=== PATIENT | female | born 1970 | race Asian ===

== ENCOUNTER → 2021-12-22 09:31 | Outpatient (BNVA) | payer OTHER, SELFPAY | PROVIDERS: Visit Provider Psychiatry & Neurology Neurology ==

== ENCOUNTER → 2023-04-06 07:55 | Outpatient (BNVA) | payer OTHER, MEDICARE, SELFPAY | PROVIDERS: PCP Physician Assistant Medical; Visit Provider Psychiatry & Neurology Neurology ==

== ENCOUNTER 2023-08-09 09:13 | Outpatient (AMB) | payer OTHER, MEDICARE, SELFPAY ==
--- NOTE | 2023-08-09 09:16 | MHC.OFFVIS ---
Intake Vital Signs 08/09/23 09:17 Height 5 ft 5 in Weight 114 lb BMI 19.0 BP 100/70 Blood Pressure Location Rt brachial Position Sitting Pulse 88 Pulse Source Pulse Oximeter Pulse Oximetry (%) 98 Oxygen Delivery Method Room Air Intake Visit Reasons: 4m follow up Parkinson's-lvm Intake Note: Patient presents for 4 month follow up parkinson's. Patient states she had abdominal surgery in may that kind of set up her parkinsons making her weak Allergies No Known Allergies Allergy (Verified 08/09/23 09:19) Medication List - Last Reconciled 08/09/23 by Karolina Jones MD carbidopa-levodopa 25-100 mg (Sinemet) 1.5 tabs PO .5 times a day entacapone 200 mg PO TID famotidine 20 mg PO DAILY gabapentin 600 mg (2 x 300 mg) PO TID PRN ketorolac 0.5% drps ophthalmic (eye) magnesium 200 mg PO DAILY omeprazole 40 mg PO DAILY omeprazole 40 mg PO DAILY polyethylene glycol 3350 (Miralax) 17 grams PO DAILY tenofovir disoproxil fumarate 300 mg PO BEDTIME trazodone 50 mg PO BEDTIME PRN trihexyphenidyl 1 mg (1/2 x 2 mg) PO Q6H HPI HPI Comments History of Present Illness Details 53-year-old female comes for follow-up of her Parkinson's disease complicated by severe dyskinesia and on-off fluctuations.she had a bowel surgery - resection and wa sin bed for 2 weeks . she is feeling better but weaker. she has home PT. She has epsiodes of sudden neck spasm - massage helps. she is stable with amantadine 100mg bid , sinemet 25/100 1.5 tabs 5 times and trihexyphenidyl 1mg qid comtan 200mg tid she had 2 falls . she reports muscle cramps - painful dystonia lasting 5min after taking sinemet dose- she has 2-3 times a day, muscle cramp cream helps. She is accompanied by her daughter who helps with the history. Patient also has history of spinal stenosis and lumbar spondylosis which affects her walking. Her back pain is better and she takes gabapentin on a as needed basis. she is under the care of pain management. She denies any numbness or tingling. She uses a cane to walk and occasionally loses balance. She denies any hallucinations dysphagia memory issues etc.. she sleeps better with trazodone. [facility] Medical History (Updated 08/09/23 @ 09:33 by Karolina Jones MD) Parkinson's disease with dyskinesia and fluctuating manifestations Cataract Parkinsons disease Insomnia Congenital nystagmus Albinism Lumbar spondylosis Surgical History H/O abdominal surgery Hx laparoscopic cholecystectomy H/O Spinal surgery Social History Unable to assess alcohol history related to: Unable to respond Alcohol intake: never Patient Tobacco Use Status: Never used Tobacco Physical Exam Vital Signs: Last Vital Signs Pulse 88 08/09/23 09:17 BP 100/70 08/09/23 09:17 Pulse Ox 98 08/09/23 09:17 Oxygen Delivery Method Room Air 08/09/23 09:17 BMI result Body Mass Index 19.0 Const General: cooperative, healthy appearing and anxious Nutritional Appearance: average body habitus Neuro Other: Moderate bradykinesia No Tremors Fine finger movements were decreased bilaterally. Foot taps were decreased bilaterally Tone - normal Speech - hypophonia decreased facial expression and blink gait not evaluated Assessment & Plan Assessment & Plan (1) Parkinson's disease with dyskinesia and fluctuating manifestations: Code(s): G20.B2 - Parkinson's disease with dyskinesia, with fluctuations (2) Lumbar spondylosis: Code(s): M47.816 - Spondylosis without myelopathy or radiculopathy, lumbar region (3) Insomnia: Code(s): G47.00 - Insomnia, unspecified Plan sinemet 25/100 1 tab 1 times a day and 1.5tabs 4times a day Trihexyphenidyl 2mg 1/2 tab qid continue exercises Trazodone 100mg qhs gabapentin 600 tid baclofen 5-10 mg qhs magnesium 400mg qhs She has more than 3 hrs OFF period a day and will be a good candidate for duopa - info given to family. Coding Level of Care Code Est Pt Level 4 (13853) Diagnoses Parkinson's disease with dyskinesia and fluctuating manifestations G20.B2 Lumbar spondylosis M47.816 Insomnia G47.00
[2023-08-09 09:17] VITALS: BP 100/70; PULSE 88; O2SAT 98; BMI 19.0
== END 2023-08-09 09:59 | disposition home or self-care (01) ==
PROVIDERS: PCP Physician Assistant Medical; Visit Provider Psychiatry & Neurology Neurology
DX: G20.B2 Parkinson's disease with dyskinesia, with fluctuations (principal); M47.816 Spondylosis without myelopathy or radiculopathy, lumbar region; G47.00 Insomnia, unspecified
CPT/HCPCS: 99214

== ENCOUNTER → 2023-08-09 09:13 | Outpatient (BNVA) | payer OTHER, MEDICARE, SELFPAY | PROVIDERS: PCP Physician Assistant Medical; Visit Provider Psychiatry & Neurology Neurology ==

== ENCOUNTER 2023-10-04 10:26 | Outpatient (AMB) | payer OTHER, MEDICARE, SELFPAY ==
[2023-10-04 10:30] VITALS: BP 110/63; PULSE 76; BMI 20.5
--- NOTE | 2023-10-04 10:30 | MHC.OFFVIS ---
Intake Vital Signs 10/04/23 10:30 Height 5 ft 5 in Weight 123 lb BMI 20.5 BP 110/63 Blood Pressure Location Rt brachial Position Sitting Pulse 76 Intake Visit Reasons: discuss PEG-J insertion Intake Note: This patient presents for an assessment to discuss PEG-J insertion. Patient's daughter c/o; reports no complaints at this time. Well Logging Mud Analysis Captain Required: No Accompanied by: Self / Same As Patient Allergies No Known Allergies Allergy (Verified 10/04/23 10:36) Medication List - Last Reconciled 10/04/23 by Pk Van MD carbidopa-levodopa 25-100 mg (Sinemet) 1.5 tabs PO .5 times a day entacapone 200 mg PO TID famotidine 20 mg PO DAILY gabapentin 600 mg (2 x 300 mg) PO TID PRN ketorolac 0.5% drps ophthalmic (eye) magnesium 200 mg PO DAILY omeprazole 40 mg PO DAILY omeprazole 40 mg PO DAILY polyethylene glycol 3350 (Miralax) 17 grams PO DAILY polyethylene glycol 3350 (Miralax) 17 grams PO BID tenofovir disoproxil fumarate 300 mg PO BEDTIME trazodone 50 mg PO BEDTIME PRN trihexyphenidyl 1 mg (1/2 x 2 mg) PO Q6H HPI discuss PEG-J insertion HPI Details 53-year-old female referred for insertion of a PEG J tube for Parkinson's disease. She had been diagnosed to have Parkinson's disease since 2007. However, for the past year, she seems to have had poor control of her symptoms. According to her daughter, despite oral intake of her medications, often times relief of her involved are movements and tremors would be delayed. Because of this, sometimes she would just stay in bed all day. In view of this, she was referred to me by her neurologist for PEG J placement for Duopa infusion for better steady state of dopamine levels. She had laparotomy for sigmoid volvulus last May, and has a low midline incision. She denies GI complaints at this time [facility] Medical History Parkinson's disease with dyskinesia and fluctuating manifestations Cataract Parkinsons disease Insomnia Congenital nystagmus Albinism Lumbar spondylosis Surgical History H/O abdominal surgery Hx laparoscopic cholecystectomy H/O Spinal surgery Social History Unable to assess alcohol history related to: Unable to respond Alcohol intake: never Patient Tobacco Use Status: Never used Tobacco Review of Systems Const Denies chills and Denies fever(s) Card Denies chest pain, Denies dyspnea and Denies dyspnea on exertion Resp Denies cough, Denies dyspnea and Denies dyspnea on exertion GI Denies hematochezia and Denies change in bowel habits Denies hematuria Musc Denies back pain and Denies limited range of motion Neuro Details: Has tremors and involuntary movements Denies focal weakness and Denies convulsions Psych Denies depression and Denies mood swings Physical Exam Const Other: Ambulating with a cane General: comfortable and no acute distress Orientation/consciousness: patient oriented x3 Neck Neck: Yes no lymphadenopathy Resp Auscultation: clear to auscultation bilaterally Cardio Rhythm: regular rhythm GI Other: Laparotomy incision Palpation (GI): Soft to palpation, nontender and no guarding Neuro Other: Has involuntary movements General: patient oriented x3 Assessment & Plan Assessment & Plan (1) Parkinson's disease with dyskinesia and fluctuating manifestations: Code(s): G20.B2 - Parkinson's disease with dyskinesia, with fluctuations Plan: The patient describes worsening control of her Parkinson's symptoms with tremors and involuntary movements. They were therefore commended by her neurologist to have a PEG J placed for Duopa infusion. I explained to the patient and her daughter the technique of PEG J placement for Duopa infusion under anesthesia. I reviewed the risks including but not limited to bleeding, infections, tube dislodgement, injury to other organs including bowel, tube leak, inherent risks of anesthesia, as well as the benefits and alternatives. I explained to them what to expect postoperatively. The patient understands. She says she will call the office to schedule once she is ready. He had colon resection for sigmoid volvulus last May, and has a laparotomy incision all the way to just the level of the umbilicus. I will order for a CAT scan to make sure that there is a good window to access the stomach percutaneously. Orders: Orders CT abdomen pelvis wo IV con Today Z90.49 - Acquired absence of other specified parts of digestive tract Coding Level of Care Code New Pt Level 3 (75461) Diagnoses Parkinson's disease with dyskinesia and fluctuating manifestations G20.B2
== END 2023-10-04 10:54 | disposition home or self-care (01) ==
PROVIDERS: PCP Physician Assistant Medical; Visit Provider Surgery
DX: G20.B2 Parkinson's disease with dyskinesia, with fluctuations (principal)
CPT/HCPCS: 99203

== ENCOUNTER → 2023-10-04 10:26 | Outpatient (BNVA) | payer OTHER, MEDICARE, SELFPAY | PROVIDERS: PCP Physician Assistant Medical; Visit Provider Surgery ==

== ENCOUNTER 2023-10-25 10:04 | Outpatient (REF) | payer OTHER, MEDICARE, SELFPAY | END 2023-10-25 10:05 | disposition home or self-care (01) | LOC: HO.CT 10:04 | PROVIDERS: Visit Provider Surgery | DX: Z90.49 Acquired absence of other specified parts of digestive tract (principal) | CPT/HCPCS: 74176 ==

== ENCOUNTER 2023-11-14 07:29 | Day surgery (SDC) | payer OTHER, MEDICARE, SELFPAY ==
[2023-11-10 11:55] VITALS: BMI 20.5
[2023-11-14] VITALS (11 sets, daily range): BP systolic 98–152; BP diastolic 65–91; PULSE 80–98; RESP 14–18; TEMP 36.6–36.8; O2SAT 95–100
--- NOTE | ~2023-11-14 | FL_ITS ---
EXAMINATION: XR FLUOROSCOPY WITH IMAGES CLINICAL INFORMATION: PEG-J insertion. COMPARISON: None available. TECHNIQUE: Fluoroscopy Supervised By: Dr. Pk Van. Fluoroscopy Time: 1.6 minutes. Cumulative Dose: 8.77 mGy. DAP: 0.152 Gycm2. Images: 1. FINDINGS: Fluoroscopy guidance for PEG J insertion. Image demonstrates endoscope projecting over the stomach. FL/FL guidance in OR IMPRESSION: Fluoroscopy guidance for PEG J tube insertion.
[2023-11-14] MEDS: Lactated Ringers 1,000 ML 100 ML IVCONT (07:53)
--- NOTE | 2023-11-14 08:28 | MHC.SHP ---
Pre-Procedural Eval Section A Date of Service: 11/14/23 Section B Chief Complaint: Parkinson's disease with dyskinesia, with fluctuat Details of Present Illness: Has worsening Parkinson's disease, here for PEG J placement for Duopa infusion Relevant Social History: None Present Medications: see Short Stay Collaborative assessment (Parkinson's, spondylosis) Medical History: Significant History (Parkinson's, spondylosis) Allergies: Allergies Allergy/AdvReac Type Severity Reaction Status Date / Time No Known Allergies Allergy Verified 11/14/23 07:59 Review of Systems Sugical H&P ROS: Negative: Constitution, Cardiovascular, Respiratory, Neurological, Psychiatric, Hem-Onc, Allergic/Immunologic, Gastrointestinal, Genitourinary, Musculoskeletal, Integumentary, Endocrine and Eyes/Ears/Nose/Throat Exam Surgical H&P Exam: Normal: HEENT, Normal: Heart, Normal: Lungs, Normal: Extremities, Normal: Abdomen, Normal: Skin and Normal: Neurological Plan Diagnosis/Plan: Unchanged I have reviewed the history and physical and performed a pertinent physical examination on my patient. No changes have occurred unless specified. Time Spent With Patient Time: Total time managing care of this patient today ____ minutes.
--- NOTE | 2023-11-14 08:45 | HO.ANESPROP2 ---
Documented by User: Tika Horton NP 11/13/23 09:17 HPI - Anesthesia Eval Consult details Narrative: 53yo F for Peg-J Insertion PMFSH Active Problems Active Problems: All Active Problems (Updated 08/09/23 @ 09:33 by Karolina Jones MD) Parkinson's disease with dyskinesia and fluctuating manifestations (Acute) Parkinsons disease (Acute) Insomnia (Acute) Lumbar spondylosis (Acute) Past Medical History Medical History Parkinson's disease with dyskinesia and fluctuating manifestations Cataract Parkinsons disease Insomnia Congenital nystagmus Albinism Lumbar spondylosis Surgical History Surgical History H/O abdominal surgery Hx laparoscopic cholecystectomy H/O Spinal surgery Social History Social History Unable to assess alcohol history related to: Unable to respond Alcohol intake: never Patient Tobacco Use Status: Never used Tobacco Substance Use Frequency: Occasionally Advance Directives: No Advance Directives Information Provided: Yes Nutrition Risks: No Nutritional Risk Meds Allergies Allergy/AdvReac Type Severity Reaction Status Date / Time No Known Allergies Allergy Verified 11/14/23 07:59 Home Medications Medication Instructions Recorded Confirmed Last Taken Type tenofovir disoproxil fumarate 300 300 mg PO BEDTIME 12/22/21 11/14/23 Unknown History mg tablet famotidine 20 mg tablet 20 mg PO DAILY 04/06/23 11/14/23 Unknown History ketorolac 0.5 % eye drops drp ophthalmic (eye) 04/06/23 10/04/23 Unknown History magnesium 200 mg tablet 200 mg PO DAILY 04/06/23 11/14/23 Unknown History omeprazole 40 mg capsule,delayed 40 mg PO DAILY 04/06/23 11/14/23 11/14/23 History release polyethylene glycol 3350 17 17 g PO DAILY 04/06/23 10/04/23 Unknown History gram/dose oral powder (Miralax) polyethylene glycol 3350 17 17 g PO BID 10/04/23 10/04/23 Unknown History gram/dose oral powder (Miralax) Exam Height,Weight and Vital Signs: Height 5 ft 5 in Weight 55.792 kg Assessment and Plan Assessment Anesthesia Assessment: Chart Reviewed Documented by User: Adenike Gray DO 11/14/23 08:53 PMFSH Past Medical History Medical History Parkinson's disease with dyskinesia and fluctuating manifestations Cataract Parkinsons disease Insomnia Congenital nystagmus Albinism Lumbar spondylosis Family History Family history of problems with anesthesia: No Surgical History Surgical History H/O abdominal surgery Hx laparoscopic cholecystectomy H/O Spinal surgery History of Problems with Anesthesia: No Social History Social History Unable to assess alcohol history related to: Unable to respond Alcohol intake: never Patient Tobacco Use Status: Never used Tobacco Substance Use Frequency: Occasionally Advance Directives: No Advance Directives Information Provided: Yes Nutrition Risks: No Nutritional Risk Meds Allergies Allergy/AdvReac Type Severity Reaction Status Date / Time No Known Allergies Allergy Verified 11/14/23 07:59 Home Medications Medication Instructions Recorded Confirmed Last Taken Type tenofovir disoproxil fumarate 300 300 mg PO BEDTIME 12/22/21 11/14/23 Unknown History mg tablet famotidine 20 mg tablet 20 mg PO DAILY 04/06/23 11/14/23 Unknown History ketorolac 0.5 % eye drops drp ophthalmic (eye) 04/06/23 10/04/23 Unknown History magnesium 200 mg tablet 200 mg PO DAILY 04/06/23 11/14/23 Unknown History omeprazole 40 mg capsule,delayed 40 mg PO DAILY 04/06/23 11/14/23 11/14/23 History release polyethylene glycol 3350 17 17 g PO DAILY 04/06/23 10/04/23 Unknown History gram/dose oral powder (Miralax) polyethylene glycol 3350 17 17 g PO BID 10/04/23 10/04/23 Unknown History gram/dose oral powder (Miralax) Exam Exam Date and Time: November 14, 2023 0845 Height,Weight and Vital Signs: Height 5 ft 5 in Weight 55.792 kg Height 5 ft 5 in Weight 54.613 kg Vital Signs Temperature 97.9 F 11/14/23 07:59 Pulse Rate 98 11/14/23 07:59 Respiratory Rate 18 11/14/23 07:59 Blood Pressure 141/87 H 11/14/23 07:59 Pulse Oximetry 98 11/14/23 07:59 Oxygen Delivery Method Room Air 11/14/23 07:59 Temperature 97.9 F 11/14/23 07:59 Pulse Rate 98 11/14/23 07:59 Respiratory Rate 18 11/14/23 07:59 Blood Pressure 141/87 H 11/14/23 07:59 Pulse Oximetry 98 11/14/23 07:59 Oxygen Delivery Method Room Air 11/14/23 07:59 Airway Mallampati Class: I TM Dist: >3cm Neck ROM: Limited Loose/Missing/Broken Teeth: No Heart: S1S2 Lungs: CTAB Assessment and Plan Assessment Anesthesia Assessment: Anesthesia Plan Discussed and Chart Reviewed Final Anesthetic Review Family History of Problems with Anesthesia: No History of Problems with Anesthesia: No NPO: Yes ASA Class: III Final Preanesthetic Review: No Changes in Pt Med Stat, Meds/Allgs Chart Reviewed, Consent Obtained/Reviewed and Anes Risks/Benef Reviewed Patient Risk: Intermediate Procedure Risk: Low Anesthetic Plan Anesthetic Plan: GA and Agree w/ Assess. and Plan Disposition: Standard PACU
--- NOTE | 2023-11-14 10:15 | P.OP_ITS ---
Operative Note Operative Note Date of Service: 11/14/23 Narrative: Preop diagnosis: Parkinson's disease Postop diagnosis: The same Procedure: PEG J-tube placement with fluoroscopy Surgeon: Pk Van MD 1st assistant maintenance manager: LANCE Pressley The patient is a 53 year female with with worsening Scot's disease symptoms, here for PEG J-tube placement for Duopa infusion. The patient and her daughter understood the technique of the procedure as well as the risks, benefits, and alternatives She was brought to the operating room. She was placed supine under monitored anesthesia care. The bite block was in position. Surgical time-out was done. The scope was gradually introduced to the oral orifice all the way into the oropharynx. The vocal cords were visualized. The esophageal slit was seen posterior to this. The esophageal slit was intubated. The scope was gently advanced the entire length of the esophagus although to stomach lumen. We insufflated the stomach lumen. Once elimination was easily seen on the epigastric area. Indentation on the anterior stomach wall was also seen with pressure on this area with a finger. We therefore chose this area for placement of the PEG part. Lidocaine 1% was used for local anesthesia. A small stab incision was made using blade 11. The large-bore needle was inserted through this incision into the stomach lumen. The guidewire was inserted and this was caught with a snare. We pulled out the guidewire all the way to the oral orifice. We loop the PEG part onto this and pulled out the guidewire until this felt snug in the abdominal wall. I reinserted the endoscope. The internal bolster was seen the anterior stomach wall. We inserted the jejunostomy part through the PEG and this was grasped with a forceps. We then proceeded to advance this jejunostomy tube into the pyloric orifice, passed the C-loop of the duodenum, into the jejunum. Placement was confirmed with fluoroscopy. We pulled out the endoscope into the stomach lumen with the wire still in place in the jejunum. Again, placement was confirmed with fluoroscopy. However, as we started to straighten I loop in the stomach for excessive length of the jejunostomy, the tip appeared to retract back into the duodenum. Therefore had to repeat advancement of the jejunostomy part but this retraction happened repeatedly. On the 3rd attempt, I proceeded to then apply an endoscopy clip to secure the tip of the jejunostomy into the mucosa. This time, the jejunostomy part stayed in place in the jejunum and this was confirmed with anoscopy at the end We removed the endoscope completely with desufflation.. He external attachments were applied on the jejunostomy tube. The external bolster was position snug on the skin The procedure was completed The patient tolerated procedure well. There were no immediate complications. There was minimal blood loss. The patient was then transferred to the recovery room with stable vital signs.
[2023-11-14] MEDS: oxyCODONE HCl Immed Release 5 MG TABLET PO (10:55)
[2023-11-14] MEDS: fentaNYL citrate/PF 100 MCG/2 ML VIAL 25 MCG IVPUSH (11:29)
[2023-11-14] MEDS: Ketorolac Tromethamine 30 MG/ML VIAL IVPUSH (11:45)
== END 2023-11-14 12:08 | disposition home or self-care (01) ==
PROVIDERS: Visit Provider Surgery
PROC: (CPT 43246; principal; 2023-11-14 09:10)
DX: G20.B2 Parkinson's disease with dyskinesia, with fluctuations (principal); G47.00 Insomnia, unspecified; H55.01 Congenital nystagmus; E70.30 Albinism, unspecified; Z79.899 Other long term (current) drug therapy; Z90.49 Acquired absence of other specified parts of digestive tract; Z98.890 Other specified postprocedural states
CPT/HCPCS: 43246; J0690; J1100; J1885; J2405; J2704; J3010

== ENCOUNTER → 2023-11-14 07:29 | Outpatient (BNV) | payer OTHER, MEDICARE, SELFPAY | PROVIDERS: Visit Provider Surgery | DX: G20.B2 Parkinson's disease with dyskinesia, with fluctuations (principal) | CPT/HCPCS: 43246 ==

== ENCOUNTER 2023-11-27 13:58 | Outpatient (AMB) | payer OTHER, MEDICARE, SELFPAY ==
--- NOTE | 2023-11-27 14:14 | A.OFFVIS_ITS ---
Intake Vital Signs 11/27/23 14:20 BP 121/73 Blood Pressure Location Rt brachial Position Sitting Pulse 87 Intake Visit Reasons: S/P Peg-J placement Intake Note: Patient is seen in office for post op assessment post peg J placement. Pt's daughter c/o: reports pain peg-J site. Ethylbenzene Converter Operator Required: No Accompanied by: Daughter Allergies No Known Allergies Allergy (Verified 11/27/23 14:24) HPI S/P Peg-J placement HPI Details Sh had undergone PEG J placement last November 14 for Duopa infusion for her Parkinson's disease. She tolerated procedure well. She does state that she has some pain on the peg J site. She denies GI complaints. She has good oral intake. She starts Duopa infusion tomorrow. [facility] Medical History Parkinson's disease with dyskinesia and fluctuating manifestations Cataract Parkinsons disease Insomnia Congenital nystagmus Albinism Lumbar spondylosis Surgical History History of surgery (11/14/23) H/O abdominal surgery Hx laparoscopic cholecystectomy H/O Spinal surgery Social History Unable to assess alcohol history related to: Unable to respond Alcohol intake: never Patient Tobacco Use Status: Never used Tobacco Review of Systems Const Denies chills and Denies fever(s) Card Denies chest pain, Denies dyspnea and Denies dyspnea on exertion Resp Denies cough, Denies dyspnea and Denies dyspnea on exertion GI Denies hematochezia and Denies change in bowel habits Denies hematuria Musc Denies back pain and Denies limited range of motion Neuro Details: Poor balance Denies focal weakness and Denies convulsions Psych Denies depression and Denies mood swings Physical Exam Vital Signs: Last Vital Signs Pulse 87 11/27/23 14:20 BP 121/73 11/27/23 14:20 Const Other: On wheelchair General: comfortable and no acute distress Resp Effort & Inspection: normal respiratory effort GI Other: Peg J site clean, some redness on the skin Palpation (GI): Soft to palpation and not firm Assessment & Plan Assessment & Plan (1) Parkinsons disease: Code(s): G20 - Parkinson's disease Plan: S/P PEG-J placement. She is doing well postop. The PEG J is in place. She is to start Duopa infusion tomorrow. She will be followed by a nurse ambassador for Duopa for care of the PEG-J. She can ffup on a prn basis. Coding Level of Care Code Global (44215) Diagnoses Parkinsons disease G20
[2023-11-27 14:20] VITALS: BP 121/73; PULSE 87
== END 2023-11-27 14:31 | disposition home or self-care (01) ==
PROVIDERS: PCP Physician Assistant Medical; Visit Provider Surgery
DX: G20.B2 Parkinson's disease with dyskinesia, with fluctuations (principal); Z48.89 Encounter for other specified surgical aftercare
CPT/HCPCS: 99212

== ENCOUNTER → 2023-11-27 13:58 | Outpatient (BNVA) | payer OTHER, MEDICARE, SELFPAY | PROVIDERS: PCP Physician Assistant Medical; Visit Provider Surgery ==

== ENCOUNTER 2023-11-28 10:58 | Outpatient (AMB) | payer OTHER, MEDICARE, SELFPAY ==
--- NOTE | 2023-11-28 11:02 | A.OFFVIS_ITS ---
Intake Vital Signs 11/28/23 11:03 Weight 124 lb 8 oz BP 96/62 Blood Pressure Location Lt brachial Position Sitting Respiration 16 Pulse 87 Pulse Source Pulse Oximeter Pulse Oximetry (%) 96 Oxygen Delivery Method Room Air Intake Visit Reasons: -Duopa Tiatration - CONF Intake Note: Pt presents to the office for follow up of Duopa titration. Locksmith Apprentice Required: No Allergies No Known Allergies Allergy (Verified 11/28/23 11:03) HPI HPI Comments 2 History of Present Illness Details 53-year-old female comes for follow-up of her Parkinson's disease complicated by severe dyskinesia and on-off fluctuations.she had SHe had J tube inserted 2 weeks ago and is here for duopa pump set up. Morning dose 9 ml max at 11 Continous dose 2 ml max at 3 LLI Extra dose 1mg q 2 hrs.max 2 she has home PT. She has episodes of sudden neck spasm - massage helps. she is stable with amantadine 100mg bid , sinemet 25/100 1.5 tabs 5 times and trihexyphenidyl 1mg qid comtan 200mg tid she had 2 falls . she reports muscle cramps - painful dystonia lasting 5min after taking sinemet dose- she has 2-3 times a day, muscle cramp cream helps. She is accompanied by her daughter who helps with the history. Patient also has history of spinal stenosis and lumbar spondylosis which affects her walking. Her back pain is better and she takes gabapentin on a as needed basis. she is under the care of pain management. She denies any numbness or tingling. She uses a cane to walk and occasionally loses balance. She denies any hallucinations dysphagia memory issues etc.. she sleeps better with trazodone. [facility] Medical History Parkinson's disease with dyskinesia and fluctuating manifestations Cataract Parkinsons disease Insomnia Congenital nystagmus Albinism Lumbar spondylosis Surgical History History of surgery (11/14/23) H/O abdominal surgery Hx laparoscopic cholecystectomy H/O Spinal surgery Social History Unable to assess alcohol history related to: Unable to respond Alcohol intake: never Patient Tobacco Use Status: Never used Tobacco Physical Exam Vital Signs: Last Vital Signs Pulse 87 11/28/23 11:03 Resp 16 11/28/23 11:03 BP 96/62 11/28/23 11:03 Pulse Ox 96 11/28/23 11:03 Oxygen Delivery Method Room Air 11/28/23 11:03 Const General: cooperative, healthy appearing and anxious Nutritional Appearance: average body habitus Neuro Other: Moderate bradykinesia No Tremors Fine finger movements were decreased bilaterally. Foot taps were decreased bilaterally Tone - normal Speech - hypophonia decreased facial expression and blink gait not evaluated Assessment & Plan Assessment & Plan (1) Parkinson's disease with dyskinesia and fluctuating manifestations: Code(s): G20.B2 - Parkinson's disease with dyskinesia, with fluctuations (2) Lumbar spondylosis: Code(s): M47.816 - Spondylosis without myelopathy or radiculopathy, lumbar region (3) Insomnia: Code(s): G47.00 - Insomnia, unspecified Plan Duopa set up at 9mg morning dose 2 ml continuous dose D/Csinemet 25/100 1 tab 1 times a day and 1.5tabs 4times a day Trihexyphenidyl 2mg 1/2 tab qid continue exercises Trazodone 100mg qhs gabapentin 600 tid baclofen 5-10 mg qhs magnesium 400mg qhs Coding Level of Care Code Est Pt Level 4 (14943) Diagnoses Parkinson's disease with dyskinesia and fluctuating manifestations G20.B2 Lumbar spondylosis M47.816 Insomnia G47.00
[2023-11-28 11:03] VITALS: BP 96/62; PULSE 87; RESP 16; O2SAT 96
== END 2023-11-28 12:35 | disposition home or self-care (01) ==
PROVIDERS: PCP Physician Assistant Medical; Visit Provider Psychiatry & Neurology Neurology
DX: G20.B2 Parkinson's disease with dyskinesia, with fluctuations (principal); M47.816 Spondylosis without myelopathy or radiculopathy, lumbar region; G47.00 Insomnia, unspecified
CPT/HCPCS: 99214

== ENCOUNTER → 2023-11-28 10:58 | Outpatient (BNVA) | payer OTHER, MEDICARE, SELFPAY | PROVIDERS: PCP Physician Assistant Medical; Visit Provider Psychiatry & Neurology Neurology ==

== ENCOUNTER 2024-01-10 10:16 | Outpatient (AMB) | payer OTHER, MEDICARE, SELFPAY ==
--- NOTE | 2024-01-10 10:20 | A.OFFVIS_ITS ---
Intake Vital Signs 01/10/24 10:23 Respiration 16 Pulse 84 Pulse Source Pulse Oximeter Pulse Oximetry (%) 98 Oxygen Delivery Method Room Air Intake Visit Reasons: FOLLOW UP-LVM Intake Note: Pt presents tot he office for a 6 week follow up Duopa titration. Fruit Grader Operator Required: No Allergies No Known Allergies Allergy (Verified 01/10/24 10:21) Medication List - Last Reconciled 01/10/24 by Karolina Jones MD famotidine 20 mg PO DAILY gabapentin 600 mg (2 x 300 mg) PO TID PRN magnesium 200 mg PO DAILY omeprazole 40 mg PO DAILY polyethylene glycol 3350 (Miralax) 17 grams PO DAILY polyethylene glycol 3350 (Miralax) 17 grams PO BID tenofovir disoproxil fumarate 300 mg PO BEDTIME trazodone 50 mg PO BEDTIME PRN trihexyphenidyl 1 mg (1/2 x 2 mg) PO Q6H HPI HPI Comments History of Present Illness Details 53-year-old female comes for follow-up of her Parkinson's disease complicated by severe dyskinesia and on-off fluctuations. Morning dose 9 ml max at 11 Continous dose 2.2 ml max at 3 LLI Extra dose 1mg q 2 hrs.max 2 she has been doing well. she uses the extra dose 1-2 times a day usually before a shower. she has dyskinesias - starts around 11 am - all day. She has episodes of sudden neck spasm - massage helps.Less severe. she is stable with trihexyphenidyl 1mg qid No falls No painful dystonia. She is accompanied by her daughter who helps with the history. Patient also has history of spinal stenosis and lumbar spondylosis. Her back pain is better and she takes gabapentin on a as needed basis. she is under the care of pain management. She denies any numbness or tingling. She uses a cane to walk and occasionally loses balance. She denies any hallucinations dysphagia memory issues etc.. she sleeps better with trazodone. FORMERLY [facility], [facility] Medical History Parkinson's disease with dyskinesia and fluctuating manifestations Cataract Parkinsons disease Insomnia Congenital nystagmus Albinism Lumbar spondylosis Surgical History History of surgery (11/14/23) H/O abdominal surgery Hx laparoscopic cholecystectomy H/O Spinal surgery Social History Unable to assess alcohol history related to: Unable to respond Alcohol intake: never Patient Tobacco Use Status: Never used Tobacco Physical Exam Vital Signs: Last Vital Signs Pulse 84 01/10/24 10:23 Resp 16 01/10/24 10:23 Pulse Ox 98 01/10/24 10:23 Oxygen Delivery Method Room Air 01/10/24 10:23 Assessment & Plan Assessment & Plan (1) Parkinson's disease with dyskinesia and fluctuating manifestations: Code(s): G20.B2 - Parkinson's disease with dyskinesia, with fluctuations (2) Lumbar spondylosis: Code(s): M47.816 - Spondylosis without myelopathy or radiculopathy, lumbar region (3) Insomnia: Code(s): G47.00 - Insomnia, unspecified Plan Decrease Duopa set up at 8.7mg morning dose 2.2 ml continuous dose Trihexyphenidyl 2mg 1/2 tab qid continue exercises Trazodone 100mg qhs gabapentin 600 tid baclofen 5-10 mg qhs and qam as needed . i will consider botox for cervical dystonia magnesium 400mg qhs Medications: Discontinued carbidopa-levodopa 25-100 mg (Sinemet) Discontinued Reason: Patient no longer taking 1.5 tabs PO .5 times a day 240 tabs 6RF entacapone Discontinued Reason: Patient no longer taking 200 mg PO TID 90 tabs 6RF Coding Level of Care Code Est Pt Level 4 (67142) Diagnoses Parkinson's disease with dyskinesia and fluctuating manifestations G20.B2 Lumbar spondylosis M47.816 Insomnia G47.00
[2024-01-10 10:23] VITALS: PULSE 84; RESP 16; O2SAT 98
== END 2024-01-10 10:43 | disposition home or self-care (01) ==
PROVIDERS: PCP Physician Assistant Medical; Visit Provider Psychiatry & Neurology Neurology
DX: G20.B2 Parkinson's disease with dyskinesia, with fluctuations (principal); M47.816 Spondylosis without myelopathy or radiculopathy, lumbar region; G47.00 Insomnia, unspecified
CPT/HCPCS: 99214

== ENCOUNTER → 2024-01-10 10:16 | Outpatient (BNVA) | payer OTHER, MEDICARE, SELFPAY | PROVIDERS: PCP Physician Assistant Medical; Visit Provider Psychiatry & Neurology Neurology ==

== ENCOUNTER 2024-01-25 14:02 | Outpatient (AMB) | payer OTHER, MEDICARE, SELFPAY ==
--- NOTE | 2024-01-25 14:09 | MHC.OFFVIS ---
Intake Vital Signs 01/25/24 14:12 Height 5 ft 5 in Weight 129 lb 4 oz BMI 21.5 BP 114/62 Blood Pressure Location Lt brachial Position Sitting Pulse 90 Intake Visit Reasons: s/p PEG J-tube placement, surgical site pain Intake Note: Patient is seen in office for post op assessment post PEG J placement. Pt c/o:pain at the site of Peg J tube for the past couple of weeks, pain been getting worse 05/08, no other concerns Pressroom Foreman Required: No Accompanied by: Self / Same As Patient Allergies No Known Allergies Allergy (Verified 01/25/24 14:11) Medication List - Last Reconciled 01/25/24 by Pk Van MD famotidine 20 mg PO DAILY gabapentin 600 mg (2 x 300 mg) PO TID PRN magnesium 200 mg PO DAILY omeprazole 40 mg PO DAILY polyethylene glycol 3350 (Miralax) 17 grams PO DAILY polyethylene glycol 3350 (Miralax) 17 grams PO BID tenofovir disoproxil fumarate 300 mg PO BEDTIME trazodone 50 mg PO BEDTIME PRN trihexyphenidyl 1 mg (1/2 x 2 mg) PO Q6H HPI s/p PEG J-tube placement, surgical site pain HPI Details She had a PEG J-tube placed last October, for Duopa infusion for Parkinson's disease. The past 2 weeks, she describes pain around the insertion site. She denies any drainage. The PEG J has been functioning well. As a matter fact, her Parkinson's symptoms have improved significantly with the infusion. She is able to walk better without significant assistance. She has good oral intake. She denies any fever or chills. There were no skin changes or any swelling around the PEG J site. [facility] Medical History (Updated 01/25/24 @ 14:35 by Pk Van MD) Pain around percutaneous endoscopic gastrostomy (PEG) tube site Parkinson's disease with dyskinesia and fluctuating manifestations Cataract Parkinsons disease Insomnia Congenital nystagmus Albinism Lumbar spondylosis Surgical History History of surgery (11/14/23) H/O abdominal surgery Hx laparoscopic cholecystectomy H/O Spinal surgery Social History Unable to assess alcohol history related to: Unable to respond Alcohol intake: never Patient Tobacco Use Status: Never used Tobacco Review of Systems Const Denies chills and Denies fever(s) Card Denies chest pain, Denies dyspnea and Denies dyspnea on exertion Resp Denies cough, Denies dyspnea and Denies dyspnea on exertion GI Denies hematochezia and Denies change in bowel habits Denies hematuria Musc Denies back pain and Denies limited range of motion Neuro Denies focal weakness and Denies convulsions Psych Denies depression and Denies mood swings Physical Exam Vital Signs: Last Vital Signs Pulse 90 01/25/24 14:12 BP 114/62 01/25/24 14:12 BMI result Body Mass Index 21.5 Const General: comfortable and no acute distress Orientation/consciousness: patient oriented x3 Neck Neck: Yes no lymphadenopathy Resp Auscultation: clear to auscultation bilaterally Cardio Rhythm: regular rhythm GI Other: Peg J in place left upper quadrant, no cellulitis, no discharge, no skin changes, no drainage or leak Palpation (GI): Soft to palpation, nontender and no guarding Neuro General: patient oriented x3 Assessment & Plan Assessment & Plan (1) Pain around percutaneous endoscopic gastrostomy (PEG) tube site: Code(s): T85.848A - Pain due to other internal prosthetic devices, implants and grafts, initial encounter Plan: She describes pain around the PEG J site. I do not see any drainage or any evidence of infection. There was no leak the area. There has no palpable mass. It appears that the pain may be likely secondary to irritation from the tube itself on the back. I have instructed the daughter to continue to try to give her Tylenol ibuprofen for symptomatic relief. At this time, it does not appear that there is any other intervention on the is required I did tell them to bring her back to the office if she continues to have problems down the line. The PEG J infusion seems to have been helping her a lot as her Parkinson's symptoms have improved significantly. Coding Level of Care Code Est Pt Level 2 (01085) Diagnoses Pain around percutaneous endoscopic gastrostomy (PEG) tube site T85.848A
[2024-01-25 14:12] VITALS: BP 114/62; PULSE 90; BMI 21.5
== END 2024-01-25 14:52 | disposition home or self-care (01) ==
PROVIDERS: PCP Physician Assistant Medical; Visit Provider Surgery
DX: T85.848A Pain due to other internal prosthetic devices, implants and grafts, initial encounter (principal)
CPT/HCPCS: 99212

== ENCOUNTER → 2024-01-25 14:02 | Outpatient (BNVA) | payer OTHER, MEDICARE, SELFPAY | PROVIDERS: PCP Physician Assistant Medical; Visit Provider Surgery ==

== ENCOUNTER 2024-04-18 09:11 | Outpatient (AMB) | payer OTHER, MEDICARE, SELFPAY ==
[2024-04-18 09:25] VITALS: BP 118/72; PULSE 94; BMI 22.1
--- NOTE | 2024-04-18 09:25 | A.OFFVIS_ITS ---
Vital Signs 04/18/24 09:25 Height 5 ft 5 in Weight 133 lb BMI 22.1 BP 118/72 Blood Pressure Location Rt brachial Position Sitting Pulse 94 Intake Visit Reasons: Reinsert J Tube Intake Note: This patient presents for a reinsertion of J-tube. Patient's daughter c/o; reports J-tube has been dislodged. Retail Store Manager Required: No Accompanied by: Daughter Allergies No Known Allergies Allergy (Verified 04/18/24 09:34) Medication List - Last Reconciled 04/18/24 by Pk Van MD baclofen 10 mg (2 x 5 mg) PO BEDTIME famotidine 20 mg PO DAILY gabapentin 600 mg (2 x 300 mg) PO TID PRN magnesium 200 mg PO DAILY omeprazole 40 mg PO DAILY polyethylene glycol 3350 (Miralax) 17 grams PO DAILY polyethylene glycol 3350 (Miralax) 17 grams PO BID tenofovir disoproxil fumarate 300 mg PO BEDTIME trazodone 50 mg PO BEDTIME PRN trihexyphenidyl 1 mg (1/2 x 2 mg) PO Q6H HPI HPI Reinsert J Tube: Details: 54-year-old female here today for reinserted under her PEG J-tube. She has known Parkinson's disease. She had undergone PEG J placement last October,. Her PEG J-tube was pulled out inadvertently 2 days ago when this was caught by the door knob. About a foot of these inner tube was pulled out at that time. The patient and her daughter want to have the PEG J reinserted because they feel that the infusion of Duopa has been helping a lot with the Parkinson's symptoms. She has been able to walk a lot better and her fine movements have been better controlled by being on the Duopa infusion. FORMERLY [facility] Medical History Pain around percutaneous endoscopic gastrostomy (PEG) tube site Parkinson's disease with dyskinesia and fluctuating manifestations Cataract Parkinsons disease Insomnia Congenital nystagmus Albinism Lumbar spondylosis Surgical History History of surgery (11/14/23) H/O abdominal surgery Hx laparoscopic cholecystectomy H/O Spinal surgery Social History Unable to assess alcohol history related to: Unable to respond Alcohol intake: never Patient Tobacco Use Status: Never used Tobacco Review of Systems Const Denies chills and Denies fever(s) Card Denies chest pain GI Denies abdominal pain and Reports constipation Denies dysuria Musc Reports abnormal gait Neuro Reports Neuro-related abnormal movements and Reports abnormal gait Physical Exam Vital Signs: Last Vital Signs Pulse 94 04/18/24 09:25 BP 118/72 04/18/24 09:25 BMI result Body Mass Index 22.1 Const Other: Ambulating General: comfortable and no acute distress Resp Effort & Inspection: normal respiratory effort Cardio Rate: regular rate GI Other: The G part of the PEG J is still in place but the jejunostomy part has been pulled out by a foot Palpation (GI): Soft to palpation, not firm, nontender and no guarding Assessment & Plan Assessment & Plan (1) Parkinson's disease with dyskinesia and fluctuating manifestations: Code(s): G20.B2 - Parkinson's disease with dyskinesia, with fluctuations Category: Medical Plan: Her Parkinson's disease symptoms have been well controlled since she had been on Duopa infusion the PEG J. However, her PEG J was inadvertently pulled out when discussed stuck on the door knob. The patient and her daughter want this reinserted. I therefore reviewed with them the technique of PEG J placement. I discussed the risks including but not limited to bleeding, infections, bowel injury, tube dislodgement, as well as benefits and alternatives. They understand and want to proceed. Coding Level of Care Code Est Pt Level 3 (42724) Diagnoses Parkinson's disease with dyskinesia and fluctuating manifestations G20.B2
== END 2024-04-18 09:55 | disposition home or self-care (01) ==
PROVIDERS: PCP Physician Assistant Medical; Visit Provider Surgery
DX: G20.B2 Parkinson's disease with dyskinesia, with fluctuations (principal)
CPT/HCPCS: 99214

== ENCOUNTER → 2024-04-18 09:11 | Outpatient (BNVA) | payer OTHER, MEDICARE, SELFPAY | PROVIDERS: PCP Physician Assistant Medical; Visit Provider Surgery ==

== ENCOUNTER 2024-05-03 10:46 | Day surgery (SDC) | payer OTHER, MEDICARE, SELFPAY ==
[2024-04-30 10:43] VITALS: BMI 22.1
--- NOTE | ~2024-05-03 | FL_ITS ---
EXAMINATION: XR FLUOROSCOPY WITH IMAGES CLINICAL INFORMATION: PEG insertion. COMPARISON: None available. TECHNIQUE: Fluoroscopy Supervised By: Dr. Pk Van. Fluoroscopy Time: 0.1 minute. Cumulative Dose: 2.07 mGy. DAP: 0.496 Gycm2. Images: 1. FINDINGS: Intraoperative fluoroscopy and spot films were performed during a procedure in the OR. An endoscope is present with the wire extending through the pylorus with its tip in the distal fourth portion of the duodenum. Please correlate with Dr. Pk Van's report for complete details. FL/FL guidance in OR IMPRESSION: Intraoperative fluoroscopy and spot films were obtained. Please see Dr. Pk Van's report for complete details.
--- OUTSIDE RECORDS SUMMARY | 2024-05-03 10:49 | XMS_ITS | Continuity of Care Document ---
Author Organization [facility] Address [address] [place] [address]- Care Team Providers Care Sueding Machine Operator Name Role Phone Henry Bennett MD Primary Care Physician Encounter [facility] Date(s): 08/17/22 - 09/16/22 [facility] [address] [place] [address]- Allergies, Adverse Reactions, Alerts No Known Allergies Immunizations Given and Recorded Vaccine Date Status Refusal Reason pneumococcal 23-valent vaccine 1 09/29/20 Given influenza virus vaccine, inactivated 2 08/14/19 Gi lacie influenza virus vaccine, inactivated 01/13/16 Give n tetanus/diphtheria/pertussis, acel(Tdap) 07/19/13 Given influ virus vac, H1N1, inactive(oldterm) 12/24/09 Given Not Given Vaccine Date Status Refusal Reason pneumococcal 23-valent vaccine 08/15/19 Not Given Patient Refuses pneumococcal 23-valent vaccine 01/13/16 Not Given Patient Refuses 1Early/Late Reason: Early/Late Reason: Med Not Available 2Early/Late Reason: Wan to Standard Admin Times Medications gabapentin 300 mg oral capsule 300 mg, 1, capsule, By Mouth, Daily, PRN, per neurology, Refills 0, Maintenance, Pain , Mild, 06/30/21 11:15:00 EDT, Partial fill upon patient request if the prescription is for a schedule II opioid drug. Start Date: 06/30/21 Status: Ordered Ibuprofen PRN, Refills 0, Maintenance, Pain , Moderate, 09/28/20 19:52:00 EST, Partial fill upon patient request Start Date: 09/28/20 Status: Ordered Linzess 145 mcg oral capsule 1 capsule = 145 mcg, By Mouth, Daily, # 90 capsule, 1 Refills, Maintenance, 09/16/22 7:49:00 EST, Capsule, [id number], Partial fill upon patient request if the prescription is for a schedule II opioid drug., 165, cm, 06/07/22 15:23:00 EDT, Hei... Start Date: 09/16/22 Status: Ordered Omeprazole = 20 mg, By Mouth, Daily, 0 Refills, Maintenance, 09/27/20 22:43:00 EST, Partial fill upon patient request Start Date: 09/27/20 Status: Ordered omeprazole 40 mg oral enteric coated capsule 1 capsule = 40 mg, By Mouth, 2 times a day, # 60 capsule, 3 Refills, Maintenance, 09/16/22 7:49:00 EST, [facility][id number], Partial fill upon patient request if the prescription is for a schedule II opioid drug., 165, cm, 06/07/22 15:23:00 EDT, Height... Start Date: 09/16/22 Stop Date: 01/14/23 Status: Ordered PEG-3350 with Electrolytes (Eqv-NuLYTELY) oral powder for reconstitution See Instructions, as directed, # 1 each, 0 Refills, Maintenance, 02/08/21 9:34:00 EDT, [facility], ok to sub for any gallon prep, as directed, 157, cm, 02/08/21 9:04:00 EDT, Height, 62.27,kg, 09/28/20 19:14:00 EST, Dry Weight Start Date: 02/08/21 Status: Ordered Rytary 23.75 mg-95 mg oral capsule, extended release 1.5 cap, By Mouth, 4 times a day, # 180 capsule, 0 Refills, Maintenance, 08/13/19 10:44:57 EDT, ER Capsule Start Date: 08/13/19 Status: Ordered tenofovir disoproxil fumarate 300 mg oral tablet 1 tablet = 300 mg, By Mouth, Daily, # 90 tablet, 3 Refills, Maintenance, 09/16/22 7:49:00 EST, Tablet, [facility][id number], 165, cm, 06/07/22 15:23:00 EDT, Height, 56.7, kg, 06/07/22 15:23:00 EDT, DryWeight Start Date: 09/16/22 Status: Ordered trihexyphenidyl 2 mg oral tablet 2 mg, 1, tablet, By Mouth, 3 times a day, Refills 0, Maintenance, 05/17/17 9:05:46 Start Date: 05/17/17 Status: Ordered Problem List Condition Confirmation Course Effective Dates Status Health Status Informant Abdominal pain Confirmed Active Dizziness - light-headed Confirmed Active Parkinsons disease Confirmed Active Pure hypercholesterolemia Confirmed Active Social History Social History Type Response Smoking Status Never smoker entered on: 06/04/15 Sex Patient Care team information Care Team Personnel Name: Henry Bennett MD Position: [facility] General Pediatrics MD Member Role: PCP Address: Address: [address] [place] [address] Name: Birdie Vieyra RN Position: [facility] RN Member Role: Primary Care Nurse Name: Izzy Monroy RN Position: [facility] OB RN Member Role: Primary Care Nurse Name: Danae Orozco RN Position: [facility] RN Member Role: Primary Care Nurse Name: Chelsey BENZ, Liz Position: [facility] RN Member Role: Primary Care Nurse Name: Lindsay Medrano RN Position: [facility] RN Member Role: Primary Care Nurse Name: Angelic Rainey RN Position: [facility] RN Member Role: Primary Care Nurse Name: Kari Dykes RN Position: [facility] RN Supv Member Role: Primary Care Nurse Name: Cristina Green RN Position: [facility] RN Member Role: Primary Care Nurse Care Team Related Persons Name: GLORIA ELIDA Address: home [address] [place] [id number] Name: DARÍO GLORIA Address: home [address] [place] [id number] Name: ARLENE [place] Address: [place] [address]
--- OUTSIDE RECORDS SUMMARY | 2024-05-03 10:49 | XMS_ITS | Continuity of Care Document ---
Author Organization [facility] Address [address] [place] [address]- Care Team Providers Care Shank Burnisher Name Role Phone Henry Bennett MD Primary Care Physician Encounter [facility] Date(s): 04/06/21 - 04/13/21 [facility] [address] [place] [address]- Attending Physician: Tony Whiting MD Referring Physician: Henry Bennett MD Allergies, Adverse Reactions, Alerts Substance Reaction Severity Status NKA Active Immunizations Given and Recorded Vaccine Date Status [...] Wan to Standard Admin Times Medications gabapentin 100 mg oral capsule 300 mg, 3, capsule, By Mouth, 3 times a day, # 90 capsule, Refills 0, Maintenance, 04/17/19 8:13:35EDT Start Date: 04/17/19 Status: Ordered Ibuprofen PRN, Refills 0, Maintenance, Pain , Moderate, 09/28/20 19:52:00 EST, Partial fill upon patient request Start Date: 09/28/20 Status: Ordered naproxen 500 mg oral tablet 1 tablet = 500 mg, By Mouth, 2 times a day, for 10 days, # 20 tablet, 0 Refills, Acute 04/16/21 15:20:00 EDT, 04/06/21 15:20:00 EDT, Tablet, [facility], Partial fill upon patient request if the prescription is for a schedule II opioid drug.... Start Date: 04/06/21 Stop Date: 04/16/21 Status: Ordered Omeprazole = 20 mg, By Mouth, Daily, 0 Refills, Maintenance, 09/27/20 22:43:00 EST, Partial fill upon patient request Start Date: 09/27/20 Status: Ordered PEG-3350 with Electrolytes (Eqv-NuLYTELY) oral powder for reconstitution See Instructions, as directed, # 1 each, 0 Refills, Maintenance, 02/08/21 9:34:00 EDT, [facility], ok to sub for any gallon prep, [...] Daily, # 90 tablet, 3 Refills, Maintenance, 11/30/20 16:28:00 EST, Tablet, [facility], 157, cm, 11/13/20 10:10:00 EST, Height, 62.27, kg, 09/28/20 19:14:00 EST, Dry Weight Start Date: 11/30/20 Status: Ordered trihexyphenidyl 2 mg oral tablet 2 mg, 1, tablet, By Mouth, 3 times a day, Refills 0, Maintenance, 05/17/17 9:05:46 Start Date: 05/17/17 Status: Ordered Problem List Condition Effective Dates Status Health Status Inform ant Abdominal pain(Confirmed) Active Dizziness - light-headed(Confirmed) Active Parkinsons disease(Confirmed) Active Pure hypercholesterolemia(Confirmed) Active Vital Signs Most recent to oldest [Reference Range]: 1 Height 157 cm (04/06/21 12:59 PM) Weight 68.7 kg (04/06/21 12:59 PM) Oxygen Saturation [94-100 %] 99 % (04/06/21 12:59 PM) Pulse Rate [55-90 bpm] 90 bpm (04/06/21 12:59 PM) Body Mass Index [18.5-24.99] 27.87 *H* (04/06/21 12:59 PM) Blood Pressure [90-138/55-84 mm Hg] 133/ 72mm Hg (04/06/21 12:59 PM) Respiratory Rate [16-30 br/min] 16 br/mi n (04/06/21 12:59 PM) Temperature [96.8-100.4 DegF] 98.4 DegF (04/06/21 12:59 PM) Mode of Delivery (Oxygen) Room air (04/06/21 12:59 PM) Blood pressure sites Arm, right (04/06/21 12:59 PM) Temperature Route Temporal (04/06/21 12:59 PM) Dry Weight 68.7 kg (04/06/21 12:59 PM) Weight Obtained Via Standing scale (04/06/21 12:59 PM) Dry Weight Obtained Via Standing scale (04/06/21 12:59 PM) Social History Social History Type Response Smoking Status Never smoker entered on: 06/04/15 Sex
--- OUTSIDE RECORDS SUMMARY | 2024-05-03 10:49 | XMS_ITS | Continuity of Care Document ---
Author Organization [facility] Address [address] [place] [address]- Care Team Providers Care On Site Wastewater Systems Technician Name Role Phone Henry Bennett MD Primary Care Physician Encounter [facility] Date(s): 09/13/22 - 10/13/22 [facility] [address] [place] [address]- Allergies, Adverse Reactions, Alerts No Known Allergies [...] Reason: Wan to Standard Admin Times Medications Baclofen See Instructions, Take 1-2 5mg tablets @hs prn, 0 Refills, Maintenance, 10/11/22 8:05:00 EST Start Date: 10/11/22 Status: Ordered gabapentin 300 mg oral capsule 300 mg, 1, capsule, By Mouth, Daily, PRN, per neurology, Refills 0, Maintenance, Pain , Mild, 06/30/21 11:15:00 EDT, Partial fill upon patient request if the prescription is for a schedule II opioid drug. Start Date: 06/30/21 Status: Ordered Linzess 145 mcg oral capsule [...] capsule, 3 Refills, Maintenance, 09/16/22 7:49:00 EST, [facility][id number], Partial fill upon patient request if the prescription is for a schedule II opioid drug., 165, cm, 06/07/22 15:23:00 EDT, Height... Start Date: 09/16/22 Stop Date: 01/14/23 Status: Ordered PEG-3350 with Electrolytes (Eqv-NuLYTELY) oral powder for reconstitution See Instructions, as directed, # 1 each, 0 Refills, Maintenance, 02/08/21 9:34:00 EDT, [facility], ok to sub for any gallon [...] 3 Refills, Maintenance, 09/16/22 7:49:00 EST, Tablet, [facility][id number], 165, cm, 06/07/22 15:23:00 EDT, Height, [...] Team Personnel Name: Henry Bennett MD Position: [facility] General Pediatrics MD Member Role: PCP Address: Address: [address] [place] [address] Name: Birdie Vieyra RN Position: [facility] RN Member Role: Primary Care Nurse Name: Izzy Monroy RN Position: [facility] OB RN Member Role: Primary Care Nurse Name: Ronaldo Lehman RN Position: [facility] RN Member Role: Primary Care Nurse Name: Danae Orozco RN Position: [facility] RN Member Role: Primary Care Nurse Name: Lindsay Medrano RN Position: [facility] RN Member Role: Primary Care Nurse Name: Angelic Rainey RN Position: [facility] RN Member Role: Primary Care Nurse Name: Kari Dykes RN Position: [facility] RN Supv Member Role: Primary Care Nurse Name: Cristina Green RN Position: [facility] RN Member Role: Primary Care Nurse Care Team Related Persons Name: ANNY GLORIAY Address: home [address] [place] [id number] Name: DARÍO GLORIA Address: home [address] [place] [phone] Name: ARLENE GLORIA Address: home [address] [place] [address]
--- OUTSIDE RECORDS SUMMARY | 2024-05-03 10:49 | XMS_ITS | Continuity of Care Document ---
Author Organization [facility] Address [address] [place] [address] [address] [place] [address]- Care Team Providers Care Photo Editor Name Role Phone Kayla Estes Primary Care Physician Encounter [facility] [place] Date(s): 08/10/23 - 08/17/23 [facility] [address] [place] [address]- Attending Physician: Tova VINSON, Haja Rojas Allergies, Adverse Reactions, Alerts No Known Allergies Immunizations Given and Recorded Vaccine Date Status Refusal Reason influenza virus vaccine, inactivated 07/30/22 [facility] rded influenza virus vaccine, inactivated 07/05/21 [facility] rded influenza virus vaccine, inactivated 08/18/20 [facility] rded influenza virus vaccine, inactivated 1 08/14/19 [facility] lacie influenza virus vaccine, inactivated 08/13/18 [facility] rded influenza virus vaccine, inactivated 01/13/16 Give n [id number] 12y+ bivalent booster vax 07/14/22 Recorded zoster vaccine, inactivated 10/03/21 Recorded zoster vaccine, inactivated 06/18/21 Recorded SARS-CoV-2 (COVID-19) mRNA BNT-162b2 vac 09/21/21 Recorded SARS-CoV-2 (COVID-19) mRNA BNT-162b2 vac 01/05/21 Recorded SARS-CoV-2 (COVID-19) mRNA BNT-162b2 vac 12/14/20 Recorded pneumococcal 23-valent vaccine 2 09/29/20 Given pneumococcal 13-valent vaccine 09/29/20 Recorded tetanus/diphtheria/pertussis, acel(Tdap) 07/19/13 Given influ virus vac, H1N1, inactive(oldterm) 12/24/09 Given 1Early/Late Reason: Wan to Standard Admin Times 2Early/Late Reason: Early/Late Reason: Med Not Available Medications carbidopa-levodopa 25 mg-100 mg oral tablet 1.5 tablets, By Mouth, 5 times a day Start Date: 03/03/23 Status: Ordered entacapone 200 mg oral tablet 1 tablet = 200 mg, By Mouth, 3 times a day, 0 Refills, 11/07/22 8:42:00 EST, Partial fill upon patient request if the prescription is for a schedule II opioid drug. Start Date: 11/07/22 Status: Ordered Famotidine = 20 mg, By Mouth, Daily, 0 Refills, Maintenance, 03/03/23 12:07:00 EDT, Partial fill upon patient request if the prescription is for a schedule II opioid drug. Start Date: 03/03/23 Status: Ordered famotidine 20 mg oral tablet 20 mg, 1, tablet, By Mouth, Daily at bedtime, # 30 tablet, Refills 0, Tot. Refills 0, Maintenance, 07/11/23 12:00:00 EDT, Route to Pharmacy Electronically, [facility]/pharmacy #[id number], Partial fill upon patient request if the prescription is for a schedule II... Start Date: 07/11/23 Status: Ordered ferrous sulfate 220 mg/5 ml oral elixir 5 mL = 220 mg, By Mouth, Daily, Elemental iron 44 mg/5 mL, # 150 mL, 0 Refills, Maintenance, 07/12/23 6:51:00 EDT, [id number], Partial fill upon patient request if the prescription is for a schedule II opioid drug., 166, cm, 07/11/23 11:07:00... Start Date: 07/12/23 Stop Date: 08/11/23 Status: Ordered ferrous sulfate 325 mg oral enteric coated tablet 325 mg, 1, tablet, By Mouth, Daily, # 90 tablet, Refills 0, Tot. Refills 0, Maintenance, 07/14/23 15:10:00 EDT, Route to Pharmacy Electronically, [id number], Partial fill upon patient requestif the prescription is for a schedule II opioid oumar... Start Date: 07/14/23 Status: Ordered gabapentin 300 mg oral capsule 300 mg, 1, capsule, By Mouth, 3 times a day, PRN, Refills 0, Maintenance, Pain , Mild, 06/30/21 11:15:00 EDT, Partial fill upon patient request if the prescription is for a schedule II opioid drug. Start Date: 06/30/21 Status: Ordered magnesium oxide 400 mg oral tablet 1 tablet = 400 mg, By Mouth, Daily, 0 Refills, Maintenance, 03/03/23 12:09:00 EDT, Partial fill upon patient request if the prescription is for a schedule II opioid drug. Start Date: 03/03/23 Status: Ordered MiraLax oral powder for reconstitution = 17 Gm, By Mouth, Daily, dissolve in water before taking, # 255 Gm, 0 Refills, Maintenance, 03/03/23 12:09:00 EDT, [facility], Partial fill upon patient request if the prescription is for a scheduleII opioid drug. Start Date: 03/03/23 Status: Ordered omeprazole 40 mg oral enteric coated capsule 1 capsule = 40 mg, By Mouth, Daily, for 30 days, # 30 capsule, 5 Refills, Hard Stop 01/22/24 12:53:00 EDT, 07/26/23 12:53:00 EDT, [facility]/pharmacy #[id number], Partial fill upon patient request if the prescription is for a schedule II opioid drug., 167, cm, ... Start Date: 07/26/23 Stop Date: 01/22/24 Status: Ordered omeprazole 40 mg oral enteric coated capsule 1 capsule = 40 mg, By Mouth, 2 times a day, for 30 days, # 60 capsule, 3 Refills, Hard Stop 09/13/23 14:57:00 EST, 05/16/23 14:57:00 EDT, [facility]/pharmacy #[id number], Partial fill upon patient request if the prescription is for a schedule II opioid drug., 171,... Start Date: 05/16/23 Stop Date: 09/13/23 Status: Ordered tenofovir disoproxil fumarate 300 mg oral tablet 1 tablet = 300 mg, By Mouth, Daily, # 90 tablet, 3 Refills, Maintenance, 09/16/22 7:49:00 EST, Tablet, [id number], 165, cm, 06/07/22 15:23:00 EDT, Height, 56.7, kg, 06/07/22 15:23:00 EDT, DryWeight Start Date: 09/16/22 Status: Ordered traZODone 50 mg oral tablet 50 mg, 1, tablet, By Mouth, Daily at bedtime, Refills 0, 11/07/22 8:41:00 EST, Partial fill upon patient request if the prescription is for a schedule II opioid drug. Start Date: 11/07/22 Status: Ordered Problem List Condition Confirmation Course Effective Dates Status Health Status Informant GERD (gastroesophageal reflux disease) Confirmed Active Parkinsons disease Confirmed Active Failed back syndrome Confirmed Active Pure hypercholesterolemia Confirmed Active Vital Signs Most recent to oldest [Reference Range]: 1 Height 167 cm (08/10/23 11:19 AM) Pulse Rate [55-90 bpm] 86 bpm (08/10/23 11:19 AM) Blood Pressure [90-138/55-84 mm Hg] 90/5 6mm Hg (08/10/23 11:19 AM) Temperature [96.8-100.4 DegF] 93.9 DegF *L* (08/10/23 11:19 AM) Blood pressure sites Arm, right (08/10/23 11:19 AM) Temperature Route Temporal (08/10/23 11:19 AM) Social History Social History Type Response Smoking Status Never smoker entered on: 06/04/15 Sex Patient Care team information Care Team Personnel Name: Lindsay Mercer RN Position: [facility] RN Member Role: Primary Care Nurse Name: Kayla Estes Position: [facility] PCO Associate Professional Member Role: PCP Address: Address: [address] [place] [address]- Name: Eran Spence RN Position: [facility] RN Member Role: Primary Care Nurse Name: Prince Watson RN Position: [facility] RN Member Role: Primary Care Nurse Name: Nick Go RN Position: S RN Member Role: Primary Care Nurse Name: Birdie Vieyra RN Position: S RN Member Role: Primary Care Nurse Name: Izzy Monroy RN Position: [facility] OB RN Member Role: Primary Care Nurse Name: Ainsley Leung RN Position: S RN Member Role: Primary Care Nurse Name: Nancy Mo RN Position: S RN Member Role: Primary Care Nurse Name: Flavia Moeller Position: S RN Member Role: Primary Care Nurse Name: Danae Orozco RN Position: S RN Member Role: Primary Care Nurse Name: Angelic Rainey RN Position: [facility] RN Member Role: Primary Care Nurse Name: Issac Vang RN Position: [facility] RN Member Role: Primary Care Nurse Name: Doreen Murillo RN Position: [facility] RN Member Role: Primary Care Nurse Name: Shira Minor Position: [facility] RN Member Role: Primary Care Nurse Name: Vale Shanks RN Position: [facility] RN Member Role: Primary Care Nurse Name: Kari Dykes RN Position: [facility] RN Member Role: Primary Care Nurse Name: Cristina Green RN Position: [facility] RN Member Role: Primary Care Nurse Name: Esteban Roque RN Position: [facility] RN Member Role: Primary Care Nurse Name: Nidia Mendoza RN Position: [facility] RN Member Role: Primary Care Nurse Care Team Related Persons Name: JUANI ELIDA Address: home [address] [place] [address] Name: DAROÍ GLORIA Address: home [address] [place] [id number] Name: ARLENE GLORIA Address: [place] [address]
--- OUTSIDE RECORDS SUMMARY | 2024-05-03 10:49 | XMS_ITS | Continuity of Care Document ---
Author Organization [facility] Address [address] [place] [address]- Care Team Providers Care Manager Mobility Name Role Phone Kayla Estes Primary Care Physician Encounter [facility] Date(s): 07/21/23 - 08/20/23 [facility] [address] [place] [address]- Allergies, Adverse Reactions, Alerts No Known Allergies Immunizations Given and Recorded Vaccine Date Status Refusal Reason influenza virus vaccine, inactivated 07/30/22 [facility] rded influenza virus vaccine, inactivated 07/05/21 [facility] rded influenza virus vaccine, inactivated 08/18/20 [facility] rded influenza virus vaccine, inactivated 1 08/14/19 [facility] lac[facility] influenza virus vaccine, inactivated 08/13/18 [facility] rded influenza virus vaccine, inactivated 01/13/16 Give n [id number] 12y+ bivalent booster vax 07/14/22 Recorded zoster [...] 07/11/23 12:00:00 EDT, Route to Pharmacy Electronically, [id number], Partial fill upon patient request [...] Stop 01/22/24 12:53:00 EDT, 07/26/23 12:53:00 EDT, [facility]/pharmacy #[id number], Partial fill upon patient request if the prescription is for a schedule II opioid drug., 167, cm, .. Start Date: 07/26/23 Stop Date: 01/22/24 Status: Ordered omeprazole 40 mg oral enteric coated capsule 1 capsule = 40 mg, By Mouth, 2 times a day, for 30 days, # 60 capsule, 3 Refills, Hard Stop 09/13/23 14:57:00 EST, 05/16/23 14:57:00 EDT, [facility]/pharmacy #[id number], Partial fill upon patient request if the prescription is for a schedule II opioid drug., 171,... Start Date: 05/16/23 Stop Date: 09/13/23 Status: Ordered tenofovir disoproxil fumarate 300 mg oral tablet 1 tablet = 300 mg, By Mouth, Daily, # 90 tablet, 3 Refills, Maintenance, 09/16/22 7:49:00 EST, Tablet, [facility]/pharmacy #[id number], 165, cm, 06/07/22 15:23:00 EDT, Height, [...] syndrome Confirmed Active Pure hypercholesterolemia Confirmed Active Social History Social History Type Response Smoking Status Never smoker entered on: 06/04/15 Sex Patient Care team information Care Team Personnel Name: Lindsay Mercer RN Position: [facility] RN Member Role: Primary Care Nurse Name: Kayla Estes Position: [facility] PCO Associate Professional Member Role: PCP Address: Address: [address] [place] [id number] Name: Eran Spence RN Position: [facility] RN Member Role: Primary Care Nurse Name: Prince Watson RN Position: [facility] RN Member Role: Primary Care Nurse Name: Nick Go RN Position: [facility] RN Member Role: Primary Care Nurse Name: Birdie Vieyra RN Position: [facility] RN Member Role: Primary Care Nurse Name: Izzy Monroy RN Position: [facility] OB RN Member Role: Primary Care Nurse Name: Ainsley Leung RN Position: [facility] RN Member Role: Primary Care Nurse Name: Nancy Mo RN Position: [facility] RN Member Role: Primary Care Nurse Name: Flavia Moeller Position: [facility] RN Member Role: Primary Care Nurse Name: Danae Orozoc RN Position: [facility] RN Member Role: Primary Care Nurse Name: Angelic Rainey RN Position: [facility] RN Member Role: Primary Care Nurse Name: Issac Vang RN Position: [facility] RN Member Role: Primary Care Nurse Name: Doreen Murillo RN Position: [facility] RN Member Role: Primary Care Nurse Name: Shira Minor Position: [facility] RN Member Role: Primary Care Nurse Name: Vale Shanks RN Position: [facility] RN Member Role: Primary Care Nurse Name: Kari Dykes RN Position: [facility] RN Member Role: Primary Care Nurse Name: Cristina Green RN Position: [facility] RN Member Role: Primary Care Nurse Name: Esteabn Roque RN Position: [facility] RN Member Role: Primary Care Nurse Name: Nidia Mendoza RN Position: S RN Member Role: Primary Care Nurse Care Team Related Persons Name: ELIDA GLORIA Address: [place] [address] Name: DARÍO GLORIA Address: [place] [address] Name: ARLENE GLORIA Address: [place] [address]
--- OUTSIDE RECORDS SUMMARY | 2024-05-03 10:49 | XMS_ITS | Continuity of Care Document ---
Author Organization [facility] Address [address] [place] [address]- Care Team Providers Care [employer] Worker Name Role Phone Kayla Estes Primary Care Physician Encounter [facility] Date(s): 10/09/23 - 11/08/[address] [facility] [address] [place] [address]- Allergies, Adverse Reactions, Alerts No Known Allergies Immunizations Given and Recorded Vaccine Date Status Refusal Reason influenza virus vaccine, inactivated 07/30/22 [facility] rded influenza virus vaccine, inactivated 07/05/21 [facility] rded influenza virus vaccine, inactivated 08/18/20 [facility] rded influenza virus vaccine, inactivated 1 08/14/19 [facility] lacie influenza virus vaccine, inactivated 08/13/18 [facility] rded influenza virus vaccine, inactivated 01/13/16 Give n [id number] 12y+ bivalent booster vax 07/14/22 Recorded zoster [...] opioid drug. Start Date: 11/07/22 Status: Ordered famotidine 20 mg oral tablet 20 mg, 1, tablet, By Mouth, Daily at bedtime, # 30 tablet, Refills 0, Tot. Refills 0, Maintenance, 07/11/23 12:00:00 EDT, Route to Pharmacy Electronically, [facility]/pharmacy #[id number], Partial fill upon patient [...] 07/14/23 15:10:00 EDT, Route to Pharmacy Electronically, [facility]/pharmacy #[id number], Partial fill upon patient requestif the [...] opioid drug. Start Date: 06/30/21 Status: Ordered MiraLax oral powder for reconstitution [...] Stop 01/22/24 12:53:00 EDT, 07/26/23 12:53:00 EDT, [facility]/pharmacy #[id number], Partial fill upon patient request if the prescription is for a schedule II opioid drug., 167, cm, .. Start Date: 07/26/23 Stop Date: 01/22/24 Status: Ordered tenofovir disoproxil fumarate 300 mg oral tablet 1 tablet = 300 mg, By Mouth, Daily, # 90 tablet, 3 Refills, Maintenance, 09/16/22 7:49:00 EST, Tablet, [facility]/pharmacy #[id number], 165, cm, 06/07/22 15:23:00 EDT, Height, 56.7, kg, 06/07/22 15:23:00 EDT, DryWeight Start Date: 09/16/22 Status: Ordered traZODone 50 mg oral tablet 50 mg, 1, tablet, By Mouth, Daily at bedtime, Refills 0, 11/07/22 8:41:00 EST, Partial fill upon patient request if the prescription is for a schedule II opioid drug. Start Date: 11/07/22 Status: Ordered Trihexyphenidyl = 2 mg, By Mouth, 3 times a day, 0 Refills, Maintenance, 10/06/23 7:56:00 EST, Partial fill upon patient request if the prescription is for a schedule II opioid drug. Start Date: 10/06/23 Status: Ordered Problem List Condition Confirmation Course Effective Dates Status Health Status Informant GERD (gastroesophageal reflux disease) Confirmed Active Parkinsons disease Confirmed Active Failed back syndrome Confirmed Active Pure hypercholesterolemia Confirmed Active Social History Social History Type Response Smoking Status Never smoker entered on: 06/04/15 Sex Patient Care team information Care Team Personnel Name: Lindsay Mercer RN Position: [facility] RN Member Role: Primary Care Nurse Name: Kayla Estes Position: [facility] PCO Associate Professional Member Role: PCP Address: Address: [address] [place] [id number] Name: Eran Spence RN Position: [facility] RN Member Role: Primary Care Nurse Name: Prince Watson RN Position: [facility] RN Member Role: Primary Care Nurse Name: Nick Go RN Position: [facility] ED RN W/OE and Tasks Member Role: Primary Care Nurse Name: Birdie Vieyra RN Position: [facility] RN Member Role: Primary Care Nurse Name: Izzy Monroy RN Position: [facility] OB RN Member Role: Primary Care Nurse Name: Ainsley Leung RN Position: [facility] RN Member Role: Primary Care Nurse Name: Nancy Mo RN Position: [facility] RN Member Role: Primary Care Nurse Name: Flavia Moeller Position: [facility] RN Member Role: Primary Care Nurse Name: Danae Orozco RN Position: [facility] RN Member Role: Primary Care Nurse Name: Angelic Rainey RN Position: [facility] RN Member Role: Primary Care Nurse Name: Issac Vang RN Position: [facility] RN Member Role: Primary Care Nurse Name: Doreen Murillo RN Position: [facility] RN Member Role: Primary Care Nurse Name: Shira Minor Position: [facility] RN Member Role: Primary Care Nurse Name: Vale Shanks RN Position: [facility] RN Member Role: Primary Care Nurse Name: Kari Dykes RN Position: [facility] RN Member Role: Primary Care Nurse Name: Cristina Green RN Position: [facility] RN Member Role: Primary Care Nurse Name: Esteban Roque RN Position: [facility] RN Member Role: Primary Care Nurse Name: Nidia Mendoza RN Position: [facility] RN Member Role: Primary Care Nurse Care Team Related Persons Name: ELIDA GLORIA Address: [address] [place] [address] Name: DARÍO GLORIA Address: home [address] [place] [address] Name: ARLENE GLORIA Address: [address] [place] [address]
--- OUTSIDE RECORDS SUMMARY | 2024-05-03 10:49 | XMS_ITS | Continuity of Care Document ---
Author Organization [facility] Address [address] [place] [address]- Care Team Providers Care Third Rail Installer Name Role Phone Sabrina VINSON, Henry Rojas Primary Care Physician [place] [facility] [place] 05/06/21 [facility] [address] [place], [place] [address] Attending Physician: Natasha Shelby Admitting Physician: AdmtrNatasha Referring Physician: Admtr, Ar8 Allergies, Adverse Reactions, Alerts Substance Reaction Severity [...] patient request Start Date: 09/28/20 Status: Ordered Omeprazole = 20 mg, By Mouth, Daily, 0 Refills, Maintenance, 09/27/20 22:43:00 EST, Partial fill upon patient request Start Date: 09/27/20 Status: Ordered PEG-3350 with Electrolytes (Eqv-NuLYTELY) oral powder for reconstitution See Instructions, as directed, # 1 each, 0 Refills, Maintenance, 02/08/21 9:34:00 EDT, [facility], ok to sub for any [...] 3 Refills, Maintenance, 11/30/20 16:28:00 EST, Tablet, [facility], 157, cm, 11/13/20 10:10:00 EST, [...] Active Parkinsons disease(Confirmed) Active Pure hypercholesterolemia(Confirmed) Active Social History Social History Type Response Smoking Status Never smoker entered on: 06/04/15 Sex
--- OUTSIDE RECORDS SUMMARY | 2024-05-03 10:49 | XMS_ITS | Continuity of Care Document ---
Author Organization [facility] Address [address] [place] [address]- Care Team Providers Care Wheel Installer Name Role Phone Henry Bennett MD Primary Care Physician Encounter [facility] [place] Date(s): 08/19/21 - 09/18/21 [facility] [address] [place] [address]- Allergies, Adverse Reactions, Alerts Substance Reaction Severity [...] each, 0 Refills, Maintenance, 02/08/21 9:34:00 EDT, [facility] 1967, ok to sub for any [...] 3 Refills, Maintenance, 11/30/20 16:28:00 EST, Tablet, [facility], 157, cm, 11/13/20 10:10:00 EST, [...]
--- OUTSIDE RECORDS SUMMARY | 2024-05-03 10:49 | XMS_ITS | Continuity of Care Document ---
Author Organization [facility] Address [address] [place] [id number]- Care Team Providers Care Personnel Representative Name Role Phone Kayla Estes Primary Care Physician Encounter [facility] Date(s): 10/06/23 - 01/06/24 [facility] [address] [place] [address]- Attending Physician: Myles Mercer DO Admitting Physician: Myles Mercer DO Allergies, Adverse Reactions, Alerts No Known Allergies Immunizations Given and Recorded Vaccine Date Status Refusal Reason influenza virus vaccine, inactivated 09/01/23 [facility] rded influenza virus vaccine, inactivated 07/30/22 [facility] rded influenza virus vaccine, inactivated 07/05/21 [facility] rded influenza virus vaccine, inactivated 08/18/20 [facility] rded influenza virus vaccine, inactivated 1 08/14/19 Gi lacie influenza virus vaccine, inactivated 08/13/18 [facility] rded influenza virus vaccine, inactivated 01/13/16 Give n [id number] 12y+ bivalent booster vax 07/14/22 Recorded zoster [...] 07/11/23 12:00:00 EDT, Route to Pharmacy Electronically, [facility]/pharmacy #[id number], Partial fill upon patient request if the prescription is for a schedule II... Start Date: 07/11/23 Status: Ordered gabapentin 300 mg oral capsule 300 mg, 1, capsule, By Mouth, 3 times a day, PRN, Refills 0, Maintenance, Pain , Mild, 06/30/21 11:15:00 EDT, Partial fill upon patient request if the prescription is for a schedule II opioid drug. Start Date: 06/30/21 Status: Ordered Medrol 4 mg oral tablet 1 pack/packet, By Mouth, Once, # 21 tablet, 0 Refills, Soft Stop, 12/18/23 16:12:00 EST, Tablet, [facility]/pharmacy #[id number], Partial fill upon patient request if the prescription is for a schedule II opioid drug., 167, cm, 12/18/23 16:11:00 EST, Height, 52.5,... Start Date: 12/18/23 Status: Ordered MiraLax oral powder for reconstitution [...] Stop 01/22/24 12:53:00 EDT, 07/26/23 12:53:00 EDT, [facility]/pharmacy #[id number], Partial fill upon patient request if the prescription is for a schedule II opioid drug., 167, cm, . Start Date: 07/26/23 Stop Date: 01/22/24 Status: Ordered tenofovir disoproxil fumarate 300 mg oral tablet 1 tablet = 300 mg, By Mouth, Daily, # 90 tablet, 3 Refills, Maintenance, 12/13/23 16:48:00 EST, Tablet, [facility]/pharmacy #[id number], 167, cm, 10/06/23 7:52:00 EST, Height, 52.5, kg, 07/22/23 10:08:00 EDT, DryWeight Start Date: 12/13/23 Status: Ordered traZODone 50 mg oral tablet [...] Course Effective Dates Status Health Status Informant Constipation Confirmed Active GERD (gastroesophageal reflux disease) Confirmed Active Parkinsons disease Confirmed Active Failed back syndrome Confirmed Active Pure hypercholesterolemia Confirmed Active Sigmoid volvulus Confirmed Active Social History Social History Type Response Smoking Status Never smoker entered on: 06/04/15 Sex Patient Care team information Care Team Personnel Name: Lindsay Mercer RN Position: S RN Member Role: Primary Care Nurse Name: Kayla Estes Position: S PCO Associate Professional Member Role: PCP Address: Address: [address] [place] [id number]- Name: Eran Spence RN Position: S RN Member Role: Primary Care Nurse Name: Prince Watson RN Position: S RN Member Role: Primary Care Nurse Name: Nick Go RN Position: [facility] ED RN W/OE and Tasks Member Role: Primary Care Nurse Name: Birdie Vieyra RN Position: [facility] RN Member Role: Primary Care Nurse Name: Izzy Monroy RN Position: [facility] OB RN Member Role: Primary Care Nurse Name: Ainsley Leung RN Position: [facility] RN Member Role: Primary Care Nurse Name: Nancy Mo RN Position: [facility] RN Member Role: Primary Care Nurse Name: Flavia Moeller Position: [facility] RN Member Role: Primary Care Nurse Name: Danae Orozco RN Position: [facility] RN Member Role: Primary Care Nurse Name: Angelic Rainey RN Position: [facility] RN Member Role: Primary Care Nurse Name: Issac Vang RN Position: [facility] RN Member Role: Primary Care Nurse Name: Doreen Murillo RN Position: [facility] RN Member Role: Primary Care Nurse Name: Shira Minor RN Position: [facility] RN Member Role: Primary Care Nurse Name: Kari Dykes RN Position: [facility] RN Member Role: Primary Care Nurse Name: Cristina Green RN Position: [facility] RN Member Role: Primary Care Nurse Name: Esteban Roque RN Position: [facility] RN Member Role: Primary Care Nurse Name: Nidia Mendoza RN Position: [facility] RN Member Role: Primary Care Nurse Care Team Related Persons Name: ELIDA GLORIA Address: home [address] [place] [address] Name: DARÍO GLORIA Address: [address] [place] [place], [place] Name: ARLENE GLORIA Address: home [address] [place] [id number]
--- OUTSIDE RECORDS SUMMARY | 2024-05-03 10:50 | XMS_ITS | Continuity of Care Document ---
Author Organization [facility] Address [address] [place] [address]- Care Team Providers Care Warehouse Distribution Manager Name Role Phone Kayla Estes Primary Care Physician Encounter [facility] Date(s): 06/01/23 - 07/01/23 [facility] [address] [place] [address]- Attending Physician: Natasha Shelby Admitting Physician: AdmtrNatasha Referring Physician: Admtr, Ar8 Allergies, Adverse Reactions, Alerts No Known Allergies Immunizations Given and Recorded Vaccine Date Status Refusal Reason influenza virus vaccine, inactivated 07/30/22 [facility] rded influenza virus vaccine, inactivated 07/05/21 [facility] rded influenza virus vaccine, inactivated 08/18/20 [facility] rded influenza virus vaccine, inactivated 1 08/14/19 Gi lacie influenza virus vaccine, inactivated 08/13/18 [facility] rded influenza virus vaccine, inactivated 01/13/16 Give n [id number] 12y+ bivalent booster vax 07/14/22 Recorded zoster [...] opioid drug. Start Date: 03/03/23 Status: Ordered gabapentin 300 mg oral capsule 300 mg, 1, capsule, By Mouth, 3 times a day, PRN, Refills 0, Maintenance, Pain , Mild, 06/30/21 11:15:00 EDT, Partial fill upon patient request if the prescription is for a schedule II opioid drug. Start Date: 06/30/21 Status: Ordered Macrobid macrocrystals-monohydrate 100 mg oral capsule 1 capsule = 100 mg, By Mouth, 2 times a day, for 5 days, # 10 capsule, 0 Refills, Acute 07/05/23 15:03:00 EDT, 06/30/23 15:03:00 EDT, Capsule, [facility]/pharmacy #[id number], Partial fill upon patient request ifthe prescription is for a schedule II opioid drug.,... Start Date: 06/30/23 Stop Date: 07/05/23 Status: Ordered magnesium oxide 400 mg oral [...] Stop 09/13/23 14:57:00 EST, 05/16/23 14:57:00 EDT, [facility]/pharmacy #[id number], Partial fill upon patient request if the prescription is for a schedule II opioid drug., 171,... Start Date: 05/16/23 Stop Date: 09/13/23 Status: Ordered oxyCODONE 5 mg oral tablet 5 mg, By Mouth, Every 6 hours, PRN, for 3 days, # 12 tablet, Refills 0, Tot. Refills 0, Acute 07/02/23 14:28:00 EDT, Pain , Moderate, 06/29/23 14:28:00 EDT, Route to Pharmacy Electronically, [facility], Partial fill upon patient request... Start Date: 06/29/23 Stop Date: 07/02/23 Status: Ordered tenofovir disoproxil fumarate 300 mg oral tablet 1 tablet = 300 mg, By Mouth, Daily, # 90 tablet, 3 Refills, Maintenance, 09/16/22 7:49:00 EST, Tablet, [facility]/pharmacy #[id number], 165, cm, 06/07/22 15:23:00 EDT, Height, 56.7, kg, 06/07/22 15:23:00 EDT, DryWeight Start Date: 09/16/22 Status: Ordered traZODone 50 mg oral tablet 50 mg, 1, tablet, By Mouth, Daily at bedtime, Refills 0, 11/07/22 8:41:00 EST, Partial fill upon patient request if the prescription is for a schedule II opioid drug. Start Date: 11/07/22 Status: Ordered Tylenol 325 mg oral tablet 650 mg, By Mouth, Every 4 hours, for 7 days, # 28 tablet, Refills 0, Tot. Refills 0, Acute 07/06/2314:28:00 EDT, 06/29/23 14:28:00 EDT, Route to Pharmacy Electronically, [facility], Partial fill upon patient request if the prescription... Start Date: 06/29/23 Stop Date: 07/06/23 Status: Ordered Problem List Condition Confirmation Course Effective Dates Status Health Status Informant GERD (gastroesophageal reflux disease) Confirmed Active Parkinsons disease Confirmed Active Failed back syndrome Confirmed Active Pure hypercholesterolemia Confirmed Active Social History Social History Type Response Smoking Status Never smoker entered on: 06/04/15 Sex Laboratory * Event Display: Non Lab Results Authored Date: Patient Care team information Care Team Personnel Name: Kayla Estes Position: [facility] PCO Associate Professional Member Role: PCP Address: Address: [address] [place] [id number] Name: Eran Spence RN Position: [facility] RN Member Role: Primary Care Nurse Name: Prince Watson RN Position: [facility] RN Member Role: Primary Care Nurse Name: Nick Go RN Position: [facility] RN Member Role: Primary Care Nurse Name: Birdie Vieyra RN Position: [facility] RN Member Role: Primary Care Nurse Name: Izzy Monroy RN Position: [facility] OB RN Member Role: Primary Care Nurse Name: Ainsley Leung RN Position: [facility] RN Member Role: Primary Care Nurse Name: Nancy Mo RN Position: [facility] RN Member Role: Primary Care Nurse Name: Flavia Moeller Position: [facility] RN Member Role: Primary Care Nurse Name: Kayla Ardon RN Position: [facility] RN Member Role: Primary Care Nurse Name: Danae Orozco RN Position: [facility] RN Member Role: Primary Care Nurse Name: Lindsay Medrano RN Position: [facility] RN Member Role: Primary Care Nurse Name: Angelic Rainey RN Position: [facility] RN Member Role: Primary Care Nurse Name: Issac Vang RN Position: [facility] RN Member Role: Primary Care Nurse Name: Doreen Murillo RN Position: [facility] RN Member Role: Primary Care Nurse Name: Shira Minor Position: [facility] RN Member Role: Primary Care Nurse Name: Vale Shanks RN Position: [facility] RN Member Role: Primary Care Nurse Name: Kari Dykes RN Position: [facility] RN Member Role: Primary Care Nurse Name: Cristina Green RN Position: [facility] RN Member Role: Primary Care Nurse Name: Esteban Roque RN Position: [facility] RN Member Role: Primary Care Nurse Name: Nidia Mendoza RN Position: [facility] RN Member Role: Primary Care Nurse Care Team Related Persons Name: ELIDA GLORIA Address: [address] [address] Name: DARÍO GLORIA Address: [place] [address] Name: ARLENE GLORIA Address: [place] [address]
--- OUTSIDE RECORDS SUMMARY | 2024-05-03 10:50 | XMS_ITS | Continuity of Care Document ---
Author Organization [facility] Address [address] [place] [address]- Care Team Providers Care Fare Collector Name Role Phone Kayla Estes Primary Care Physician Encounter [facility] Date(s): 07/26/23 - 08/25/23 [facility] [address] [place] [address]- [place] Allergies, Adverse Reactions, Alerts No Known Allergies Immunizations Given and Recorded Vaccine Date Status Refusal Reason influenza virus vaccine, inactivated 07/30/22 [facility] rded influenza virus vaccine, inactivated 07/05/21 [facility] rded influenza virus vaccine, inactivated 08/18/20 [facility] rded influenza virus vaccine, inactivated 1 08/14/19 Gi lacie influenza virus vaccine, inactivated 08/13/18 [facility] rded influenza virus vaccine, inactivated 01/13/16 Give n [id number] 12y+ bivalent booster vax 07/14/22 Recorded zoster [...] 07/11/23 12:00:00 EDT, Route to Pharmacy Electronically, [facility]/pharmacy #[id number], Partial fill upon patient request if [...] Stop 01/22/24 12:53:00 EDT, 07/26/23 12:53:00 EDT, [facility]/pharmacy #[id number], Partial fill upon patient request if the prescription is for a schedule II opioid drug., 167, cm, .. Start Date: 07/26/23 Stop Date: 01/22/24 Status: Ordered omeprazole 40 mg oral enteric coated capsule 1 capsule = 40 mg, By Mouth, 2 times a day, for 30 days, # 60 capsule, 3 Refills, Hard Stop 09/13/23 14:57:00 EST, 05/16/23 14:57:00 EDT, [facility]/pharmacy #1111, Partial fill upon patient request if the prescription is for a schedule II opioid drug., 171,... Start Date: 05/16/23 Stop Date: 09/13/23 Status: Ordered tenofovir disoproxil fumarate 300 mg oral tablet 1 tablet = 300 mg, By Mouth, Daily, # 90 tablet, 3 Refills, Maintenance, 09/16/22 7:49:00 EST, Tablet, [facility]/pharmacy #1111, 165, cm, 06/07/22 15:23:00 [...] Team Personnel Name: Lindsay Mercer RN Position: [facility] RN Member Role: Primary Care Nurse Name: Kayla Estes Position: [facility] PCO Associate Professional Member Role: PCP Address: Address: [address] [place] [address] Name: Eran Spence RN Position: [facility] RN Member Role: Primary Care Nurse Name: Prince Watson RN Position: [facility] RN Member Role: Primary Care Nurse Name: Nick Go RN Position: [facility] RN Member Role: Primary Care Nurse Name: Birdie Vieyra RN Position: [facility] RN Member Role: Primary Care Nurse Name: Izzy Monroy RN Position: [facility] OB RN Member Role: Primary Care Nurse Name: Ainsley Leung RN Position: [facility] RN Member Role: Primary Care Nurse Name: Nancy Mo RN Position: [facility] RN Member Role: Primary Care Nurse Name: Flavia Moeller Position: [facility] RN Member Role: Primary Care Nurse Name: Danae Orozco RN Position: [facility] RN Member Role: Primary Care Nurse Name: Angelic Rainey RN Position: [facility] RN Member Role: Primary Care Nurse Name: Issac Vang RN Position: [facility] RN Member Role: Primary Care Nurse Name: Doreen Murillo RN Position: [facility] RN Member Role: Primary Care Nurse Name: Shira Minor Position: [facility] RN Member Role: Primary Care Nurse Name: Vale Shanks RN Position: [facility] RN Member Role: Primary Care Nurse Name: Kari Dykes RN Position: [facility] RN Member Role: Primary Care Nurse Name: Cristina Green RN Position: [facility] RN Member Role: Primary Care Nurse Name: Esteban Roque RN Position: [facility] RN Member Role: Primary Care Nurse Name: Nidia Mendoza RN Position: [facility] RN Member Role: Primary Care Nurse Care Team Related Persons Name: ELIDA GLORIA Address: [address] [address] Name: DARÍO GLORIA Address: [place] [id number] Name: ARLENE GLORIA Address: [place] [address]
--- OUTSIDE RECORDS SUMMARY | 2024-05-03 10:50 | XMS_ITS | Continuity of Care Document ---
Author Organization [facility] Address [address] [place] [address]- Care Team Providers Care Inspector Final Assembly Mechanical Name Role Phone Kayla Smith Primary Care Physician Encounter [facility] R [id number] Date(s): 11/23/22 - 12/23/22 [facility] [address] [place] [address]- Attending Physician: Natasha Shelby Admitting Physician: Natasha Shelby Referring Physician: Natasha Shelby Allergies, Adverse Reactions, Alerts No Known Allergies Immunizations Given and Recorded Vaccine Date Status Refusal Reason influenza virus vaccine, inactivated 07/30/22 [facility] rded influenza virus vaccine, inactivated 07/05/21 [facility] rded influenza virus vaccine, inactivated 08/18/20 [facility] rded influenza virus vaccine, inactivated 1 08/14/19 Gi lacie influenza virus vaccine, inactivated 08/13/18 [facility] rded influenza virus vaccine, inactivated 01/13/16 Give n [id number] 12y+ bivalent booster vax 07/14/22 Recorded zoster [...] 01/13/16 Not Given Patient Refuses 1Early/Late Reason: Wan to Standard Admin Times 2Early/Late Reason: Early/Late Reason: Med Not Available Medications amantadine 100 mg oral tablet 60 each, TAKE 1 TABLET BY MOUTH TWICE DAILY, 0 Refills, 11/07/22 8:42:00 EST, Partial fill upon patient request if the prescription is for a schedule II opioid drug. Start Date: 11/07/22 Status: Ordered Baclofen See Instructions, Take 1-2 5mg tablets @hs prn, 0 Refills, Maintenance, 10/11/22 8:05:00 EST Start Date: 10/11/22 Status: Ordered entacapone 200 mg oral tablet 270 each, TAKE 1 TABLET BY MOUTH THREE TIMES DAILY, 0 Refills, 11/07/22 8:42:00 EST, Partial fill upon patient request if the prescription is for a schedule II opioid drug. Start Date: 11/07/22 Status: Ordered gabapentin 300 mg oral capsule [...] capsule, 3 Refills, Maintenance, 09/16/22 7:49:00 EST, [facility]pharmacy #[id number], Partial fill upon patient request if the prescription is for a schedule II opioid drug., 165, cm, 06/07/22 15:23:00 EDT, Height... Start Date: 09/16/22 Stop Date: 01/14/23 Status: Ordered PEG-3350 with Electrolytes (Eqv-NuLYTELY) oral powder for reconstitution See Instructions, as directed, # 1 each, 0 Refills, Maintenance, 02/08/21 9:34:00 EDT, [facility], ok to sub for any [...] 3 Refills, Maintenance, 09/16/22 7:49:00 EST, Tablet, [facility]/pharmacy #1111, 165, cm, 06/07/22 15:23:00 EDT, Height, 56.7, kg, 06/07/22 15:23:00 EDT, DryWeight Start Date: 09/16/22 Status: Ordered traZODone 50 mg oral tablet 90 each, TAKE 1 TABLET BY MOUTH ONCE DAILY AT BEDTIME NEEDED FOR SLEEP, Refills 0, 11/07/22 8:41:00 EST, Partial fill upon patient request if the prescription is for a schedule II opioid drug. Start Date: 11/07/22 Status: Ordered trihexyphenidyl 2 mg oral tablet [...] Status Never smoker entered on: 06/04/15 Sex Note * Event Display: Non BH Lab Results Authored Date: Patient Care team information Care Team Personnel Name: Birdie Vieyra RN Position: [facility] RN Member Role: Primary Care Nurse Name: Izzy Monroy RN Position: [facility] OB RN Member Role: Primary Care Nurse Name: Kayla Smith Position: [facility] PCO Associate Professional Member Role: PCP Address: Address: [address] [place] [id number] Name: Danae Orozco RN Position: [facility] RN Member Role: Primary Care Nurse Name: Lindsay Medrano RN Position: [facility] RN Member Role: Primary Care Nurse Name: Angelic Rainey RN Position: [facility] RN Member Role: Primary Care Nurse Name: Kari Dykes RN Position: [facility] RN Supv Member Role: Primary Care Nurse Name: Cristina Green RN Position: [facility] RN Member Role: Primary Care Nurse Care Team Related Persons Name: GLORIA ELIDA Address: home [address] [place] [address] Name: DARÍO GLORIA Address: home [address] [place] [address] Name: ARLENE GLORIA Address: [place] [address]
--- OUTSIDE RECORDS SUMMARY | 2024-05-03 10:50 | XMS_ITS | Continuity of Care Document ---
Author Organization [facility] Address [address] [place] [address]- Care Team Providers Care Guide Changer Name Role Phone Sabrina VINSON, Henry Rojas Primary Care Physician Encounter [facility] AC[facility] R [id number] Date(s): 06/30/21 - 07/30/21 [facility] [address] [place], [place] [address] Attending Physician: Natasha Shelby Admitting Physician: Natasha Shelby Referring Physician: Natasha Shelby Allergies, Adverse Reactions, Alerts Substance Reaction Severity [...] each, 0 Refills, Maintenance, 02/08/21 9:34:00 EDT, [facility], ok to sub for [...] 3 Refills, Maintenance, 11/30/20 16:28:00 EST, Tablet, [facility], 157, cm, 11/13/20 10:10:00 EST, [...]
--- OUTSIDE RECORDS SUMMARY | 2024-05-03 10:50 | XMS_ITS | Continuity of Care Document ---
Author Organization [facility] Address [address] [place] [address]- Care Team Providers Care Fire Safety Inspector Name Role Phone Henry Bennett MD Primary Care Physician [place] [facility] Date(s): 04/29/21 - 04/30/[address] [address]- Discharge Disposition: A-D/C Home Attending Physician: Salena Pruitt MD Admitting Physician: Salena Pruitt MD Referring Physician: Not on Staff, Referring MD Allergies, Adverse Reactions, Alerts Substance Reaction [...] patient request Start Date: 09/28/20 Status: Ordered MorPHINE Inj 4 mg, Injection, IV Push Slowly, Every 15 minutes for 3 doses/times, PRN for Pain , Moderate, and SBP greater than 100, Routine, 04/30/21 8:29:00 EDT, Stop date Limited # of times Start Date: 04/30/21 Stop Date: 05/01/21 Status: Discontinued Omeprazole = 20 mg, By Mouth, Daily, 0 Refills, Maintenance, 09/27/20 22:43:00 EST, Partial fill upon patient request Start Date: 09/27/20 Status: Ordered PEG-3350 with Electrolytes (Eqv-NuLYTELY) oral powder for reconstitution See Instructions, as directed, # 1 each, 0 Refills, Maintenance, 02/08/21 9:34:00 EDT, [facility], ok to sub [...] 3 Refills, Maintenance, 11/30/20 16:28:00 EST, Tablet, [facility], 157, cm, 11/13/20 [...] Most recent to oldest [Reference Range]: 1 2 3 Oxygen Saturation [94-100 %] 100 % (04/30/21 3:31 AM) 100 % (04/29/21 11:27 PM) 100 % (04/29/21 11:15 PM) Pulse Rate [55-90 bpm] 69 bpm (04/30/21 3:31 AM) 75 bpm (04/29/21 11:27 PM) 78 bpm (04/29/21 11:15 PM) Blood Pressure [90-138/55-84 mm Hg] 141/87mm Hg *H* (04/30/21 3:31 AM) 126/82mm Hg (04/29/21 11:27 PM) Respiratory Rate [16-30 br/min] 20 br/min (04/30/21 11:38 AM) 20 br/min (04/30/21 9:06 AM) 17 br/min (04/30/21 3:31 AM) Temperature [96.8-100.4 DegF] 97.9 DegF (04/30/21 3:31 AM) 97.7 DegF (04/29/21 11:27 PM) Mode of Delivery (Oxygen) Room air (04/30/21 3:31 AM) Room air (04/29/21 11:27 PM) Room air (04/29/21 11:15 PM) Blood pressure sites Arm, left (04/30/21 3:31 AM) Arm, left (04/29/21 11:27 PM) Temperature Route Oral (04/30/21 3:31 AM) Oral (04/29/21 11:27 PM) Social History Social History Type Response Smoking Status Never smoker entered on: 06/04/15 Sex
--- OUTSIDE RECORDS SUMMARY | 2024-05-03 10:50 | XMS_ITS | Continuity of Care Document ---
Author Organization [facility] Address [address] [place] [address]- Care Team Providers Care Central Service Technician Name Role Phone Kayla Estes Primary Care Physician Encounter [facility] Date(s): 07/25/23 - 08/24/23 [facility] [address] [place] [address]- Allergies, Adverse Reactions, Alerts No Known Allergies Immunizations Given and Recorded Vaccine Date Status Refusal Reason influenza virus vaccine, inactivated 07/30/22 [facility] rded influenza virus vaccine, inactivated 07/05/21 [facility] rded influenza virus vaccine, inactivated 08/18/20 [facility] rded influenza virus vaccine, inactivated 1 08/14/19 [facility] lacie influenza virus vaccine, inactivated 08/13/18 [facility] rded influenza virus vaccine, inactivated 01/13/16 Give n [id number] 12y+ bivalent booster vax 07/14/22 Recorded zoster [...] 07/11/23 12:00:00 EDT, Route to Pharmacy Electronically, [facility]/pharmacy #[id number], Partial fill upon patient request [...] Stop 01/22/24 12:53:00 EDT, 07/26/23 12:53:00 EDT, [facility]/pharmacy #[id number], Partial fill upon patient request if the prescription is for a schedule II opioid drug., 167, cm, ... Start Date: 07/26/23 Stop Date: 01/22/24 Status: Ordered omeprazole 40 mg oral enteric coated capsule 1 capsule = 40 mg, By Mouth, 2 times a day, for 30 days, # 60 capsule, 3 Refills, Hard Stop 09/13/23 14:57:00 EST, 05/16/23 14:57:00 EDT, [facility]/pharmacy #[id number], Partial fill upon patient request if the prescription is for a schedule II opioid drug., 171,... Start Date: 05/16/23 Stop Date: 09/13/23 Status: Ordered tenofovir disoproxil fumarate 300 mg oral tablet 1 tablet = 300 mg, By Mouth, Daily, # 90 tablet, 3 Refills, Maintenance, 09/16/22 7:49:00 EST, Tablet, [facility]/pharmacy #[id number], 165, cm, 06/07/22 15:23:00 EDT, [...] Team Personnel Name: Lindsay Mercer RN Position: [facility] RN Member Role: Primary Care Nurse Name: Kayla Estes Position: [facility] PCO Associate Professional Member Role: PCP Address: Address: [address] [place] [id number] Name: Eran Spence RN Position: [facility] RN Member Role: Primary Care Nurse Name: Prince Watson RN Position: [facility] RN Member Role: Primary Care Nurse Name: Nick Go RN Position: [facility] RN Member Role: Primary Care Nurse Name: Birdie Vieyra RN Position: [facility] RN Member Role: Primary Care Nurse Name: Izzy Monroy RN Position: [facility] OB RN Member Role: Primary Care Nurse Name: Ainsley Leung RN Position: [facility] RN Member Role: Primary Care Nurse Name: Nancy Mo RN Position: [facility] RN Member Role: Primary Care Nurse Name: Flavia Moeller Position: [facility] RN Member Role: Primary Care Nurse Name: Danae Orozco RN Position: [facility] RN Member Role: Primary Care Nurse Name: Angelic aRiney RN Position: [facility] RN Member Role: Primary Care Nurse Name: Issac Vang RN Position: [facility] RN Member Role: Primary Care Nurse Name: Doreen Murillo RN Position: [facility] RN Member Role: Primary Care Nurse Name: Shira Minor Position: [facility] RN Member Role: Primary Care Nurse Name: Vale Shanks RN Position: [facility] RN Member Role: Primary Care Nurse Name: Kari Dykes RN Position: [facility] RN Member Role: Primary Care Nurse Name: Cristina Green RN Position: [facility] RN Member Role: Primary Care Nurse Name: Esteban Roque RN Position: [facility] RN Member Role: Primary Care Nurse Name: Nidia Mendoza RN Position: [facility] RN Member Role: Primary Care Nurse Care Team Related Persons Name: ANNY GLORIAY Address: [place] [address] Name: DARÍO GLORIA Address: [place] [address] Name: ARLENE GLORIA Address: [place] [address]
--- OUTSIDE RECORDS SUMMARY | 2024-05-03 10:50 | XMS_ITS | Continuity of Care Document ---
Author Organization [facility] Address [address] [place] [address]- Care Team Providers Care Content Curator Name Role Phone aKyla Estes Primary Care Physician Encounter [facility] Date(s): 07/21/23 - 08/20/23 [facility] [address] [place] [address]- Allergies, Adverse Reactions, Alerts No Known Allergies Immunizations Given and Recorded Vaccine Date Status Refusal Reason influenza virus vaccine, inactivated 07/30/22 [facility] rded influenza virus vaccine, inactivated 07/05/21 [facility] rded influenza virus vaccine, inactivated 08/18/20 [facility] rded influenza virus vaccine, inactivated 1 08/14/19 [facility] lacie influenza virus vaccine, inactivated 08/13/18 [facility] rded influenza virus vaccine, inactivated 01/13/16 Give n [id number] 12y+ bivalent booster vax 07/14/22 Recorded zoster [...] Stop 01/22/24 12:53:00 EDT, 07/26/23 12:53:00 EDT, [facility]/pharmacy #[id number], Partial fill upon patient request if the prescription is for a schedule II opioid drug., 167, cm, .. Start Date: 07/26/23 Stop Date: 01/22/24 Status: Ordered omeprazole 40 mg oral enteric coated capsule 1 capsule = 40 mg, By Mouth, 2 times a day, for 30 days, # 60 capsule, 3 Refills, Hard Stop 09/13/23 14:57:00 EST, 05/16/23 14:57:00 EDT, [facility]/pharmacy #[id number], Partial fill upon patient request if the prescription is for a schedule II opioid drug., 171,... Start Date: 05/16/23 Stop Date: 09/13/23 Status: Ordered tenofovir disoproxil fumarate 300 mg oral tablet 1 tablet = 300 mg, By Mouth, Daily, # 90 tablet, 3 Refills, Maintenance, 09/16/22 7:49:00 EST, Tablet, [facility]/pharmacy #[id number], 165, cm, 06/07/22 15:23:00 EDT, [...] Team Personnel Name: Lindsay Mercer RN Position: [facility] RN Member Role: Primary Care Nurse Name: Kayla Estes Position: [facility] PCO Associate Professional Member Role: PCP Address: Address: [address] [place] [id number] Name: Eran Spence RN Position: [facility] RN Member Role: Primary Care Nurse Name: Prince Watson RN Position: [facility] RN Member Role: Primary Care Nurse Name: Nick Go RN Position: [facility] RN Member Role: Primary Care Nurse Name: Birdie Vieyra RN Position: [facility] RN Member Role: Primary Care Nurse Name: Izzy Monroy RN Position: [facility] OB RN Member Role: Primary Care Nurse Name: Ainsley Leung RN Position: [facility] RN Member Role: Primary Care Nurse Name: Nancy Mo RN Position: [facility] RN Member Role: Primary Care Nurse Name: Flavia Moeller Position: [facility] RN Member Role: Primary Care Nurse Name: Danae Orozco RN Position: [facility] RN Member Role: Primary Care Nurse Name: Angelic Rainey RN Position: [facility] RN Member Role: Primary Care Nurse Name: Issac Vang RN Position: [facility] RN Member Role: Primary Care Nurse Name: Doreen Murillo RN Position: [facility] RN Member Role: Primary Care Nurse Name: Shira Minor Position: [facility] RN Member Role: Primary Care Nurse Name: Vale Shanks RN Position: [facility] RN Member Role: Primary Care Nurse Name: Kari Dykes RN Position: [facility] RN Member Role: Primary Care Nurse Name: Cristina Green RN Position: [facility] RN Member Role: Primary Care Nurse Name: Esteban Roque RN Position: [facility] RN Member Role: Primary Care Nurse Name: Nidia Mendoza RN Position: S RN Member Role: Primary Care Nurse Care Team Related Persons Name: ELIDA GLORIA Address: [place] [address] Name: DARÍO GLORIA Address: [place] [address] Name: ARLENE GLORIA Address: [place] [address]
--- OUTSIDE RECORDS SUMMARY | 2024-05-03 10:50 | XMS_ITS | Continuity of Care Document ---
Author Organization [facility] Address [address] [place] [address]- Care Team Providers Care Software Programmer Name Role Phone Henry Bennett MD Primary Care Physician Encounter [facility] Date(s): 01/14/21 - 03/03/21 [facility] [address], [place] [address] Attending Physician: Alcira Ellis MD Admitting Physician: Alcira Ellis MD Referring Physician: Henry Bennett MD Allergies, [...] each, 0 Refills, Maintenance, 02/08/21 9:34:00 EDT, [facility], ok to sub for any [...] 3 Refills, Maintenance, 11/30/20 16:28:00 EST, Tablet, [facility], 157, cm, 11/13/20 10:10:00 EST, [...]
--- OUTSIDE RECORDS SUMMARY | 2024-05-03 10:50 | XMS_ITS | Continuity of Care Document ---
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 Phone Kayla Smith Primary Care Physician Encounter [facility] Date(s): 01/25/23 - 02/24/23 [facility] [address] [place] [address]- Allergies, Adverse Reactions, Alerts No Known Allergies Immunizations Given and Recorded Vaccine Date Status Refusal Reason influenza virus vaccine, inactivated 07/30/22 [facility] rded influenza virus vaccine, inactivated 07/05/21 [facility] rded influenza virus vaccine, inactivated 08/18/20 [facility] rded influenza virus vaccine, inactivated 1 08/14/19 [facility] lacie influenza virus vaccine, inactivated 08/13/18 [facility] rded influenza virus vaccine, inactivated 01/13/16 Give n [id number] 12y+ bivalent booster vax 07/14/22 Recorded zoster [...] capsule = 40 mg, By Mouth, Daily, # 30 capsule, 3 Refills, Maintenance, 01/25/23 12:33:00 EDT, [facility]/pharmacy #[id number], Partial fill upon patient request if the prescription is for a schedule II opioid drug., 171, cm, 01/12/23 8:56:00 EDT, Height, 56.7,... Start Date: 01/25/23 Stop Date: 05/25/23 Status: Ordered omeprazole 40 mg oral enteric coated capsule 1 capsule = 40 mg, By Mouth, 2 times a day, for 30 days, # 60 capsule, 3 Refills, Hard Stop 05/23/23 8:21:00 EDT, 01/23/23 8:21:00 EDT, [facility]/pharmacy #[id number], Partial fill upon patient request if the prescription is for a schedule II opioid drug., 171, c... Start Date: 01/23/23 Stop Date: 05/23/23 Status: Ordered PEG-3350 with Electrolytes (Eqv-NuLYTELY) oral powder for reconstitution See Instructions, as directed, # 1 each, 0 Refills, Maintenance, 02/08/21 9:34:00 EDT, [facility], ok to sub [...] 3 Refills, Maintenance, 09/16/22 7:49:00 EST, Tablet, [facility]/pharmacy #[id number], 165, cm, 06/07/22 15:23:00 [...] Team Personnel Name: Birdie Vieyra RN Position: S RN Member Role: Primary Care Nurse Name: Izzy Monroy RN Position: [facility] OB RN Member Role: Primary Care Nurse Name: Kayla Smith Position: [facility] PCO Associate Professional Member Role: PCP Address: Address: [address] [place] [address] Name: Danae Orozco RN Position: [facility] RN Member Role: Primary Care Nurse Name: Lindsay Medrano RN Position: S RN Member Role: Primary Care Nurse Name: Angelic Rainey RN Position: S RN Member Role: Primary Care Nurse Name: Kari Dykes RN Position: [facility] RN Supv Member Role: Primary Care Nurse Name: Cristina Green RN Position: S RN Member Role: Primary Care Nurse Care Team Related Persons Name: ELIDA GLORIA Address: [address] [place] [address] Name: DARÍO GLORIA Address: [address] [place] [address] Name: ARLENE GLORIA Address: [address] [place] [address]
--- OUTSIDE RECORDS SUMMARY | 2024-05-03 10:50 | XMS_ITS | Continuity of Care Document ---
Author Organization [facility] ter Address [address] [place] [id number] Care Team Providers Care Dip Tube Assembler Machine Name Role Phone Kayla Estes Primary Care Physician Encounter [facility] Date(s): 06/21/23 - 06/29/[address] [id number] Discharge Disposition: A-D/C Home Attending Physician: Socorro Arndt MD Admitting Physician: Socorro Arndt MD Referring Physician: Not on Staff, Referring MD Allergies, Adverse Reactions, Alerts No Known Allergies Immunizations Given and Recorded Vaccine Date Status Refusal Reason influenza virus vaccine, inactivated 07/30/22 [facility] influenza virus vaccine, inactivated 07/05/21 [facility] r[facility] influenza virus vaccine, inactivated 08/18/20 [facility] influenza virus vaccine, inactivated 1 08/14/19 [facility] influenza virus vaccine, inactivated 08/13/18 [facility] r[facility] influenza virus vaccine, inactivated 01/13/16 Give n [id number] 12y+ bivalent booster vax 07/14/22 Recorded zoster [...] Stop 09/13/23 14:57:00 EST, 05/16/23 14:57:00 EDT, [facility]/pharmacy #[id number], Partial fill upon patient request if the prescription is for a schedule II opioid drug., 171,... Start Date: 05/16/23 Stop Date: 09/13/23 Status: Ordered oxyCODONE 5 mg oral tablet 5 mg, By Mouth, Every 6 hours, PRN, for 3 days, # 12 tablet, Refills 0, Tot. Refills 0, Acute 07/02/23 14:28:00 EDT, Pain , Moderate, 06/29/23 14:28:00 EDT, [facility], Partial fill upon patient request... Start Date: 06/29/23 Stop Date: 07/02/23 Status: Ordered tenofovir disoproxil fumarate 300 mg oral tablet 1 tablet = 300 mg, By Mouth, Daily, # 90 tablet, 3 Refills, Maintenance, 09/16/22 7:49:00 EST, Tablet, [facility]/pharmacy #[id number], 165, cm, 06/07/22 15:23:00 EDT, Height, [...] 06/29/23 14:28:00 EDT, Route to Pharmacy Electronically, [facility], Partial fill upon patient request if the prescription... Start Date: 06/29/23 Stop Date: 07/06/23 Status: Ordered Problem List Condition Confirmation Course Effective Dates Status Health Status Informant GERD (gastroesophageal reflux disease) Confirmed Active Parkinsons disease Confirmed Active Failed back syndrome Confirmed Active Pure hypercholesterolemia Confirmed Active Results Radiology Reports * Exam Date Time Procedure Performing Provider Status 06/27/23 2:22 AM Chest Portable Lori Goddard; Auth (Verified) Notes: (Chest Portable) Reason For Exam: Tube Placement RESULT: Chest Portable Chest Portable Reason: Tube Placement; Clinical Question(s): Tube Placement COMPARISON: Multiple prior chest radiographs with the most recent dated 06/27/2023 at 12:17 AM. FINDINGS: LINES AND TUBES: The enteric tube remains in place unchanged. The tip is probably in the region of the distal stomach. Spinal stimulator device overlying the lower thoracic spine unchanged. LUNGS AND PLEURA: Low lung volumes with mild bibasilar atelectasis. Normal pulmonary vascularity. No pleural effusion. No pneumothorax. HEART, MEDIASTINUM AND FRANCISCO: Heart is normal in size. Normal mediastinal and hilar contour. BONES AND SOFT TISSUES: No acute abnormality. ACDF lower cervical spine. Multiple surgical clips are noted overlying the right upper quadrant of the abdomen probably related to a prior cholecystectomy. Skin romain noted inthe midabdomen midline in location. IMPRESSION: Enteric tube unchanged in position. Low lung volumes with mild bibasilar atelectasis. No definite acute cardiopulmonary pathology is seen. WSN: [id number] Ordering Physician: Jonathan Aviles Dictated By: Rajinder Nunes MD, V Dictated Date/Time: 06/27/23 8:29 am Reviewed By: Rajinder Nunes MD, V Signed By: Rajinder Nunes MD, V Signed Date/Time: 06/27/23 8:29 am Transcribed By: YVROSE Transcribed Date/Time: 06/27/23 8:25 am * Exam Date Time Procedure Performing Provider Status 06/27/23 12:23 AM Chest Portable Ryan Robles (Verified) Notes: (Chest Portable) Reason For Exam: NG tube;Tube Placement RESULT: Chest Portable Chest Portable upright at 12:17 AM Reason: Tube Placement; NG tube; Clinical Question(s): Tube Placement COMPARISON: 06/21/2023 FINDINGS: LINES AND TUBES: Enteric tube in place, the tip in region of the proximal descending duodenum, sidehole in the vicinity of the gastric antrum. Spinal stimulator device unchanged. The proximal end of a left ureteral stent is visualized. LUNGS AND PLEURA: Clear lungs. Normal pulmonary vascularity. No pleural effusion. No pneumothorax. HEART, MEDIASTINUM AND FRANCISCO: Heart is normal in size. Normal mediastinal and hilar contour. BONES AND SOFT TISSUES: No acute abnormality. IMPRESSION: 1. Tip of enteric tube in region of the proximal duodenal. 2. No acute cardiopulmonary pathology. WSN: [id number] Ordering Physician: Jonathan Aviles Dictated By: Josr Kan MD Dictated Date/Time: 06/27/23 7:39 am Reviewed By: Josr Kan MD Signed By: Josr Kan MD Signed Date/Time: 06/27/23 7:39 am Transcribed By: YVROSE Transcribed Date/Time: 06/27/23 7:34 am * Exam Date Time Procedure Performing Provider Status 06/26/23 11:14 PM Abdomen AP Rustam Hayes E; Au th (Verified) Notes: (Abdomen AP) Reason For Exam: Obstruction;Other: RESULT: XR Abdomen AP XR Abdomen AP 1 view INDICATION/CLINICAL QUESTION: Reason: Other:; Obstruction; Clinical Question(s): Obstruction COMPARISON: 07/11/2014 FINDINGS: Midline skin romain are noted. There are also surgical clips in the right upper quadrant. Nonspecific moderate increase in gas in the small intestine and colon with mild dilatation of several small bowel loops. Gas is seen throughout the colon. No intramural gas. No evidence of pneumoperitoneum. No organomegaly, masses or calcifications. No acute bone findings. Spinal stimulator device with generator in the left flank and leads extending superiorly to the T8 level. IMPRESSION: Evidence of recent abdominal surgery with a generalized increase in bowel gas and mild dilatation of multiple small bowel loops. Findings are most suggestive of a postoperative ileus. Remote cholecystectomy. Spinal stimulator with leads extending superiorly to the T8 level. WSN: [id number] Ordering Physician: Jonathan Aviles Dictated By: Francesco Fierro MD Dictated Date/Time: 06/26/23 11:38 p Reviewed By: Francesco Fierro MD Signed By: Francesco Fierro MD Signed Date/Time: 06/26/23 11:38 pm Transcribed By: YVROSE Transcribed Date/Time: 06/26/23 11:35 pm * Exam Date Time Procedure Performing Provider Status 06/24/23 8:[address] Angio Abdomen and Pelvis Cuca Lawrence; Auth (Verified) Notes: (CT Angio Abdomen and Pelvis) Reason For Exam: Postop RESULT: CT Angio Abdomen and Pelvis CT Angio Abdomen and Pelvis INDICATION: Postop; presented on to the ED on 06/21/2023 with sigmoid volvulus, status post endoscopic detorsion on 823. Emergent expiratory laparotomy performed on 06/22/2023 for concern of ischemia. Post segmental resection of the torsed sigmoid. COMPARISON: 06/21/2023. TECHNIQUE: Unenhanced axial images were obtained from diaphragm through the pelvis before, during (arterial) and after (portal venous) the intravenous administration of iodinated contrast. 100 cc of Omnipaque 300 was administered intravenously. Sagittal and coronal maximum intensity projection (MIP) images were reconstructed and rendered in both arterial and venous phases. Weight-based protocol using automatic tube modulation was used to optimize exposure parameters. RADIATION DOSE PARAMETERS: CTDIvol Body: 8.04 mGy, DLP Body: 1598 mGy*cm. VASCULAR FINDINGS: No evidence of active GI bleeding. Abdominal aorta: No aortic aneurysm or dissection. Celiac axis: Patent. Superior mesenteric artery: Patent. Right renal artery: Patent. Left renal artery: Patent. Inferior mesenteric artery: Patent. Right common iliac artery: Patent. Right internal iliac artery: Patent. Right external iliac artery: Patent. Right common femoral artery: Patent. Visualized right superficial and deep femoral arteries: Patent. Left common iliac artery: Patent. Left internal iliac artery: Patent. Left external iliac artery: Patent. Left common femoral artery: Patent. Visualized left superficial and deep femoral arteries: Patent. IVC and hepatic veins: Patent. Portal vein: Patent. Splenic vein: Patent. Superior mesenteric vein: Patent. Inferior mesenteric vein: Patent. Iliac and femoral veins: Patent. NONVASCULAR FINDINGS: Interventional Tech View Findings, Lines and Tubes: Unchanged spinal stimulator in the left lower quadrant. Visualized Chest: No consolidation. Small bilateral pleural effusions, new. The heart is normal in size. No pericardial effusion. Diaphragm: Normal. Liver: Normal. Gallbladder: Absent consistent with prior cholecystectomy. Bile ducts: No biliary ductal dilation. Unchanged mild extrahepatic ductal dilation with distal tapering, similar to priors and likely related to prior cholecystectomy. Spleen: Normal. Pancreas: Normal. Adrenal glands: Normal. Kidneys and ureters: No hydronephrosis, stones, or suspicious masses. Bladder: Normal. Reproductive organs: Unremarkable. Stomach, small bowel, and large bowel: Normal caliber stomach and small bowel loops. Significant colonic stool retention. Status post resection of the torsed sigmoid colon with anastomosis in the left lower quadrant. The rectum appears distended with a large amount of soft and solid stool. Appendix: No evidence of appendicitis. Peritoneum and retroperitoneum: There is a multilobular heterogeneous mesenteric lesion anteriorly just below the level of the umbilicus with both hyperdense and hypodense components. The dominant portion measures approximately 6.7 x 5.3 x 7 cm, but appears to extend into the right lower quadrant where an additional component measures approximately 6.5 x 5.3 cm. This can be seen on series 703 images 26-29, and series 701 images 89-118. Along the most anterior portion of this structure there is active contrast extravasation, as seen on series 601 image 97 and series 701 image 97. The contrast is not present on the precontrast series and changes configuration on the venous phase. This structure is in close approximation to small bowel loops but does not appear to have a bowel wall and is thought to be within the mesentery itself rather than arising from the bowel. Small volume of abdominopelvic ascites with fluid tracking into the perihepatic, perisplenic, bilateral paracolic gutters and dependent pelvis. Trace postoperative pneumoperitoneum. Lymph nodes: No enlarged lymph nodes. Abdominal and pelvic wall: Diffuse anasarca. Bones: No acute abnormality. Mild degenerative changes of the spine. IMPRESSION: Active hemorrhage within the anterior mid abdomen just below the level of the umbilicus within whatis thought to represent a mesenteric hematoma rather than bowel hemorrhage. Results were conveyed via telephone by Dr. Tsang to Dr. Acevedo of acute care surgery on 06/24/2023 at 11:16 AM with understanding acknowledged. Postoperative changes from recent sigmoidectomy for sigmoid volvulus. Small volume of free fluid and small amount of postoperative pneumoperitoneum. I have personally reviewed the images and I agree with this report. WSN: [id number] Ordering Physician: January Dictated By: Alejandro García MD Dictated Date/Time: 06/24/23 11:16 a Reviewed By: Jakub Tsang MD Signed By: Jakub Tsang MD Signed Date/Time: 06/24/23 11:21 am Transcribed By: YVROSE Transcribed Date/Time: 06/24/23 11:10 am * Exam Date Time Procedure Performing Provider Status 06/21/23 11:[address] Abd/Pelvis W/ IV Contrast Only Kari Collado; Nima (Verified) Notes: (CT Abd/Pelvis W/ IV Contrast Only) Reason For Exam: abdominal pain, diffuse;Other: RESULT: CT Abd/Pelvis W/ IV Contrast Only CT Abd/Pelvis W/ IV Contrast Only HX OF PRESENT ILLNESS: pt c o severe all over abd pain and R flank pain with nausea that started this morning. pt has not had a BM 4-5 days now.; Reason: abdominal pain, diffuse TECHNIQUE: Spiral CT through the abdomen and pelvis with IV contrast formatted in 3 planes. 75 cc of Omnipaque 300 was administered intravenously. This study was performed without oral contrast. Weight-based protocol using automatic tube modulation was used to optimize exposure parameters. COMPARISON: 04/30/2021 FINDINGS: Interventional Tech View Findings, Lines and Tubes: Spinal stimulator in place. Visualized Chest: Lung bases are clear. No pleural effusion. The heart is normal in size. No pericardial effusion. Diaphragm: Normal. Liver: Normal. Gallbladder: Absent consistent with prior cholecystectomy. Bile ducts: Intrauterine extra hepatic biliary dilatation without obstructing lesion identified, similar to prior, may be on the basis of previous cholecystectomy. Spleen: Normal. Pancreas: Normal. Adrenal glands: Normal. Kidneys and ureters: No hydronephrosis, stones, or suspicious masses. Bladder: Normal. Reproductive organs: Unremarkable. Stomach, small bowel, and large bowel: There is a large volume of stool in the colon, particularly in the sigmoid colon where there is associated wall thickening. There is swirling of the mesentery with beaking of the sigmoid colon centrally in the pelvis, best appreciated on coronal images 40-49. Appendix: Not seen, but no evidence of appendicitis. Peritoneum and retroperitoneum: Trace pelvic free fluid. No pneumoperitoneum. No abscess. Mild mesenteric edema. Lymph nodes: No enlarged lymph nodes. Blood vessels: Mild vascular calcifications but no aneurysm. No evidence of venous thrombosis. Abdominal and pelvic wall: No acute abnormality. Spinal stimulator in the left flank. Bones: No acute abnormality. Mild degenerative changes of the spine. Spinal stimulator in place. IMPRESSION: Findings highly concerning for sigmoid volvulus with associated edema of the wall of the sigmoid. Results were conveyed by [employer] by Dr. Tsang to Millie LUCAS on 06/21/2023 at 11:29 AM with understanding acknowledged. WSN: [id number] Ordering Physician: Millie Guzman Dictated By: Jakub Tsang MD Dictated Date/Time: 06/21/23 11:31 a Reviewed By: Jakub Tsang MD Signed By: Jakub Tsang MD Signed Date/Time: 06/21/23 11:31 am Transcribed By: YVROSE Transcribed Date/Time: 06/21/23 11:29 am * Exam Date Time Procedure Performing Provider Status 06/21/23 10:27 AM Chest Portable Debbie Smith; Auth (Verified) Notes: (Chest Portable) Reason For Exam: abd pain;Other: RESULT: Chest Portable Chest Portable HX OF PRESENT ILLNESS: pt c o severe all over abd pain and R flank pain with nausea that started this morning. pt has not had a BM 4-5 days now.; Reason: abd pain; Clinical Question(s): CHF; abd freeair / CHF COMPARISON: 02/10/2022 FINDINGS: LINES AND TUBES: Partially visualized spinal stimulator. LUNGS AND PLEURA: Clear lungs. Normal pulmonary vascularity. No pleural effusion. No pneumothorax. HEART, MEDIASTINUM AND FRANCISCO: Heart is normal in size. Normal mediastinal and hilar contour. BONES AND SOFT TISSUES: No acute abnormality. There are surgical clips in the right upper quadrant. Prior ACDF. No evidence of pneumoperitoneum. IMPRESSION: No evidence of acute abnormality. No pneumoperitoneum identified. WSN: [id number] Ordering Physician: Millie Guzman Dictated By: Jakub Tsang MD Dictated Date/Time: 06/21/23 10:29 a Reviewed By: Jakub Tsang MD Signed By: Jakub Tsang MD Signed Date/Time: 06/21/23 10:29 am Transcribed By: YVROSE Transcribed Date/Time: 06/21/23 10:28 am Vital Signs Most recent to oldest [Reference Range]: 1 2 3 Height 166 cm (06/27/23 6:26 PM) 166 cm (06/24/23 3:36 PM) 166 cm (06/24/23 2:32 AM) Weight 56.7 kg (06/24/23 3:36 PM) 56.7 kg (06/22/23 6:08 PM) 56.7 kg (06/22/23 2:27 AM) Oxygen Saturation [94-100 %] 100 % (06/29/23 4:00 PM) 100 % (06/29/23 2:00 PM) 100 % (06/29/23 12:00 PM) Pulse Rate [55-90 bpm] 126 bpm *H* (06/29/23 2:00 PM) 125 bpm *H* (06/29/23 10:00 AM) 121 bpm *H* (06/29/23 6:00 AM) Body Mass Index [18.5-24.99 kg/m2] 20.58 kg/m2 (06/24/23 3:36 PM) 20.58 kg/m2 (06/22/23 6:08 PM) 20.58 kg/m2 (06/22/23 2:27 AM) Blood Pressure [90-138/55-84 mm Hg] 141/87mm Hg *H* (06/29/23 2:00 PM) 132/85mm Hg (06/29/23 12:00 PM) 131/76mm Hg (06/29/23 10:00 AM) Respiratory Rate [16-30 br/min] 29 br/min (06/29/23 4:00 PM) 28 br/min (06/29/23 2:00 PM) 18 br/min (06/29/23 12:00 PM) Temperature [96.8-100.4 DegF] 99.0 DegF (06/29/23 2:00 PM) 98.4 DegF (06/29/23 10:00 AM) 98.4 DegF (06/29/23 6:00 AM) Liters per Minute 6 L/min (06/24/23 6:00 PM) 6 L/min (06/22/23 9:30 PM) Mode of Delivery (Oxygen) Nasal cannula (06/29/23 2:00 PM) Room air (06/29/23 12:00 PM) Room air (06/29/23 10:00 AM) Blood pressure sites Arm, right (06/29/23 2:00 PM) Arm, right (06/29/23 12:00 PM) Arm, right (06/29/23 10:00 AM) Temperature Route Oral (06/29/23 2:00 PM) Oral (06/29/23 10:00 AM) Oral (06/29/23 6:00 AM) Dry Weight 56.7 kg (06/22/23 6:08 PM) 56.7 kg (06/22/23 2:27 AM) Weight Obtained Via Bed scale (06/22/23 2:27 AM) Dry Weight Obtained Via Bed scale (06/22/23 2:27 AM) Social History Social History Type Response Smoking Status Never smoker entered on: 06/04/15 Sex Flexible sigmoidoscopy study * Event Display: GG Sigmoidoscopy Please click on pdf link to open report Consult note * Minor Murray RN: MODIFY, SIGN, VERIFY, MODIFY, SIGN, PERFORM Event Display: Consultation Note Authored Date: [id number] Patient: BITA VICKERS Age: 53 years Sex: Female : 1970 Associated Diagnoses: None Author: Minor Murray RN site concepción History of Presenting Problem Date of Service 06/22/2023 Reason for referral Reason for referral: preop site marking. printing bindery assistant consulted for preoperative site marking and patient currently admitted onto [facility]. Upon arrival to the bedside, patient is at the bedside with her daughter Mallika at her bedside. Patient is British speaking and daughter begins translating, I asked if they use a lan manager in the hospital, when I said lan manager Bita looked very considered and turned to her daughter and speaking quickly. Mallika informed me that her mother is more comfortable with her translating. Mallika reports this is how other hospital staff members have been communicating with patient. Role of multiple effect evaporator operator is explained and she is amendable to continuing the consult. The patient states I am excited to have everyone's signature on my stomach . Patient and daughter are provided with an overview of GI anatomy, basic pouching information, dailycare and management of an ostomy and lifestyle considerations. The patient and the daughter are actively engaged with printing bindery assistant asking appropriate questions throughout the visit. Patient ambulates with a cane at baseline and despite her Parkinson's is independent with ADLs. Mallika notes that herself, her sister or her father will be available for assist the patient as needed. The focus of visit is shifted towards the site marking. The patient reports wearing the waistband of her pants at the level of her umbilicus. The abdomen is then assessed in the laying, sitting, standing positions with attention to all creases, contours and folds. The patient's bilateral iliac crest is palpated as is the rectus abdominis muscle. Two locations are chosen in the left and right lower abdomen below the umbilicus, and within the anatomical indicators identified. The patient is notedto have creases above and at the level of the umbilicus on both sides. Each location is covered with a Tegaderm dressing. She states she can easily visualize each location. All questions are answered. printing bindery assistant demonstrated how to open and close to the daughter and the patient, to ensure the patient will have the dextrity. Patient and daughter are aware the printing bindery assistant will follow up as necessary post- operatively for ostomy education. Her daughter states if her mother does gets a ostomy herself and her other siblings would like to be at the bedside for ostomy teaching. Plan Time spent 46-60 minutes * Salena Medina MD: MODIFY, PERFORM, MODIFY Event Display: Consult Authored Date: [id number] Patient: ??BITA VICKERS ? Age:??53 Years?Sex:??Female?:??1970?? Chief Complaint/Reason for Consult Sigmoid Volvulus History of Present Illness Patient is a 53 year old female with a previous medical history of Parkinson's Disease, chronic hepatitis B, GERD, HLD, and spinal cord stimulator now presenting with acute onset abdominal pain at 7AM today. ACS was consulted for concerns of sigmoid volvulus, seen on CT scan. Per family at bedside the patient had severe stabbing pain around 7AM this morning after placing an enema in an attempt topromote bowel movement. She has not had a bowel movement in over five days, however she feels the urge to go. Shortly after the enema she had worsening pain primarily in the LLQ with associated nausea and vomiting. She did not have a bowel movement after. Pain was uncontrollable and worsened with any abdominal straining. She did take sips of water and quickly vomited those up as well. Patient last ate at 6AM this morning. She has not been able to pass flatus or void appropriately since yesterday. She does feel chilled, without subjective fevers. According to family, this has happened previously years ago but they are unsure if any intervention was done. While at the hospital her pain has been controlled with the administration of Dilaudid, however she does still endorse crampy pains and often shooting pain in the LLQ radiating to the RLQ. Her nausea has improved and she now denies fevers or chills. Review of Systems 12 point ROS completed. Negative unless otherwise stated in HPI/subjective. Physical Exam Vitals & Measurements T:??97.4?F?? HR:??88??(Peripheral)?? RR:??18?? BP:??99/63?? SpO2:??100%?? WT:??58??kg?? GENERAL: Distressed. Uncomfortable. Interactive. HEENT: Normocephalic. Atraumatic. Trachea midline. HEART: Regular rate and rhythm. RESPIRATORY: Equal and symmetric chest rise bilaterally; no increased work of breathing. ABDOMEN: Compressible. Tender to palpation diffusely, most notably in LLQ. Voluntary guarding, no rebound. Distended. No peritonitic. MUSCULOSKELETAL: Moving all extremities equally. No calf fullness or tenderness. Compartments soft. SKIN: Warm and well perfused. Intact skin turgor. No edema noted on exam. RECTAL: No masses. NEURO: AOx3 Assessment/Plan Patient is a 53 year old female with a previous history of Parkinson's disease, chronic Hep B, GERD, HLD and spinal cord stimulator who ACS was consulted for sigmoid volvulus. Patient had acute onsetabdominal pain earlier this morning with associated nausea and vomiting. On presentation to the ED she was tachycardic to 120 secondary to pain. She remains tachycardic to the 90s but is improved from presentation. She is afebrile. Her labs are largely unremarkable, without leukocytosis or electrolyte abnormalities. She does, however, have a lactate of 4.1. Her CT scan was significant for sigmoidvolvulus with adjacent wall edema in the sigmoid. On exam she is diffusely tender to palpation, prim arily in the LLQ, without voluntary guarding and distention. A GI consult was placed as well, we will follow up their recommendations on endoscopic detorsion versus immediate OR. The patient and family at bedside were updated with plans and in agreement with planned interventions. ?? Plan: - Admit to ACS service - NPO/IVF - F/U GI recommendations - Plan for OR for sigmoid resection and possible colostomy - DTV prophylaxis - Pain management - Continue Parkinson's disease medications ?? Patient discussed with Dr. Arndt Please page [phone] with any questions or concerns Problem List/Past Medical History Ongoing Failed back syndrome GERD (gastroesophageal reflux disease) Parkinsons disease Pure hypercholesterolemia Procedure/Surgical History Esophagogastroduodenoscopy and biopsy: 06/07/22 Colonoscopy: 06/28/21 back surgery C7 surgery tubal ligation hemorrhoidectomy Cholecystectomy; Ovarian cystectomy, unilateral or bilateral Colonoscopy 01/2011- Dr. Cintron- Hemorrhoids Home Medications Amantadine: 60 each, TAKE 1 TABLET BY MOUTH TWICE DAILY Carbidopa-Levodopa: TAKE 1.5 TABLETS BY MOUTH FIVE TIMES DAILY Entacapone: 270 each, TAKE 1 TABLET BY MOUTH THREE TIMES DAILY Famotidine: 20 mg, By Mouth, Daily Gabapentin: 300 mg = 1 capsule, By Mouth, Daily, PRN (Pain , Mild), per neurology Magnesium Oxide: 400 mg = 1 tablet, By Mouth, Daily Omeprazole: 40 mg = 1 capsule, By Mouth, 2 times a day Polyethylene Glycol 3350: 17 Gm, By Mouth, Daily, dissolve in water before taking Tenofovir: 300 mg = 1 tablet, By Mouth, Daily Trazodone: 90 each, TAKE 1 TABLET BY MOUTH ONCE DAILY AT BEDTIME NEEDED FOR SLEEP Allergies NKA Social History Alcohol Use: Never. Electronic Cigarette/Vaping Electronic Cigarette Use: Never. Employment/School Status: Homemaker. Home/Environment Living situation: Home/Independent. Lives with: Children, Spouse. Nutrition/Health Diet: Regular. Substance Abuse Use: Never. Tobacco Never smoker Family History Mother: Diabetes mellitus; Hypertension Father: COPD - Chronic obstructive pulmonary disease; Hypertension Lab Results Labs Last 24 Hours BLOOD COUNT & DIFF ? Event Name?? Event Result?? Date/Time?? WBC 5.6 k/mm3 06/21/23 09:50:00 RBC 4.08 m/mm3??Low 06/21/23 09:50:00 Hgb 12.6 Gm/dL 06/21/23 09:50:00 Hct 37.1 % 06/21/23 09:50:00 MCV 90.9 femtoliters 06/21/23 09:50:00 MCH 30.9 pg 06/21/23 09:50:00 MCHC 34 g/dL 06/21/23 09:50:00 Platelet Count 183 k/mm3 06/21/23 09:50:00 MPV 10.2 femtoliters 06/21/23 09:50:00 Nucleated RBC (Automated) 0 #/100 WBC'S 06/21/23 09:50:00 ? CHEM GENERAL ? Event Name?? Event Result?? Date/Time?? Sodium 142 mmol/L 06/21/23 09:50:00 Chloride 104 mmol/L 06/21/23 09:50:00 Bicarbonate Level 22 mmol/L 06/21/23 09:50:00 Anion Gap 16 06/21/23 09:50:00 Glucose Level 97 mg/dL 06/21/23 09:50:00 BUN 13 mg/dL 06/21/23 09:50:00 Creatinine-Blood 0.7 mg/dL 06/21/23 09:50:00 Alkaline Phosphatase 85 units/L 06/21/23 09:50:00 Lipase 35 units/L 06/21/23 09:50:00 AST (SGOT) 22 units/L 06/21/23 09:50:00 ALT (SGPT) 11 units/L 06/21/23 09:50:00 Bilirubin, Total 0.3 mg/dL 06/21/23 09:50:00 ? * Socorro Arndt MD: PERFORM Event Display: Consult Authored Date: ?? Acute Care Surgery Attending Attestation: ?? The patient was seen, examined, and discussed with the ACS team on the date of service documented. ??The clinical course, labs, and radiological studies were reviewed by me and findings on exam confirmed. ??I agree with the findings as well as the assessment and plan as delineated. ?? --- Socorro Arndt MD FACS Division of Trauma, Acute Care Surgery, and Surgical Critical Care * Stephanie VINSON, Huy: Nisa Antonio MD: PERFORM Event Display: Consultation Note Authored Date: Patient: ??BITA VICKERS ? Age:??53 Years?Sex:??Female?:??1970?? Chief Complaint Abdominal pain Reason for Consultation Sigmoid volvulus History of Present Illness Patient is a 53-year-old lady with a history of??GERD, Parkinson's disease and??hepatitis B, presenting with abdominal pain since this morning. She is seen with her son and daughter. ??British speaking. ??Patient reports??that??this morningshe woke up and when she went to the toilet??she was straining to defecate and all of a sudden had??severe abdominal pain in the left lower??abdomen. ??She had an episode of clear emesis, had nausea after this but no further vomiting episodes. ??She reports that she last successfully passed stool on Monday. ??Has not passed flatus today since the abdominal pain started. Pain is ongoing and she rates it as 8 out of 10. ??Labs largely within normal limits. ??Dynamicallystable. The abdomen pelvis with concerns for??acute sigmoid volvulus. She is not on any anticoagulation. Physical Exam Vitals & Measurements T:??97.4?F?? HR:??80??(Peripheral)?? RR:??18?? BP:??110/62?? SpO2:??96%?? WT:??58??kg?? General:??Well appearing, looks comfortable at rest HEENT:??KAT, Moist mucus membranes, oropharynx benign, no palpable?? Respiratory:??normal work of breathing, equal air entry bilaterally, breath sounds vesicular. No wheezes, rhonchi or crepitations Cardiovascular:??Normal rate, regular rhythm, no murmurs rubs of gallops on auscultation GI/Abdomen:??The abdomen is mildly distended,??generally tender, more so on the left side. ??Bowel sounds are present.?? There is no evidence of peritonism. ??The abdomen is soft. Extremities:??Moving extremities,. No peripheral edema, lower limbs are warm and well perfused, ??DP and PT pulses palpable bilaterally. Skin:??No jaundice, no ecchymoses Neurologic:??Alert & Oriented, no obvious focal neurological deficit Psychiatric:??Mood and affect appropriate Assessment/Plan Patient is a 53-year-old lady with a history of Parkinson's disease and constipation who presents with acute abdominal pains that started at 7 AM , persisted, not passing flatus or stool. ??CT imaging concerning for sigmoid volvulus. ??Consulted for evaluation. ?? - Patient will be taken now??for endoscopic decompression ?? This note was typed using [employer] dictation software. Occasionally, typing errors may occur. Please contact me on Cortext if anything requires further clarification. Patient discussed with attending physician, ?? Nisa Corbett MD Gastroenterology Fellow ??PGY 4? Addendum: I have seen and evaluated this patient. ??I have discussed the case and its management with??fellow/resident??and agree with the findings and plan as documented in the note above.? Huy Brown MD Problem List/Past Medical History Ongoing Failed back syndrome GERD (gastroesophageal reflux disease) Parkinsons disease Pure hypercholesterolemia Procedure/Surgical History ???Esophagogastroduodenoscopy and biopsy (06/07/2022)???Colonoscopy (06/28/2021)???back surgery???C7 surgery???Cholecystectomy;???Colonoscopy 01/2011- Dr. Cintron- Hemorrhoids???hemorrhoidectomy???Ovarian cystectomy, unilateral or bilateral???tubal ligation Medications Inpatient Acetaminophen IVPB, 1000 mg= 100 mL, IVPB, Every 6 hours carbidopa-levodopa 25 mg-100 mg oral tablet, 1.5 tablet, By Mouth, 5 times a day Enoxaparin Inj, 30 mg= 0.3 mL, Subcutaneous Injection, 2 times a day famotidine 20 mg oral tablet, 20 mg, By Mouth, Daily HYDROmorphone Inj, 0.5 mg= 0.5 mL, IV Push Slowly, Every 3 hours, PRN LR 1,000 mL, 1000 mL, IV Infusion pantoprazole 40 mg oral delayed release tablet, 40 mg, By Mouth, 2 times a day Zofran Inj, 4 mg, IV Push, Every 6 hours, PRN Home amantadine 100 mg oral tablet carbidopa-levodopa 25 mg-100 mg oral tablet entacapone 200 mg oral tablet Famotidine, 20 mg, By Mouth, Daily gabapentin 300 mg oral capsule, 300 mg= 1 capsule, By Mouth, Daily, PRN magnesium oxide 400 mg oral tablet, 400 mg= 1 tablet, By Mouth, Daily MiraLax oral powder for reconstitution, 17 Gm, By Mouth, Daily omeprazole 40 mg oral enteric coated capsule, 40 mg= 1 capsule, By Mouth, 2 times a day, 3 refills tenofovir disoproxil fumarate 300 mg oral tablet, 300 mg= 1 tablet, By Mouth, Daily, 3 refills traZODone 50 mg oral tablet Allergies NKA Social History Alcohol Use: Never. Electronic Cigarette/Vaping Electronic Cigarette Use: Never. Employment/School Status: Homemaker. Home/Environment Living situation: Home/Independent. Lives with: Children, Spouse. Nutrition/Health Diet: Regular. Substance Abuse Use: Never. Tobacco Never smoker Family History COPD - Chronic obstructive pulmonary disease: Father. Diabetes mellitus: Mother. Hypertension: Mother and Father. Cardiology * Event Display: Cardiac Rhythm Strips Authored Date: * Event Display: Cardiac Rhythm Strips Authored Date: * Event Display: Cardiac Rhythm Strips Authored Date: Hospital Progress note * Adam VINSON Marenisco: PERFORM Event Display: Progress Note Hospital Authored Date: Patient: ??BITA VICKERS ? Age:??53 Years?Sex:??Female?:??1970?? Subjective Patient was seen and evaluated at bedside during morning rounds. No acute events overnight. Her sonwas at baseline and was providing assistance with translation. She denies any pain, nausea or vomiting. She has been able to tolerate a diet. She continues to have bowel movements and pass flatus. Nomore blood clots per rectum. She is voiding appropriately. She is frustrated because she has not got ten adequate sleep while at the hospital. Per son, she is at her baseline in terms of interactivityand engagement. Denies fevers, chills, SOB or CP. Review of Systems 12 point ROS completed. Negative unless otherwise stated in HPI/subjective. Physical Exam Vitals & Measurements T:??98.4?F?? HR:??125??(Peripheral)?? RR:??18?? BP:??132/85?? BP:??160/81(Line)?? SpO2:??100%?? HT:??166??cm?? WT:??56.7??kg?? BMI:??20.58?? GENERAL: No acute distress. Non-toxic. Well appearing and interactive. HEENT: Normocephalic. Atraumatic. Trachea midline. HEART: Regular rate and rhythm. RESPIRATORY: Equal and symmetric chest rise bilaterally; no increased work of breathing. ABDOMEN: Soft. Appropriately tender to palpation along midline incision site. No rebound or guarding. Mild distention. Midline incision maintained with Romain without surrounding erythema or drainage. MUSCULOSKELETAL: Moving all extremities equally. Compartments soft. SKIN: Warm and well perfused. No edema noted on exam. NEURO: AOx3 Assessment/Plan Bita Patel is a 53 year old female with PMH of Parkinson's disease, chronic Hep B, GERD, HLD and spinal cord stimulator who ACS was consulted for sigmoid volvulus. Her CT scan was significant for sigmoid volvulus with adjacent wall edema in the sigmoid and she had lactate of 4.1.??She underwent endoscopic detorsion with GI the night of admission on 06/21 with initial improvement in her symptoms.??Due to ongoing tenderness and pain, she was taken to the OR the following day and underwent exploratory laparotomy, sigmoid resection, and primary anastomosis (06/22 Hair). Over the next 2 days, shehad a sharp downtrend in Hgb to 5.7 with associated tachycardia and pRBC requirement. She underwentCTA which was concerning for actively bleeding mesenteric hematoma. She proceeded for relook laparotomy, where she was found to have a hematoma of the rectus muscle with bleeding accumulating along the mesentery (06/24 Kamilla). The bleeding was surgically controlled, she received 2u pRBC post-operativ prateek.??Post-operative course complicated by ileus requiring NGT decompression, now resolved.??Patient has been tolerating a diet and her home medications have been resumed. She continues to have bowelfunction.??We are planning for discharge this afternoon. ?? Plan Continue regular diet Multimodal pain control Antiemetics as needed Home medications as indicated Daily labs; replete PRN OOB/ambulate PT recommending rehab, family requesting home with services CM for dispo planning; plan for discharge today at 3PM ?? Case discussed with Dr. Pink Please page ACS with any additional questions or??concerns: [id number] Intake and Output Intake and Output Results?? This visit (24 hour periods starting at 07:00 EDT)? 06/29/23 *?? 06/28/23?? 06/27/23?? Total Summary?Intake mL?? --?? 830?? 2,354.98?Output mL?? 325?? 3,575?? 5,450?Fluid Balance ?? -325?? -2,745?? -3,095.02?? Intake (4)?Acetaminophen mL?? --?? --?? 400?Dextrose 5% in Water, Potassium Phosphate mL?? --?? --?? 274.98?Lactated Ringers Injection 1,000 mL mL?? --?? 630?? 1,080?Potassium Chloride mL?? --?? 200?? 600?Total?? --?? 830?? 2,354.98?? Output (1)?Urine Voided mL?? 325?? 3,575?? 5,450?Total?? 325?? 3,575?? 5,450?? Counts (2)?Urine Count ?? --?? 2?? 2?Urine Voided mL?? 325?? 3,575?? 5,450? * This column has not completed the indicated time period.?? Labs Last 24 Hours BLOOD COUNT & DIFF ? Event Name?? Event Result?? Date/Time?? WBC 10 k/mm3 06/29/23 07:24:00 RBC 2.88 m/mm3??Low 06/29/23 07:24:00 Hgb 8.6 Gm/dL??Low 06/29/23 07:24:00 Hct 25.9 %??Low 06/29/23 07:24:00 MCV 89.9 femtoliters 06/29/23 07:24:00 MCH 29.9 pg 06/29/23 07:24:00 MCHC 33.2 g/dL 06/29/23 07:24:00 Platelet Count 265 k/mm3 06/29/23 07:24:00 MPV 9.6 femtoliters 06/29/23 07:24:00 Nucleated RBC (Automated) 0.2 #/100 WBC'S 06/29/23 07:24:00 ? CHEM GENERAL ? Event Name?? Event Result?? Date/Time?? Sodium 136 mmol/L 06/29/23 07:24:00 Chloride 100 mmol/L 06/29/23 07:24:00 Bicarbonate Level 18 mmol/L??Low 06/29/23 07:24:00 Anion Gap 18??High 06/29/23 07:24:00 BUN 10 mg/dL 06/29/23 07:24:00 Creatinine-Blood 0.4 mg/dL??Low 06/29/23 07:24:00 Phosphorus 2.2 mg/dL??Low 06/29/23 07:24:00 Magnesium 1.9 mg/dL 06/29/23 07:24:00 ? * Greg Murguia RN: PERFORM, SIGN, VERIFY Event Display: Progress Note Hospital Authored Date: [id number] Patient: BITA VICKERS Age: 53 years Sex: Female : 1970 Associated Diagnoses: None Author: Greg Murguia RN Findings Problem Related to Alteration in Gastrointestinal : Alteration in Gastrointestinal Func/new 06/29/2023 5:00 EDT Alteration in GI status Related to Abdominal Surgery, Colorectal Surgery, Other:Sigmoid volvulus Goals & Outcomes, Gastrointestinal Establish a regular pattern of elimination for pt, Nutritional intake is adequate for metabolic needs, Pt will achieve normal/improved fluid balance, Pt will have a bowel movement prior to discharge, Pt will maintain adequate GI function appropriate for pt, Ptwill maintain normal elimination patterns, Pt will resume/maintain adequate hemodynamic status, Pt w ill tolerate age appropriate diet prior to discharge Interventions, Gastrointestinal Assess/monitor abdomen for distention, tenderness, Assess/monitor bowel pattern, bowel sounds, flatus, Assess/monitor number of bowel movements Goals/Interventions, Gastrointestinal Yes Gastrointestinal, Problem Start 06/22/2023 3:25 Reviewed plan with, Gastrointestinal Patient, Family/caregiver not available Patient Progression, Gastrointestinal Pt progressing according to plan . Evaluation P: Alteration in gastrointestinal function I: Refer to NCP E: pt abd soft/nontender, + bs/ bm. no sig amount of pain per pt report All saftey measurements followed per protocol . * Gurwinder VINSON, Nayely: PERFORM Event Display: Progress Note Hospital Authored Date: Patient: ??ALEE, BITA ? Age:??53 Years?Sex:??Female?:??1970?? Subjective Pt seen and examined at the bedside during morning rounds. No acute events overnight. Pt doing??well this AM.??Tolerating??CLD without nausea or vomiting. Continues to pass gas.??Passed??a BM with a small clot overnight but no BRBPR. Did not get OOB yesterday??due to feeling too weak, but is motivated to try again today. Pain is manageable.??Denies fever/chills, N/V, constipation/diarrhea, CP/SOB. Physical Exam Vitals & Measurements T:??98.7?F?? HR:??96??(Peripheral)?? RR:??23?? BP:??131/83?? BP:??160/81(Line)?? SpO2:??100%?? HT:??166??cm?? WT:??56.7??kg?? BMI:??20.58?? General: no acute distress, awake, alert HEENT: NCAT, EOM grossly intact, trachea midline CV: RRR Pulm: nonlabored breathing on room air Abd: soft, appropriate ave-incisional tenderness, mildly distended, no rebound or guarding, midline Aquacel c/d/i Ext: moving all extremities spontaneously, no lower extremity edema Skin: no rash on limited exam, warm and well-perfused Neuro: answers questions appropriately Psych: appropriate Assessment/Plan Bita Patel is a 53 year old female with PMH of Parkinson's disease, chronic Hep B, GERD, HLD and spinal cord stimulator who ACS was consulted for sigmoid volvulus. Her CT scan was significant for sigmoid volvulus with adjacent wall edema in the sigmoid and she had lactate of 4.1.??She underwent endoscopic detorsion with GI the night of admission on 06/21 with initial improvement in her symptoms.??Due to ongoing tenderness and pain, she was taken to the OR the following day and underwent exploratory laparotomy, sigmoid resection, and primary anastomosis (06/22 Hair). Over the next 2 days, shehad a sharp downtrend in Hgb to 5.7 with associated tachycardia and pRBC requirement. She underwentCTA which was concerning for actively bleeding mesenteric hematoma. She proceeded for relook laparotomy, where she was found to have a hematoma of the rectus muscle with bleeding accumulating along the mesentery (06/24 Kamilla). The bleeding was surgically controlled, she received 2u pRBC post-operativ prateek.??Post-operative course complicated by ileus requiring NGT decompression, now resolved. Will advance to regular diet and plan for discharge in the near future.? Plan Advance to regular diet Multimodal pain control Antiemetics as needed Home medications as indicated Daily labs; replete PRN OOB/ambulate PT recommending rehab, family requesting home with services CM for dispo planning ?? Case discussed with Dr. Pink Please page ACS with any additional questions or??concerns: [id number] Intake and Output Intake and Output Results?? This visit (24 hour periods starting at 07:00 EDT)? 06/28/23 *?? 06/27/23?? 06/26/23?? Total Summary?Intake mL?? 100?? 2,354.98?? 1,834.98?Output mL?? 1,000?? 5,450?? 4,475?Fluid Balance ?? -900?? -3,095.02?? -2,640.02?? Intake (5)?Acetaminophen mL?? --?? 400?? 300?Dextrose 5% in Water, Potassium Phosphate mL?? --?? 274.98?? 274.98?Lactated Ringers Injection 1,000 mL mL?? --?? 1,080?? 990?Oral Fluids mL?? --?? --?? 270?Potassium Chloride mL?? 100?? 600?? --?Total?? 100?? 2,354.98?? 1,834.98?? Output (4)?Emesis Vol mL?? --?? --?? 570?NG Output mL?? --?? --?? 600?Urine Catheter mL?? --?? --?? 830?Urine Voided mL?? 1,000?? 5,450?? 2,475?Total?? 1,000?? 5,450?? 4,475?? Counts (5)?Bladder Scan Volume mL?? --?? --?? 567?Oral Fluids mL?? --?? --?? 270?Urine Catheter mL?? --?? --?? 830?Urine Count ?? 1?? 2?? --?Urine Voided mL?? 1,000?? 5,450?? 2,475? * This column has not completed the indicated time period.?? Labs Last 24 Hours BLOOD COUNT & DIFF ? Event Name?? Event Result?? Date/Time?? WBC 6.9 k/mm3 06/28/23 04:24:00 RBC 2.78 m/mm3??Low 06/28/23 04:24:00 Hgb 8.1 Gm/dL??Low 06/28/23 04:24:00 Hct 24.7 %??Low 06/28/23 04:24:00 MCV 88.8 femtoliters 06/28/23 04:24:00 MCH 29.1 pg 06/28/23 04:24:00 MCHC 32.8 g/dL??Low 06/28/23 04:24:00 Platelet Count 186 k/mm3 06/28/23 04:24:00 MPV 9.6 femtoliters 06/28/23 04:24:00 Nucleated RBC (Automated) 0 #/100 WBC'S 06/28/23 04:24:00 ? CHEM GENERAL ? Event Name?? Event Result?? Date/Time?? Sodium 137 mmol/L 06/28/23 04:24:00 Chloride 103 mmol/L 06/28/23 04:24:00 Bicarbonate Level 18 mmol/L??Low 06/28/23 04:24:00 Anion Gap 16 06/28/23 04:24:00 BUN 7 mg/dL 06/28/23 04:24:00 Creatinine-Blood 0.4 mg/dL??Low 06/28/23 04:24:00 Phosphorus 2.6 mg/dL 06/28/23 04:24:00 Magnesium 1.8 mg/dL 06/28/23 04:24:00 ? Note * Zora Williamson RN: PERFORM Event Display: Discharge/Transfer Note Hospital Authored Date: Nursing Discharge Note Entered On: 06/29/2023 16:11 EDT Performed On: 06/29/2023 16:10 EDT by Zora Williamson RN Nursing Discharge Note 2 Discharge Time : 06/29/2023 16:10 EDT Discharge Level of Care at Discharge : Homehealth/VNA Discharge VNA/Hospice/Home Care(v001) : [facility] [phone] Patient Left Unit Via : Wheelchair Patient Accompanied Off Unit with : Significant other, Responsible adult DC Instructions Provided & Signed by Pt : Yes Patient Understands D/C Instructions : Yes Patient Instructions Discharge Signed : Yes Did Pt have Specialty Bed or Wound Vac : No Zora Williamson RN - 06/29/2023 16:10 EDT * Kinga BOYD, Mahnaz Carrasquillo: PERFORM Event Display: Discharge/Transfer Note Hospital Authored Date: Patient: ??BITA VICKERS ? Age:??53 Years?Sex:??Female?:??1970?? Admit Date Admission Date: 06/21/2023 Discharge Date 06/29/2023 Discharge Diagnoses Abdominal pain, 06/21/2023 Hospital Course Bita Patel is a 53 year old female with PMH of Parkinson's disease, chronic Hep B, GERD, HLD and spinal cord stimulator who ACS was consulted for sigmoid volvulus. Her CT scan was significant for sigmoid volvulus with adjacent wall edema in the sigmoid and she had lactate of 4.1.??She underwent endoscopic detorsion with GI the night of admission on 06/21 with initial improvement in her symptoms.??Due to ongoing tenderness and pain, she was taken to the OR the following day and underwent exploratory laparotomy, sigmoid resection, and primary anastomosis (06/22 Hair). Over the next 2 days, shehad a sharp downtrend in Hgb to 5.7 with associated tachycardia and pRBC requirement. She underwentCTA which was concerning for actively bleeding mesenteric hematoma. She proceeded for relook laparotomy, where she was found to have a hematoma of the rectus muscle with bleeding accumulating along the mesentery (06/24 Kamilla). The bleeding was surgically controlled, she received 2u pRBC post-operativ prateek.??Post-operative course complicated by ileus requiring NGT decompression, now resolved.??Patient has been tolerating a diet and her home medications have been resumed. She continues to have bowelfunction.??She was noted to be tachycardia with activity with recovering at rest, most likely related to anxiety and deconditioning. She will follow up with her PCP in 1-2 weeks for further monitoring. ?? The patient??was cleared for discharge on 06/29/2023 with VNA services including nursing and PT.?At that time, her pain was controlled and she was tolerating a diet, having??bowel function, voiding, and ambulating with assistance.?She was given a prescription for any oxycodone 5 mg Q 6 hours as needed and acetaminophen 650 mg PO Q 4 hours as needed for pain control. She will continue her home bowel regimen for constipation. She has been scheduled an outpatient follow up with Dr. Arndt for July 12, 2023 @ 10:20 AM for post op follow up and staple removal. Objective/Physical Exam on Day of Discharge Vitals & Measurements T:??98.4?F?? HR:??125??(Peripheral)?? RR:??18?? BP:??132/85?? BP:??160/81(Line)?? SpO2:??100%?? HT:??166??cm?? WT:??56.7??kg?? BMI:??20.58?? GENERAL: No acute distress. Non-toxic. Well appearing and interactive. HEENT: Normocephalic. Atraumatic. Trachea midline. HEART: Regular rate and rhythm. RESPIRATORY: Equal and symmetric chest rise bilaterally; no increased work of breathing. ABDOMEN: Soft. Appropriately tender to palpation along midline incision site. No rebound or guarding. Mild distention. Midline incision maintained with Romain without surrounding erythema or drainage. MUSCULOSKELETAL: Moving all extremities equally. Compartments soft. SKIN: Warm and well perfused. No edema noted on exam. NEURO: AOx3 Future Appointments Monday 10:20 AM EDT ?? With: Hair VINSON, Socorro Foreman Where: [facility] [address] [place] [address]- Status: Pending Patient Discharge Condition stable Discharge Disposition home with vna services Home Health Face to Face *Denotes mandatory pearl ?? *I certify that this patient is under my care and that I or an allowed non- physician working with me had a face to face encounter with the patient on this date:??06/29/2023 14:48 ?? *The encounter with the patient was in whole, or in part, for the following medical condition, which is the primary diagnosis(es) for home health care:? *Select the indications for the discipline/s that are being arranged for this patient. Nursing (select all that apply): [_] None [xx_] Medication management (reconciliation, teaching)?? [xx_] Chronic disease management?? [_] Wound care and treatment?? [xx_] Home safety evaluation [_] Administer SQ/IM/IV medications?? [_] Cath care?? [_] Drain care?? [_] Trach or GT care?? Other _ Occupation Therapy (select all that apply): [xx_] None [_] ADL Management [_] Fall prevention training [_] Energy conservation [_] Cognitive training Other _ Physical Therapy (select all that apply): [_] None [xx_] Functional mobility training [xx_] Home exercise program to strengthen [xx_] Increase ROM?? [xx_] Falls prevention training [xx_] Home maintenance program for chronic disease Other _ Speech Therapy (select all that apply): [xx_] None [_] Swallow evaluation and training [_] Speech and language training [_] Cognitive training to process, organize, and/or recall information Other _ ? *Homebound due to (select all that apply): [xx_] Inability to leave home without assistance/supervision [xx_] Inability to ambulate without assistance [xx_] Pain [xx_] Decreased strength and endurance [xx_] Unsteady gait [xx_] Severe SOB and fatigue [xx_] Impaired transfers [xx_] Inability to negotiate stairs [_] Limited weight bearing [_] Mental status change? *Physician Signature:??Mahnaz Donato NP ?? *By signing this, I certify that I have personally evaluated the patient and agree with the findings and recommendations as documented above. ? Procedures Performed This Visit 06/22/2023 Postoperative Diagnosis Sigmoid Volvulus Operation Exploratory laparotomy, sigmoidectomy, primary anastomosis Surgeon(s) Socorro Arndt MD (Primary Surgeon) Scoop Operator Avery Vela MD (PGY5) Anesthesia General anesthesia, TAP block Jorge L Armenta DO (Att Anesthesiologist) Henry Doran CRNA (HOT METAL MIXER OPERATOR HELPER) ?? Procedure Date: 06/24/2023.?? Preoperative Diagnosis: Hemoperitoneum.?? Postoperative Diagnosis: Same as Preoperative Diagnosis.?? Procedure Performed: Re-look laparotomy, hematoma evacuation, control of bleeding from anastomotic staple line and rectus muscle hematoma.?? Surgeon: Jose E Kohli MD.?? Assistants: Nicolasa Mendoza MD.?? Anesthesia Type: General, Regional: TAB Block.? Inpatient Medications Medications (13) Active SCHEDULED: (9) Acetaminophen 325 mg Tablet (Tylenol 325 mg oral tablet) ??650 mg, By Mouth, Every 4 hours Carbidopa 25 mg / Levodopa 100 mg Tablet (carbidopa-levodopa 25 mg-100 mg oral tablet) ??1.5 tablet, By Mouth, 5 times a day Enoxaparin 30 mg Inj (Enoxaparin Inj) ??30 mg 0.3 mL, Subcutaneous Injection, 2 times a day Ketorolac 30 mg/mL Inj (Toradol Inj) ??15 mg 0.5 mL, IV Push Slowly, Every 6 hours Melatonin 3 mg Tablet (Melatonin Tablet) ??6 mg, By Mouth, Daily at bedtime Pantoprazole 40 mg EC Tablet (pantoprazole 40 mg oral delayed release tablet) ??40 mg, By Mouth, 2 times a day Potassium Chloride 20 mEq Packet (Potassium Chloride Packet) ??20 mEq, By Mouth, Once Tenofovir 300 mg Tablet (Viread Tablet) ??300 mg, By Mouth, Daily Trazodone 50 mg Tablet (traZODone 50 mg oral tablet) ??50 mg, By Mouth, Daily at bedtime CONTINUOUS: (0) PRN: (4) Chloraseptic Throat [place] (Chloraseptic [place]) ??1 sprays, By Mouth, Every 4 hours Gabapentin 300 mg Capsule (gabapentin 300 mg oral capsule) ??300 mg, By Mouth, 3 times a day Ondansetron 2mg/mL Inj (2mL Vial) (Zofran Inj) ??4 mg, IV Push, Every 6 hours OxyCODONE 5 mg IR Tablet (oxyCODONE 5 mg oral tablet) ??5 mg, By Mouth, Every 6 hours Discharge Medications Acetaminophen (Tylenol 325 mg oral tablet)?650?Milligram?By Mouth?Every 4 hours?for 7?Days Carbidopa-Levodopa (carbidopa-levodopa 25 mg-100 mg oral tablet)?1.5 tablets?By Mouth?5 times a day Entacapone (entacapone 200 mg oral tablet)?1?tab(s)?200?Milligram?By Mouth?3 times a day Famotidine?20?Milligram?By Mouth?Daily Gabapentin (gabapentin 300 mg oral capsule)?300?Milligram?1?capsule?By Mouth?3 times a day?as needed?Pain , Mild Magnesium Oxide (magnesium oxide 400 mg oral tablet)?1?tab(s)?400?Milligram?By Mouth?Daily Omeprazole (omeprazole 40 mg oral enteric coated capsule)?1?capsule?40?Milligram?By Mouth?2 times a day?for 30?Days Oxycodone (oxyCODONE 5 mg oral tablet)?5?Milligram?By Mouth?Every 6 hours?as needed?for 3?Days?Pain , Moderate Polyethylene Glycol 3350 (MiraLax oral powder for reconstitution)?17?gram?By Mouth?Daily?dissolve in water before taking Tenofovir (tenofovir disoproxil fumarate 300 mg oral tablet)?1?tab(s)?300?Milligram?By Mouth?Daily Trazodone (traZODone 50 mg oral tablet)?50?Milligram?1?tablet?By Mouth?Daily at bedtime Labs Last 24 Hours BLOOD COUNT & DIFF ? Event Name?? Event Result?? Date/Time?? WBC 10 k/mm3 06/29/23 07:24:00 RBC 2.88 m/mm3??Low 06/29/23 07:24:00 Hgb 8.6 Gm/dL??Low 06/29/23 07:24:00 Hct 25.9 %??Low 06/29/23 07:24:00 MCV 89.9 femtoliters 06/29/23 07:24:00 MCH 29.9 pg 06/29/23 07:24:00 MCHC 33.2 g/dL 06/29/23 07:24:00 Platelet Count 265 k/mm3 06/29/23 07:24:00 MPV 9.6 femtoliters 06/29/23 07:24:00 Nucleated RBC (Automated) 0.2 #/100 WBC'S 06/29/23 07:24:00 ? CHEM GENERAL ? Event Name?? Event Result?? Date/Time?? Sodium 136 mmol/L 06/29/23 07:24:00 Chloride 100 mmol/L 06/29/23 07:24:00 Bicarbonate Level 18 mmol/L??Low 06/29/23 07:24:00 Anion Gap 18??High 06/29/23 07:24:00 BUN 10 mg/dL 06/29/23 07:24:00 Creatinine-Blood 0.4 mg/dL??Low 06/29/23 07:24:00 Phosphorus 2.2 mg/dL??Low 06/29/23 07:24:00 Magnesium 1.9 mg/dL 06/29/23 07:24:00 ? Follow-Up Appointments Added Follow Up ?Time Frame ?Comments Kayla Estes?1-2 day: call to discuss follow up visit?please call to arrange post hospital follow up. Patient Instructions Special Instructions ?? If you develop fever, chills, increased pain, nausea, vomiting, bleeding, or increased redness or pus around the wound please call the surgery office at . Please take medications as prescribed and do not drive while on narcotic medications. ?? If you have any questions, please call the surgery office at . ?? Please call your Primary Care Provider within 1-2 week for post hospital follow up and review of your medications. ?? Activity Instructions ?? -No heavy lifting >10 lbs -Increase activity as tolerated -Encourage coughing and deep breathing, use of incentive spirometer -No tub baths until incision(s) has/have healed -May shower on postop day #2 -No driving until off narcotics and cleared by Surgery ? When to call your healthcare provider ?? Call your healthcare provider if you have any of the below:?Pain, redness, swelling, or bleeding that gets worse?Smelly fluid from the incision, or changes in color of the drainage from the incision?Fever of 100.4??F ( 38??C) or higher, or as advised?Shaking or chills?Vomiting or nausea that doesn't go away?Numbness, coldness, or tingling around the incision?Changes in skin color around the incision?Opening of the wound?Stitches that pull apart? [place] that fall out? * Birdie Vieyra RN: PERFORM, MODIFY Event Display: Patient Education/Instruction Authored Date: [id number] Inpatient Adult Discharge Instructions [address] [address] Name: BITA VICKERS : 1970 Visit: 06/21/2023 14:30:00 Current Date: 06/29/2023 15:00 Account: [id number] Inpatient Adult Discharge Instructions We would like to thank you for allowing us to assist you with your healthcare needs. The following includes patient education materials and information regarding your injury/illness. Our entire staffstrives to provide an excellent experience for our patients and their families. PLEASE ENSURE YOU FOLLOW-UP PER THE INSTRUCTIONS BELOW! ?? YOUR OPINION IS IMPORTANT TO US! Please complete the survey you may receive by mail or email. Your feedback will be used to make improvements to the healthcare experiences of our patients and their families. Surveys are administered by [employer]. ?? If further treatment with your primary care physician or another doctor is recommended, it is important for you to keep the appointment. Call your primary care physician or return to the Emergency Department immediately if your condition worsens, fails to improve, or new symptoms develop. If you need to find a doctor, you can call [facility] for a referral at [phone] or toll free at [phone] or log in to [email or web address].. ?? [facility], in keeping with [facility] guidance, no longer requires face masks for staff, patientsor visitors in most situations. Similiar to time spent indoors at other locations, there is the chance that you were exposed to repiratory viruses during your time with us (such as flu or COVID-19). If you develop symptoms concerning for a viral respiratory infection, please seek testing (and treatment if indicated) from your medical provider or home test kit. ?? You can view and manage your care through the patient portal or by using a health care casandra of your choosing. [employer] is a website that allows you to securely view your medical information including your hospital discharge summary, office visit summaries, medications and follow-up visits. You can also request appointments, renew medications, and request access to your medical information using a health care casandra of your choosing, or just ask a question. You can enroll at [email or web address] or register during your next office visit. You have been discharged from [facility], Patient Care Unit: SW5. If you have any questions regarding these instructions after you leave, please call us and we will be happy to assist you. [facility] Your Care Team Attending Physician Hair VINSON, Socorro Foreman Consulting Providers Tripp VINSON, Salena Spencer; Jose E Kohli MD; Chante VINSON, Sidney Shafer; Kathi FU, Jorge L Gutierrez; Hair VINSON, Socorro Foreman; Iain VINSON, Louis Spencer Discharging Providers Kinga BOYD, Mahnaz Carrasquillo Reason for Admission Abdominal pain Your Diagnosis sigmoid volvulus Tests Performed Below is a partial list of the tests performed during your hospitalization. You may have had other tests and procedures not included in this list. Please discuss all test results with your provider. ABG POC CARTRIDGE BASE EXCESS POC CARTRIDGE BUN CALCIUM IONIZED POC CART CBC CBC w/ Differential Comprehensive Metabolic Panel COVID-19 (Novel Coronavirus), Rapid PCR Creatinine Electrolytes GLUCOSE POC GLUCOSE POC CARTRIDGE H + H HEMATOCRIT POC CARTRIDGE HEMOGLOBIN POC CARTRIDGE Hgb + Hct HOLD BLUE TUBE?-- Results Pending -- Lactate Level Lactic Acid Level Lipase Lytes POTASSIUM POC CARTRIDGE SODIUM POC CARTRIDGE Type and Screen Urinalysis w/hold for Urine Culture CT Abd/Pelvis W/ IV Contrast Only CT Angio Abdomen and Pelvis CXR Portable XR Chest Portable XR KUB or Abdomen You will be contacted within 72 hours with your results. Primary Care Provider Kayla Estes Advance Directive Health Care Proxy on File Yes - Health Care Proxy Discharge Vitals Temperature: 99 DegF Height: 166 cm Pulse Rate:??126 bpm??High Weight: 56.7 kg Respiratory Rate: 28 br/min Body Mass Index: 20.58 kg/m2 Systolic Blood Pressure:??141 mm Hg??High Body surface area: 1.62 Diastolic Blood Pressure:??87 mm Hg??High ?? Oxygen Saturation: 100 % ?? Studies Pending All tests and labs ordered during this hospital stay have been completed unless listed below. Please discuss all pending results with your provider listed above in these instructions. ?? Add On Lab Order BUN CBC w/ Differential Creatinine Electrolytes (Lytes) Hold Blue Top Tube (HOLD BLUE TUBE) Ionized Calcium Magnesium Level Phosphorus Level Transfuse RBCs What to do next Instructions From Your Doctor Special Instructions ?? If you develop fever, chills, increased pain, nausea, vomiting, bleeding, or increased redness or pus around the wound please call the surgery office at . Please take medications as prescribed and do not drive while on narcotic medications. ?? If you have any questions, please call the surgery office at . ?? Please call your Primary Care Provider within 1-2 week for post hospital follow up and review of your medications. ?? Activity Instructions ?? -No heavy lifting >10 lbs -Increase activity as tolerated -Encourage coughing and deep breathing, use of incentive spirometer -No tub baths until incision(s) has/have healed -May shower on postop day #2 -No driving until off narcotics and cleared by Surgery ? When to call your healthcare provider ?? Call your healthcare provider if you have any of the below:?Pain, redness, swelling, or bleeding that gets worse?Smelly fluid from the incision, or changes in color of the drainage from the incision?Fever of 100.4??F ( 38??C) or higher, or as advised?Shaking or chills?Vomiting or nausea that doesn't go away?Numbness, coldness, or tingling around the incision?Changes in skin color around the incision?Opening of the wound?Stitches that pull apart? [place] that fall out? Discharge Orders Scheduled Follow-Up Appointments Monday. 2022 10:20 AM EDT ?? With: Hair VINSON, Socorro Foreman Where: [facility] [address] [place] [address]- Status: Pending You Need to Schedule the Following Appointments Follow Up with??Kayla Estes When:??Within 1-2 day: call to discuss follow up visit Why: please call to arrange post hospital follow up. Where: [address] [place] [address]- Discharge Medications BITA VICKERS :1970 Visit Date:06/21/2023 Medications: Please continue your medications until treatment is completed or stopped by your provider. Medications not listed below should be discontinued. Discuss any questions related to medications with your provider. What How Much When Instructions Next Dose New Acetaminophen (Tylenol 325 mg oral tablet) 650 Milligram Oral Every 4 hours Duration: 7 Days Pickup at [facility] 3 06/29 6pm New Oxycodone (oxyCODONE 5 mg oral tablet) 5 Milligram Oral Every 6 hours as needed for Pain , Moderate Duration: 3 Days Pickup at [facility] 3 as needed Changed Carbidopa-Levodopa (carbidopa-levodopa 25 mg-100 mg oral tablet) 1.5 tablets Oral 5 times a day 06/29 6pm Changed Entacapone (entacapone 200 mg oral tablet) 1 tab(s) Oral 3 times a day resume home schedule Changed Gabapentin (gabapentin 300 mg oral capsule) 1 capsule Oral 3 times a day as needed for Pain , Mild as needed Unchanged Famotidine 20 Milligram Oral Daily 06/30 9am Unchanged Magnesium Oxide (magnesium oxide 400 mg oral tablet) 1 tab(s) Oral Daily 06/30 9am Unchanged Omeprazole (omeprazole 40 mg oral enteric coated capsule) 1 capsule Oral Twice a day Duration: 30 Days 06/29 9pm Unchanged Polyethylene Glycol 3350 (MiraLax oral powder for reconstitution) 17 gram Oral Daily dissolve in water before taking ?? 06/30 9am Unchanged Tenofovir (tenofovir disoproxil fumarate 300 mg oral tablet) 1 tab(s) Oral Daily 06/30 9am Unchanged Trazodone (traZODone 50 mg oral tablet) 1 tab(s) Oral Daily at Bedtime 06/29 9pm Pharmacy Information [facility] 3: [address], [place] [id number] [phone] Test Results Below is a partial list of the most recent Laboratory test results done prior to this discharge. You may have had other tests and procedures not included in this list. Please discuss all test resultswith your provider. Est Creatinine Clearance - 142.24 mL/min (06/26/2023) RBC Available - PT (06/25/2023) RBC Unit ID - [id number] (06/25/2023) [id number] (06/22/2023) ? ?Surgical Pathology - Patient Name: BITA VICKERS
Lab
Patient : 1970 (Age: 53)
Collection Date: 06/22/2023
Accession Date: 06/23/2023
Sign Out Date: 06/29/2023

Tissue Source:
1:SIGMOID COLON

Final Diagnosis:
Sigmoid colon, segmental resection:
- Segment of colon (17.8 cm in length) with e xtensive mucosal hemorrhage and transmural vascular congestion.

< br/>Primary Pathologist:Lewis Brooke M.D.
electronically signed out by: Lewis Jurado / LASHAY

Gross Description:
Labeled sigmoid colon . Received in formalin is a 17.8 cm in length by 2.2 cm in diameter unoriented segment of large bowel with up to 2.7 cm of attached mesenteric adipose. The ends of the specimen are stapled together, removed and differentially inked blue and black. The serosa is boyce-pink, slightly dull, focally surfaced by adherent yellow, glisteningadipose. On opening, the mucosa displays a 9.2 cm span of bowel that is pink-red, hyperemic, focally 0.9 cm cm from the black margin, 8 cm from the blue margin. The remaining mucosa is boyce-pink, glistening, grossly unremarkable. The wall thickness averages 0.3 cm. No polyps or masses are identified grossly. Graining Machine Operator sections are submitted asfollows:
1-2 pieces, authorization representative mucosal margins, perpendicular
2-2 pieces, mucosa, hyperemic area, adhesions
3-2 pieces, junction hyperemic area to uninvolved, and re presentative uninvolved bowel. (KM)*

Phone #: & amp;nbsp;[phone], On-Call Pathologist: [phone] ABG POC CARTRIDGE (06/24/2023) ???pH (POC) POC Cartridge - 7.43???pCO2 (POC) POC Cartridge - 39.0 mm Hg???pO2 (POC) POC Cartridge - 273 mm Hg???Estimated Bicarbonate (POC) POC Cart - 25.6 mmol/L???% O2 Sat Arterial (POC) POC Cartridge - 100 %???Specimen Type - Blood Gas - ARTERIAL BASE EXCESS POC CARTRIDGE (06/24/2023) ???Base Excess (POC) POC Cartridge - 1 BUN (06/29/2023) ???BUN - 10 mg/dL CALCIUM IONIZED POC CART (06/24/2023) ???Ionized Calcium (POC) POC Cartridge - 1.07 mmol/L CBC (06/27/2023) ???WBC - 5.4 k/mm3???RBC - 3.00 m/mm3???Hgb - 8.9 Gm/dL???Hct - 26.8 %???MCV - 89.3 femtoliters???MCH - 29.7 pg???MCHC - 33.2 g/dL???Platelet Count - 172 k/mm3???RDW-SD - 50.4 femtoliters???MPV - 9.9femtoliters???Nucleated RBC (Automated) - 0.6 #/100 WBC'S???Abs. NRBC - 0.0 k/mm3 CBC w/ Differential (06/29/2023) ???WBC - 10.0 k/mm3???RBC - 2.88 m/mm3???Hgb - 8.6 Gm/dL???Hct - 25.9 %???MCV - 89.9 femtoliters???MCH - 29.9 pg???MCHC - 33.2 g/dL???Platelet Count - 265 k/mm3???RDW-SD - 51.3 femtoliters???MPV - 9.6 femtoliters???Nucleated RBC (Automated) - 0.2 #/100 WBC'S???Abs. NRBC - 0.0 k/mm3???Abs. Neut - 8.6 k/mm3???Abs. Lymph - 0.6 k/mm3???Abs. Ferry - 0.5 k/mm3???Abs. Eo - 0.1 k/mm3???Abs. Baso - 0.0 k/mm3???Neut % - 85.6 %???Lymph % - 6.4 %???Ferry % - 4.7 %???Eos % - 1.4 %???Baso % - 0.2 %???Imm Gran - 1.7 %???Abs. Imm Gran - 0.2 k/mm3 Comprehensive Metabolic Panel (06/21/2023) ???Sodium - 142 mmol/L???Potassium - 3.8 mmol/L???Chloride - 104 mmol/L???Bicarbonate Level - 22 mmol/L???Anion Gap - 16???Glucose Level - 97 mg/dL???BUN - 13 mg/dL???Creatinine-Blood - 0.7 mg/dL???Estimated GFR Creatinine - 103 ML/MIN/1.73 M2???Calcium - 9.9 mg/dL???Protein, Total - 7.3 Gm/dL???Alb umin - 5.0 Gm/dL???AG Ratio - 2.2???Alkaline Phosphatase - 85 units/L???AST (SGOT) - 22 units/L???ALT (SGPT) - 11 units/L???Bilirubin, Total - 0.3 mg/dL COVID-19 (Novel Coronavirus), Rapid PCR (06/21/2023) ???COVID-19 by RT-PCR - NEGATIVE Creatinine (06/29/2023) ???Creatinine-Blood - 0.4 mg/dL???Estimated GFR Creatinine - 118 ML/MIN/1.73 M2 Electrolytes (06/23/2023) ???Sodium - 134 mmol/L???Potassium - 4.1 mmol/L???Chloride - 103 mmol/L???Bicarbonate Level - 21 mmol/L???Anion Gap - 10 GLUCOSE POC (06/26/2023) ???Glucose, POC - 119 mg/dL GLUCOSE POC CARTRIDGE (06/24/2023) ???Glucose (POC) POC Cartridge - 124 H + H (06/25/2023) ???Hgb - 6.9 Gm/dL???Hct - 19.9 % HEMATOCRIT POC CARTRIDGE (06/24/2023) ???Hematocrit (POC) POC Cartridge - 19 % HEMOGLOBIN POC CARTRIDGE (06/24/2023) ???Hemoglobin (POC) POC Cartridge - 6.5 Gm/dL Hgb + Hct (06/23/2023) ???Hgb - 6.6 Gm/dL???Hct - 19.6 % Lactate Level (06/21/2023) ???Lactate - 1.2 mmol/L Lactic Acid Level (06/21/2023) ???Lactate - 4.1 mmol/L Lipase (06/21/2023) ???Lipase - 35 units/L Lytes (06/29/2023) ???Sodium - 136 mmol/L???Potassium - 3.3 mmol/L???Chloride - 100 mmol/L???Bicarbonate Level - 18 mmol/L???Anion Gap - 18 POTASSIUM POC CARTRIDGE (06/24/2023) ???Potassium (POC) POC Cartridge - 3.0 mmol/L SODIUM POC CARTRIDGE (06/24/2023) ???Sodium (POC) POC Cartridge - 133 mmol/L Type and Screen (06/25/2023) ???Blood Type - O Positive???Antibody Screen - Negative Urinalysis w/hold for Urine Culture (06/21/2023) ???Appear/Color, Urine - DARK YELLOW???Specific [place], Urine - 1.033???pH, Urine - 7.0???Albumin,Urine - NEGATIVE???Glucose, Urine - NEGATIVE???Ketones, Urine - NEGATIVE???Bilirubin, Urine - NEGATIVE???Hemoglobin, Urine - NEGATIVE???Nitrite, Urine - NEGATIVE???Leukocyte, Urine - NEGATIVE???Urobil inogen - NORMAL???WBC's, Urine - 2 /HPF???RBC's, Urine - 2 /HPF???Squamous Epith - 1 /HPF???Hold Urine Culture - Testing available 48 hours from time of collection. Allergies (NKA means No Known Allergies) NKA Problems Active Problems??(5) chronic hepatitis B?? Failed back syndrome?? GERD (gastroesophageal reflux disease)?? Parkinsons disease?? Pure hypercholesterolemia?? Education Materials Below is the list of Educational Leaflet Providered with your Discharge Instructions. Valuables and Belongings I fully understand and agree that [facility] accepts no responsibility for all my personal property including clothing, toilet articles, radios, jewelry, dentures, hearing aids, rings, money, or any other property that is in my possession or is brought to me after admission. I understand certain valuables may be placed in a hospital safe for a short period of time. I understand that the hospital is not liable for loss or damage due to accident, fire, or other natural occurrence while said property is in the safe. I accept full responsibility for any personal property that I keep with me, and will not hold the hospital responsible in case of loss or disappearance. I acknowledge that i have been encouraged to send valuables and belongings home. ?? No Valuables/Belongings: No valuables/belongings present Review of Valuable and Belonging List: With patient, With family, With witness Possessions released to: NO BELONGINGS TO PRE OP Date for Pt to Sign Valuables/Belongings: 06/22/23 18:09:00 ?? Valuables & Belongings ?? Clothes Electronic devices Jewelry Monetary Items Personal devices Miscellaneous Medications (Valuables) Valuables at Bedside Pants, Shirt, Shoes, Undergarments ? Valuables Sent Home ? Valuables Sent to Security ? Other Discharge Information ?? Wound Assessment?? Wound Assessment?? Wound Location I: Abdomen, mid section Wound Type I: Surgical ?? Case Management Discharge Plan?? Discharge Plan?? Discharge Agency Information?? Discharge Level of Care at Discharge: Homehealth/VNA Name of Agency #1: [facility] Discharge Rx Program: Discharge Prescription Program Agency Rubber Production Machine Operator #1: Intake Mode of Transportation Arranged: car Service Categories #1: Physical Therapy, Long Term Discharge VNA/Hospice/Home Care: [facility] [phone] Service Comments #1: The VNA will call you to set up an appointment, Please call the agency with any questions [phone]. ?? Pulmonary Rehab Status?? Pulmonary Rehab Discharge Status?? Respiratory Rate: 28 br/min ? Common Emergency Awareness Tips IS IT A STROKE? Act FAST and Check for these signs: FACE Does the face look uneven? ARM Does one arm drift down? SPEECH Does their speech sound strange? TIME Call at any sign of stroke ?? Heart Attack Signs Chest discomfort: Most heart attacks involve discomfort in the center of the chest and lasts more than a few minutes, or goes away and comes back. It can feel like uncomfortable pressure, squeezing, fullness or pain. Discomfort in upper body: Symptoms can include pain or discomfort in one or both arms, back, neck, jaw or stomach. Shortness of breath: With or without discomfort. Other signs: Breaking out in a cold sweat, nausea, or lightheaded. Remember, MINUTES DO MATTER. If you experience any of these heart attack warning signs, call to get immediate medical attention! ?? Smoking can increase your chances of developing chronic health problems and can cause harmful effects to other family members in your house. If you smoke, you are strongly encouraged to quit. Please call [facility] [employer] [facility] at [phone] or [phone] or log in to [email or web address] for referrals to smoking cessation programs. ?? 988 Suicide & Crisis Lifeline is available 24/7 if you or someone you know needs to find a reason to keep living. By calling 988 you'll be connected to a skilled, trained counselor at a crisis center in your area. INPATIENT DISCHARGE INSTRUCTIONS SIGNATURE PAGE BITA VICKERS Location:[facility] Registration Date and Time:06/21/2023 14:30 EDT Primary Care Physician: Kayla Estes, Attending Physician: Socorro Arndt MD, I ALEE BITA, have received the above patient education materials/instructions and have verbalized understanding. If ambulance or transport services are being used I further acknowledge being givena choice of service. ?? If you need to contact me, please call me at this number: . Patient/Graining Machine Operator Name: Patient/Graining Machine Operator Signature: Relationship to Patient: Witness Name/Signature: Date: Patient Care team information Care Team Personnel Name: Kayla Estes Position: [facility] PCO Associate Professional Member Role: PCP Address: Address: [address] [place] [id number] Name: Eran Spence RN Position: [facility] RN Member Role: Primary Care Nurse Name: Prince Watson RN Position: [facility] RN Member Role: Primary Care Nurse Name: Nick Go RN Position: [facility] RN Member Role: Primary Care Nurse Name: Birdie Vieyra RN Position: [facility] RN Member Role: Primary Care Nurse Name: Izzy Monroy RN Position: [facility] OB RN Member Role: Primary Care Nurse Name: Ainsley Leung RN Position: [facility] RN Member Role: Primary Care Nurse Name: Nancy Mo RN Position: [facility] RN Member Role: Primary Care Nurse Name: Flavia Moeller Position: [facility] RN Member Role: Primary Care Nurse Name: Kayla Ardon RN Position: [facility] RN Member Role: Primary Care Nurse Name: Danae Orozco RN Position: [facility] RN Member Role: Primary Care Nurse Name: Lindsay Medrano RN Position: [facility] RN Member Role: Primary Care Nurse Name: Angelic Rainey RN Position: [facility] RN Member Role: Primary Care Nurse Name: Issac Vang RN Position: [facility] RN Member Role: Primary Care Nurse Name: Doreen Murillo RN Position: [facility] RN Member Role: Primary Care Nurse Name: Shira Minor Position: [facility] RN Member Role: Primary Care Nurse Name: Vale Shanks RN Position: [facility] RN Member Role: Primary Care Nurse Name: Kari Dykes RN Position: [facility] RN Member Role: Primary Care Nurse Name: Cristina Green RN Position: [facility] RN Member Role: Primary Care Nurse Name: Esteban Roque RN Position: [facility] RN Member Role: Primary Care Nurse Name: Nidia Mendoza RN Position: [facility] RN Member Role: Primary Care Nurse Name: Sharron BURNHAM Attending Position: [facility] ED Medicine MD Name: Tanya Garcia Position: [facility] ED TA [facility] Member Role: Bottling Equipment Sales Representative Name: Millie Lenz Position: [facility] Associate Professional Member Role: ED Physician Scoop Operator Address: Address: [address] [place] [address] [place] [address]- [place] Name: Alize Perez RN Position: [facility] ED RN W/OE and Tasks Member Role: Patient Care Provider Name: Calli Aldana Position: [facility] ED OA Charge Member Role: ED Associate Care Team Related Persons Name: ELIDA GLORIA Address: [address] [address] Name: MALLIKA GLORIA Address: [place] [address] Name: ARLENE GLORIA Address: [place] [address]
--- OUTSIDE RECORDS SUMMARY | 2024-05-03 10:50 | XMS_ITS | Continuity of Care Document ---
Author Organization [facility] Address [address] [place] [address]- Care Team Providers Care Aeronautical Project Engineer Name Role Phone Henry Bennett MD Primary Care Physician Encounter [facility] Date(s): 01/28/22 - 02/27/22 [facility] [address] [place] [address] Referring Physician: Carolina Khanna Allergies, Adverse Reactions, Alerts No Known Allergies [...] Reason: Wan to Standard Admin Times Medications famotidine 10 mg oral tablet 1 tablet = 10 mg, By Mouth, 2 times a day, # 28 tablet, 0 Refills, Maintenance, 02/11/22 11:53:00 EDT, Tablet, [facility], Partial fill upon patient request if the prescription is for a schedule II opioid drug., 165, cm, 10/01/21 14:37:00 E... Start Date: 02/11/22 Status: Ordered gabapentin 300 mg oral capsule [...] each, 0 Refills, Maintenance, 02/08/21 9:34:00 EDT, [facility] 1967, ok to sub for [...] Daily, # 90 tablet, 3 Refills, Maintenance, 11/19/21 12:03:00 EST, Tablet, [facility], 165, cm, 10/01/21 14:37:00 EST, Height, 68.7, kg, 04/06/21 13:10:00 EDT,Dry Weight Start Date: 11/19/21 Status: Ordered trihexyphenidyl 2 mg oral tablet [...]
--- OUTSIDE RECORDS SUMMARY | 2024-05-03 10:50 | XMS_ITS | Continuity of Care Document ---
Author Organization [facility] Address [address] [place] [address]- Care Team Providers Care Loft Worker Apprentice Name Role Phone Kayla Estes Primary Care Physician Encounter [facility] [place] Date(s): 02/28/24 - 03/29/24 [facility] [address] [place] [address]- Allergies, Adverse Reactions, Alerts No Known Allergies [...] influenza virus vaccine, inactivated 01/13/16 Give n [id number] 12y+ bivalent booster vax 07/14/22 Recorded zoster [...] a day Start Date: 03/03/23 Status: Ordered cyclobenzaprine 10 mg oral tablet 10 mg, 1, tablet, By Mouth, 3 times a day, # 90 tablet, Refills 0, Tot. Refills 0, Acute 05/11/24 12:00:00 EDT, 03/11/24 17:05:00 EDT, Route to Pharmacy Electronically, [facility]/pharmacy #[id number], Partial fill upon patient request if the prescription is for a... Start Date: 03/11/24 Stop Date: 05/11/24 Status: Ordered entacapone 200 mg oral tablet [...] 07/11/23 12:00:00 EDT, Route to Pharmacy Electronically, [facility]/pharmacy #[id number], Partial fill upon patient request [...] 40 mg oral enteric coated capsule 1 capsule, By Mouth, Daily, # 90 capsule, 3 Refills, Maintenance, 01/09/24 7:47:00 EDT, [id number], 167, cm, 12/18/23 16:11:00 EST, Height, 52.5, kg, 07/22/23 10:08:00 EDT, Dry Weight Start Date: 01/09/24 Status: Ordered tenofovir disoproxil fumarate 300 mg oral tablet 1 tablet = 300 mg, By Mouth, Daily, # 90 tablet, 3 Refills, Maintenance, 12/13/23 16:48:00 EST, Tablet, [id number], 167, cm, 10/06/23 7:52:00 EST, Height, [...] Primary Care Nurse Name: Kayla Estes Position: [facility] PCO Associate Professional Member Role: PCP Address: Address: [address] [place] [id number] Name: Eran Spence RN Position: S RN Member Role: Primary Care Nurse Name: Prince Watson RN Position: S RN Member Role: Primary Care Nurse Name: Nick Go RN Position: S RN Member Role: Primary Care Nurse Name: Birdie Vieyra RN Position: S RN Member Role: Primary Care Nurse Name: Izzy Monroy RN Position: [facility] OB RN Member Role: Primary Care Nurse Name: Ainsley Leung RN Position: [facility] RN Member Role: Primary Care Nurse Name: Nancy Mo RN Position: [facility] RN Member Role: Primary Care Nurse Name: Flavia Moeller Position: [facility] RN Member Role: Primary Care Nurse Name: Danae Orozco RN Position: [facility] RN Member Role: Primary Care Nurse Name: Angelic Rainey RN Position: [facility] RN Member Role: Primary Care Nurse Name: Issac Vang RN Position: [facility] RN Member Role: Primary Care Nurse Name: Doreen Murillo RN Position: [facility] RN Member Role: Primary Care Nurse Name: Shira Minor RN Position: [facility] RN Member Role: Primary Care Nurse Name: Kari Dykes RN Position: [facility] RN Member Role: Primary Care Nurse Name: Cristina Green RN Position: [facility] RN Member Role: Primary Care Nurse Name: Esteban Roque RN Position: [facility] RN Member Role: Primary Care Nurse Name: Nidia Mendoza RN Position: [facility] RN Member Role: Primary Care Nurse Care Team Related Persons Name: ELIDA GLORIA Address: home [address] [place] [address] Name: JUANI DARÍO Address: home [address] [place] [address] Name: JUANI ARLENE Address: [address] [address]
--- OUTSIDE RECORDS SUMMARY | 2024-05-03 10:50 | XMS_ITS | Continuity of Care Document ---
Author Organization [facility] ter Address [address] [place] [address]- Care Team Providers Care Surgical Orderly Name Role Phone Henry Bennett MD Primary Care Physician [place] [facility] 06/01/[place] - 07/02/[address] [address] Attending Physician: Adela Khan Admitting Physician: Adela Khan Referring Physician: Adela Khan Allergies, Adverse Reactions, Alerts Substance Reaction Severity [...] each, 0 Refills, Maintenance, 02/08/21 9:34:00 EDT, [facility] 1967, ok to sub [...] 3 Refills, Maintenance, 11/30/20 16:28:00 EST, Tablet, [facility], 157, cm, 11/13/20 [...]
--- OUTSIDE RECORDS SUMMARY | 2024-05-03 10:50 | XMS_ITS | Continuity of Care Document ---
Author Organization [facility] Address [address] [place] [address]- Care Team Providers Care Adoption Services Manager Name Role Phone Henry Bennett MD Primary Care Physician [place] [facility] [place] 05/28/21 - 06/27/21 [facility] [address] [place] [id number] Allergies, Adverse Reactions, Alerts Substance Reaction Severity [...] each, 0 Refills, Maintenance, 02/08/21 9:34:00 EDT, [facility], ok to sub for [...] 3 Refills, Maintenance, 11/30/20 16:28:00 EST, Tablet, [facility], 157, cm, 11/13/20 10:10:00 [...]
--- OUTSIDE RECORDS SUMMARY | 2024-05-03 10:50 | XMS_ITS | Continuity of Care Document ---
Author Organization [facility] ter Address [address] [place] [address]- Care Team Providers Care Computer Programmer Name Role Phone Sabrina VINSON, Henry Rojas Primary Care Physician Encounter [facility] Date(s): 10/22/19 - 10/22/[address] [address]- [facility] Attending Physician: Krystal Moon Allergies, Adverse Reactions, Alerts Substance Reaction Severity Status NKA Active Immunizations Given and Recorded Vaccine Date Status Refusal Reason influenza virus vaccine, inactivated 1 08/14/19 Gi lacie influenza virus vaccine, inactivated 01/13/16 Give n tetanus/diphtheria/pertussis, acel(Tdap) 07/19/13 Given influ virus vac, H1N1, inactive(oldterm) 12/24/09 Given Not Given Vaccine Date Status Refusal Reason pneumococcal 23-valent vaccine 08/15/19 Not Given Patient Refuses pneumococcal 23-valent vaccine 01/13/16 Not Given Patient Refuses 1Early/Late Reason: Wan to Standard Admin Times Medications amantadine 100 mg oral capsule 1/2 tablet, By Mouth, 2 times a day, Refills 0, Maintenance, 05/09/18 13:46:49 EDT Start Date: 05/09/18 Status: Ordered Baclofen = 10 mg, By Mouth, 2 times a day, 0 Refills, Maintenance, 10/09/19 15:26:09 EST Start Date: 10/09/19 Status: Ordered baclofen 10 mg oral tablet 10 mg, 1, tablet, By Mouth, 3 times a day, PRN, # 15 tablet, Refills 0, Tot. Refills 0, Maintenance, Pain , Moderate, 10/20/19 6:09:00 EST, Print Requisition Start Date: 10/20/19 Stop Date: 10/25/19 Status: Ordered gabapentin 100 mg oral capsule 100 mg, 1, capsule, By Mouth, 3 times a day, # 90 capsule, Refills 0, Maintenance, 04/17/19 8:13:35EDT Start Date: 04/17/19 Status: Ordered Medrol Dosepak 4 mg oral tablet See Instructions, as directed on package labeling, # 1 each, 0 Refills, Soft Stop, 10/20/19 6:09:00EST, Tablet Start Date: 10/20/19 Status: Ordered mirtazapine 15 mg oral tablet 2 tablet = 30 mg, By Mouth, Daily at bedtime, 0 Refills, Maintenance, 02/12/19 13:41:33 EDT Start Date: 02/12/19 Status: Ordered Omeprazole = 20 mg, By Mouth, Daily, 0 Refills, Maintenance, 08/13/19 10:48:14 EDT Start Date: 08/13/19 Status: Ordered Physical therapy Physical therapy, See Instructions, # 1 each, Refills 0, Tot. Refills 0, Maintenance, Physical therapy evaluation nad treatment for frequent falls, 08/15/19 14:14:32 EDT, Compound Start Date: 08/15/19 Status: Ordered Rytary 23.75 mg-95 mg oral capsule, extended release 3 capsule, By Mouth, 3 times a day, # 180 capsule, 0 Refills, Maintenance, 08/13/19 10:44:57 EDT, ER Capsule Start Date: 08/13/19 Status: Ordered tenofovir disoproxil fumarate 300 mg oral tablet 1 tablet = 300 mg, By Mouth, Daily, # 90 tablet, 4 Refills, Maintenance, 02/20/19 12:43:42 EDT, Tablet Start Date: 02/20/19 Stop Date: 05/15/20 Status: Ordered traMADol 50 mg oral tablet 1 tablet = 50 mg, By Mouth, Every 12 hours, PRN as needed for pain, 0 Refills, Maintenance, 10/09/19 15:26:32 EST, Tablet Start Date: 10/09/19 Status: Ordered trihexyphenidyl 2 mg oral tablet [...]
[2024-05-03 10:51] VITALS: BMI 22.1
--- OUTSIDE RECORDS SUMMARY | 2024-05-03 10:51 | XMS_ITS | Continuity of Care Document ---
Author Organization [facility] Address [address] [place] [address]- Care Team Providers Care Network Infrastructure Architect Name Role Phone Kayla Estes Primary Care Physician Encounter [facility] Date(s): 03/11/24 - 04/10/24 [facility] [place] [address]- Attending Physician: Natasha Shelby Admitting Physician: AdmNatasha flores Referring Physician: AdmtrNatasha Allergies, Adverse Reactions, Alerts No Known Allergies [...] influenza virus vaccine, inactivated 01/13/16 Give n [id number] 12y+ bivalent booster vax 07/14/22 Recorded zoster [...] 03/11/24 17:05:00 EDT, Route to Pharmacy Electronically, [facility]/pharm[facility] #[id number], Partial fill upon patient request [...] 07/11/23 12:00:00 EDT, Route to Pharmacy Electronically, [facility]/pharmacy #[id number], Partial fill upon patient request [...] Refills, Maintenance, 01/09/24 7:47:00 EDT, [facility], 167, cm, 12/18/23 16:11:00 EST, Height, 52.5, kg, 07/22/23 10:08:00 EDT, Dry Weight Start Date: 01/09/24 Status: Ordered tenofovir disoproxil fumarate 300 mg oral tablet 1 tablet = 300 mg, By Mouth, Daily, # 90 tablet, 3 Refills, Maintenance, 12/13/23 16:48:00 EST, Tablet, [facility]/pharmacy #[id number], 167, cm, 10/06/23 7:52:00 EST, Height, [...] Status Never smoker entered on: 06/04/15 Sex Radiology * Event Display: Ultrasound Breast, Non-BH Authored Date: * Event Display: IR Special Procedures, Non-BH Authored Date: MG Breast Views * Event Display: MM Mammogram Authored Date: * Event Display: MM Mammogram Authored Date: * Event Display: MM Mammogram Authored Date: * Event Display: MM Mammogram Authored Date: * Event Display: MM Mammogram Authored Date: Patient Care team information Care Team Personnel Name: Lindsay Mercer RN Position: [facility] RN Member Role: Primary Care Nurse Name: Kayla Estes Position: [facility] PCO Associate Professional Member Role: PCP Address: Address: [address] [place] [id number] Name: Eran Spence RN Position: [facility] RN Member Role: Primary Care Nurse Name: Prince Watson RN Position: [facility] RN Member Role: Primary Care Nurse Name: Nick Go RN Position: [facility] RN Member Role: Primary Care Nurse Name: Birdie Vieyra RN Position: [facility] RN Member Role: Primary Care Nurse Name: Izzy Monroy RN Position: [facility] OB RN Member Role: Primary Care Nurse Name: Ainsley Leung RN Position: [facility] RN Member Role: Primary Care Nurse Name: Nancy Mo RN Position: [facility] RN Member Role: Primary Care Nurse Name: Flavia Moeller RN Position: [facility] RN Member Role: Primary Care Nurse Name: Danae Orozco RN Position: [facility] RN Member Role: Primary Care Nurse Name: Angelic Rainey RN Position: [facility] RN Member Role: Primary Care Nurse Name: Issac Vang RN Position: [facility] RN Member Role: Primary Care Nurse Name: Doreen Murillo RN Position: [facility] RN Member Role: Primary Care Nurse Name: Shira Minor RN Position: [facility] RN Member Role: Primary Care Nurse Name: Kari Dykes RN Position: [facility] RN Member Role: Primary Care Nurse Name: Cristina Green RN Position: [facility] RN Member Role: Primary Care Nurse Name: Esteban Roque RN Position: [facility] RN Member Role: Primary Care Nurse Name: Nidia Mendoza RN Position: [facility] RN Member Role: Primary Care Nurse Care Team Related Persons Name: ELIDA GLORIA Address: home [address] [place], [place] Name: DARÍO GLORIA Address: home [address] [place], [place] Name: ARLENE GLORIA Address: [address] [place], [place]
--- OUTSIDE RECORDS SUMMARY | 2024-05-03 10:51 | XMS_ITS | Continuity of Care Document ---
Author Organization [facility] Address [address] [place] [address]- Care Team Providers Care Skid Wrapper Name Role Phone Henry Bennett MD Primary Care Physician Encounter [facility] [place] Date(s): 05/04/21 - 06/05/21 [facility] [address] [place] [id number] Attending Physician: Boyd Bowen MD Admitting Physician: Boyd Bowen MD Referring Physician: Henry Bennett MD Allergies, [...] each, 0 Refills, Maintenance, 02/08/21 9:34:00 EDT, [facility], ok to sub [...] 3 Refills, Maintenance, 11/30/20 16:28:00 EST, Tablet, [facility], 157, cm, 11/13/20 [...]
--- OUTSIDE RECORDS SUMMARY | 2024-05-03 10:51 | XMS_ITS | Continuity of Care Document ---
Author Organization [facility] Address [address] [place] [address]- Care Team Providers Care Rn School Name Role Phone Sabrina VINSON, Henry Rojas Primary Care Physician Encounter [facility] [place] Date(s): 10/06/20 - 11/07/20 [facility] [address] [place] [id number] Attending Physician: Alcira Ellis MD Admitting Physician: Alcira Ellis MD Allergies, Adverse Reactions, Alerts Substance Reaction [...] patient request Start Date: 09/27/20 Status: Ordered Rytary 23.75 mg-95 mg oral capsule, extended release 1.5 cap, By Mouth, 4 times a day, # 180 capsule, 0 Refills, Maintenance, 08/13/19 10:44:57 EDT, ER Capsule Start Date: 08/13/19 Status: Ordered tenofovir disoproxil fumarate 300 mg oral tablet 1 tablet = 300 mg, By Mouth, Daily, # 90 tablet, 3 Refills, Maintenance, 05/15/20 12:43:00 EDT, Tablet, [facility], 168, cm, 10/31/19 8:18:00 EST, Height, 65, kg, 08/13/19 10:41:00 EDT, Dry Weight Start Date: 05/15/20 Status: Ordered trihexyphenidyl 2 mg oral tablet [...]
--- OUTSIDE RECORDS SUMMARY | 2024-05-03 10:51 | XMS_ITS | Continuity of Care Document ---
Author Organization [facility] Address [address] [place] [address]- Care Team Providers Care Resaw Operator Name Role Phone Sabrina VINSON, Henry Rojas Primary Care Physician En[place] [facility] [place] Date(s): 08/27/20 - 11/08/20 [facility] [address] [place] [id number] Attending Physician: Derik Alfaro MD Admitting Physician: Derik Alfaro MD Allergies, Adverse Reactions, Alerts Substance Reaction [...] 3 Refills, Maintenance, 05/15/20 12:43:00 EDT, Tablet, [facility], 168, cm, 10/31/19 8:18:00 [...]
--- OUTSIDE RECORDS SUMMARY | 2024-05-03 10:51 | XMS_ITS | Continuity of Care Document ---
Author Organization [facility] Address [address] [place] [address]- Care Team Providers Care Home Theater Installer Name Role Phone Kayla Estes Primary Care Physician Encounter [facility] Date(s): 06/30/23 - 07/30/23 [facility] [address] [place] [address]- Allergies, Adverse Reactions, Alerts No Known Allergies Immunizations Given and Recorded Vaccine Date Status Refusal Reason influenza virus vaccine, inactivated 07/30/22 [facility] influenza virus vaccine, inactivated 07/05/21 [facility] influenza virus vaccine, inactivated 08/18/20 [facility] influenza virus vaccine, inactivated 1 08/14/19 Gi lacie influenza virus vaccine, inactivated 08/13/18 [facility] influenza virus vaccine, inactivated 01/13/16 Give n [id number] 12y+ bivalent booster vax 07/14/22 Recorded zoster [...] Stop 01/22/24 12:53:00 EDT, 07/26/23 12:53:00 EDT, [facility]/pharmacy #[id number], Partial fill upon patient request if the prescription is for a schedule II opioid drug., 167, cm, .. Start Date: 07/26/23 Stop Date: 01/22/24 Status: Ordered omeprazole 40 mg oral enteric coated capsule 1 capsule = 40 mg, By Mouth, 2 times a day, for 30 days, # 60 capsule, 3 Refills, Hard Stop 09/13/23 14:57:00 EST, 05/16/23 14:57:00 EDT, [facility]/pharm[facility] #[id number], Partial fill upon patient request if the prescription is for a schedule II opioid drug., 171,... Start Date: 05/16/23 Stop Date: 09/13/23 Status: Ordered tenofovir disoproxil fumarate 300 mg oral tablet 1 tablet = 300 mg, By Mouth, Daily, # 90 tablet, 3 Refills, Maintenance, 09/16/22 7:49:00 EST, Tablet, [facility]/pharmacy #[id number], 165, cm, 06/07/22 15:23:00 EDT, [...] Care Team Personnel Name: Kayla Estes Position: [facility] Associate Professional Member Role: PCP Address: Address: [address] [place] [id number] Name: Eran Spence RN Position: [facility] RN Member Role: Primary Care Nurse Name: Prince Watson RN Position: [facility] RN Member Role: Primary Care Nurse Name: Nick Go RN Position: [facility] ED RN W/OE and Tasks Member Role: Primary Care Nurse Name: Birdie Vieyra RN Position: [facility] RN Member Role: Primary Care Nurse Name: Izzy Monroy RN Position: [facility] OB RN Member Role: Primary Care Nurse Name: Ainsley Leung RN Position: [facility] RN Member Role: Primary Care Nurse Name: Nancy Mo RN Position: [facility] RN Member Role: Primary Care Nurse Name: Flavia Moeller Position: [facility] RN Member Role: Primary Care Nurse Name: Kayla Ardon RN Position: [facility] RN Member Role: Primary Care Nurse Name: Danae Orozco RN Position: [facility] RN Member Role: Primary Care Nurse Name: Lindsay Medrano RN Position: [facility] RN Member Role: Primary Care Nurse Name: Angelic Rainey RN Position: [facility] RN Member Role: Primary Care Nurse Name: Issac Vang RN Position: [facility] RN Member Role: Primary Care Nurse Name: Doreen Murillo RN Position: [facility] RN Member Role: Primary Care Nurse Name: Shira Minor Position: [facility] RN Member Role: Primary Care Nurse Name: Vale Shanks RN Position: [facility] RN Member Role: Primary Care Nurse Name: Kari Dykes RN Position: [facility] RN Member Role: Primary Care Nurse Name: Cristina Green RN Position: [facility] RN Member Role: Primary Care Nurse Name: Esteban Roque RN Position: S RN Member Role: Primary Care Nurse Name: Nidia Mendoza RN Position: S RN Member Role: Primary Care Nurse Care Team Related Persons Name: ELIDA GLORIA Address: [place] [address] Name: DARÍO GLORIA Address: [place] [address] Name: GLORIAARLENE Address: [place] [address]
--- OUTSIDE RECORDS SUMMARY | 2024-05-03 10:51 | XMS_ITS | Continuity of Care Document ---
Author Organization [facility] Address [address] [place] [address]- Care Team Providers Care Coffee Urn Attendant Name Role Phone Henry Bennett MD Primary Care Physician Encounter [facility] [place] Date(s): 08/16/21 - 09/15/21 [facility] [address] [place] [address]- Attending Physician: Natasha Shelby Admitting Physician: AdmtrNatasha [...] each, 0 Refills, Maintenance, 02/08/21 9:34:00 EDT, [facility] 1967, ok to sub for [...] 3 Refills, Maintenance, 11/30/20 16:28:00 EST, Tablet, [facility] 1967, 157, cm, 11/13/20 10:10:00 [...]
--- OUTSIDE RECORDS SUMMARY | 2024-05-03 10:51 | XMS_ITS | Continuity of Care Document ---
Author Organization [facility] Address [address] [place] [address]- Care Team Providers Care Driving Teacher Name Role Phone Kayla Estes Primary Care Physician Encounter [facility] ACCT R [id number] Date(s): 01/12/23 - 04/02/23 [facility] [address] [place] [address]- Attending Physician: Alcira Ellis MD Admitting Physician: Alcira Ellis MD Allergies, Adverse Reactions, Alerts No Known Allergies Immunizations Given and Recorded Vaccine Date Status Refusal Reason influenza virus vaccine, inactivated 07/30/22 [facility] r[facility] influenza virus vaccine, inactivated 07/05/21 [facility] rded influenza virus vaccine, inactivated 08/18/20 [facility] rded influenza virus vaccine, inactivated 1 08/14/19 [facility] lac[facility] influenza virus vaccine, inactivated 08/13/18 [facility] rded influenza virus vaccine, inactivated 01/13/16 Give n [id number] 12y+ bivalent booster vax 07/14/22 Recorded zoster [...] opioid drug. Start Date: 11/07/22 Status: Ordered carbidopa-levodopa 25 mg-100 mg oral tablet TAKE 1.5 TABLETS BY MOUTH FIVE TIMES DAILY Start Date: 03/03/23 Status: Ordered entacapone 200 [...] Stop 05/23/23 8:21:00 EDT, 01/23/23 8:21:00 EDT, [id number], Partial fill upon patient request if the prescription is for a schedule II opioid drug., 171, c... Start Date: 01/23/23 Stop Date: 05/23/23 Status: Ordered tenofovir disoproxil fumarate 300 mg oral tablet 1 tablet = 300 mg, By Mouth, Daily, # 90 tablet, 3 Refills, Maintenance, 09/16/22 7:49:00 EST, Tablet, [facility]/pharmacy #[id number], 165, cm, 06/07/22 15:23:00 [...] Care Team Personnel Name: Kayla Estes Position: [facility] PCO Associate Professional Member Role: PCP Address: Address: [address] [place] [address]- Name: Birdie Vieyra RN Position: [facility] RN Member Role: Primary Care Nurse Name: Izzy Monroy RN Position: [facility] OB RN Member Role: Primary Care Nurse Name: Danae Orozco RN Position: S RN Member Role: Primary Care Nurse Name: Lindsay Medrano RN Position: S RN Member Role: Primary Care Nurse Name: Angelic Rainey RN Position: S RN Member Role: Primary Care Nurse Name: Kari Dykes RN Position: [facility] RN Supv Member Role: Primary Care Nurse Name: Cristina Green RN Position: S RN Member Role: Primary Care Nurse Care Team Related Persons Name: ELIDA GLORIA Address: [place] [address] Name: DARÍO GLORIA Address: [address] [address] Name: ARLENE GLORIA Address: [place] [address]
--- OUTSIDE RECORDS SUMMARY | 2024-05-03 10:51 | XMS_ITS | Continuity of Care Document ---
Author Organization [facility] Address [address] [place] [address]- Care Team Providers Care Family Service Aide Name Role Phone Kayla Estes Primary Care Physician [place] [facility] 08/22/23 - 12/20/23 [facility] [address] [place] [address]- Attending Physician: Kayla Estes Referring Physician: Prince Falcon MD Allergies, Adverse Reactions, Alerts No Known [...] influenza virus vaccine, inactivated 01/13/16 Give n [id number] 12y+ bivalent booster vax 07/14/22 Recorded zoster [...] 07/11/23 12:00:00 EDT, Route to Pharmacy Electronically, [facility]/pharmacy #[id number], Partial fill upon patient request if [...] Refills, Soft Stop, 12/18/23 16:12:00 EST, Tablet, [facility]/pharmacy #[id number], Partial fill upon patient request if [...] Stop 01/22/24 12:53:00 EDT, 07/26/23 12:53:00 EDT, [facility]/pharmacy #[id number], Partial fill upon patient request if the prescription is for a schedule II opioid drug., 167, cm, .. Start Date: 07/26/23 Stop Date: 01/22/24 Status: Ordered Paxlovid 150 mg-100 mg oral tablet See Instructions, By Mouth 2 times a day Take 300 mg nirmatrelvir (two 150 mg tablets) and 100 mg ritonavir (one 100 mg tablet), taking all three tablets together, orally twice daily for 5 days, # 30tablet, 0 Refills, Acute 12/25/23 12:00:00 EST, 02... Start Date: 12/20/23 Stop Date: 12/25/23 Status: Ordered tenofovir disoproxil fumarate 300 mg oral tablet 1 tablet = 300 mg, By Mouth, Daily, # 90 tablet, 3 Refills, Maintenance, 12/13/23 16:48:00 EST, Tablet, [facility]/pharmacy #[id number], 167, cm, 10/06/23 7:52:00 EST, Height, [...] Team Personnel Name: Lindsay Mercer RN Position: [facility] RN Member Role: Primary Care Nurse Name: Kayla Estes Position: [facility] PCO Associate Professional Member Role: PCP Address: Address: [address] [place] [address]- Name: Eran Spence RN Position: [facility] RN Member Role: Primary Care Nurse Name: Prince Watson RN Position: [facility] RN Member Role: Primary Care Nurse Name: Nick Go RN Position: [facility] ED RN W/OE and Tasks Member Role: Primary Care Nurse Name: Birdie Vieyra RN Position: [facility] RN Member Role: Primary Care Nurse Name: Izzy Monroy RN Position: [facility] OB RN Member Role: Primary Care Nurse Name: Ainsley Leung RN Position: [facility] RN Member Role: Primary Care Nurse Name: Nancy Mo RN Position: [facility] RN Member Role: Primary Care Nurse Name: Flavia Moeller Position: [facility] RN Member Role: Primary Care Nurse Name: Danae Orozco RN Position: [facility] RN Member Role: Primary Care Nurse Name: Angelic Rainey RN Position: [facility] RN Member Role: Primary Care Nurse Name: Issac Vang RN Position: [facility] RN Member Role: Primary Care Nurse Name: Doreen Murillo RN Position: [facility] RN Member Role: Primary Care Nurse Name: Shira Minor Position: [facility] RN Member Role: Primary Care Nurse Name: Kari Dykes RN Position: [facility] RN Member Role: Primary Care Nurse Name: Cristina Green RN Position: [facility] RN Member Role: Primary Care Nurse Name: Esteban Roque RN Position: [facility] RN Member Role: Primary Care Nurse Name: Nidia Mendoza RN Position: [facility] RN Member Role: Primary Care Nurse Care Team Related Persons Name: ELIDA GLORIA Address: [address] [place], [place] Name: JUANI GLORIAUNG Address: [address], [place] Name: GLORIA ARLENE Address: home [address] [place], [place]
--- OUTSIDE RECORDS SUMMARY | 2024-05-03 10:51 | XMS_ITS | Continuity of Care Document ---
Author Organization [facility] Address [address] [place] [address]- Care Team Providers Care Gas Welder Apprentice Name Role Phone Kayla Smith Primary Care Physician Encounter [facility] Date(s): 11/07/22 - 11/14/22 [facility] [address] [place] [address]- Attending Physician: Not on Staff, Attending MD Referring Physician: Kayla Smith Allergies, Adverse Reactions, Alerts No Known Allergies Immunizations Given and Recorded Vaccine Date Status Refusal Reason influenza virus vaccine, inactivated 07/30/22 [facility] rded influenza virus vaccine, inactivated 07/05/21 [facility] rded influenza virus vaccine, inactivated 08/18/20 [facility] rded influenza virus vaccine, inactivated 1 08/14/19 [facility] lacie influenza virus vaccine, inactivated 08/13/18 [facility] rded influenza virus vaccine, inactivated 01/13/16 Give n [id number] 12y+ bivalent booster vax 07/14/22 Recorded zoster vaccine, inactivated 10/03/21 Recorded zoster vaccine, inactivated 06/18/21 Recorded SARS-CoV-2 (COVID-19) mRNA BNT-162b2 vac 09/21/21 Recorded SARS-CoV-2 (COVID-19) mRNA BNT-162b2 vac 01/05/21 Recorded SARS-CoV-2 (COVID-19) mRNA BNT-162b2 vac 12/14/20 Recorded pneumococcal 23-valent vaccine 2 09/29/20 Given tetanus/diphtheria/pertussis, acel(Tdap) 07/19/13 Given influ virus vac, [...] each, 0 Refills, Maintenance, 02/08/21 9:34:00 EDT, [facility], ok to sub for [...] recent to oldest [Reference Range]: 1 2 Height 171 cm (11/07/22 8:23 AM) 171 cm (11/07/22 8:19 AM) Weight 56.3 kg (1/9/23 8:19 AM) Oxygen Saturation [94-100 %] 97 % (11/07/22 8:19 AM) Pulse Rate [55-90 bpm] 91 bpm *H* (11/07/22 8:19 AM) Body Mass Index [18.5-24.99 kg/m2] 19.25 kg/m2 (11/07/22 8:19 AM) Blood Pressure [90-138/55-84 mm Hg] 103/ 66mm Hg (11/07/22 8:19 AM) Temperature [96.8-100.4 DegF] 99.0 DegF (11/07/22 8:23 AM) Mode of Delivery (Oxygen) Room air (11/07/22 8:19 AM) Blood pressure sites Arm, left (11/07/22 8:19 AM) Temperature Route Oral (11/07/22 8:23 AM) Social History Social History Type Response Smoking Status Never smoker entered on: 06/04/15 Sex Note * Beatriz Crouch: PERFORM, SIGN, VERIFY Event Display: Patient Education/Instruction Authored Date: [id number] [facility] *PEE Hilario Clinical Summary Name BITA VICKERS Age 52 Years 1970 PCP Kayla Smith PCP Visit Date 11/07/2022 08:03:00 Patient Instructions Labs fasting. Follow-up in 1 year. Additional Instructions: Scheduled Appointments?? Future Appointments ?[facility] ?[address]??[place],??[place],??[address] ?Phone:??[phone]?Fax:??-- ?Appt. Date:??11/17/2022?7:45 AM ?Scheduled Provider:??[facility] US Rm 4 ?*[facility] ?[address]??[place],??[place],??[address] ?Phone:??--?Fax:??-- ?Appt. Date:??11/23/2022?3:00 PM ?Scheduled Provider:??Mone LUCAS, Jesse Garcias ?*[facility] ?[address]??[place],??[place],??[address] ?Phone:??[phone]?Fax:??-- ?Appt. Date:??12/06/2022?2:30 PM ?Scheduled Provider:??Alcira Ellis MD Follow-Up Instructions ?? Diagnosis Parkinson's disease; Postlaminectomy syndrome, not elsewhere classified; Impaired fasting glucose; Asymptomatic menopausal state; Persons encountering health services in other specified circumstances; Gastro-esophageal reflux disease without esophagitis; Encounter for screening mammogram for malignant neoplasm of breast; Pure hypercholesterolemia, unspecified Medications: Please continue your medications until treatment is completed or stopped by your provider. Discuss any questions related to medications with your provider. New Medications These medications were not printed or sent to your pharmacy Amantadine (amantadine 100 mg oral tablet) 60 each, TAKE 1 TABLET BY MOUTH TWICE DAILY. Next Dose: Entacapone (entacapone 200 mg oral tablet) 270 each, TAKE 1 TABLET BY MOUTH THREE TIMES DAILY. Next Dose: Trazodone (traZODone 50 mg oral tablet) 90 each, TAKE 1 TABLET BY MOUTH ONCE DAILY AT BEDTIME NEEDED FOR SLEEP. Next Dose: Medications to Continue with No Changes These medications were not printed or sent to your pharmacy Baclofen Take 1-2 5mg tablets @hs prn. Next Dose: Carbidopa-Levodopa (Rytary 23.75 mg-95 mg oral capsule, extended release) 1.5 cap Oral 4 times a day. Next Dose: Gabapentin (gabapentin 300 mg oral capsule) 1 capsule Oral Daily as needed Pain , Mild. per neurology. Next Dose: linaclotide (Linzess 145 mcg oral capsule) 1 capsule Oral Daily. Refills: 1. Next Dose: Omeprazole 20 Milligram Oral Daily. Next Dose: Omeprazole (omeprazole 40 mg oral enteric coated capsule) 1 capsule Oral twice a day for 30 Days. Refills: 3. Next Dose: PEG Electrolyte Solution (PEG-3350 with Electrolytes (Eqv-NuLYTELY) oral powder for reconstitution)as directed. Refills: 0. Next Dose: Tenofovir (tenofovir disoproxil fumarate 300 mg oral tablet) 1 tab(s) Oral Daily. Refills: 3. Next Dose: Trihexyphenidyl (trihexyphenidyl 2 mg oral tablet) 1 tab(s) Oral 3 times a day. Next Dose: Allergy Info:?? NKA Medications Given This Visit Future Orders ?Hemoglobin A1C (Monitoring)? Order Date:11/07/22?- Complete on or after?11/07/22 ?Lipid Panel? Order Date:11/07/22?- Complete on or after?11/07/22 ?Comprehensive Metabolic Panel? Order Date:11/07/22?- Complete on or after?11/07/22 ?CBC w/ Differential? Order Date:11/07/22?- Complete on or after?11/07/22 ?Vitamin D 25 Hydroxy Level? Order Date:11/07/22?- Complete on or after?11/07/22 Vital Signs Height 171 cm Weight 56.3 kg BMI 19.25 kg/m2 Blood Pressure 103 mm Hg/66 mm Hg Temperature 99.0 DegF Pulse Rate 91 bpm Respiratory Rate 02 Sat Mode of Delivery 97 %/Room air You can now view a summary of your hospital visit from the comfort of your home through a free online portal called [facility]. [facility] [facility] is a website that allows you to securely view your medical information including discharge summary, medications and follow-up visits. ??You can alsosend a secure electronic message to your doctor???s office to request appointments, renew medications or just ask a question. You can enroll at [email or web address] or register during your next office visit. Disclaimer:?? The information provided is of a general nature and is intended to be used in conjunction with the recommendations and advice of your health care practitioner. ??Every effort has been made to ensure that the information provided is accurate and complete at the time it is provided to you however, as your needs change, or, as new ??information becomes available, different or additional instructions may be required. If you have questions, please consult with your primary care provider or pharmacist, as appropriate. ??This information is not intended to serve as substitution for assessment and evaluation by a qualified health care provider. If you do not have a primary care provider, you may find a [facility] provider by calling [facility] at [phone]. For information about the plan of care including goals and instructions for your diagnosis, please see the patient education orders section of this document. Patient Education Materials?? The content of this educational material or handout may have been modified, supplemented, or adapted from its original content and format to support your individualized medical care. Patient Care team information Care Team Personnel Name: Birdie Vieyra RN Position: [facility] RN Member Role: Primary Care Nurse Name: Izzy Monroy RN Position: [facility] OB RN Member Role: Primary Care Nurse Name: Kayla Smith Position: [facility] PCO Associate Professional Member Role: PCP Address: Address: [address] [place] [address] Name: Danae Orozco RN Position: S RN Member Role: Primary Care Nurse Name: Lindsay Medrano RN Position: S RN Member Role: Primary Care Nurse Name: Angelic Rainey RN Position: S RN Member Role: Primary Care Nurse Name: Kari Dykes RN Position: [facility] RN Supv Member Role: Primary Care Nurse Name: Cristina Green RN Position: S RN Member Role: Primary Care Nurse Care Team Related Persons Name: ELIDA GLORIA Address: [address] [address] Name: DARÍO GLORIA Address: [address] Name: ARLENE GLORIA Address: [address] [address]
--- OUTSIDE RECORDS SUMMARY | 2024-05-03 10:51 | XMS_ITS | Continuity of Care Document ---
Author Organization [facility] Address [address] [place] [address]- Care Team Providers Care Length Control Tester Name Role Phone Kayla Estes Primary Care Physician En[place] [facility] [place] [place] [id number] Date(s): 03/03/23 - 04/02/23 [facility] [address] [place] [id number] Attending Physician: Natasha Shelby Admitting Physician: Natasha [...] influenza virus vaccine, inactivated 01/13/16 Give n [id number] 12y+ bivalent booster vax 07/14/22 Recorded zoster [...] 3 Refills, Maintenance, 09/16/22 7:49:00 EST, Tablet, [facility]/pharmacy #[id number], 165, cm, 06/07/22 [...] Care team information Care Team Personnel Name: Kyala Estes Position: [facility] PCO Associate Professional Member Role: PCP Address: Address: [address] [place] [address]- Name: Birdie Vieyra [facility] Dykes RN Position: [facility] RN Supv Member Role: Primary Care Nurse Name: Cristina Green RN Position: S RN Member Role: Primary Care Nurse Care Team Related Persons Name: ANNY GLORIAY Address: [address] [address] Name: DARÍO GLORIA Address: home [address] [place] [address] Name: ARLENE GLORIA Address: [address] [address]
--- OUTSIDE RECORDS SUMMARY | 2024-05-03 10:51 | XMS_ITS | Continuity of Care Document ---
Author Organization [facility] Address [address] [place] [address]- Care Team Providers Care Department Clinician Name Role Phone Henry Bennett MD Primary Care Physician Encounter [facility] [place] ACCT R [id number] Date(s): 09/15/22 - 10/15/22 [facility] [address] [place] [address]- [place] Allergies, Adverse Reactions, Alerts No Known [...] capsule, 3 Refills, Maintenance, 09/16/22 7:49:00 EST, [facility]/pharmacy #[id number], Partial fill upon patient request if the prescription is for a schedule II opioid drug., 165, cm, 06/07/22 15:23:00 EDT, Height... Start Date: 09/16/22 Stop Date: 01/14/23 Status: Ordered PEG-3350 with Electrolytes (Eqv-NuLYTELY) oral powder for reconstitution See Instructions, as directed, # 1 each, 0 Refills, Maintenance, 02/08/21 9:34:00 EDT, [facility], ok to sub for any gallon [...] 3 Refills, Maintenance, 09/16/22 7:49:00 EST, Tablet, [facility]/pharmacy #1111, 165, cm, 06/07/22 15:23:00 EDT, Height, 56.7, kg, 06/07/22 15:23:00 EDT, DryWeight Start Date: 09/16/22 Status: Ordered trihexyphenidyl 2 mg oral tablet 2 mg, 1, tablet, By Mouth, 3 times a day, Refills 0, Maintenance, 07/19/17 9:05:46 Start Date: 05/17/17 Status: Ordered Problem List Condition Confirmation Course Effective Dates Status Health Status Informant Abdominal pain Confirmed Active Dizziness - light-headed Confirmed Active Parkinsons disease Confirmed Active Pure hypercholesterolemia Confirmed Active Social History Social History Type Response Smoking Status Never smoker entered on: 06/04/15 Sex Patient Care team information Care Team Personnel Name: Henry Bennett MD Position: [facility] General Pediatrics MD Member Role: PCP Address: Address: [address] [place] [address] Name: Birdie Vieyra RN Position: [facility] RN Member Role: Primary Care Nurse Name: Izzy Monroy RN Position: [facility] OB RN Member Role: Primary Care Nurse Name: Ronaldo Lehman RN Position: [facility] RN Member Role: Primary Care Nurse Name: Danae Orozco RN Position: [facility] RN Member Role: Primary Care Nurse Name: Lindsay Medrano RN Position: [facility] RN Member Role: Primary Care Nurse Name: Angelic Rainey RN Position: [facility] RN Member Role: Primary Care Nurse Name: Kari Dykes RN Position: [facility] RN Supv Member Role: Primary Care Nurse Name: Cristina Green RN Position: [facility] RN Member Role: Primary Care Nurse Care Team Related Persons Name: ELIDA GLORIA Address: [address] [place] [address] Name: JUANI DARÍO Address: [address] [place] [address] Name: ARLENE GLORIA Address: [address] [place] [address]
--- OUTSIDE RECORDS SUMMARY | 2024-05-03 10:51 | XMS_ITS | Continuity of Care Document ---
Author Organization [facility] Address [address] [place] [address]- Care Team Providers Care Film Producer Name Role Phone Henry Bennett MD Primary Care Physician Encounter [facility] [place] Date(s): 10/09/19 - 10/19/19 [facility] [address] [place] [address] Attending Physician: Natasha Shelby Admitting Physician: Natasha Shelby Referring Physician: Natasha Shelby Referring Physician: Ifrah Meneses Allergies, Adverse Reactions, Alerts Substance Reaction Severity [...] 15:26:09 EST Start Date: 10/09/19 Status: Ordered gabapentin 100 mg oral capsule 100 mg, 1, capsule, By Mouth, 3 times a day, # 90 capsule, Refills 0, Maintenance, 04/17/19 8:13:35EDT Start Date: 04/17/19 Status: Ordered mirtazapine 15 mg oral tablet [...]
--- OUTSIDE RECORDS SUMMARY | 2024-05-03 10:51 | XMS_ITS | Continuity of Care Document ---
Author Organization [facility] Address [address] [place] [address]- Care Team Providers Care Senior Housekeeper Name Role Phone Sabrina VINSON, Henry Rojas Primary Care Physician Encounter [facility] [place] Date(s): 10/07/20 - 11/06/20 [facility] [address] [place], [place] [address] Allergies, Adverse Reactions, Alerts Substance Reaction Severity [...] 3 Refills, Maintenance, 05/15/20 12:43:00 EDT, Tablet, [facility], 168, cm, 10/31/19 8:18:00 EST, [...]
--- OUTSIDE RECORDS SUMMARY | 2024-05-03 10:51 | XMS_ITS | Continuity of Care Document ---
Author Organization [facility] ter Address [address] [place] [address]- Care Team Providers Care Speech And Language Specialist Name Role Phone Sabrina VINSON, Henry Rojas Primary Care Physician Encounter [facility] Date(s): 09/29/20 - 10/29/[address] [address] Attending Physician: Not on Staff, Attending MD Admitting Physician: Not on Staff, Admitting MD Referring Physician: Not on Staff, Referring [...] 3 Refills, Maintenance, 05/15/20 12:43:00 EDT, Tablet, [facility], 168, cm, 10/31/19 8:18:00 [...]
--- OUTSIDE RECORDS SUMMARY | 2024-05-03 10:51 | XMS_ITS | Continuity of Care Document ---
Author Organization [facility] Address [address] [place] [address]- Care Team Providers Care Mail Handler Name Role Phone Henry Bennett MD Primary Care Physician Encounter [facility] [place] Date(s): 04/29/22 - 05/29/22 [facility] [address] [place] [address]- [place] Allergies, Adverse Reactions, Alerts No Known [...] 0 Refills, Maintenance, 02/11/22 11:53:00 EDT, Tablet, [facility], Partial fill upon patient [...] Daily, # 90 capsule, 1 Refills, Maintenance, 05/09/22 13:30:00 EDT, Capsule, [facility], Partial fill upon patient request if the prescription is for a schedule II opioid drug., 165, cm, 05/09/22 12:49:00 EDT,... Start Date: 05/09/22 Status: Ordered Omeprazole = 20 mg, By Mouth, Daily, 0 Refills, Maintenance, 09/27/20 22:43:00 EST, Partial fill upon patient request Start Date: 09/27/20 Status: Ordered PEG-3350 with Electrolytes (Eqv-NuLYTELY) oral powder for reconstitution See Instructions, as directed, # 1 each, 0 Refills, Maintenance, 02/08/21 9:34:00 EDT, [facility], ok to sub for [...] 3 Refills, Maintenance, 11/19/21 12:03:00 EST, Tablet, [facility], 165, cm, 10/01/21 14:37:00 [...]
--- OUTSIDE RECORDS SUMMARY | 2024-05-03 10:51 | XMS_ITS | Continuity of Care Document ---
Author Organization [facility] Adult Address [address] [place] [address]- Care Team Providers Care Bottoming Machine Operator Name Role Phone Kayla Estes Primary Care Physician Encounter [facility] Date(s): 02/20/23 - 03/22/23 [facility] [address] [place] [address]- Allergies, Adverse Reactions, Alerts No Known Allergies Immunizations Given and Recorded Vaccine Date Status Refusal Reason influenza virus vaccine, inactivated 07/30/22 [facility] rded influenza virus vaccine, inactivated 07/05/21 [facility] rded influenza virus vaccine, inactivated 08/18/20 [facility] rded influenza virus vaccine, inactivated 1 08/14/19 [facility] lacie influenza virus vaccine, inactivated 08/13/18 [facility] rded influenza virus vaccine, inactivated 01/13/16 Give n [id number] 12y+ bivalent booster vax 07/14/22 Recorded zoster [...] 3 Refills, Maintenance, 09/16/22 7:49:00 EST, Tablet, [facility]/pharmacy #[id number], 165, cm, 06/07/22 15:23:00 EDT, Height, [...] Personnel Name: Kayla Estes Position: [facility] PCO Associate Professional Member Role: PCP Address: Address: [address] [place] [address]- Name: Birdie Vieyra RN Position: [facility] RN Member Role: Primary Care Nurse Name: Izzy Monroy RN Position: [facility] OB RN Member Role: Primary Care Nurse Name: Danae Orozco RN Position: S RN Member Role: Primary Care Nurse Name: Lindsay Medrano RN Position: S RN Member Role: Primary Care Nurse Name: Angelic Rainey RN Position: S RN Member Role: Primary Care Nurse Name: Kari Dykes RN Position: [facility] RN Supv Member Role: Primary Care Nurse Name: Cristina Green RN Position: S RN Member Role: Primary Care Nurse Care Team Related Persons Name: ELIDA GLORIA Address: [place] [address] Name: DARÍO GLORIA Address: [address] [address] Name: ARLENE GLORIA Address: [place] [id number]
--- OUTSIDE RECORDS SUMMARY | 2024-05-03 10:51 | XMS_ITS | Continuity of Care Document ---
Author Organization [facility] Adult Address [address] [place] [address]- Care Team Providers Care Air Table Operator Name Role Phone Kayla Estes Primary Care Physician Encounter [facility] Date(s): 12/18/23 - 12/25/23 [facility] [address] [place] [address]- Attending Physician: Kayla Estes Allergies, Adverse Reactions, Alerts No Known Allergies [...] influenza virus vaccine, inactivated 01/13/16 Give n [id number] 12y+ bivalent booster vax 07/14/22 Recorded zoster [...] 07/11/23 12:00:00 EDT, Route to Pharmacy Electronically, [facility]/pharmacy #[id number], Partial fill upon patient request if [...] Refills, Soft Stop, 12/18/23 16:12:00 EST, Tablet, [facility]/pharmacy #[id number], Partial fill upon patient request if [...] Stop 01/22/24 12:53:00 EDT, 07/26/23 12:53:00 EDT, [facility]/pharmacy #[id number], Partial fill upon patient request if the prescription is for a schedule II opioid drug., 167, cm, .. Start Date: 07/26/23 Stop Date: 01/22/24 Status: Ordered tenofovir disoproxil fumarate 300 mg oral tablet 1 tablet = 300 mg, By Mouth, Daily, # 90 tablet, 3 Refills, Maintenance, 12/13/23 16:48:00 EST, Tablet, [facility]/pharmacy #[id number], 167, cm, 10/06/23 7:52:00 EST, Height, [...] hypercholesterolemia Confirmed Active Sigmoid volvulus Confirmed Active Vital Signs Most recent to oldest [Reference Range]: 1 2 Height 167 cm (12/18/23 4:11 PM) 167 cm (12/18/23 3:52 PM) Weight 58.2 kg (12/18/23 3:52 PM) Oxygen Saturation [94-100 %] 100 % (12/18/23 3:52 PM) Pulse Rate [55-90 bpm] 91 bpm *H* (12/18/23 3:52 PM) Body Mass Index [18.5-24.99 kg/m2] 20.87 kg/m2 (12/18/23 3:52 PM) Blood Pressure [90-138/55-84 mm Hg] 100/ 55mm Hg (12/18/23 4:11 PM) 90/51mm Hg (12/18/23 3:52 PM) Mode of Delivery (Oxygen) Room air (12/18/23 3:52 PM) Blood pressure sites Arm, left (12/18/23 3:52 PM) Social History Social History Type Response Smoking Status Never smoker entered on: 06/04/15 Sex Note * Linn Renteria [place]: PERFORM, SIGN, VERIFY Event Display: Patient Education/Instruction Authored Date: [id number] [facility] *PEE Hilario Clinical Summary Name BITA VICKERS Age 53 Years 1970 PCP Kayla Estes PCP Visit Date 12/18/2023 15:45:00 Additional Instructions: Scheduled Appointments?? Future Appointments ?*[facility]??Gastro ?[address]??[place],??[place],??[address] ?Phone:??--?Fax:??-- ?Appt. Date:??03/14/2024?8:00 AM ?Scheduled Provider:??Mone LUCAS, Jesse Garcias Follow-Up Instructions ?? Diagnosis Parkinson's disease without dyskinesia, without mention of fluctuations; Impaired fasting glucose; Constipation, unspecified; Chronic viral hepatitis B without delta-agent; Postlaminectomy syndrome, not elsewhere classified; Pure hypercholesterolemia, unspecified; Gastro-esophageal reflux disease without esophagitis; Volvulus; Encounter for general adult medical examination without abnormal findings; Encounter for screening mammogram for malignant neoplasm of breast; Cervicalgia Medications: Please continue your medications until treatment is completed or stopped by your provider. Discuss any questions related to medications with your provider. New Medications [id number], [address], [place] [id number], [phone] MethylPREDNISolone (Medrol 4 mg oral tablet) 1 pack/packet Oral once. Refills: 0. Next Dose: Medications to Continue with No Changes These medications were not printed or sent to your pharmacy Carbidopa-Levodopa (carbidopa-levodopa 25 mg-100 mg oral tablet) 1.5 tablets Oral 5 times a day. Next Dose: Entacapone (entacapone 200 mg oral tablet) 1 tab(s) Oral 3 times a day. Next Dose: Famotidine (famotidine 20 mg oral tablet) 1 tab(s) Oral Daily at Bedtime. Refills: 0. Next Dose: Gabapentin (gabapentin 300 mg oral capsule) 1 capsule Oral 3 times a day as needed Pain , Mild. Next Dose: Omeprazole (omeprazole 40 mg oral enteric coated capsule) 1 capsule Oral Daily for 30 Days. Refills: 5. Next Dose: Polyethylene Glycol 3350 (MiraLax oral powder for reconstitution) 17 gram Oral Daily. dissolve in water before taking. Next Dose: Tenofovir (tenofovir disoproxil fumarate 300 mg oral tablet) 1 tab(s) Oral Daily. Refills: 3. Next Dose: Trazodone (traZODone 50 mg oral tablet) 1 tab(s) Oral Daily at Bedtime. Next Dose: Trihexyphenidyl 2 Milligram Oral 3 times a day. Next Dose: No Longer Take the Following Medications Ferrous Sulfate (ferrous sulfate 220 mg/5 ml oral elixir) 5 Milliliter Oral Daily for 30 Days. Elemental iron 44 mg/5 mL. Refills: 0. Ferrous Sulfate (ferrous sulfate 325 mg oral enteric coated tablet) 1 tab(s) Oral Daily. Refills: 0. Allergy Info:?? NKA Medications Given This Visit Future Orders ?MM Digital Mammo Screening? Order Date:12/18/23?- Complete on or after?12/18/23 ?Lipid Panel? Order Date:12/18/23?- Complete on or after?12/18/23 ?Hemoglobin A1C (Monitoring)? Order Date:12/18/23?- Complete on or after?12/18/23 Vital Signs Height 167 cm Weight 58.2 kg BMI 20.87 kg/m2 Blood Pressure 100 mm Hg/55 mm Hg Temperature Pulse Rate 91 bpm Respiratory Rate 02 Sat Mode of Delivery 100 %/Room air You can now view a summary of your hospital visit from the comfort of your home through a free online portal called [email or web address]. [email or web address] is a website that allows you to securely view your medical information including discharge summary, medications and follow-up visits. ??You can alsosend a secure electronic message to your doctor???s office to request appointments, renew medications or just ask a question. You can enroll at [email or web address] or register during your next office visit. [...] primary care provider, you may find a [facility] provider by calling [facility] [employer] at [phone]. [facility], in keeping with [facility] guidance, no longer requires face masks for staff, patientsor visitors in most situations. Similar to time spent indoors at other locations, there is the chance that you were exposed to respiratory viruses during your time with us (such as flu or COVID-19).? If you develop symptoms concerning for a viral respiratory infection, please seek testing (and treatment if indicated) from your medical provider or home test kit. For information about the plan of care [...] Team Personnel Name: Lindsay Mercer RN Position: [facility] RN Member Role: Primary Care Nurse Name: Kayla Estes Position: [facility] PCO Associate Professional Member Role: PCP Address: Address: [address] [place] [address]- Name: Eran Spence RN Position: [facility] RN Member Role: Primary Care Nurse Name: Prince Watson RN Position: [facility] RN Member Role: Primary Care Nurse Name: Nick Go RN Position: [facility] ED RN W/OE and Tasks Member Role: Primary Care Nurse Name: Birdie Vieyra RN Position: [facility] RN Member Role: Primary Care Nurse Name: Izzy Monroy RN Position: [facility] OB RN Member Role: Primary Care Nurse Name: Ainsley Leung RN Position: [facility] RN Member Role: Primary Care Nurse Name: Nancy Mo RN Position: [facility] RN Member Role: Primary Care Nurse Name: Flavia Moeller Position: S RN Member Role: Primary Care Nurse Name: Danae Orozco RN Position: S RN Member Role: Primary Care Nurse Name: Angelic Rainey RN Position: S RN Member Role: Primary Care Nurse Name: Issac Vang RN Position: [facility] RN Member Role: Primary Care Nurse Name: Doreen Murillo RN Position: [facility] RN Member Role: Primary Care Nurse Name: Shira Minor Position: S RN Member Role: Primary Care Nurse Name: Kari Dykes RN Position: [facility] RN Member Role: Primary Care Nurse Name: Cristina Green RN Position: [facility] RN Member Role: Primary Care Nurse Name: Esteban Roque RN Position: [facility] RN Member Role: Primary Care Nurse Name: Nidia Mendoza RN Position: [facility] RN Member Role: Primary Care Nurse Care Team Related Persons Name: ELIDA GLORIA Address: home [address] [place] [address] Name: GLORIADARÍO Address: [place] [address] Name: MADDIE GLORIAN Address: [place] [address]
--- OUTSIDE RECORDS SUMMARY | 2024-05-03 10:51 | XMS_ITS | Continuity of Care Document ---
Author Organization [facility] Address [address] [place] [address]- Care Team Providers Care Angle Roll Operator Name Role Phone Henry Bennett MD Primary Care Physician Encounter [facility] Date(s): 08/24/21 - 10/27/21 [facility] [address] [place] [address]- Attending Physician: Myles Mercer DO Admitting Physician: Myles Mercer DO Referring Physician: Henry Bennett MD Allergies, Adverse [...]
--- OUTSIDE RECORDS SUMMARY | 2024-05-03 10:51 | XMS_ITS | Continuity of Care Document ---
Author Organization [facility] Adult Address [address] [place] [address]- Care Team Providers Care Vegetable Cutter Name Role Phone Kayla Estes Primary Care Physician Encounter [facility] Date(s): 08/22/23 - 09/21/23 [facility] [address] [place] [address]- Allergies, Adverse Reactions, Alerts No Known Allergies Immunizations Given and Recorded Vaccine Date Status Refusal Reason influenza virus vaccine, inactivated 07/30/22 [facility] rded influenza virus vaccine, inactivated 07/05/21 [facility] rded influenza virus vaccine, inactivated 08/18/20 [facility] rded influenza virus vaccine, inactivated 1 08/14/19 [facility] lacie influenza virus vaccine, inactivated 08/13/18 [facility] rded influenza virus vaccine, inactivated 01/13/16 Give n [id number] 12y+ bivalent booster vax 07/14/22 Recorded zoster [...] Stop 01/22/24 12:53:00 EDT, 07/26/23 12:53:00 EDT, [facility]/pharmacy #[id number], Partial fill upon patient request if the prescription is for a schedule II opioid drug., 167, cm, .. Start Date: 07/26/23 Stop Date: 01/22/24 Status: Ordered tenofovir disoproxil fumarate 300 mg oral tablet 1 tablet = 300 mg, By Mouth, Daily, # 90 tablet, 3 Refills, Maintenance, 09/16/22 7:49:00 EST, Tablet, [facility]/pharmacy #[id number], 165, cm, 06/07/22 15:23:00 EDT, Height, [...] Primary Care Nurse Name: Kayla Estes Position: [facility] PCO Associate Professional Member Role: PCP Address: Address: [facility] [place] [address]- Name: Eran Spence RN Position: [facility] RN Member Role: Primary Care Nurse Name: Prince Watson RN Position: [facility] RN Member Role: Primary Care Nurse Name: Nick Go RN Position: [facility] ED RN W/OE and Tasks Member Role: Primary Care Nurse Name: Birdie Vieyra RN Position: [facility] RN Member Role: Primary Care Nurse Name: Izzy Monroy RN Position: [facility] OB RN Member Role: Primary Care Nurse Name: Ainsley Leung RN Position: [facility] RN Member Role: Primary Care Nurse Name: Nancy Mo RN Position: [facility] RN Member Role: Primary Care Nurse Name: Flavia Moeller Position: [facility] RN Member Role: Primary Care Nurse Name: Danae Orozco RN Position: [facility] RN Member Role: Primary Care Nurse Name: Angelic Rainey RN Position: [facility] RN Member Role: Primary Care Nurse Name: Issac Vang RN Position: [facility] RN Member Role: Primary Care Nurse Name: Doreen Murillo RN Position: [facility] RN Member Role: Primary Care Nurse Name: Shira Minor Position: [facility] RN Member Role: Primary Care Nurse Name: Vale Shanks RN Position: [facility] RN Member Role: Primary Care Nurse Name: Kari Dykes RN Position: [facility] RN Member Role: Primary Care Nurse Name: Cristina Green RN Position: [facility] RN Member Role: Primary Care Nurse Name: Esteban Roque RN Position: [facility] RN Member Role: Primary Care Nurse Name: Nidia Mendoza RN Position: [facility] RN Member Role: Primary Care Nurse Care Team Related Persons Name: ELIDA GLORIA Address: home [address], [place] Name: DARÍO GLORIA Address: home [address], [place] Name: ARLENE GLORIA Address: home [address], [place]
--- OUTSIDE RECORDS SUMMARY | 2024-05-03 10:51 | XMS_ITS | Continuity of Care Document ---
Author Organization [facility] ter Address [address] [place] [address]- Care Team Providers Care Sales Professional Bilingual Name Role Phone Kayla Estes Primary Care Physician Encounter [facility] Date(s): 07/21/23 - 07/22/[address] [address]- Encounter Diagnosis Abdominal pain(Final) - 07/22/23 Discharge Disposition: A-D/C Home Attending Physician: German White DO Admitting Physician: German White DO Referring Physician: Not on Staff, Referring MD [...] influenza virus vaccine, inactivated 01/13/16 Give n [id number] 12y+ bivalent booster vax 07/14/22 Recorded zoster [...] a day Start Date: 03/03/23 Status: Ordered cephalexin monohydrate 500 mg oral capsule 1 capsule = 500 mg, By Mouth, 4 times a day, for 7 days, # 28 capsule, 0 Refills, Acute 07/29/23 9:43:00 EDT, 07/22/23 9:43:00 EDT, Capsule, [facility]/pharmacy #[id number], Partial fill upon patient request if the prescription is for a schedule II opioid drug., 1... Start Date: 07/22/23 Stop Date: 07/29/23 Status: Ordered entacapone 200 mg oral tablet [...] 07/11/23 12:00:00 EDT, Route to Pharmacy Electronically, [facility]/pharmacy #[id number], Partial fill upon patient [...] 07/14/23 15:10:00 EDT, Route to Pharmacy Electronically, [facility]/pharmacy #[id number], Partial fill upon patient requestif [...] Stop 09/13/23 14:57:00 EST, 05/16/23 14:57:00 EDT, [facility]/pharmacy #[id number], Partial fill upon patient request if the prescription is for a schedule II opioid drug., 171,... Start Date: 05/16/23 Stop Date: 09/13/23 Status: Ordered tenofovir disoproxil fumarate 300 mg oral tablet 1 tablet = 300 mg, By Mouth, Daily, # 90 tablet, 3 Refills, Maintenance, 09/16/22 7:49:00 EST, Tablet, [facility]/pharmacy #[id number], 165, cm, 06/07/22 15:23:00 EDT, [...] Confirmed Active Pure hypercholesterolemia Confirmed Active Results Orders for Microbiology Reports Name Date Blood Culture 07/21/23 Microbiology Reports TEST:Blood Culture STATUS:Unauthenticated BODY SITE: SOURCE:Blood COLLECTED DATE/TIME:07/21/23 8:24 PM Blood Culture SPECIMEN DESCRIPTION : BLOOD LT AC SPECIAL REQUESTS : NONE CULTURE : NO GROWTH AFTER 24 HOURS REPORT STATUS : PRELIMINARY REPORT Radiology Reports * Exam Date Time Procedure Performing Provider Status 07/22/23 3:[address] Abd/Pelvis W/ IV Contrast Only Nel Forrest; Auth (Verified) Notes: (CT Abd/Pelvis W/ IV Contrast Only) Reason For Exam: abdominal pain;Other: RESULT: CT Abd/Pelvis W/ IV Contrast Only CT Abd/Pelvis W/ IV Contrast Only HX OF PRESENT ILLNESS: Report bulge at surgical site and increased abd pain, s p hemoperitoneam surgery 06 24. no fevers; Reason: Other:; abdominal pain; Clinical Question(s): Abscess; post surgicaledema; Order Comment: TECHNIQUE: Spiral CT through the abdomen and pelvis with IV contrast formatted in 3 planes. 75 cc of Omnipaque 300 was administered intravenously. This study was performed without oral contrast. Weight-based protocol using automatic tube modulation was used to optimize exposure parameters. CTDIvol Body: 10.70 mGy, DLP Body: 554 mGy*cm. COMPARISON: 06/24/2023 and priors. FINDINGS: Barrel Lapper View Findings, Lines and Tubes: Thoracic spinal stimulator leads in place with its battery pack in the left lower back subcutaneous tissues.. Visualized Chest: Bilateral dependent atelectasis. No pleural effusion. The heart is normal in size. No pericardial effusion. Diaphragm: Normal. Liver: Ill-defined hypodensity adjacent to the falciform ligament is likely focal fatty infiltration. No suspicious focal lesions. Gallbladder: Absent consistent with prior cholecystectomy. Bile ducts: No biliary ductal dilation. Spleen: Normal. Pancreas: Normal. Adrenal glands: Normal. Kidneys and ureters: No hydronephrosis, stones, or suspicious masses. Bladder: Normal. Reproductive organs: Uterus is not well-seen but is grossly normal. No adnexal masses. Stomach, small bowel, and large bowel: Mild gastric wall thickening which may represent gastritis or under distention. The small bowel is unremarkable. Postsurgical changes related to sigmoidectomy and colorectal anastomosis. Moderate amount of stool within the rectum. Appendix: Not seen. Peritoneum and retroperitoneum: No ascites or pneumoperitoneum. No omental or mesenteric lesions. Previously seen mesenteric hematoma has resolved. Lymph nodes: No pathologically enlarged lymph nodes. Blood vessels: Mild vascular calcifications but no aneurysm. No evidence of venous thrombosis. Abdominal and pelvic wall: Postoperative changes within the anterior abdominal wall. Interval resolution of previously seen on right rectus muscle hematomas. Thin, elongated collection of fluid is noted within the anterior abdominal wall measuring up to 3.3 x 1.8 x 16.8 cm, is new from prior study,and may represent postoperative seroma or hematoma, although sterility of this fluid is difficult to ensure by imaging. This fluid is surrounded by fascial thickening, however it is unclear if there is true peripheral enhancement. A focus of gas is seen within the dominant pocket superiorly (image 59 series 201). Bones: No acute abnormality. Mild degenerative changes of the visualized spine. IMPRESSION: 1. Thin, elongated fluid collection in the anterior abdominal wall deep to the incision site measuring up to 3.3 x 1.8 x 16.8 cm is new from the prior study. This may represent postoperative seroma or hematoma, however sterility of this fluid is difficult to ensure by imaging. Correlate with clinical presentation. 2. No acute findings within the abdomen or pelvis. Interval resolution of previously seen mesenteric hematoma. Results were conveyed via '[facility] [employer] by Dr. Matt Antoine to Luma LUCAS on 07/22/2023 at 4:25 AM. I have personally reviewed the images and I agree with this report. WSN: [id number] Ordering Physician: Luma Nguyen Dictated By: Matt Antoine MD Dictated Date/Time: 07/22/23 7:54 am Reviewed By: Parker Freed MD Signed By: Parker Freed MD Signed Date/Time: 07/22/23 7:59 am Transcribed By: YVROSE Transcribed Date/Time: 07/22/23 4:28 am Vital Signs Most recent to oldest [Reference Range]: 1 2 3 Height 167 cm (07/22/23 10:08 AM) 167 cm (07/22/23 8:52 AM) 167 cm (07/21/23 7:20 PM) Oxygen Saturation [94-100 %] 99 % (07/22/23 10:08 AM) 100 % (07/22/23 8:52 AM) 100 % (07/22/23 5:17 AM) Pulse Rate [55-90 bpm] 89 bpm (07/22/23 10:08 AM) 89 bpm (07/22/23 8:52 AM) 101 bpm *H* (07/22/23 5:17 AM) Blood Pressure [90-138/55-84 mm Hg] 98/56mm Hg (07/22/23 10:08 AM) 91/61mm Hg (07/22/23 8:52 AM) 130/87mm Hg (07/22/23 5:17 AM) Respiratory Rate [16-30 br/min] 18 br/min (07/22/23 10:08 AM) 18 br/min (07/22/23 8:52 AM) 18 br/min (07/22/23 5:17 AM) Temperature [96.8-100.4 DegF] 98.1 DegF (07/22/23 8:52 AM) 98.6 DegF (07/21/23 11:44 PM) 98.7 DegF (07/21/23 10:38 PM) Mode of Delivery (Oxygen) Room air (07/22/23 10:08 AM) Room air (07/22/23 8:52 AM) Room air (07/22/23 5:17 AM) Blood pressure sites Arm, left (07/22/23 10:08 AM) Arm, left (07/22/23 8:52 AM) Arm, left (07/22/23 5:17 AM) Temperature Route Oral (07/22/23 8:52 AM) Oral (07/21/23 11:44 PM) Oral (07/21/23 10:38 PM) Dry Weight 52.5 kg (07/22/23 10:08 AM) 52.5 kg (07/22/23 8:52 AM) 52.5 kg (07/21/23 7:20 PM) Dry Weight Obtained Via Patient/family s tated (07/21/23 7:20 PM) Social History Social History Type Response Smoking Status Never smoker entered on: 06/04/15 Sex Note * Kumar Calvo MD: PERFORM Event Display: Patient Education Leaflets Authored Date: [id number] Hematoma ?? [id number] T??? m??u T??? m??u l?? m???t t???p h???p m??u b??? m???c k???t b??n araujo??i m???ch m??u. ? ?? l?? nh???ng g??ch??ng ta ngh?? v?? m???t v???t b???m t??m ho???c m???t v???t th?ng. N?? th? ng ?c nh??n th???y d?i da nh?? m???t ?m xanh ??en tr??n c??nh adria ho???c ch??n c???a qu?? v???, ho???c m???t v???t s??ng tr??n ?u c???a qu?? v??? mary m???t ch???n th?ng. N?? c?? th? h???u h???t m?? i n??i tr??n ho???c tr??n c?? th??? qu?? v???. N?? c??ng c?? th??? x???y ra gary m???t c?? clifton n???i t???ng. ? i?? u n??y c?? th??? jim??m tr?? ng h??n. T??? m??u l?? do ch???n th?ng v???i t???n th?ng c??c m???ch m??u nh?? . ? i?? u n??y l??m chom??u r?? r??? v??o c??c m??. M??u t???o th??nh m???t t??i d?i da ph???ng l??n v?? tr??ng gi???ng nh?? m???t m???ng m??u ? t??a. C??c kh???i m??u t?i khi h??nh th??nh d?i da do ch???y m??u gary khi sinh v?? c?? th?c bi???t jim??m tr?? ng. M???t d???ng t??? m??u jim??m tr?? ng kh??c h??nh th??nh mary c?? ng?p ?u, ?c g?? i l?? t??? m??u d?i m??ng c???ng. D???n d???n m??u gary t??? m??u ?c h???p th??? tr??? l???i c?? th???. T??nh tr???ng s??ng v?au do t??? m??u s??? h???t. Qu?? tr??nh n??y m???t t??? 1 ?n 4 tu???n, t??y kevin???c v??o k??ch th?c c???a kh???i m??u t???. V??ng da t??? m??u c?? th??? nikolas???n sang m??u xanh mary ? nikolas???n sang m??u n??u v?? v??ng khi m??u ?c h??a boyce v?? h???p th???. Th??ng th? ng, ??i?? u n??y ch??? m???t v??i tu???n nh??ng c?? th??? k??o d??i h??ng th??ng. Ch??m s??c t???i emmy ??? H???n ch??? c?ng c??c kh???p g???n t??? m??u. N???u kh???i m??u t??? l???n v?au, tr??nh ch??i th??? marcia v?? c??c ho???t ?ng th??? ch???t m???nh kh??c cho ?n khi h???t s??ng v?au. ??? Ch? m m???t t??i ? l??n v??ng b??? th?ng gary 20 ph??t c??? mary 1 ?n 2 gi?? gary ng??y ?u ti??n. Ti???p t???c ch? m ? 3 ?n 4 l???n m???tng??y gary 2 ng??y ti???p earle. ? l??m m???t t??i n?c ?, h??y cho ? v??o m???t t??i ny l??ng c?? th??? b?? c ph??a tr??n. G??i millie gary m???t kh??n ho???c kh??n garsia m?? ng. Kh??ng ?t n?c ? ho???c t??i ? tr???c ti???p l??n da. Ti???p t???c ch? m ? gi???m ??au v?? s??ng khi c???n thi???t. ??? U???ng acetaminophen ? gi???m ??au, tr??? khi qu?? v?c cho m???t lo???i kevin???c gi???m ??au kh??c ? s??? d???ng.??N??i nikolas???n v???i nh?? cung c???p c???a qu?? v??? tr?c khi s??? d???ng kevin???c n??y n???u qu?? v???: o B??? b???nh anu ho???c th???n m???n t??nh o ? ?? b??? lo??t d??? d??y ho???c ch???y m??u ? ng ti??u h??a o ? ang d??ng kevin???c l??m lo??ng m??u. ?? Ch??m s??c earle d??i Kh??m earle d??i v???i nh?? cung c???p ch??m s??c s???c kh?? e c???a qu?? v???, ho???c earle ch??? d???n.??N???u ? ch???p X-zoey ho???c ch???p CT, qu?? v??? s?c th??ng b??o n???u c?? s???thay ?i v?? ch??? s???, ?c bi???t l?? n???u n?nh h?ng ?n vi???c ??i?? u tr???. ?? Khi n??o ??i t??m t?? v???n y t??? G?? i nh?? cung c???p ch??m s??c s???c kh?? e c???a qu?? v??? ngay n???u qu?? v??? varela???t hi???n b???t c??? nh???ng ??i?? u n??o mary ?y: ? xung quanh t??? m??u ??? T??ng c???m gi??c ??au ho???c ???m gary kh???i m??u t? T??ng k??ch th?c c???a kh???i m??u t? S???t t??? 100,4??F (38??C) tr??? l??n, ho???c earle ch??? d???n c???a nh?? cung c???p c???a qu?? v? N???u t??? m??u tr??n c??nh adria ho???c ch??n, h??y ?: o Th??m s??ng ho???c ??au ??? chi o T?? ho???c ng???a ran ho???c m??u xanh c???a b??n adria ho???c b??n ch??n ?? Last Reviewed Date: 2021 ?? [employer] T???t c??? c??c vick?? n ?c b???o l??u. Th??ng tin n??y kh??ng nh???m thay th??? cho d???ch v??? ch??m s??c y t??? molly t??nh nikolas??n m??n. C???n bob??n tu??n earle s??? ch??? d???n t??? nikolas??n emmy ch??m s??c s???c gonzalo??? c???a qu?? v???. ?? Patient Care team information Care Team Personnel Name: Kayla Estes Position: [facility] PCO Associate Professional Member Role: PCP Address: Address: [address] [place] [address]- Name: Eran Spence RN Position: [facility] RN Member Role: Primary Care Nurse Name: Prince Watson RN Position: [facility] RN Member Role: Primary Care Nurse Name: Nick Go RN Position: [facility] GÉNESIS RN W/OE and Tasks Member Role: Primary Care Nurse Name: Birdie Vieyra RN Position: [facility] RN Member Role: Primary Care Nurse Name: Izzy Monroy RN Position: [facility] OB RN Member Role: Primary Care Nurse Name: Ainsley Leung RN Position: [facility] RN Member Role: Primary Care Nurse Name: Nancy Mo RN Position: [facility] RN Member Role: Primary Care Nurse Name: Flavia Moeller Position: [facility] RN Member Role: Primary Care Nurse Name: Kayla Ardon RN Position: [facility] RN Member Role: Primary Care Nurse Name: Danae Orozco RN Position: [facility] RN Member Role: Primary Care Nurse Name: Lindsay Medrano RN Position: [facility] RN Member Role: Primary Care Nurse Name: Angelic Rainey RN Position: [facility] RN Member Role: Primary Care Nurse Name: Issac Vang RN Position: [facility] RN Member Role: Primary Care Nurse Name: Doreen Murillo RN Position: [facility] RN Member Role: Primary Care Nurse Name: Shira Minor Position: [facility] RN Member Role: Primary Care Nurse Name: Vale Shanks RN Position: [facility] RN Member Role: Primary Care Nurse Name: Kari Dykes RN Position: [facility] RN Member Role: Primary Care Nurse Name: Cristina Green RN Position: [facility] RN Member Role: Primary Care Nurse Name: Esteban Roque RN Position: [facility] RN Member Role: Primary Care Nurse Name: Nidia Mendoza RN Position: [facility] RN Member Role: Primary Care Nurse Name: Kari Villalba Position: [facility] ED TA [facility] Member Role: Senior Manager Quality Assurance Name: German White DO Position: [facility] Resident Member Role: Admitting Physician Address: Address: [address] [place] [address]- Name: Kumar Calvo MD Position: [facility] Resident Member Role: ED Resident Address: Address: [address] [place] [address]- Name: Gisella Carvajal RN Position: [facility] ED RN W/OE and Tasks Member Role: Patient Care Provider Care Team Related Persons Name: ELIDA GLORIA Address: [address] [place] [address] Name: DARÍO GLORIA Address: [address] [place] [address] Name: JUANI ARLENE Address: home [address] [place] [address]
--- OUTSIDE RECORDS SUMMARY | 2024-05-03 10:52 | XMS_ITS | Continuity of Care Document ---
Author Organization [facility] Address [address] [place] [address]- Care Team Providers Care Director Of Counseling Name Role Phone Sabrina VINSON, Henry Rojas Primary Care Physician Encounter [facility] Date(s): 10/01/21 - 10/31/21 [facility] [address], [place] [address] Attending Physician: Natasha Shelby Admitting Physician: [...] each, 0 Refills, Maintenance, 02/08/21 9:34:00 EDT, [facility], ok to sub for [...] 3 Refills, Maintenance, 11/30/20 16:28:00 EST, Tablet, [facility], 157, cm, 11/13/20 10:10:00 [...]
--- OUTSIDE RECORDS SUMMARY | 2024-05-03 10:52 | XMS_ITS | Continuity of Care Document ---
Author Organization [facility] Address [address] [place] [address]- Care Team Providers Care Welt Beater Name Role Phone Kayla Smith Primary Care Physician Encounter [facility] [place] [facility] R [id number] Date(s): 12/06/22 - 01/05/23 [facility] [address] [place] [id number] Attending Physician: Natasha Shelby Admitting [...] influenza virus vaccine, inactivated 01/13/16 Give n [id number] 12y+ bivalent booster vax 07/14/22 Recorded zoster [...] each, 0 Refills, Maintenance, 02/08/21 9:34:00 EDT, [facility], ok to sub [...] Team Personnel Name: Birdie Vieyra RN Position: [facility] RN Member Role: Primary Care Nurse Name: Izzy Monroy RN Position: [facility] OB RN Member Role: Primary Care Nurse Name: Kayla Smith Position: [facility] PCO Associate Professional Member Role: PCP Address: Address: [address] [place] [id number] Name: Danae Orozco RN Position: [facility] RN Member Role: Primary Care Nurse Name: Lindsay Medrano RN Position: [facility] RN Member Role: Primary Care Nurse Name: Angelic Rainey RN Position: [facility] RN Member Role: Primary Care Nurse Name: Kari Dykes RN Position: [facility] RN Supv Member Role: Primary Care Nurse Name: Cristina Green RN Position: [facility] RN Member Role: Primary Care Nurse Care Team Related Persons Name: ELIDA GLORIA Address: home [address] [place] [id number] Name: DARÍO GLORIA Address: home [address] [place] [address] Name: ARLENE GLORIA Address: [place] [address]
--- OUTSIDE RECORDS SUMMARY | 2024-05-03 10:52 | XMS_ITS | Continuity of Care Document ---
Author Organization [facility] Address [address] [place] [address]- Care Team Providers Care Property Insurance Claims Examiner Name Role Phone Adela Khan Primary Care Physician Encounter [facility] Date(s): 06/03/22 - 07/03/22 [facility] [address] [place] [address]- [place] Allergies, Adverse Reactions, Alerts No Known [...] 1 Refills, Maintenance, 05/09/22 13:30:00 EDT, Capsule, [facility] 1967, Partial fill upon patient [...] 0 Refills, Maintenance, 02/08/21 9:34:00 EDT, [facility] 1967, ok to sub for [...] 3 Refills, Maintenance, 11/19/21 12:03:00 EST, Tablet, [facility], 165, cm, 10/01/21 14:37:00 [...] Status Never smoker entered on: 06/04/15 Sex Care Team Personnel Name: Adela Khan Address: [address] [place] [address], [place] [address]- [place]
--- OUTSIDE RECORDS SUMMARY | 2024-05-03 10:52 | XMS_ITS | Continuity of Care Document ---
Author Organization [facility] Address [address] [place] [address]- Care Team Providers Care Accounts Payable Manager Name Role Phone Sabrina VINSON, Henry Rojas Primary Care Physician Encounter [facility] Date(s): 09/14/20 - 10/14/20 [facility] [address] [place], [place] [address] Allergies, Adverse Reactions, Alerts [...] 3 Refills, Maintenance, 05/15/20 12:43:00 EDT, Tablet, [facility], 168, cm, 10/31/19 8:18:00 EST, [...]
--- OUTSIDE RECORDS SUMMARY | 2024-05-03 10:52 | XMS_ITS | Continuity of Care Document ---
Author Organization [facility] Address [address] [place] [address]- Care Team Providers Care Managing Partner Name Role Phone Kayla Estes Primary Care Physician [id number] Date(s): 12/15/23 - 04/13/24 [facility] [address] [place] [address]- Attending Physician: Boyd Bowen MD Admitting Physician: Boyd Bowen MD Referring Physician: Kayla Estes Allergies, Adverse Reactions, Alerts [...] influenza virus vaccine, inactivated 01/13/16 Give n [id number] 12y+ bivalent booster vax 07/14/22 Recorded zoster [...] 03/11/24 17:05:00 EDT, Route to Pharmacy Electronically, [facility]/pharmacy #[id number], Partial fill upon patient request [...] 12:00:00 EDT, Route to Pharmacy Electronically, [facility]/pharmacy #[id number], Partial fill upon patient request [...] capsule, 3 Refills, Maintenance, 01/09/24 7:47:00 EDT, [id number], 167, cm, 12/18/23 16:11:00 EST, Height, 52.5, [...] Name: Lindsay Mercer RN Position: [facility] RN Member Role: Primary Care Nurse Name: Kayla Estes Position: [facility] PCO Associate Professional Member Role: PCP Address: Address: [address] [place] [address]- Name: Eran Spence RN Position: S RN [...] Name: Ainsley Leung RN Position: [facility] RN Member Role: Primary Care Nurse Name: Nancy Mo RN Position: [facility] RN Member Role: Primary Care Nurse Name: Flavia Moeller RN Position: [facility] RN Member Role: Primary Care Nurse Name: Danae Orozco RN Position: [facility] RN Member Role: Primary Care Nurse Name: Angelic Rainey RN Position: [facility] RN Member Role: Primary Care Nurse Name: Issac Vang RN Position: [facility] RN Member Role: Primary Care Nurse Name: Doreen Murillo RN Position: [facility] RN Member Role: Primary Care Nurse Name: Shira Minor RN Position: [facility] RN Member Role: Primary Care Nurse Name: Kari Dykes RN Position: [facility] RN Member Role: Primary Care Nurse Name: Cristina Green RN Position: [facility] RN Member Role: Primary Care Nurse Name: Esteban Roque RN Position: [facility] RN Member Role: Primary Care Nurse Name: Nidia Mendoza RN Position: [facility] RN Member Role: Primary Care Nurse Care Team Related Persons Name: ELIDA GLORIA Address: [address] [place] [address] Name: DARÍO GLORIA Address: [address] [place] [address] Name: ARLENE GLORIA Address: home [address] [place] [id number]
--- OUTSIDE RECORDS SUMMARY | 2024-05-03 10:52 | XMS_ITS | Continuity of Care Document ---
Author Organization [facility] Address [address] [place] [address]- Care Team Providers Care Garbage Depot Worker Name Role Phone Kayla Estes Primary Care Physician Encounter [facility] Date(s): 03/03/23 - 04/02/23 [facility] [address] [place], [place] [email or web address] Attending Physician: Natasha Shelby Admitting Physician: Admtr, Natasha Referring Physician: Admtr, Ar8 Allergies, Adverse Reactions, Alerts No Known Allergies Immunizations Given and Recorded Vaccine Date Status Refusal Reason influenza virus vaccine, inactivated 07/30/22 [facility] influenza virus vaccine, inactivated 07/05/21 [facility] influenza virus vaccine, inactivated 08/18/20 [facility] influenza virus vaccine, inactivated 1 08/14/19 [facility] influenza virus vaccine, inactivated 08/13/18 [facility] influenza virus vaccine, inactivated 01/13/16 Give n [id number] 12y+ bivalent booster vax 07/14/22 Recorded zoster [...] Stop 05/23/23 8:21:00 EDT, 01/23/23 8:21:00 EDT, [facility]/pharmacy #[id number], Partial fill upon patient request if the prescription is for a schedule II opioid drug., 171, c... Start Date: 01/23/23 Stop Date: 05/23/23 Status: Ordered tenofovir disoproxil fumarate 300 mg oral tablet 1 tablet = 300 mg, By Mouth, Daily, # 90 tablet, 3 Refills, Maintenance, 09/16/22 7:49:00 EST, Tablet, [facility]/pharmacy #[id number], 165, cm, 06/07/22 [...] Care Team Personnel Name: Kayla Estes Position: [facility] PCO Associate Professional Member Role: PCP Address: Address: [address] [place] [id number] Name: Birdie Vieyra RN Position: [facility] RN Member Role: Primary Care Nurse Name: Izzy Monroy RN Position: [facility] OB RN Member Role: Primary Care Nurse Name: Danae Orozco RN Position: [facility] RN Member Role: Primary Care Nurse Name: Lindsay Medrano RN Position: S RN Member Role: Primary Care Nurse Name: Angelic Rainey RN Position: S RN Member Role: Primary Care Nurse Name: Kari Dykes RN Position: [facility] RN Supv Member Role: Primary Care Nurse Name: Cristina Green RN Position: [facility] RN Member Role: Primary Care Nurse Care Team Related Persons Name: ELIDA GLORIA Address: [address] [address] Name: DARÍO GLORIA Address: [place] [id number] Name: ARLENE GLORIA Address: [place] [address]
--- OUTSIDE RECORDS SUMMARY | 2024-05-03 10:52 | XMS_ITS | Continuity of Care Document ---
Author Organization [facility] Adult Address [address] [place] [address]- Care Team Providers Care Backup Administrative Coordinator Name Role Phone Kayla Estes Primary Care Physician Encounter [facility] Date(s): 12/20/23 - 01/19/24 [facility] [address] [place] [address]- Allergies, Adverse Reactions, Alerts No Known Allergies [...] influenza virus vaccine, inactivated 01/13/16 Give n [id number] 12y+ bivalent booster vax 07/14/22 Recorded zoster [...] 07/11/23 12:00:00 EDT, Route to Pharmacy Electronically, [facility]/pharmacy #[id number], Partial fill upon patient request [...] Refills, Soft Stop, 12/18/23 16:12:00 EST, Tablet, [facility]/pharmacy #[id number], Partial fill upon patient request [...] capsule, 3 Refills, Maintenance, 01/09/24 7:47:00 EDT, [facility] STORE [id number], 167, cm, 12/18/23 16:11:00 EST, Height, 52.5, [...] Team Personnel Name: Lindsay Mercer RN Position: [facility] RN Member Role: Primary Care Nurse Name: Kayla Estes Position: [facility] PCO Associate Professional Member Role: PCP Address: Address: [address] [place] [address]- Name: Eran Spence RN Position: S RN Member Role: Primary Care Nurse Name: Prince Watson RN Position: [facility] RN Member Role: Primary Care Nurse Name: Nick Go RN Position: [facility] ED RN W/OE and Tasks Member Role: Primary Care Nurse Name: Birdie Vieyra RN Position: S RN Member Role: Primary Care Nurse Name: Izzy Monroy RN Position: [facility] OB RN Member Role: Primary Care Nurse Name: Xochitl RNAinsley Position: [facility] RN Member Role: Primary Care Nurse Name: Nancy Mo RN Position: [facility] RN Member Role: Primary Care Nurse Name: Flavia Moeller Position: [facility] RN Member Role: Primary Care Nurse Name: Danae Orozco RN Position: [facility] RN Member Role: Primary Care Nurse Name: Angelic Rainey RN Position: [facility] RN Member Role: Primary Care Nurse Name: Issac Vang RN Position: [facility] RN Member Role: Primary Care Nurse Name: Doreen Murillo RN Position: [facility] RN Member Role: Primary Care Nurse Name: Shira Minor RN Position: [facility] RN Member Role: Primary Care Nurse Name: Kari Dykes RN Position: [facility] RN Member Role: Primary Care Nurse Name: Cristina Green RN Position: [facility] RN Member Role: Primary Care Nurse Name: Esteban Roque RN Position: [facility] RN Member Role: Primary Care Nurse Name: Nidia Mendoza RN Position: [facility] RN Member Role: Primary Care Nurse Care Team Related Persons Name: ELIDA GLORIA Address: [address] [place] [address] Name: DARÍO GLORIA Address: [address] [place] [address] Name: JUANI ARLENE Address: [address] [place] [address]
--- OUTSIDE RECORDS SUMMARY | 2024-05-03 10:52 | XMS_ITS | Continuity of Care Document ---
Author Organization [facility] Address [address] [place] [address]- Care Team Providers Care Senior Government Program Analyst Name Role Phone Henry Bennett MD Primary Care Phys[id number] Date(s[facility] 04/29/22 - 05/29/22 [facility] [address] [place] [address]- [place] Allergies, Adverse Reactions, Alerts No Known [...] 0 Refills, Maintenance, 02/11/22 11:53:00 EDT, Tablet, [facility], [...] 1 Refills, Maintenance, 05/09/22 13:30:00 EDT, Capsule, [facility] 1967, Partial fill [...] 3 Refills, Maintenance, 11/19/21 12:03:00 EST, Tablet, [facility] 1967, 165, cm, 10/01/21 14:37:00 [...]
--- OUTSIDE RECORDS SUMMARY | 2024-05-03 10:52 | XMS_ITS | Continuity of Care Document ---
Author Organization [facility] Address [address] [place] [address]- Care Team Providers Care Mucking Machine Operator Name Role Phone Kayla Smith Primary Care Physician Encounter [facility] Date(s): 01/20/23 - 02/19/23 [facility] [address] [place] [address]- Allergies, Adverse Reactions, Alerts No Known Allergies Immunizations Given and Recorded Vaccine Date Status Refusal Reason influenza virus vaccine, inactivated 07/30/22 [facility] r[facility] influenza virus vaccine, inactivated 07/05/21 [facility] rded influenza virus vaccine, inactivated 08/18/20 [facility] rded influenza virus vaccine, inactivated 1 08/14/19 Gi lacie influenza virus vaccine, inactivated 08/13/18 [facility] rded influenza virus vaccine, inactivated 01/13/16 Give n [id number] 12y+ bivalent booster vax 07/14/22 Recorded zoster [...] Stop 05/23/23 8:21:00 EDT, 01/23/23 8:21:00 EDT, [facility]/pharmacy #[id number], Partial fill upon patient request if the prescription is for a schedule II opioid drug., 171, c... Start Date: 01/23/23 Stop Date: 05/23/23 Status: Ordered PEG-3350 with Electrolytes (Eqv-NuLYTELY) oral powder for reconstitution See Instructions, as directed, # 1 each, 0 Refills, Maintenance, 02/08/21 9:34:00 EDT, [facility], ok to sub for [...] Refills, Maintenance, 09/16/22 7:49:00 EST, Tablet, [facility]/pharmacy #[id number], 165, cm, 06/07/22 15:23:00 EDT, Height, [...] Care Nurse Name: Izzy Monroy RN Position: [facility] OB RN Member Role: Primary Care Nurse Name: Kayla Smith Position: [facility] PCO Associate Professional Member Role: PCP Address: Address: [address] [place] [address] Name: Danae Orozco RN Position: [facility] RN Member Role: Primary Care Nurse Name: Lindsay Medrano RN Position: S RN Member Role: Primary Care Nurse Name: Angelic Rainey RN Position: S RN Member Role: Primary Care Nurse Name: Kari Dykes RN Position: [facility] RN Supv Member Role: Primary Care Nurse Name: Cristina Green RN Position: S RN Member Role: Primary Care Nurse Care Team Related Persons Name: ELIDA GLORIA Address: [address] [place] [address] Name: DARÍO GLORIA Address: [address] [place] [address] Name: ARLENE GLORIA Address: [address] [place] [address]
--- OUTSIDE RECORDS SUMMARY | 2024-05-03 10:52 | XMS_ITS | Continuity of Care Document ---
Author Organization [facility] Address [address] [place] [address] [place] [address]- Care Team Providers Care Preventive Maintenance Coordinator Name Role Phone Sabrina VINSON, Henry Rojas Primary Care Physician Encounter 03/19/21 - 05/03/21 [facility] [address] [facility], [address] [place] [address]- Attending Physician: Miky Clarke Admitting Physician: Miky Clarke Referring Physician: Miky Clarke Allergies, Adverse Reactions, Alerts Substance Reaction Severity [...] each, 0 Refills, Maintenance, 02/08/21 9:34:00 EDT, [facility] 1967, ok to sub for [...] 3 Refills, Maintenance, 11/30/20 16:28:00 EST, Tablet, [facility], 157, cm, 11/13/20 10:10:00 [...]
--- OUTSIDE RECORDS SUMMARY | 2024-05-03 10:52 | XMS_ITS | Continuity of Care Document ---
Author Organization [facility] Address [address] [place] [address] [address] [place] [address]- Care Team Providers Care Program/Music Director Name Role Phone Kayla Estes Primary Care Physician Encounter [facility] Date(s): 07/12/23 - 07/19/23 [facility] [address] [place] [address]- Attending Physician: Socorro Arndt MD Allergies, Adverse Reactions, Alerts No Known Allergies Immunizations Given and Recorded Vaccine Date Status Refusal Reason influenza virus vaccine, inactivated 07/30/22 [facility] rded influenza virus vaccine, inactivated 07/05/21 [facility] rded influenza virus vaccine, inactivated 08/18/20 [facility] rded influenza virus vaccine, inactivated 1 08/14/19 Gi lacie influenza virus vaccine, inactivated 08/13/18 [facility] rded influenza virus vaccine, inactivated 01/13/16 Give n [id number] 12y+ bivalent booster vax 07/14/22 Recorded zoster [...] Stop 09/13/23 14:57:00 EST, 05/16/23 14:57:00 EDT, [facility]/pharmacy #[id number], Partial fill upon patient request if the prescription is for a schedule II opioid drug., 171,... Start Date: 05/16/23 Stop Date: 09/13/23 Status: Ordered tenofovir disoproxil fumarate 300 mg oral tablet 1 tablet = 300 mg, By Mouth, Daily, # 90 tablet, 3 Refills, Maintenance, 09/16/22 7:49:00 EST, Tablet, [facility]/pharmacy #[id number], 165, cm, 06/07/22 [...] recent to oldest [Reference Range]: 1 Height 166 cm (07/12/23 10:14 AM) Pulse Rate [55-90 bpm] 113 bpm *H* (07/12/23 10:14 AM) Blood Pressure [90-138/55-84 mm Hg] 124/ 76mm Hg (07/12/23 10:14 AM) Temperature [96.8-100.4 DegF] 97.5 DegF (07/12/23 10:14 AM) Blood pressure sites Arm, left (07/12/23 10:14 AM) Temperature Route Temporal (07/12/23 10:14 AM) Social History Social History Type Response Smoking Status Never smoker entered on: 06/04/15 Sex Patient Care team information Care Team Personnel Name: Kayla Estes Position: [facility] PCO Associate Professional Member Role: PCP Address: Address: [address] [place] [id number] Name: Eran Spence RN Position: [facility] RN Member Role: Primary Care Nurse Name: Prince Watson RN Position: [facility] RN Member Role: Primary Care Nurse Name: Nick Go RN Position: [facility] ED RN W/OE and Tasks Member Role: Primary Care Nurse Name: Birdie Vieyra RN Position: [facility] RN Member Role: Primary Care Nurse Name: Izzy Monroy RN Position: [facility] OB RN Member Role: Primary Care Nurse Name: Ainsley Leung RN Position: [facility] RN Member Role: Primary Care Nurse Name: Nancy Mo RN Position: [facility] RN Member Role: Primary Care Nurse Name: Flavia Moeller Position: [facility] RN Member Role: Primary Care Nurse Name: Kayla Ardon RN Position: [facility] RN Member Role: Primary Care Nurse Name: Danae Orozco RN Position: [facility] RN Member Role: Primary Care Nurse Name: Lindsay Medrano RN Position: [facility] RN [...] Care Nurse Name: Vale Shanks RN Position: [facility] RN [...] Team Related Persons Name: ANNY GLORIAY Address: [place] [address] Name: DARÍO GLORIA Address: [place] [address] Name: ARLENE GLORIA Address: [place] [address]
--- OUTSIDE RECORDS SUMMARY | 2024-05-03 10:52 | XMS_ITS | Continuity of Care Document ---
Author Organization [facility] Adult Address [address] [place] [address]- Care Team Providers Care Lime Trimmer Name Role Phone Kayla Estes Primary Care Physician Encounter [facility] Date(s): 07/11/23 - 07/18/23 [facility] [address] [place] [address]- Attending Physician: Not on Staff, Attending MD Allergies, Adverse Reactions, Alerts No Known Allergies Immunizations Given and Recorded Vaccine Date Status Refusal Reason influenza virus vaccine, inactivated 07/30/22 [facility] rded influenza virus vaccine, inactivated 07/05/21 [facility] rded influenza virus vaccine, inactivated 08/18/20 [facility] rded influenza virus vaccine, inactivated 1 08/14/19 Gi lacie influenza virus vaccine, inactivated 08/13/18 [facility] rded influenza virus vaccine, inactivated 01/13/16 Give n [id number] 12y+ bivalent booster vax 07/14/22 Recorded zoster [...] Stop 09/13/23 14:57:00 EST, 05/16/23 14:57:00 EDT, [facility]/pharmacy #[id number], Partial fill upon patient request if the prescription is for a schedule II opioid drug., 171,... Start Date: 05/16/23 Stop Date: 09/13/23 Status: Ordered tenofovir disoproxil fumarate 300 mg oral tablet 1 tablet = 300 mg, By Mouth, Daily, # 90 tablet, 3 Refills, Maintenance, 09/16/22 7:49:00 EST, Tablet, [facility]/pharmacy #[id number], 165, cm, 06/07/22 [...] oldest [Reference Range]: 1 Height 166 cm (07/11/23 11:07 AM) Weight 52.15 kg (07/11/23 11:07 AM) Oxygen Saturation [94-100 %] 95 % (07/11/23 11:07 AM) Pulse Rate [55-90 bpm] 104 bpm *H* (07/11/23 11:07 AM) Body Mass Index [18.5-24.99 kg/m2] 18.93 kg/m2 (07/11/23 11:07 AM) Blood Pressure [90-138/55-84 mm Hg] 95/6 2mm Hg (07/11/23 11:07 AM) Mode of Delivery (Oxygen) Room air (07/11/23 11:07 AM) Blood pressure sites Arm, left (07/11/23 11:07 AM) Social History Social History Type Response Smoking Status Never smoker entered on: 06/04/15 Sex Patient Care team information Care Team Personnel Name: Kayla Estes Position: [facility] PCO Associate Professional Member Role: PCP Address: Address: [address] [place] [address] Name: Eran Spence RN Position: [facility] RN Member Role: Primary Care Nurse Name: Prince Watson RN Position: [facility] RN Member Role: Primary Care Nurse Name: Nick Go RN Position: [facility] ED RN W/OE and Tasks Member Role: Primary Care Nurse Name: Birdie Vieyra RN Position: [facility] RN Member Role: Primary Care Nurse Name: Izzy Monroy RN Position: [facility] OB RN Member Role: Primary Care Nurse Name: Ainsley Leung RN Position: [facility] RN Member Role: Primary Care Nurse Name: Nancy Mo RN Position: [facility] RN Member Role: Primary Care Nurse Name: Flavia Moeller Position: S RN Member Role: Primary Care Nurse Name: Kayla Ardon RN Position: [facility] RN Member Role: Primary Care Nurse Name: Danae Orozco RN Position: [facility] RN Member Role: Primary Care Nurse Name: Lindsay Medrano RN Position: [facility] RN Member Role: Primary Care Nurse Name: Angelic Rainey RN Position: [facility] RN Member Role: Primary Care Nurse Name: Issac Vang RN Position: S RN Member Role: Primary Care Nurse Name: Doreen Murillo RN Position: [facility] RN Member Role: Primary Care Nurse Name: Shira Minor Position: [facility] RN Member Role: Primary Care Nurse Name: Vale Shanks RN Position: [facility] RN Member Role: Primary Care Nurse Name: Kari Dykes RN Position: [facility] RN Member Role: Primary Care Nurse Name: Cristina Green RN Position: [facility] RN Member Role: Primary Care Nurse Name: Esteban Roque RN Position: [facility] RN Member Role: Primary Care Nurse Name: Nidia Mendoza RN Position: [facility] RN Member Role: Primary Care Nurse Care Team Related Persons Name: ELIDA GLORIA Address: home [address] [place] [address] Name: JUANI GLORIAUNG Address: [place] [address] Name: MADDIE GLORIAN Address: [place] [address]
--- OUTSIDE RECORDS SUMMARY | 2024-05-03 10:52 | XMS_ITS | Continuity of Care Document ---
Author Organization [facility] ter Address [address] [place] [address]- Care Team Providers Care Validation Software Facilitator Name Role Phone Kayla Estes Primary Care Physician Encounter [facility] Date(s): 08/28/23 - 09/27/[address] [address] Allergies, Adverse Reactions, Alerts No Known Allergies Immunizations Given and Recorded Vaccine Date Status Refusal Reason influenza virus vaccine, inactivated 07/30/22 [facility] rded influenza virus vaccine, inactivated 07/05/21 [facility] rded influenza virus vaccine, inactivated 08/18/20 [facility] rded influenza virus vaccine, inactivated 1 08/14/19 Gi lacie influenza virus vaccine, inactivated 08/13/18 [facility] rded influenza virus vaccine, inactivated 01/13/16 Give n [id number] 12y+ bivalent booster vax 07/14/22 Recorded zoster [...] a schedule II opioid drug. Start Date: 9/1/21 Status: Ordered magnesium oxide 400 mg oral [...] 01/22/24 12:53:00 EDT, 07/26/23 12:53:00 EDT, [facility]/pharmacy #[id number], Partial fill upon patient request if the prescription is for a schedule II opioid drug., 167, cm, .. Start Date: 07/26/23 Stop Date: 01/22/24 Status: Ordered tenofovir disoproxil fumarate 300 mg oral tablet 1 tablet = 300 mg, By Mouth, Daily, # 90 tablet, 3 Refills, Maintenance, 09/16/22 7:49:00 EST, Tablet, [facility]/pharmacy #[id number], 165, cm, 06/07/22 15:23:00 EDT, [...] Primary Care Nurse Name: Kayla Estes Position: [facility] PCO Associate Professional Member Role: PCP Address: Address: [address] [place], [place] [address] Name: Eran Spence RN Position: [facility] RN Member Role: Primary Care Nurse Name: Prince Watson RN Position: [facility] RN Member Role: Primary Care Nurse Name: Nick Go RN Position: [facility] ED RN W/OE and Tasks Member Role: Primary Care Nurse Name: Birdie Vieyra RN Position: [facility] RN Member Role: Primary Care Nurse Name: Izzy Monroy RN Position: [facility] OB RN Member Role: Primary Care Nurse Name: Ainsley Leung RN Position: [facility] RN Member Role: Primary Care Nurse Name: Nancy Mo RN Position: [facility] RN Member Role: Primary Care Nurse Name: Flavia Moeller Position: [facility] RN Member Role: Primary Care Nurse Name: Danae Orozco RN Position: [facility] RN Member Role: Primary Care Nurse Name: Angelic Rainey RN Position: [facility] RN Member Role: Primary Care Nurse Name: Issac Vang RN Position: [facility] RN Member Role: Primary Care Nurse Name: Doreen Murillo RN Position: [facility] RN Member Role: Primary Care Nurse Name: Shira Minor Position: [facility] RN Member Role: Primary Care Nurse Name: Vale Shanks RN Position: [facility] RN Member Role: Primary Care Nurse Name: Kari Dykes RN Position: [facility] RN Member Role: Primary Care Nurse Name: Cristina Green RN Position: [facility] RN Member Role: Primary Care Nurse Name: Esteban Roque RN Position: [facility] RN Member Role: Primary Care Nurse Name: Nidia Mendoza RN Position: [facility] RN Member Role: Primary Care Nurse Care Team Related Persons Name: ELIDA GLORIA Address: [address] [place], [place] Name: DARÍO GLORIA Address: [address] [place], [place] Name: ARLENE GLORIA Address: [address] [place] [address]
--- OUTSIDE RECORDS SUMMARY | 2024-05-03 10:52 | XMS_ITS | Continuity of Care Document ---
Author Organization [facility] Address [address] [place] [address]- Care Team Providers Care Construction Secretary Name Role Phone Kayla Estes Primary Care Physician Encounter [facility] Date(s): 05/29/23 - 07/01/23 [facility] [address] [place], [place] [id number]- Attending Physician: Boyd Bowen MD Admitting Physician: [...] influenza virus vaccine, inactivated 01/13/16 Give n [id number] 12y+ bivalent booster vax 07/14/22 Recorded zoster [...] 07/05/23 15:03:00 EDT, 06/30/23 15:03:00 EDT, Capsule, [facility]/pharmacy #[id number], Partial fill upon patient request ifthe [...] Stop 09/13/23 14:57:00 EST, 05/16/23 14:57:00 EDT, [facility]/pharmacy #[id number], Partial fill upon patient request [...] 06/29/23 14:28:00 EDT, Route to Pharmacy Electronically, [facility], Partial fill upon patient request... Start Date: 06/29/23 Stop Date: 07/02/23 Status: Ordered tenofovir disoproxil fumarate 300 mg oral tablet 1 tablet = 300 mg, By Mouth, Daily, # 90 tablet, 3 Refills, Maintenance, 09/16/22 7:49:00 EST, Tablet, [facility]/pharmacy #[id number], 165, cm, 06/07/22 15:23:00 EDT, [...] EDT, Route to Pharmacy Electronically, [facility], Partial fill upon patient [...] Care Team Personnel Name: Kayla Estes Position: [facility] PCO Associate Professional Member Role: PCP Address: Address: [address] [place] [address]- Name: Eran Spence RN Position: [facility] RN Member Role: Primary Care Nurse Name: Prince Watson RN Position: [facility] RN Member Role: Primary Care Nurse Name: Nick Go RN Position: [facility] RN Member Role: Primary Care Nurse Name: Birdie Vieyra RN Position: [facility] RN Member Role: Primary Care Nurse Name: Izzy Monroy RN Position: [facility] OB RN Member Role: Primary Care Nurse Name: Ainsley Leung RN Position: [facility] RN Member Role: Primary Care Nurse Name: Nancy Mo RN Position: [facility] RN Member Role: Primary Care Nurse Name: Flavia Moeller Position: [facility] RN Member Role: Primary Care Nurse Name: Kayla Ardon RN Position: [facility] RN Member Role: Primary Care Nurse Name: Danae Orozco RN Position: [facility] RN Member Role: Primary Care Nurse Name: Lindsay Medrano RN Position: [facility] RN Member Role: Primary Care Nurse Name: Angelic Rainey RN Position: [facility] RN Member Role: Primary Care Nurse Name: Issac Vang RN Position: [facility] RN Member Role: Primary Care Nurse Name: Doreen Murillo RN Position: [facility] RN Member Role: Primary Care Nurse Name: Shira Minor Position: [facility] RN Member Role: Primary Care Nurse Name: Vale Shanks RN Position: [facility] RN Member Role: Primary Care Nurse Name: Kari Dykes RN Position: [facility] RN Member Role: Primary Care Nurse Name: Cristina Green RN Position: [facility] RN Member Role: Primary Care Nurse Name: Esteban Roque RN Position: [facility] RN Member Role: Primary Care Nurse Name: Nidia Mendoza RN Position: [facility] RN Member Role: Primary Care Nurse Care Team Related Persons Name: ELIDA GLORIA Address: [address] [place] [address] Name: DARÍO GLORIA Address: [address] [address] Name: ARLENE GLORIA Address: [place] [id number]
--- OUTSIDE RECORDS SUMMARY | 2024-05-03 10:52 | XMS_ITS | Continuity of Care Document ---
Author Organization [facility] Address [address] [place] [address] [address] [place] [address]- Care Team Providers Care Building Construction Ironworker Name Role Phone Kayla Estes Primary Care Physician Encounter [facility] Date(s): 07/21/23 - 08/20/23 [facility] [address] [place], [place] [address] Allergies, Adverse Reactions, Alerts No Known Allergies Immunizations Given and Recorded Vaccine Date Status Refusal Reason influenza virus vaccine, inactivated 07/30/22 [facility] rded influenza virus vaccine, inactivated 07/05/21 [facility] rded influenza virus vaccine, inactivated 08/18/20 [facility] rded influenza virus vaccine, inactivated 1 08/14/19 Gi lacie influenza virus vaccine, inactivated 08/13/18 [facility] rded influenza virus vaccine, inactivated 01/13/16 Give n [id number] 12y+ bivalent booster vax 07/14/22 Recorded zoster [...] 07/11/23 12:00:00 EDT, Route to Pharmacy Electronically, [facility]/pharmacy #[id number], Partial fill upon patient request if [...] Stop 01/22/24 12:53:00 EDT, 07/26/23 12:53:00 EDT, [facility]/pharmacy #[id number], Partial fill upon patient request if the prescription is for a schedule II opioid drug., 167, cm, ... Start Date: 07/26/23 Stop Date: 01/22/24 Status: Ordered omeprazole 40 mg oral enteric coated capsule 1 capsule = 40 mg, By Mouth, 2 times a day, for 30 days, # 60 capsule, 3 Refills, Hard Stop 09/13/23 14:57:00 EST, 05/16/23 14:57:00 EDT, [facility]/pharmacy #[id number], Partial fill upon patient request if [...] Team Personnel Name: Lindsay Mercer RN Position: [facility] RN Member Role: Primary Care Nurse Name: Kayla Estes Position: [facility] PCO Associate Professional Member Role: PCP Address: Address: [address] [place] [id number] Name: Eran Spence RN Position: [facility] RN Member Role: Primary Care Nurse Name: Prince Watson RN Position: [facility] RN Member Role: Primary Care Nurse Name: Nick Go RN Position: [facility] RN Member Role: Primary Care Nurse Name: Birdie Vieyra RN Position: [facility] RN Member Role: Primary Care Nurse Name: Izzy Monroy RN Position: [facility] OB RN Member Role: Primary Care Nurse Name: Ainsley Leung RN Position: [facility] RN Member Role: Primary Care Nurse Name: Nancy Mo RN Position: [facility] RN Member Role: Primary Care Nurse Name: Flavia Moeller Position: [facility] RN Member Role: Primary Care Nurse Name: Danae Orozco RN Position: [facility] RN Member Role: Primary Care Nurse Name: Angelic Rainey RN Position: [facility] RN Member Role: Primary Care Nurse Name: Issac Vang RN Position: [facility] RN Member Role: Primary Care Nurse Name: Doreen Murillo RN Position: [facility] RN Member Role: Primary Care Nurse Name: Shira Minor Position: [facility] RN Member Role: Primary Care Nurse Name: Vale Shanks RN Position: [facility] RN Member Role: Primary Care Nurse Name: Kari Dykes RN Position: [facility] RN Member Role: Primary Care Nurse Name: Cristina Green RN Position: [facility] RN Member Role: Primary Care Nurse Name: Esteban Roque RN Position: [facility] RN Member Role: Primary Care Nurse Name: Nidia Mendoza RN Position: [facility] RN Member Role: Primary Care Nurse Care Team Related Persons Name: ELIDA GLORIA Address: [place] [address] Name: JUANI GLORIAUNG Address: [place] [address] Name: ARLENE GLORIA Address: [place] [address]
--- OUTSIDE RECORDS SUMMARY | 2024-05-03 10:52 | XMS_ITS | Continuity of Care Document ---
Author Organization [facility] Address [address] [place] [address]- Care Team Providers Care Bank Sales And Service Manager Name Role Phone Sabrina VINSON, Henry Rojas Primary Care Physician Encounter [facility] Date(s): 05/04/21 - 06/03/21 [facility] [address] [place], [place] [address] Allergies, Adverse Reactions, Alerts Substance [...] each, 0 Refills, Maintenance, 02/08/21 9:34:00 EDT, [facility] 1967, ok to sub for [...] 3 Refills, Maintenance, 11/30/20 16:28:00 EST, Tablet, [facility] 1967, 157, cm, 11/13/20 10:10:00 [...]
--- OUTSIDE RECORDS SUMMARY | 2024-05-03 10:52 | XMS_ITS | Continuity of Care Document ---
Author Organization [facility] Address [address] [place] [address]- Care Team Providers Care Breakfast Host Name Role Phone Kayla Estes Primary Care Physician Encounter [facility] Date(s): 02/20/23 - 03/22/23 [facility] [address] [place] [address]- Attending Physician: Not on Staff, Attending MD [...] influenza virus vaccine, inactivated 01/13/16 Give n [id number] 12y+ bivalent booster vax 07/14/22 Recorded zoster [...] 3 Refills, Maintenance, 09/16/22 7:49:00 EST, Tablet, [facility]/pharmacy #[id number], 165, cm, 06/07/22 15:23:00 EDT, [...] Associate Professional Member Role: PCP Address: Address: [address] [place] [address]- Name: Birdie Vieyra RN Position: [facility] Dykes RN Position: [facility] RN Supv Member Role: Primary Care Nurse Name: Cristina Green RN Position: S RN Member Role: Primary Care Nurse Care Team Related Persons Name: ELIDA GLORIA Address: [place] [address] Name: DARÍO GLORIA Address: [address] [address] Name: ARLENE GLORIA Address: [place] [address]
--- OUTSIDE RECORDS SUMMARY | 2024-05-03 10:52 | XMS_ITS | Continuity of Care Document ---
Author Organization [facility] Address [address] [place] [address]- Care Team Providers Care Standard Machine Stitcher Name Role Phone Kayla Smith Primary Care Physician [id number] Date(s): 10/11/22 - 01/05/23 [facility] [address] [place] [address]- Attending Physician: Alcira Ellis MD Admitting Physician: [...] influenza virus vaccine, inactivated 01/13/16 Give n [id number] 12y+ bivalent booster vax 07/14/22 Recorded zoster [...] each, 0 Refills, Maintenance, 02/08/21 9:34:00 EDT, [facility] 1967, ok to sub for [...] Refills, Maintenance, 09/16/22 7:49:00 EST, Tablet, [facility]/pharmacy #[id number], 165, cm, 06/07/22 15:23:00 EDT, Height, [...] Team Personnel Name: Birdie Vieyra RN Position: [facility] RN Member Role: Primary Care Nurse Name: Izzy Monroy RN Position: [facility] OB RN Member Role: Primary Care Nurse Name: Kayla Smith Position: [facility] PCO Associate Professional Member Role: PCP Address: Address: [address] [place] [id number] Name: Danae Orozco RN Position: [facility] RN Member Role: Primary Care Nurse Name: Lindsay Medrano RN Position: [facility] RN Member Role: Primary Care Nurse Name: Angelic Rainey RN Position: [facility] RN Member Role: Primary Care Nurse Name: Kari Dykes RN Position: [facility] RN Supv Member Role: Primary Care Nurse Name: Cristina Green RN Position: [facility] RN Member Role: Primary Care Nurse Care Team Related Persons Name: GLORIA ELIDA Address: [address] [place] [address] Name: DARÍO GLORIA Address: [address] [place] [address] Name: ARLENE GLORIA Address: [address] [address]
--- OUTSIDE RECORDS SUMMARY | 2024-05-03 10:53 | XMS_ITS | Continuity of Care Document ---
Author Organization [facility] Address [address] [place] [address]- Care Team Providers Care Museum Service Scheduler Name Role Phone Sabrina VINSON, Henry Rojas Primary Care Physician Encounter [facility] Date(s): 10/01/21 - 10/08/21 [facility] [address] [place] [address]- Encounter Diagnosis Acute cystitis(Discharge Diagnosis) - 10/01/21 Attending Physician: Tony Whiting MD Referring Physician: [...] each, 0 Refills, Maintenance, 02/08/21 9:34:00 EDT, [facility] 1967, ok to sub for [...] 3 Refills, Maintenance, 11/30/20 16:28:00 EST, Tablet, [facility] 1967, 157, cm, 11/13/20 10:10:00 [...] Active Parkinsons disease(Confirmed) Active Pure hypercholesterolemia(Confirmed) Active Diagnosis Diagnosis Type Effective Dates Health Status Cl inical Service Informant Acute cystitis Discharge Diagnosis 10/01/21 Vital Signs Most recent to oldest [Reference Range]: 1 Height 165 cm (10/01/21 2:37 PM) Oxygen Saturation [94-100 %] 100 % (10/01/21 2:37 PM) Pulse Rate [55-90 bpm] 80 bpm (10/01/21 2:37 PM) Blood Pressure [90-138/55-84 mm Hg] 139/ 82mm Hg *H* (10/01/21 2:37 PM) Temperature [96.8-100.4 DegF] 98.7 DegF (10/01/21 2:37 PM) Mode of Delivery (Oxygen) Room air (10/01/21 2:37 PM) Blood pressure sites Arm, right (10/01/21 2:37 PM) Temperature Route Temporal (10/01/21 2:37 PM) Social History Social History Type Response Smoking Status Never smoker entered on: 06/04/15 Sex
--- OUTSIDE RECORDS SUMMARY | 2024-05-03 10:53 | XMS_ITS | Continuity of Care Document ---
Author Organization [facility] Address [address] [place] [address]- Care Team Providers Care Contact Manager Name Role Phone Henry Bennett MD Primary Care Physician Encounter [facility] Date(s): 04/29/22 - 05/29/22 [facility] [address] [place] [address] [place] Allergies, Adverse Reactions, Alerts No Known [...] 0 Refills, Maintenance, 02/11/22 11:53:00 EDT, Tablet, [facility], Partial fill upon patient request if the [...] 1 Refills, Maintenance, 05/09/22 13:30:00 EDT, Capsule, [facility] 1967, Partial fill upon patient [...] each, 0 Refills, Maintenance, 02/08/21 9:34:00 EDT, [facility] 1967, ok to sub for [...] 3 Refills, Maintenance, 11/19/21 12:03:00 EST, Tablet, [facility] 1967, 165, cm, 10/01/21 14:37:00 [...]
--- OUTSIDE RECORDS SUMMARY | 2024-05-03 10:53 | XMS_ITS | Continuity of Care Document ---
Author Organization [facility] Address [address] [place] [address]- Care Team Providers Care Granite Setter Name Role Phone Kayla Estes Primary Care Physician [place] [facility] [place] 02/20/23 - 03/22/23 [facility] [address] [place] [address]- Attending Physician: Natasha Shelby Admitting Physician: AdmNatasha [...] influenza virus vaccine, inactivated 01/13/16 Give n [id number] 12y+ bivalent booster vax 07/14/22 Recorded zoster [...] Stop 05/23/23 8:21:00 EDT, 01/23/23 8:21:00 EDT, [facility]/pharmacy #[id number], Partial fill upon patient request if the prescription is for a schedule II opioid drug., 171, c... Start Date: 01/23/23 Stop Date: 05/23/23 Status: Ordered tenofovir disoproxil fumarate 300 mg oral tablet 1 tablet = 300 mg, By Mouth, Daily, # 90 tablet, 3 Refills, Maintenance, 09/16/22 7:49:00 EST, Tablet, [facility]/pharmacy #1111, 165, cm, 06/07/22 [...] Care Team Personnel Name: Kayla Estes Position: S PCO Associate Professional Member Role: PCP Address: Address: [address] [place] [id number] Name: Birdie Vieyra RN Position: [facility] RN Member Role: Primary Care Nurse Name: Izzy Monroy RN Position: [facility] OB RN Member Role: Primary Care Nurse Name: Danae Orozco RN Position: [facility] RN Member Role: Primary Care Nurse Name: Lindsay Medrano RN Position: [facility] RN Member Role: Primary Care Nurse Name: Angelic Rainey RN Position: [facility] RN Member Role: Primary Care Nurse Name: Kari Dykes RN Position: [facility] RN Supv Member Role: Primary Care Nurse Name: Cristina Green RN Position: [facility] RN Member Role: Primary Care Nurse Care Team Related Persons Name: ELIDA GLORIA Address: home [address] [place] [address] Name: DARÍO GLORIA Address: [address] [place] [address] Name: ARLENE GLORIA Address: [address] [address]
--- OUTSIDE RECORDS SUMMARY | 2024-05-03 10:53 | XMS_ITS | Continuity of Care Document ---
Author Organization [facility] Address [address] [place] [address] [address] [place] [address]- Care Team Providers Care Cafeteria Counter Attendant Name Role Phone Kayla Estes Primary Care Physician Encounter [facility] Date(s): 08/30/23 - 09/06/[address] [place] [address]- Attending Physician: Apryl VINSON, Jorge Luis Allergies, Adverse Reactions, Alerts No Known Allergies Immunizations Given and Recorded Vaccine Date Status Refusal Reason influenza virus vaccine, inactivated 07/30/22 [facility] rded influenza virus vaccine, inactivated 07/05/21 [facility] rded influenza virus vaccine, inactivated 08/18/20 [facility] rded influenza virus vaccine, inactivated 1 08/14/19 [facility] lacie influenza virus vaccine, inactivated 08/13/18 [facility] rded influenza virus vaccine, inactivated 01/13/16 Give n [id number] 12y+ bivalent booster vax 07/14/22 Recorded zoster [...] 07/11/23 12:00:00 EDT, Route to Pharmacy Electronically, [facility]/pharmacy #[id number], Partial fill upon patient request if [...] Stop 01/22/24 12:53:00 EDT, 07/26/23 12:53:00 EDT, [facility]/pharmacy #[id number], Partial fill upon patient request if the prescription is for a schedule II opioid drug., 167, cm, ... Start Date: 07/26/23 Stop Date: 01/22/24 Status: Ordered omeprazole 40 mg oral enteric coated capsule 1 capsule = 40 mg, By Mouth, 2 times a day, for 30 days, # 60 capsule, 3 Refills, Hard Stop 09/13/23 14:57:00 EST, 05/16/23 14:57:00 EDT, [facility]/pharmacy #[id number], Partial fill upon patient [...] oldest [Reference Range]: 1 Height 167 cm (08/30/23 1:52 PM) Pulse Rate [55-90 bpm] 85 bpm (08/30/23 1:52 PM) Blood Pressure [90-138/55-84 mm Hg] 120/ 65mm Hg (08/30/23 1:52 PM) Temperature [96.8-100.4 DegF] 97.3 DegF (08/30/23 1:52 PM) Blood pressure sites Arm, left (08/30/23 1:52 PM) Temperature Route Temporal (08/30/23 1:52 PM) Social History Social History Type Response Smoking Status Never smoker entered on: 06/04/15 Sex Patient Care team information Care Team Personnel Name: Lindsay Mercer RN Position: [facility] RN Member Role: Primary Care Nurse Name: Kayla Estes Position: [facility] PCO Associate Professional Member Role: PCP Address: Address: [address] [place] [id number] Name: Eran Spence RN Position: [facility] RN Member Role: Primary Care Nurse Name: Prince Watson RN Position: S RN Member Role: Primary Care Nurse Name: Nick Go RN Position: S RN Member Role: Primary Care Nurse Name: Birdie Vieyra RN Position: S RN Member Role: Primary Care Nurse Name: Izzy Monroy RN Position: [facility] OB RN Member Role: Primary Care Nurse Name: Ainsley Leung RN Position: S RN Member Role: Primary Care Nurse Name: Nancy Mo RN Position: S RN Member Role: Primary Care Nurse Name: Flavia Moeller Position: S RN Member Role: Primary Care Nurse Name: Danae Orozco RN Position: S RN Member Role: Primary Care Nurse Name: Angelic Rainey RN Position: [facility] RN Member Role: Primary Care Nurse Name: Issac Vang RN Position: [facility] RN Member Role: Primary Care Nurse Name: Doreen Murillo RN Position: [facility] RN Member Role: Primary Care Nurse Name: Shira Minor Position: [facility] RN Member Role: Primary Care Nurse Name: Vale Shanks RN Position: [facility] RN Member Role: Primary Care Nurse Name: Kari Dykes RN Position: [facility] RN Member Role: Primary Care Nurse Name: Cristina Green RN Position: [facility] RN Member Role: Primary Care Nurse Name: Esteban Roque RN Position: [facility] RN Member Role: Primary Care Nurse Name: Nidia Mendoza RN Position: [facility] RN Member Role: Primary Care Nurse Care Team Related Persons Name: ELIDA GLORIA Address: home [address] [place] [address] Name: DARÍO GLORIA Address: [address] [place] [address] Name: GLORIA ARLENE Address: [place] [address]
--- OUTSIDE RECORDS SUMMARY | 2024-05-03 10:53 | XMS_ITS | Continuity of Care Document ---
Author Organization [facility] Address [address] [place] [address]- Care Team Providers Care Construction Project Mgr Name Role Phone Henry Bennett MD Primary Care Physician Encounter [facility] [id number] Date(s): 09/16/22 - 10/16/22 [facility] [address] [place] [address]- [place] Allergies, Adverse Reactions, Alerts No Known [...] capsule, 3 Refills, Maintenance, 09/16/22 7:49:00 EST, [facility]/pharmacy #1111, Partial fill upon patient request if the prescription is for a schedule II opioid drug., 165, cm, 06/07/22 15:23:00 EDT, Height... Start Date: 09/16/22 Stop Date: 01/14/23 Status: Ordered PEG-3350 with Electrolytes (Eqv-NuLYTELY) oral powder for reconstitution See Instructions, as directed, # 1 each, 0 Refills, Maintenance, 02/08/21 9:34:00 EDT, [facility], ok to sub for any gallon [...] 3 Refills, Maintenance, 09/16/22 7:49:00 EST, Tablet, [facility]/pharmacy #1111, 165, cm, 06/07/22 15:23:00 [...] Team Personnel Name: Henry Bennett MD Position: [facility] General Pediatrics MD Member Role: PCP Address: Address: [address] [place] [address] Name: Birdie Vieyra RN Position: [facility] RN Member Role: Primary Care Nurse Name: Izzy Monroy RN Position: [facility] OB RN Member Role: Primary Care Nurse Name: Ronaldo Lehman RN Position: [facility] RN Member Role: Primary Care Nurse Name: Danae Orozco RN Position: [facility] RN Member Role: Primary Care Nurse Name: Lindsay Medrano RN Position: [facility] RN Member Role: Primary Care Nurse Name: Angelic Rainey RN Position: [facility] RN Member Role: Primary Care Nurse Name: Kari Dykes RN Position: [facility] RN Supv Member Role: Primary Care Nurse Name: Cristina Green RN Position: [facility] RN Member Role: Primary Care Nurse Care Team Related Persons Name: ELIDA GLORIA Address: [address] [place] [address] Name: JUANI DARÍO Address: [address] [place] [address] Name: ARLENE GLORIA Address: [address] [place] [address]
--- OUTSIDE RECORDS SUMMARY | 2024-05-03 10:53 | XMS_ITS | Continuity of Care Document ---
Author Organization [facility] Address [address] [place] [address]- Care Team Providers Care Paper Machine Backtender Name Role Phone Adela Khan Primary Care Physician [phone] En[place] [facility] [place] Date(s): 05/09/22 - 06/08/22 [facility] [address] [place] [address]- Attending Physician: Natasha Shelby Admitting Physician: Natasha [...] 1 Refills, Maintenance, 05/09/22 13:30:00 EDT, [facility]apsule[facility], Partial fill upon patient request [...] each, 0 Refills, Maintenance, 02/08/21 9:34:00 EDT, [facility], ok to sub for any [...] 3 Refills, Maintenance, 11/19/21 12:03:00 EST, Tablet, [facility], 165, cm, 10/01/21 14:37:00 [...]
--- OUTSIDE RECORDS SUMMARY | 2024-05-03 10:53 | XMS_ITS | Continuity of Care Document ---
Author Organization [facility] Address [address] [place] [address]- Care Team Providers Care Rubber Goods Inspector Tester Name Role Phone Kayla Estes Primary Care Physician Encounter [facility] Date(s): 07/11/23 - 08/10/23 [facility] [address] [place] [address]- Attending Physician: Natasha Shelby Admitting Physician: Admtr, [...] influenza virus vaccine, inactivated 01/13/16 Give n [id number] 12y+ bivalent booster vax 07/14/22 Recorded zoster [...] 07/11/23 12:00:00 EDT, Route to Pharmacy Electronically, [facility]/pharmacy #[id number], Partial fill upon patient [...] Stop 01/22/24 12:53:00 EDT, 07/26/23 12:53:00 EDT, [facility]/pharmacy #[id number], Partial fill upon patient request if the prescription is for a schedule II opioid drug., 167, cm, ... Start Date: 07/26/23 Stop Date: 01/22/24 Status: Ordered omeprazole 40 mg oral enteric coated capsule 1 capsule = 40 mg, By Mouth, 2 times a day, for 30 days, # 60 capsule, 3 Refills, Hard Stop 09/13/23 14:57:00 EST, 05/16/23 14:57:00 EDT, [facility]/pharmacy #1111, Partial fill upon patient [...] Associate Professional Member Role: PCP Address: Address: [address] [place] [address]- Name: Eran Spence RN Position: [facility] RN Member Role: Primary Care Nurse Name: Prince Watson RN Position: [facility] RN Member Role: Primary Care Nurse Name: Nick Go RN Position: [facility] RN Member Role: Primary Care Nurse Name: Birdei Vieyra RN Position: [facility] RN Member Role: Primary Care Nurse Name: Izzy Monroy RN Position: [facility] OB RN Member Role: Primary Care Nurse Name: Ainsley Leung RN Position: [facility] RN Member Role: Primary Care Nurse Name: Nancy Mo RN Position: [facility] RN Member Role: Primary Care Nurse Name: Flavia Moeller Position: [facility] RN Member Role: Primary Care Nurse Name: Danae Orozco RN Position: [facility] RN Member [...] Related Persons Name: ELIDA GLORIA Address: home [address] [place] [address] Name: DARÍO GLORIA Address: home [address] [place] [address] Name: ARLENE GLORIA Address: home [address] [place] [address]
--- OUTSIDE RECORDS SUMMARY | 2024-05-03 10:53 | XMS_ITS | Continuity of Care Document ---
Author Organization [facility] Address [address] [place] [address]- Care Team Providers Care Ornithology Teacher Name Role Phone Kayla Estes Primary Care Physician Encounter [facility] [place] Date(s): 12/07/23 - 01/06/24 [facility] [address] [place] [address]- Attending Physician: Natasha Shelby Admitting Physician: AdmNatasha flores Referring Physician: [email or web address] Allergies, Adverse Reactions, Alerts No Known Allergies [...] influenza virus vaccine, inactivated 01/13/16 Give n [id number] 12y+ bivalent booster vax 07/14/22 Recorded zoster [...] 07/11/23 12:00:00 EDT, Route to Pharmacy Electronically, [facility]/pharmacy #[id number], Partial fill upon patient request [...] Refills, Soft Stop, 12/18/23 16:12:00 EST, Tablet, [facility]/pharmacy #[id number], Partial fill upon patient request [...] Stop 01/22/24 12:53:00 EDT, 07/26/23 12:53:00 EDT, [facility]/pharmacy #[id number], Partial fill upon patient request if the prescription is for a schedule II opioid drug., 167, cm, . Start Date: 07/26/23 Stop Date: 01/22/24 Status: Ordered tenofovir disoproxil fumarate 300 mg oral tablet 1 tablet = 300 mg, By Mouth, Daily, # 90 tablet, 3 Refills, Maintenance, 12/13/23 16:48:00 EST, Tablet, [facility]/pharmacy #[id number], 167, cm, 10/06/23 7:52:00 EST, [...] Team Personnel Name: Lindsay Mercer RN Position: [facility] RN Member Role: Primary Care Nurse Name: Kayla Estes Position: [facility] PCO Associate Professional Member Role: PCP Address: Address: [address] [place] [address]- Name: Eran Spence RN Position: [facility] RN Member Role: Primary Care Nurse Name: Prince Watson RN Position: [facility] RN Member Role: Primary Care Nurse Name: Nick Go RN Position: [facility] ED RN W/OE and Tasks Member Role: Primary Care Nurse Name: Birdie Vieyra RN Position: [facility] RN Member Role: Primary Care Nurse Name: Izzy Monroy RN Position: [facility] OB RN Member Role: Primary Care Nurse Name: Ainsley Leung RN Position: [facility] RN Member Role: Primary Care Nurse Name: Nancy Mo RN Position: [facility] RN Member Role: Primary Care Nurse Name: Flavia Moeller Position: [facility] RN Member Role: Primary Care Nurse Name: Danae Orozco RN Position: [facility] RN Member Role: Primary Care Nurse Name: Angelic Rainey RN Position: [facility] RN Member Role: Primary Care Nurse Name: Issac Vang RN Position: [facility] RN Member Role: Primary Care Nurse Name: Doreen Murillo RN Position: [facility] RN Member Role: Primary Care Nurse Name: Shira Minor RN Position: [facility] RN Member Role: Primary Care Nurse Name: Kari Dykes RN Position: [facility] RN Member Role: Primary Care Nurse Name: Cristina Green RN Position: [facility] RN Member Role: Primary Care Nurse Name: Esteban Roque RN Position: [facility] RN Member Role: Primary Care Nurse Name: Nidia Mendoza RN Position: [facility] RN Member Role: Primary Care Nurse Care Team Related Persons Name: ELIDA GLORIA Address: home [address] [place] [address] Name: DARÍO GLORIA Address: home [address] [place] [address] Name: GLORIA ARLENE Address: [address] [address]
--- OUTSIDE RECORDS SUMMARY | 2024-05-03 10:53 | XMS_ITS | Continuity of Care Document ---
Author Organization [facility] Address [address] [place] [address]- Care Team Providers Care Chief Mechanical Officer Name Role Phone Adela Khan Primary Care Physician [place] [facility] [place] Date(s): 06/28/22 - 07/28/22 [facility] [address] [place] [address]- Attending Physician: Natasha Shelby Admitting Physician: Admtr, [id number] Referring Physician: Admtr, Ar8 Allergies, Adverse Reactions, [...] 1 Refills, Maintenance, 05/09/22 13:30:00 EDT, Capsule, [facility], Partial fill upon patient request [...] each, 0 Refills, Maintenance, 02/08/21 9:34:00 EDT, [facility], ok to sub for [...] 3 Refills, Maintenance, 11/19/21 12:03:00 EST, Tablet, [facility], 165, cm, 10/01/21 14:37:00 EST, [...] on: 06/04/15 Sex Patient Care team information Personnel Name: Adela Khan Address: Address: [address] [place] [address]
--- OUTSIDE RECORDS SUMMARY | 2024-05-03 10:53 | XMS_ITS | Continuity of Care Document ---
Author Organization [facility] Address [address] [place] [address]- Care Team Providers Care Ticket Sorter Name Role Phone Henry Bennett MD Primary Care Physician Encounter [facility] [place] Date(s): 09/27/21 - 10/27/21 [facility] [address] [place] [address]- Attending Physician: Natasha Shelby Admitting Physician: AdmNatasha flores Referring Physician: Admtr, Ar8 Allergies, Adverse Reactions, [...] 0 Refills, Maintenance, 02/08/21 9:34:00 EDT, [facility] 1967, ok to sub for [...] Refills, Maintenance, 11/30/20 16:28:00 EST, Tablet, [facility], 157, cm, 11/13/20 10:10:00 [...]
--- OUTSIDE RECORDS SUMMARY | 2024-05-03 10:53 | XMS_ITS | Continuity of Care Document ---
Author Organization [facility] Address [address] [place] [address]- Care Team Providers Care Specialty Plant Supervisor Name Role Phone Kayla Smith Primary Care Physician Encounter [facility] [place] Date(s): 10/10/22 - 11/09/22 [facility] [address] [place] [address]- Allergies, Adverse Reactions, Alerts No Known Allergies Immunizations Given and Recorded Vaccine Date Status Refusal Reason influenza virus vaccine, inactivated 07/30/22 [facility] influenza virus vaccine, inactivated 07/05/21 [facility] influenza virus vaccine, inactivated 08/18/20 [facility] influenza virus vaccine, inactivated 1 08/14/19 [facility] influenza virus vaccine, inactivated 08/13/18 [facility] influenza virus vaccine, inactivated 01/13/16 Give n [id number] 12y+ bivalent booster vax 07/14/22 Recorded zoster [...] each, 0 Refills, Maintenance, 02/08/21 9:34:00 EDT, [facility], ok to sub [...] 3 Refills, Maintenance, 09/16/22 7:49:00 EST, Tablet, [facility]/pharmacy #[id number], 165, cm, 06/07/22 15:23:00 EDT, Height, [...] Primary Care Nurse Name: Kayla Smith Position: [facility] PCO Associate Professional Member Role: PCP Address: Address: [address] [place] [id number] Name: Danae Orozco RN Position: [facility] RN Member Role: Primary Care Nurse Name: Lindsay Medrano RN Position: [facility] RN Member Role: Primary Care Nurse Name: Angelic Rainey RN Position: [facility] RN Member Role: Primary Care Nurse Name: Kari Dykes RN Position: [facility] RN Supv Member Role: Primary Care Nurse Name: Cristina Green RN Position: [facility] RN Member Role: Primary Care Nurse Care Team Related Persons Name: ELIDA GLORIA Address: [address] [place] [address] Name: DARÍO GLORIA Address: [address] [place] [address] Name: ARLENE GLORIA Address: [address] [place] [address]
--- OUTSIDE RECORDS SUMMARY | 2024-05-03 10:53 | XMS_ITS | Continuity of Care Document ---
Author Organization [facility] ter Address [address] [place] [address]- Care Team Providers Care Video Tape Editor Name Role Phone Henry Bennett MD Primary Care Physician En[place] [facility] [place] Date(s): 06/28/21 - 06/28/[address] [address] Discharge Disposition: A-D/C Home Attending Physician: Yossi Cintron MD Admitting Physician: Yossi Cintron MD Referring Physician: Yossi Cintron MD Allergies, Adverse Reactions, Alerts Substance Reaction [...] each, 0 Refills, Maintenance, 02/08/21 9:34:00 EDT, [facility] 1967, ok to sub for any [...] 3 Refills, Maintenance, 11/30/20 16:28:00 EST, Tablet, [facility], 157, cm, 11/13/20 10:10:00 EST, [...] Active Parkinsons disease(Confirmed) Active Pure hypercholesterolemia(Confirmed) Active Procedures Procedure Date Related Diagnosis Body Site Status Colonoscopy 06/28/21 Completed Vital Signs Most recent to oldest [Reference Range]: 1 2 3 Height 165 cm (06/28/21 8:51 AM) Weight 67.5 kg (06/28/21 8:51 AM) Oxygen Saturation [94-100 %] 100 % (06/28/21 11:05 AM) 100 % (06/28/21 10:57 AM) 100 % (06/28/21 10:51 AM) Pulse Rate [55-90 bpm] 65 bpm (06/28/21 11:05 AM) 68 bpm (06/28/21 10:57 AM) 67 bpm (06/28/21 10:51 AM) Body Mass Index [18.5-24.99] 24.79 (06/28/21 8:51 AM) Blood Pressure [90-138/55-84 mm Hg] 105/60mm Hg (06/28/21 11:05 AM) 95/53mm Hg (06/28/21 10:57 AM) 92/49mm Hg (06/28/21 10:51 AM) Respiratory Rate [16-30 br/min] 16 br/min (06/28/21 11:05 AM) 18 br/min (06/28/21 10:57 AM) 16 br/min (06/28/21 10:51 AM) Temperature [96.8-100.4 DegF] 97.9 DegF (06/28/21 8:51 AM) Mode of Delivery (Oxygen) Room air (06/28/21 11:05 AM) Room air (06/28/21 10:57 AM) Room air (06/28/21 10:51 AM) Blood pressure sites Arm, left (06/28/21 11:05 AM) Arm, left (06/28/21 10:57 AM) Arm, left (06/28/21 10:51 AM) Temperature Route Temporal (06/28/21 8:51 AM) Social History Social History Type Response Smoking Status Never smoker entered on: 06/04/15 Sex
--- OUTSIDE RECORDS SUMMARY | 2024-05-03 10:53 | XMS_ITS | Continuity of Care Document ---
Author Organization [facility] ter Address [address] [place] [address]- Care Team Providers Care Conduit Installer Name Role Phone Sabrina VINSON, Henry Rojas Primary Care Physician Encounter [facility] Date(s): 10/22/19 - 10/22/[address] [address]- [facility] Attending Physician: Stevie Downing MD Allergies, Adverse Reactions, Alerts Substance Reaction [...]
--- OUTSIDE RECORDS SUMMARY | 2024-05-03 10:53 | XMS_ITS | Continuity of Care Document ---
Author Organization [facility] Address [address] [place] [address]- Care Team Providers Care Kettle Worker Name Role Phone Sabrina VINSON, Henry Rojas Primary Care Physician Encounter [facility] Date(s): 02/03/21 - 03/05/21 [facility] [address] [place], [place] [address] Allergies, Adverse Reactions, Alerts Substance Reaction Severity [...] 3 Refills, Maintenance, 11/30/20 16:28:00 EST, Tablet, [facility], 157, cm, 11/13/20 10:10:00 [...]
--- OUTSIDE RECORDS SUMMARY | 2024-05-03 10:53 | XMS_ITS | Continuity of Care Document ---
Author Organization [facility] Address [address] [place] [address]- Care Team Providers Care Horticultural Farmworker Name Role Phone Kayla Estes Primary Care Physician [place] [facility] [place] 12/13/23 - 01/12/24 [facility] [address] [place] [address]- Allergies, Adverse Reactions, Alerts No Known Allergies [...] influenza virus vaccine, inactivated 01/13/16 Give n [id number] 12y+ bivalent booster vax 07/14/22 Recorded zoster [...] 07/11/23 12:00:00 EDT, Route to Pharmacy Electronically, [facility]/pharmacy #[id number], Partial fill upon patient request [...] Refills, Soft Stop, 12/18/23 16:12:00 EST, Tablet, [facility]/pharmacy #[id number], Partial fill upon patient request [...] Refills, Maintenance, 01/09/24 7:47:00 EDT, [facility], 167, cm, 12/18/23 16:11:00 EST, Height, 52.5, [...] Team Personnel Name: Lindsay Mercer RN Position: [facility] RN Member Role: Primary Care Nurse Name: Kayla Estes Position: [facility] Associate Professional Member Role: PCP Address: Address: [address] [place] [id number] Name: Eran Spence RN Position: [facility] RN Member Role: Primary Care Nurse Name: Prince Watson RN Position: [facility] RN Member Role: Primary Care Nurse Name: Nick Go RN Position: [facility] ED RN W/OE and Tasks Member Role: Primary Care Nurse Name: Birdie Vieyra RN Position: S RN Member Role: Primary Care Nurse Name: Izzy Monroy RN Position: [facility] OB RN Member Role: Primary Care Nurse Name: Ainsley Leung RN Position: S RN Member Role: Primary Care Nurse Name: Nancy Mo RN Position: [facility] RN Member Role: Primary Care Nurse Name: Flavia Moeller Position: [facility] RN Member Role: Primary Care Nurse Name: Danae Orozco RN Position: [facility] RN Member Role: Primary Care Nurse Name: Angelic Rainey RN Position: [facility] RN Member Role: Primary Care Nurse Name: Issac Vang RN Position: [facility] RN Member Role: Primary Care Nurse Name: Doreen Murillo RN Position: [facility] RN Member Role: Primary Care Nurse Name: Shira Minor RN Position: [facility] RN Member Role: Primary Care Nurse Name: Kari Dykes RN Position: [facility] RN Member Role: Primary Care Nurse Name: Cristina Green RN Position: [facility] RN Member Role: Primary Care Nurse Name: Esteban Roque RN Position: [facility] RN Member Role: Primary Care Nurse Name: Nidia Mendoza RN Position: [facility] RN Member Role: Primary Care Nurse Care Team Related Persons Name: ELIDA GLORIA Address: [address] [place] [address] Name: JUANI DARÍO Address: [address] [place] [address] Name: ARLENE GLORIA Address: [address] [place] [address]
--- OUTSIDE RECORDS SUMMARY | 2024-05-03 10:53 | XMS_ITS | Continuity of Care Document ---
Author Organization [facility] Address [address] [place] [address]- Care Team Providers Care Pharmacy Technician Assistant Name Role Phone Kayla Estes Primary Care Physician [place] [facility] [place] 03[place]14[place]24 - 04/13/24 [facility] [address] [place] [address]- Attending Physician: Natasha Shelby Admitting Physician: Natasha [...] influenza virus vaccine, inactivated 01/13/16 Give n [id number] 12y+ bivalent booster vax 07/14/22 Recorded zoster [...] 03/11/24 17:05:00 EDT, Route to Pharmacy Electronically, [facility]/pharmacy #[id number], Partial fill upon patient request [...] 07/11/23 12:00:00 EDT, Route to Pharmacy Electronically, [facility]/pharmacy #[id number], Partial fill upon patient request [...] capsule, 3 Refills, Maintenance, 01/09/24 7:47:00 EDT, [facility], 167, cm, 12/18/23 16:11:00 EST, Height, 52.5, [...] Primary Care Nurse Name: Kayla Estes Position: [facility] Associate Professional Member Role: PCP Address: Address: [address] [place] [address]- Name: Eran Spence RN Position: S RN Member Role: Primary Care Nurse Name: Prince Watson RN Position: S RN Member Role: Primary Care Nurse Name: Nick Go RN Position: S RN Member Role: Primary Care Nurse Name: Birdie Vieyra RN Position: [facility] RN Member Role: Primary Care Nurse Name: Izzy Monroy RN Position: [facility] OB RN Member Role: Primary Care Nurse Name: Ainsley Leung RN Position: [facility] RN Member Role: Primary Care Nurse Name: Nancy Mo RN Position: [facility] RN Member Role: Primary Care Nurse Name: Flavia Moeller RN Position: [facility] RN Member Role: Primary Care Nurse Name: Danae Orozco RN Position: [facility] RN Member Role: Primary Care Nurse Name: Angelic Rainey RN Position: [facility] RN Member Role: Primary Care Nurse Name: Issac Vang RN Position: [facility] RN Member Role: Primary Care Nurse Name: Doreen Murillo RN Position: [facility] RN Member Role: Primary Care Nurse Name: Shira Minor RN Position: [facility] RN Member Role: Primary Care Nurse Name: Kari Dykes RN Position: [facility] RN Member Role: Primary Care Nurse Name: Cristina Green RN Position: [facility] RN Member Role: Primary Care Nurse Name: Esteban Roque RN Position: [facility] RN Member Role: Primary Care Nurse Name: Nidia Mendoza RN Position: [facility] RN Member Role: Primary Care Nurse Care Team Related Persons Name: ELIDA GLORIA Address: home [address] [place] [address] Name: DARÍO GLORIA Address: home [address] [place], [place] Name: ARLENE GLORIA Address: [address] [address]
--- OUTSIDE RECORDS SUMMARY | 2024-05-03 10:53 | XMS_ITS | Continuity of Care Document ---
Author Organization [facility] ter Address [address] [place] [address]- Care Team Providers Care Home Service Director Name Role Phone Adela Khan Primary Care Physician [phone] Encounter [facility] [place] Date(s): 02/10/22 - 02/11/[address] [address]- Discharge Disposition: A-D/C Home Attending Physician: Karen Ibarra MD Admitting Physician: Karen Ibarra MD Referring Physician: Not on Staff, Referring [...] Reason: Wan to Standard Admin Times Medications aluminum hydroxide-magnesium hydroxide 200 mg-200 mg/5 mL oral suspension 10 mL, By Mouth, 4 times a day, PRN for dyspepsia, for 3 days, # 240 mL, 0 Refills, Acute 02/14/22 11:53:00 EDT, 02/11/22 11:53:00 EDT, Suspension, [facility], Partial fill upon patient request if the prescription is for a schedule II opioi... Start Date: 02/11/22 Stop Date: 02/14/22 Status: Ordered famotidine 10 mg oral tablet 1 tablet = 10 mg, By Mouth, 2 times a day, # 28 tablet, 0 Refills, Maintenance, 02/11/22 11:53:00 EDT, Tablet, [facility] 1967, Partial fill upon patient request [...] 3 Refills, Maintenance, 11/19/21 12:03:00 EST, Tablet, [facility], 165, cm, 10/01/21 14:37:00 EST, [...] Active Parkinsons disease(Confirmed) Active Pure hypercholesterolemia(Confirmed) Active Results Radiology Reports * Exam Date Time Procedure Performing Provider Status 02/10/22 10:16 PM Chest 2 Views Frontal and Lat Beatrice Jc; Auth (Verified) Notes: (Chest 2 Views Frontal and Lat) Reason For Exam: Shortness of Breath RESULT: Chest 2 Views Frontal and Lat Chest 2 Views Frontal and Lat Hx of Present Illness: sudden onset of hurts to breath, left sided cp rad to back, and diaphram isheavy , no fevers,; Reason: Shortness of Breath; Clinical Question(s): Pneumonia; Special Instructions: This is a protocol film and radiologist should call any findings to the Charge Nurse COMPARISON: 10/20/2019 FINDINGS: LINES AND TUBES: None. LUNGS AND PLEURA: Clear lungs. Normal pulmonary vascularity. No pleural effusion. No pneumothorax. HEART, MEDIASTINUM AND FRANCISCO: Heart is normal in size. Normal upper mediastinal and hilar contour. BONES AND SOFT TISSUES: Spinal stimulator noted similar to previous exam. IMPRESSION: No acute abnormality. WSN: [id number] Ordering Physician: Salena Pruitt Dictated By: Igor Moraes MD Dictated Date/Time: 02/10/22 10:49 p Reviewed By: Igor Moraes MD Signed By: Igor Moraes MD Signed Date/Time: 02/10/22 10:49 pm Transcribed By: YVROSE Transcribed Date/Time: 02/10/22 10:47 pm Vital Signs Most recent to oldest [Reference Range]: 1 2 3 Oxygen Saturation [94-100 %] 100 % (02/11/22 9:22 AM) 99 % (02/11/22 6:36 AM) 99 % (02/11/22 4:13 AM) Pulse Rate [55-90 bpm] 89 bpm (02/11/22 9:22 AM) 102 bpm *H* (02/11/22 6:36 AM) 96 bpm *H* (02/11/22 4:13 AM) Blood Pressure [90-138/55-84 mm Hg] 135/79mm Hg (02/11/22 9:22 AM) 133/99mm Hg (02/11/22 6:36 AM) 127/83mm Hg (02/11/22 4:13 AM) Respiratory Rate [16-30 br/min] 23 br/min (02/11/22 9:22 AM) 17 br/min (02/10/22 10:12 PM) 18 br/min (02/10/22 8:06 PM) Temperature [96.8-100.4 DegF] 98.1 DegF (02/11/22 9:22 AM) 97.9 DegF (02/11/22 6:36 AM) 97.6 DegF (02/11/22 4:13 AM) Mode of Delivery (Oxygen) Room air (02/11/22 9:22 AM) ROOM AIR (02/11/22 6:36 AM) room air (02/11/22 12:26 AM) Blood pressure sites Arm, left (02/11/22 9:22 AM) Arm, right (02/11/22 6:36 AM) Arm, left (02/11/22 4:13 AM) Temperature Route Oral (02/11/22 9:22 AM) Oral (02/11/22 6:36 AM) Oral (02/11/22 4:13 AM) Social History Social History Type Response Smoking Status Never smoker entered on: 06/04/15 Sex
--- OUTSIDE RECORDS SUMMARY | 2024-05-03 10:53 | XMS_ITS | Continuity of Care Document ---
Author Organization [facility] Address [address] [place] [address]- Care Team Providers Care Tar Kettle Runner Name Role Phone Kayla Estes Primary Care Physician Encounter 06/30/23 - 09/26/23 [facility] [address] [place] [address]- Discharge Disposition: GOALS [facility] Allergies, Adverse Reactions, Alerts No Known Allergies Immunizations Given and Recorded Vaccine Date Status Refusal Reason influenza virus vaccine, inactivated 07/30/22 [facility] influenza virus vaccine, inactivated 07/05/21 [facility] influenza virus vaccine, inactivated 08/18/20 [facility] influenza virus vaccine, inactivated 1 08/14/19 [facility] influenza virus vaccine, inactivated 08/13/18 [facility] r[facility] influenza virus vaccine, inactivated 01/13/16 Give n [id number] 12y+ bivalent booster vax 07/14/22 Recorded zoster [...] Stop 01/22/24 12:53:00 EDT, 07/26/23 12:53:00 EDT, [facility]/pharmacy #[id number], Partial fill upon patient request if the prescription is for a schedule II opioid drug., 167, cm, .. Start Date: 07/26/23 Stop Date: 01/22/24 Status: Ordered tenofovir disoproxil fumarate 300 mg oral tablet 1 tablet = 300 mg, By Mouth, Daily, # 90 tablet, 3 Refills, Maintenance, 09/16/22 7:49:00 EST, Tablet, [facility]/pharmacy #[id number], 165, cm, 06/07/22 15:23:00 [...] Primary Care Nurse Name: Kayla Estes Position: [facility] PCO Associate Professional Member Role: PCP Address: Address: [address], [place] [address] Name: Eran Spence RN Position: [facility] RN Member Role: Primary Care Nurse Name: Prince Watson RN Position: [facility] RN Member Role: Primary Care Nurse Name: Nick Go RN Position: [facility] ED RN W/OE and Tasks Member Role: Primary Care Nurse Name: Birdie Vieyra RN Position: [facility] RN Member Role: Primary Care Nurse Name: Izzy Monroy RN Position: [facility] OB RN Member Role: Primary Care Nurse Name: Ainsley Leung RN Position: [facility] RN Member Role: Primary Care Nurse Name: Nancy Mo RN Position: [facility] RN Member Role: Primary Care Nurse Name: Flavia Moeller Position: [facility] RN Member Role: Primary Care Nurse Name: Danae Orozco RN Position: [facility] RN Member Role: Primary Care Nurse Name: Angelic Rainey RN Position: [facility] RN Member Role: Primary Care Nurse Name: Issac Vang RN Position: [facility] RN Member Role: Primary Care Nurse Name: Doreen Murillo RN Position: [facility] RN Member Role: Primary Care Nurse Name: Shira Minor Position: [facility] RN Member Role: Primary Care Nurse Name: Vale Shanks RN Position: [facility] RN Member Role: Primary Care Nurse Name: Kari Dykes RN Position: [facility] RN Member Role: Primary Care Nurse Name: Cristina Green RN Position: [facility] RN Member Role: Primary Care Nurse Name: Esteban Roque RN Position: [facility] RN Member Role: Primary Care Nurse Name: Nidia Mendoza RN Position: [facility] RN Member Role: Primary Care Nurse Care Team Related Persons Name: ELIDA GLORIA Address: home [address] [place], [place] Name: DARÍO GLORIA Address: home [address] [place], [place] Name: ARLENE GLORIA Address: home [address] [place] [address]
--- OUTSIDE RECORDS SUMMARY | 2024-05-03 10:53 | XMS_ITS | Continuity of Care Document ---
Author Organization [facility] Address [address] [place] [address]- Care Team Providers Care Hotel Clerk Name Role Phone Kayla Estes Primary Care Physician [facility]counter [facility] Date(s): 12/20/23 - 01/19/24 [facility] [address] [place] [address]- Allergies, Adverse Reactions, Alerts No Known Allergies [...] influenza virus vaccine, inactivated 01/13/16 Give n [id number] 12y+ bivalent booster vax 07/14/22 Recorded zoster [...] 07/11/23 12:00:00 EDT, Route to Pharmacy Electronically, [facility]/pharmacy #[id number], Partial fill upon patient request [...] Refills, Soft Stop, 12/18/23 16:12:00 EST, Tablet, [facility]/pharmacy #[id number], Partial fill upon patient request [...] capsule, 3 Refills, Maintenance, 01/09/24 7:47:00 EDT, [facility] STORE [id number], 167, cm, 12/18/23 16:11:00 EST, Height, 52.5, [...] Team Personnel Name: Lindsay Mercer RN Position: [facility] RN Member Role: Primary Care Nurse Name: Kayla Estes Position: [facility] PCO Associate Professional Member Role: PCP Address: Address: [address] [place] [address]- Name: Eran Spence RN Position: S RN Member Role: Primary Care Nurse Name: Prince Watson RN Position: [facility] RN Member Role: Primary Care Nurse Name: Nick Go RN Position: [facility] ED RN W/OE and Tasks Member Role: Primary Care Nurse Name: Birdie Vieyra RN Position: S RN Member Role: Primary Care Nurse Name: Izzy Monroy RN Position: [facility] OB RN Member Role: Primary Care Nurse Name: Xochitl RNAinsley Position: [facility] RN Member Role: Primary Care Nurse Name: Nancy Mo RN Position: [facility] RN Member Role: Primary Care Nurse Name: Flavia Moeller Position: [facility] RN Member Role: Primary Care Nurse Name: Danae Orozco RN Position: [facility] RN Member Role: Primary Care Nurse Name: Angelic Rainey RN Position: [facility] RN Member Role: Primary Care Nurse Name: Issac Vang RN Position: [facility] RN Member Role: Primary Care Nurse Name: Doreen Murillo RN Position: [facility] RN Member Role: Primary Care Nurse Name: Shira Minor RN Position: [facility] RN Member Role: Primary Care Nurse Name: Kari Dykes RN Position: [facility] RN Member Role: Primary Care Nurse Name: Cristina Green RN Position: [facility] RN Member Role: Primary Care Nurse Name: Esteban Roque RN Position: [facility] RN Member Role: Primary Care Nurse Name: Nidia Mendoza RN Position: [facility] RN Member Role: Primary Care Nurse Care Team Related Persons Name: ELIDA GLORIA Address: [address] [place] [address] Name: DARÍO GLORIA Address: [address] [place] [address] Name: JUANI ARLENE Address: [address] [place] [address]
--- OUTSIDE RECORDS SUMMARY | 2024-05-03 10:54 | XMS_ITS | Continuity of Care Document ---
Author Organization [facility] Address [address] [place] [address]- Care Team Providers Care Traffic Superintendent Name Role Phone Sabrina VINSON, Henry Rojas Primary Care Physician Encounter [facility] Date(s): 10/19/19 - 10/20/[address] [address]- [facility] Discharge Disposition: A-D/C Home Attending Physician: Sanya Villalpando MD Admitting Physician: Sanya Villalpando MD Referring Physician: Not on Staff, Referring [...] Exam Date Time Procedure Performing Provider Status 10/20/19 5:51 AM Chest 2 Views Frontal and Lat Luba Patel; Auth (Verified) Notes: (Chest 2 Views Frontal and Lat) Reason For Exam: Shortness of Breath RESULT: Chest 2 Views Frontal and Lat Chest 2 Views Frontal and Lat Reason: Shortness of Breath; COMPARISON: 01/16/1960 FINDINGS: LINES AND TUBES: Spinal stimulator projects over the lower thoracic spine. LUNGS AND PLEURA: Clear lungs. Normal pulmonary vascularity. No pleural effusion. No pneumothorax. HEART, MEDIASTINUM AND FRANCISCO: Heart is normal in size. Normal mediastinal and hilar contour. BONES AND SOFT TISSUES: No acute abnormality. Lower cervical ACDF hardware. IMPRESSION: No acute abnormality. WSN: [id number] Dictated By: Silver Ellison MD Dictated Date/Time: 10/20/19 9:43 am Reviewed By: Silver Ellison MD Signed By: Silver Ellison MD Signed Date/Time: 10/20/19 9:43 am Transcribed By: YVROSE Transcribed Date/Time: 10/20/19 9:43 am Vital Signs Most recent to oldest [Reference Range]: 1 2 3 Oxygen Saturation [94-100 %] 98 % (10/20/19 6:19 AM) 98 % (10/20/19 4:32 AM) 100 % (10/20/19 2:05 AM) Pulse Rate [55-90 bpm] 90 bpm (10/20/19 6:19 AM) 87 bpm (10/20/19 4:32 AM) 80 bpm (10/20/19 2:05 AM) Blood Pressure [90-138/55-84 mm Hg] 115/96mm Hg (10/20/19 6:19 AM) 113/77mm Hg (10/20/19 4:32 AM) 135/93mm Hg (10/20/19 2:05 AM) Respiratory Rate [16-30 br/min] 18 br/min (10/20/19 6:19 AM) 20 br/min (10/20/19 4:32 AM) 16 br/min (10/20/19 2:05 AM) Temperature [96.8-100.4 DegF] 97.4 DegF (10/20/19 2:05 AM) 97.3 DegF (10/19/19 11:24 PM) Mode of Delivery (Oxygen) Room air (10/20/19 6:19 AM) Room air (10/20/19 2:05 AM) Room air (10/19/19 11:24 PM) Blood pressure sites Arm, left (10/20/19 6:19 AM) Arm, left (10/20/19 4:32 AM) Arm, right (10/20/19 2:05 AM) Temperature Route Oral (10/20/19 2:05 AM) Oral (10/19/19 11:24 PM) Social History Social History Type Response Smoking Status Never smoker entered on: 06/04/15 Sex
--- OUTSIDE RECORDS SUMMARY | 2024-05-03 10:54 | XMS_ITS | Continuity of Care Document ---
Author Organization [facility] Address [address] [place] [address]- Care Team Providers Care Truck Safety Inspector Name Role Phone Kayla Estes Primary Care Physician Encounter [facility] Date(s): 03/11/24 - 03/18/24 [facility] [address] [place] [address]- Attending Physician: Kayla Estes Allergies, Adverse Reactions, [...] influenza virus vaccine, inactivated 01/13/16 Give n [id number] 12y+ bivalent booster vax 07/14/22 Recorded zoster [...] 03/11/24 17:05:00 EDT, Route to Pharmacy Electronically, [facility] [...] Refills, Maintenance, 01/09/24 7:47:00 EDT, [id number], 167, cm, 02/19/24 16:11:00 EST, Height, 52.5, kg, 07/22/23 10:08:00 EDT, Dry Weight Start Date: 01/09/24 Status: Ordered tenofovir disoproxil fumarate 300 mg oral tablet 1 tablet = 300 mg, By Mouth, Daily, # 90 tablet, 3 Refills, Maintenance, 12/13/23 16:48:00 EST, Tablet, [facility]/pharmacy #[id number], 167, cm, 10/06/23 7:52:00 EST, [...] oldest [Reference Range]: 1 Height 167 cm (03/11/24 4:50 PM) Weight 57.6 kg (03/11/24 4:50 PM) Oxygen Saturation [94-100 %] 96 % (03/11/24 4:50 PM) Pulse Rate [55-90 bpm] 78 bpm (03/11/24 4:50 PM) Body Mass Index [18.5-24.99 kg/m2] 20.65 kg/m2 (03/11/24 4:50 PM) Blood Pressure [90-138/55-84 mm Hg] 107/ 69mm Hg (03/11/24 4:50 PM) Weight Obtained Via Standing scale (03/11/24 4:50 PM) Social History Social History Type Response Smoking Status Never smoker entered on: 06/04/15 Sex Note * Lavonne GUILLERMO Tomeka: PERFORM Event Display: Patient Education/Instruction Authored Date: [id number] Ambulatory Adult Visit Summary [facility] Adult [facility] [address] [place] [address] Name: BITA VICKERS : 1970?? Visit: 03/11/2024 16:42?? Ambulatory Visit Instructions ?? Your Care Team Primary Care Provider Kayla Estes? This Visit Provider Kayla Estes Your Diagnosis Left shoulder pain Vitals Signs Pulse Rate: 78 bpm Height: 167 cm Systolic Blood Pressure: 107 mm Hg Weight: 57.6 kg Diastolic Blood Pressure: 69 mm Hg Body Mass Index: 20.65 kg/m2 Oxygen Saturation: 96 % Body surface area: 1.63 What to do next Scheduled Follow-Up Appointments Monday 3:45 PM EDT ?? Where: [facility] [address], [address] [place] [address]- Status: Pending Monday 8:15 AM EDT ?? Where: [facility] [address] [address]- Status: Pending Future Orders Hemoglobin A1C (Monitoring) - Once, *Est. 12/18/23, Order for Today?? Lipid Panel - Once, *Est. 12/18/23, Order for Today?? CBC w/ Differential - Routine, Once, 02/29/24 8:30:00 EDT, Order for Today, [facility], Blood?? Comprehensive Metabolic Panel - Routine, Once, 02/29/24 8:30:00 EDT, Order for Today, [facility], Blood?? Hepatitis B Quant - Routine, Once, 02/29/24 8:30:00 EDT, Order for Today, [facility], Blood?? AFP Tumor Marker - Routine, Once, 02/29/24 8:30:00 EDT, Order for Today, [facility], Blood?? Hepatitis B Surface Antigen - Routine, Once, 02/29/24 8:30:00 EDT, Order for Today, [facility], Blood?? Medications The list below reflects the information in our records and provided by you today along with any changes made during this visit. Please continue your medications until treatment is completed or stopped by your provider. If this is different from the information you have or there are other questions,please contact the prescribing provider. What How Much When Why Instructions New Cyclobenzaprine (cyclobenzaprine 10 mg oral tablet) 1 tab(s) Oral 3 times a day Left shoulder pain Pickup at [facility]/pharmacy #1157 Unchanged Carbidopa-Levodopa (carbidopa-levodopa 25 mg-100 mg oral tablet) 1.5 tablets Oral 5 times a day Unchanged Entacapone (entacapone 200 mg oral tablet) 1 tab(s) Oral 3 times a day Unchanged Famotidine (famotidine 20 mg oral tablet) 1 tab(s) Oral Daily at Bedtime Unchanged Gabapentin (gabapentin 300 mg oral capsule) 1 capsule Oral 3 times a day as needed for Pain , Mild Unchanged Omeprazole (omeprazole 40 mg oral enteric coated capsule) 1 capsule Oral Daily Unchanged Polyethylene Glycol 3350 (MiraLax oral powder for reconstitution) 17 gram Oral Daily dissolve in water before taking ?? Unchanged Tenofovir (tenofovir disoproxil fumarate 300 mg oral tablet) 1 tab(s) Oral Daily Unchanged Trazodone (traZODone 50 mg oral tablet) 1 tab(s) Oral Daily at Bedtime Unchanged Trihexyphenidyl 2 Milligram Oral 3 times a day Pharmacy Information [facility]/pharmacy #[id number]: [address], [place] [phone] ?? What How Much When Comments Stop Taking MethylPREDNISolone (Medrol 4 mg oral tablet) 1 pack/packet Oral Once Medications and Immunizations Administered Medications Given During Visit No medications given during this visit.?? Allergies (NKA means No Known Allergies) NKA Common Emergency Awareness Tips IS IT A [...] are strongly encouraged to quit. Please call [facility] Link at [phone] or 6-589-537-Board a Boat ([phone]) or log in to [email or web address] for referrals to smoking cessation programs. ?? The National Suicide Prevention Hotline is available 22/05 if you or someone you know needs to find a reason to keep living. By calling 1-900-135-firstSTREET for [employer] (6221) you'll be connected to a skilled, trained counselor at a crisis center in your area. [facility] Portal You can view and manage your care through the patient portal or by using a health care casandra of your choosing. [employer] is a website that allows you to securely view your medical information including your hospital discharge summary, office visit summaries, medications and follow-up visits. You can also request appointments, renew medications, and request access to your medical information using a health care casandra of your choosing, or just ask a question. You can enroll at [email or web address] or register during your next office visit. [facility], in keeping with [facility] guidance, no longer requires face masks for [...] medical provider or home test kit. ?? Disclaimer: The information provided is of a general nature and is intended to be used in conjunction with the recommendations and advice of your health care practitioner. Every effort has been made to ensure that the information provided is accurate and complete at the time it is provided to you however, as your needs change, or, as new information becomes available, different or additional instructions may be required. ?? If you have questions, please consult with your primary care provider or pharmacist, as appropriate. This information is not intended to serve as substitution for assessment and evaluation by a qualified health care provider. If you do not have a primary care provider, you may find a [facility] provider by calling [facility] Link at [phone]. * Tomeka Banerjee [place]: PERFORM Event Display: Patient Education/Instruction Authored Date: [id number] Ambulatory Adult Visit Summary [facility] [address] [place] [address] Name: BITA VICKERS : 1970?? Visit: 03/11/2024 16:42?? Ambulatory Visit Instructions ?? Your Care Team Primary Care Provider Kayla Estes? This Visit Provider Kayla Estes Your Diagnosis Left shoulder pain Vitals Signs Pulse Rate: 78 bpm Height: 167 cm Systolic Blood Pressure: 107 mm Hg Weight: 57.6 kg Diastolic Blood Pressure: 69 mm Hg Body Mass Index: 20.65 kg/m2 Oxygen Saturation: 96 % Body surface area: 1.63 What to do next Scheduled Follow-Up Appointments Monday 3:45 PM EDT ?? Where: [facility] [address] [facility], [address] [place] [address]- Status: Pending Monday 8:15 AM EDT ?? Where: [facility] [place] [address]- Status: Pending Follow-Up Appointments Follow up Appointment - Ordered?-- PRN, 03/11/24 17:06:00 EDT Future Orders Hemoglobin A1C (Monitoring) - Once, *Est. 12/18/23, Order for Today?? Lipid Panel - Once, *Est. 12/18/23, Order for Today?? CBC w/ Differential - Routine, Once, 02/29/24 8:30:00 EDT, Order for Today, [facility], Blood?? Comprehensive Metabolic Panel - Routine, Once, 02/29/24 8:30:00 EDT, Order for Today, [facility], Blood?? Hepatitis B Quant - Routine, Once, 02/29/24 8:30:00 EDT, Order for Today, [facility], Blood?? AFP Tumor Marker - Routine, Once, 02/29/24 8:30:00 EDT, Order for Today, [facility], Blood?? Hepatitis B Surface Antigen - Routine, Once, 02/29/24 8:30:00 EDT, Order for Today, [facility], Blood?? Medications The list below reflects the information in our records and provided by you today along with any changes made during this visit. Please continue your medications until treatment is completed or stopped by your provider. If this is different from the information you have or there are other questions,please contact the prescribing provider. What How Much When Why Instructions New Cyclobenzaprine (cyclobenzaprine 10 mg oral tablet) 1 tab(s) Oral 3 times a day Left shoulder pain Pickup at [facility]/pharmacy #1719 Unchanged Carbidopa-Levodopa (carbidopa-levodopa 25 mg-100 mg oral tablet) 1.5 tablets Oral 5 times a day Unchanged Entacapone (entacapone 200 mg oral tablet) 1 tab(s) Oral 3 times a day Unchanged Famotidine (famotidine 20 mg oral tablet) 1 tab(s) Oral Daily at Bedtime Unchanged Gabapentin (gabapentin 300 mg oral capsule) 1 capsule Oral 3 times a day as needed for Pain , Mild Unchanged Omeprazole (omeprazole 40 mg oral enteric coated capsule) 1 capsule Oral Daily Unchanged Polyethylene Glycol 3350 (MiraLax oral powder for reconstitution) 17 gram Oral Daily dissolve in water before taking ?? Unchanged Tenofovir (tenofovir disoproxil fumarate 300 mg oral tablet) 1 tab(s) Oral Daily Unchanged Trazodone (traZODone 50 mg oral tablet) 1 tab(s) Oral Daily at Bedtime Unchanged Trihexyphenidyl 2 Milligram Oral 3 times a day Pharmacy Information [facility]/pharmacy #1157: [address], [place] [phone] ?? What How Much When Comments Stop Taking MethylPREDNISolone (Medrol 4 mg oral tablet) 1 pack/packet Oral Once Medications and Immunizations Administered Medications Given During Visit No medications given during this visit.?? Allergies (NKA means No Known Allergies) NKA Common Emergency Awareness Tips IS IT A [...] are strongly encouraged to quit. Please call [facility] Link at [phone] or 7-662-690LiquidText ([phone]) or log in to [email or web address] for referrals to smoking cessation programs. ?? The National Suicide Prevention Hotline is available 22/05 if you or someone you know needs to find a reason to keep living. By calling 5-179-172-firstSTREET for [employer] (7161) you'll be connected to a skilled, trained counselor at a crisis center in your area. [facility] Portal You can view and manage your care through the patient portal or by using a health care casandra of your choosing. [employer] is a website that allows you to securely view your medical information including your hospital discharge summary, office visit summaries, medications and follow-up visits. You can also request appointments, renew medications, and request access to your medical information using a health care casandra of your choosing, or just ask a question. You can enroll at [email or web address] or register during your next office visit. [facility], in keeping with [facility] guidance, no longer requires face masks for [...] medical provider or home test kit. ?? Disclaimer: The information provided is of a general nature and is intended to be used in conjunction with the recommendations and advice of your health care practitioner. Every effort has been made to ensure that the information provided is accurate and complete at the time it is provided to you however, as your needs change, or, as new information becomes available, different or additional instructions may be required. ?? If you have questions, please consult with your primary care provider or pharmacist, as appropriate. This information is not intended to serve as substitution for assessment and evaluation by a qualified health care provider. If you do not have a primary care provider, you may find a [facility] provider by calling [facility] at [phone]. Patient Care team information Care Team Personnel Name: Lindsay Mercer RN Position: [facility] RN Member Role: Primary Care Nurse Name: Kayla Estes Position: [facility] PCO Associate Professional Member Role: PCP Address: Address: [address] [place] [address] Name: Eran Spence RN Position: [facility] RN Member Role: Primary Care Nurse Name: Prince Watson RN Position: [facility] RN Member Role: Primary Care Nurse Name: Nick Go RN Position: [facility] RN Member Role: Primary Care Nurse Name: Birdie Vieyra RN Position: [facility] RN Member Role: Primary Care Nurse Name: Izzy Monroy RN Position: [facility] OB RN Member Role: Primary Care Nurse Name: Ainsley Leung RN Position: S RN Member Role: Primary Care Nurse Name: aNncy Mo RN Position: S RN Member Role: Primary Care Nurse Name: Flavia Moeller Position: S RN Member Role: Primary Care Nurse Name: Danae Orozco RN Position: S RN Member Role: Primary Care Nurse Name: Angelic Rainey RN Position: S RN Member Role: Primary Care Nurse Name: Issac Vang RN Position: S RN Member Role: Primary Care Nurse Name: Doreen Murillo RN Position: S RN Member Role: Primary Care Nurse Name: Shira Minor RN Position: [facility] RN Member Role: Primary Care Nurse Name: Kari Dykes RN Position: S RN Member Role: Primary Care Nurse Name: Cristina Green RN Position: [facility] RN Member Role: Primary Care Nurse Name: Esteban Roque RN Position: [facility] RN Member Role: Primary Care Nurse Name: Nidia Mendoza RN Position: [facility] RN Member Role: Primary Care Nurse Care Team Related Persons Name: ELIDA GLORIA Address: [place] [address] Name: DARÍO GLORIA Address: [place] [address] Name: ARLENE GLORIA Address: [place] [address]
--- OUTSIDE RECORDS SUMMARY | 2024-05-03 10:54 | XMS_ITS | Continuity of Care Document ---
Author Organization [facility] Address [address] [place] [address]- Care Team Providers Care Pipeline Dispatch Operator Name Role Phone Kayla Smith Primary Care Physician Encounter [facility] [place] Date(s): 11/02/22 - 12/02/22 [facility] [address] [place] [address] Allergies, Adverse Reactions, Alerts No Known Allergies Immunizations Given and Recorded Vaccine Date Status Refusal Reason influenza virus vaccine, inactivated 07/30/22 [facility] rded influenza virus vaccine, inactivated 07/05/21 [facility] rded influenza virus vaccine, inactivated 08/18/20 [facility] rded influenza virus vaccine, inactivated 1 08/14/19 Gi lacie influenza virus vaccine, inactivated 08/13/18 [facility] rded influenza virus vaccine, inactivated 01/13/16 Give n [id number] 12y+ bivalent booster vax 07/14/22 Recorded zoster [...] each, 0 Refills, Maintenance, 02/08/21 9:34:00 EDT, [facility], ok to sub for [...] 3 Refills, Maintenance, 09/16/22 7:49:00 EST, Tablet, [facility]/pharmacy #[id number], 165, cm, 06/07/22 15:23:00 EDT, [...] Primary Care Nurse Name: Kayla Smith Position: [facility] PCO Associate Professional Member Role: PCP Address: Address: [address] [place] [address]- Name: Danae Orozco RN Position: [facility] RN Member Role: Primary Care Nurse Name: Lindsay Medrano RN Position: [facility] RN Member Role: Primary Care Nurse Name: Angelic Rainey RN Position: [facility] RN Member Role: Primary Care Nurse Name: Kari Dykes RN Position: [facility] RN Supv Member Role: Primary Care Nurse Name: Cristina Green RN Position: [facility] RN Member Role: Primary Care Nurse Care Team Related Persons Name: ELIDA GLORIA Address: home [address] [place] [address] Name: DARÍO GLORIA Address: home [address] [place] [address] Name: ARLENE GLORIA Address: [place] [address] [place] [address]
--- OUTSIDE RECORDS SUMMARY | 2024-05-03 10:54 | XMS_ITS | Continuity of Care Document ---
Author Organization [facility] Adult Address [address] [place] [address]- Care Team Providers Care Decay Control Operator Name Role Phone Kayla Estes Primary Care Physician Encounter [facility] Date(s): 07/12/23 - 08/11/23 [facility] [address] [place] [address]- Allergies, Adverse Reactions, Alerts No Known Allergies Immunizations Given and Recorded Vaccine Date Status Refusal Reason influenza virus vaccine, inactivated 07/30/22 [facility] rded influenza virus vaccine, inactivated 07/05/21 [facility] rded influenza virus vaccine, inactivated 08/18/20 [facility] rded influenza virus vaccine, inactivated 1 08/14/19 Gi lacie influenza virus vaccine, inactivated 08/13/18 [facility] rded influenza virus vaccine, inactivated 01/13/16 Give n [id number] 12y+ bivalent booster vax 07/14/22 Recorded zoster [...] Stop 01/22/24 12:53:00 EDT, 07/26/23 12:53:00 EDT, [facility]/pharmacy #[id number], Partial fill upon patient request if the prescription is for a schedule II opioid drug., 167, cm, .. Start Date: 07/26/23 Stop Date: 01/22/24 Status: Ordered omeprazole 40 mg oral enteric coated capsule 1 capsule = 40 mg, By Mouth, 2 times a day, for 30 days, # 60 capsule, 3 Refills, Hard Stop 09/13/23 14:57:00 EST, 05/16/23 14:57:00 EDT, [facility]/pharmacy #[id number], Partial fill upon patient request if the prescription is for a schedule II opioid drug., 171,... Start Date: 05/16/23 Stop Date: 09/13/23 Status: Ordered tenofovir disoproxil fumarate 300 mg oral tablet 1 tablet = 300 mg, By Mouth, Daily, # 90 tablet, 3 Refills, Maintenance, 09/16/22 7:49:00 EST, Tablet, [facility]/pharmacy #[id number], 165, cm, 06/07/22 15:23:00 [...] Team Personnel Name: Lindsay Mercer RN Position: [facility] RN Member Role: Primary Care Nurse Name: Kayla Estes Position: [facility] PCO Associate Professional Member Role: PCP Address: Address: [address] [place] [address] Name: Eran Spence RN Position: [facility] RN Member Role: Primary Care Nurse Name: Prince Watson RN Position: [facility] RN Member Role: Primary Care Nurse Name: Nick Go RN Position: [facility] RN Member Role: Primary Care Nurse Name: Birdie Vieyra RN Position: [facility] RN Member Role: Primary Care Nurse Name: Izzy Monroy RN Position: [facility] OB RN Member Role: Primary Care Nurse Name: Ainsley Leung RN Position: [facility] RN Member Role: Primary Care Nurse Name: Nancy Mo RN Position: [facility] RN Member Role: Primary Care Nurse Name: Flavia Moeller Position: [facility] RN Member Role: Primary Care Nurse Name: Danae Orozco RN Position: [facility] RN Member Role: Primary Care Nurse Name: Angelic Rainey RN Position: [facility] RN Member Role: Primary Care Nurse Name: Issac Vang RN Position: [facility] RN Member Role: Primary Care Nurse Name: Doreen Murillo RN Position: [facility] RN Member Role: Primary Care Nurse Name: Shira Minor Position: [facility] RN Member Role: Primary Care Nurse Name: Vale Shanks RN Position: [facility] RN Member Role: Primary Care Nurse Name: Kari Dykes RN Position: [facility] RN Member Role: Primary Care Nurse Name: Cristina Green RN Position: [facility] RN Member Role: Primary Care Nurse Name: Esteban Roque RN Position: [facility] RN Member Role: Primary Care Nurse Name: Nidia Mendoza RN Position: S RN Member Role: Primary Care Nurse Care Team Related Persons Name: ELIDA GLORIA Address: [place] [address] Name: JUANI GLORIAUNG Address: [place] [address] Name: ARLENE GLORIA Address: [place] [address]
--- OUTSIDE RECORDS SUMMARY | 2024-05-03 10:54 | XMS_ITS | Continuity of Care Document ---
Author Organization [facility] Adult Address [address] [place] [address]- Care Team Providers Care Cement Mason Helper Name Role Phone Kayla Estes Primary Care Physician Encounter [facility] [place] Date(s): 04/17/24 - 04/24/24 [facility] [address] [place] [address]- Attending Physician: Prince Falcon MD Referring Physician: Kayla Estes Allergies, Adverse [...] influenza virus vaccine, inactivated 01/13/16 Give n [id number] 12y+ bivalent booster vax 07/14/22 Recorded zoster [...] 03/11/24 17:05:00 EDT, Route to Pharmacy Electronically, [facility]/pharmacy #[id number], Partial fill upon patient request if [...] opioid drug. Start Date: 03/03/23 Status: Ordered Mobic 7.5 mg oral tablet 1 tablet = 7.5 mg, By Mouth, Daily, # 30 tablet, 0 Refills, Maintenance, 04/17/24 16:49:00 EDT, Tablet, [facility]/pharmacy [facility][id number], Partial fill upon patient request if the prescription is for a schedule II opioid drug., 167, cm, 04/17/24 16:31:00 EDT, Height... Start Date: 04/17/24 Status: Ordered Mobic 7.5 mg oral tablet 1 tablet = 7.5 mg, By Mouth, Daily, # 30 tablet, 0 Refills, Maintenance, 04/17/24 17:15:00 EDT, Tablet, [id number], Partial fill upon patient request if the prescription is for a schedule II opioid drug., 167, cm, 04/17/24 16:31:00 EDT, Height... Start Date: 04/17/24 Status: Ordered omeprazole 40 mg oral enteric coated capsule 1 capsule, By Mouth, Daily, # 90 capsule, 3 Refills, Maintenance, 01/09/24 7:47:00 EDT, [facility], 167, cm, 12/18/23 16:11:00 EST, Height, 52.5, kg, 07/22/23 10:08:00 EDT, Dry Weight Start Date: 01/09/24 Status: Ordered tenofovir disoproxil fumarate 300 mg oral tablet 1 tablet = 300 mg, By Mouth, Daily, # 90 tablet, 3 Refills, Maintenance, 12/13/23 16:48:00 EST, Tablet, [id number], 167, cm, 10/06/23 7:52:00 EST, Height, 52.5, kg, 07/22/23 10:08:00 EDT, DryWeight Start Date: 12/13/23 Status: Ordered traMADol 50 mg oral tablet 1 tablet = 50 mg, By Mouth, Every 12 hours, PRN as needed for pain, # 30 tablet, 0 Refills, Acute 05/17/24 12:00:00 EDT, 04/17/24 17:15:00 EDT, Tablet, [id number], Partial fill upon patient request if the prescription is for a schedule II opio... Start Date: 04/17/24 Stop Date: 05/17/24 Status: Ordered traZODone 50 mg oral tablet [...] oldest [Reference Range]: 1 Height 167 cm (04/17/24 4:31 PM) Oxygen Saturation [94-100 %] 97 % (04/17/24 4:31 PM) Pulse Rate [55-90 bpm] 98 bpm *H* (04/17/24 4:31 PM) Blood Pressure [90-138/55-84 mm Hg] 109/ 76mm Hg (04/17/24 4:31 PM) Social History Social History Type Response Smoking Status Never smoker entered on: 06/04/15 Sex Patient Care team information Care Team Personnel Name: Lindsay Mercer RN Position: [facility] RN Member Role: Primary Care Nurse Name: Kayla Estes Position: [facility] PCO Associate Professional Member Role: PCP Address: Address: [address] [place] [id number] Name: Eran Spence RN [facility] Care Nurse Name: Flavia Moeller RN Position: [facility] RN Member Role: Primary Care Nurse Name: Danae Orozco RN Position: [facility] RN Member Role: Primary Care Nurse Name: Angelic Rainey RN Position: [facility] RN Member Role: Primary Care Nurse Name: Issac Vang RN Position: [facility] RN Member Role: Primary Care Nurse Name: Doreen Murillo RN Position: [facility] RN Member Role: Primary Care Nurse Name: Shira Minor RN Position: [facility] RN [...] [facility] RN Member Role: Primary Care Nurse Care Team Related Persons Name: ELIDA GLORIA Address: home [address] [place] [address] Name: JUANI DARÍO Address: home [address] [place] [address] Name: ARLENE GLORIA Address: [place] [address]
--- OUTSIDE RECORDS SUMMARY | 2024-05-03 10:54 | XMS_ITS | Continuity of Care Document ---
Author Organization [facility] Address [address] [place] [address]- Care Team Providers Care Help Desk Engineer Name Role Phone Kayla Estes Primary Care Physician Encounter [facility] [place] Date(s): 02/14/23 - 04/06/23 [facility] [address] [place], [place] [address] Attending Physician: Johnnie Lew MD Admitting Physician: Johnnie Lew MD Referring Physician: Prince Gore MD Allergies, Adverse Reactions, Alerts No Known Allergies Immunizations Given and Recorded Vaccine Date Status Refusal Reason influenza virus vaccine, inactivated 07/30/22 [facility] rded influenza virus vaccine, inactivated 07/05/21 [facility] rded influenza virus vaccine, inactivated 08/18/20 [facility] rded influenza virus vaccine, inactivated 1 08/14/19 Gi lacie influenza virus vaccine, inactivated 08/13/18 [facility] rded influenza virus vaccine, inactivated 01/13/16 Give n [id number] 12y+ bivalent booster vax 07/14/22 Recorded zoster [...] Date Status Refusal Reason pneumococcal 23-valent vaccine 10/17/19 Not Given Patient Refuses pneumococcal 23-valent vaccine [...] 05/23/23 8:21:00 EDT, 01/23/23 8:21:00 EDT, [facility]/pharmacy #[id number], Partial fill upon patient request if the prescription is for a schedule II opioid drug., 171, c... Start Date: 01/23/23 Stop Date: 05/23/23 Status: Ordered tenofovir disoproxil fumarate 300 mg oral tablet 1 tablet = 300 mg, By Mouth, Daily, # 90 tablet, 3 Refills, Maintenance, 09/16/22 7:49:00 EST, Tablet, [facility]/pharmacy #1111, 165, cm, 06/07/22 15:23:00 [...] Care Team Personnel Name: Kayla Estes Position: [facility] PCO Associate Professional Member Role: PCP Address: Address: [address] [place] [id number] Name: Birdie Vieyra RN Position: [facility] RN Member Role: Primary Care Nurse Name: Izzy Monroy RN Position: [facility] OB RN Member Role: Primary Care Nurse Name: Danae Orozco RN Position: [facility] RN Member Role: Primary Care Nurse Name: Lindsay Medrano RN Position: S RN Member Role: Primary Care Nurse Name: Angelic Rainey RN Position: S RN Member Role: Primary Care Nurse Name: Kari Dykes RN Position: [facility] RN Supv Member Role: Primary Care Nurse Name: Cristina Green RN Position: [facility] RN Member Role: Primary Care Nurse Care Team Related Persons Name: ELIDA GLORIA Address: [place] [address] Name: DARÍO GLORIA Address: [place] [address] Name: ARLENE GLORIA Address: [place] [address]
--- OUTSIDE RECORDS SUMMARY | 2024-05-03 10:54 | XMS_ITS | Continuity of Care Document ---
Author Organization [facility] Address [address] [place] [address] [address] [place] [address]- Care Team Providers Care Court Advocate Name Role Phone Kayla Estes Primary Care Physician Encounter [facility] Date(s): 08/30/23 - 09/29/[address] [place] [address]- Attending Physician: AdmNatasha flores Admitting Physician: Admtr, Ar8 Referring Physician: Admtr, Ar8 Allergies, Adverse Reactions, Alerts No Known Allergies Immunizations Given and Recorded Vaccine Date Status Refusal Reason influenza virus vaccine, inactivated 07/30/22 [facility] rded influenza virus vaccine, inactivated 07/05/21 [facility] rded influenza virus vaccine, inactivated 08/18/20 [facility] rded influenza virus vaccine, inactivated 1 08/14/19 Gi lacie influenza virus vaccine, inactivated 08/13/18 [facility] rded influenza virus vaccine, inactivated 01/13/16 Give n [id number] 12y+ bivalent booster vax 07/14/22 Recorded zoster [...] 12:00:00 EDT, Route to Pharmacy Electronically, [facility]/pharmacy #[id number], Partial fill upon patient request if [...] Stop 01/22/24 12:53:00 EDT, 07/26/23 12:53:00 EDT, [facility]/pharmacy #[id number], Partial fill upon patient request if [...] Team Personnel Name: Lindsay Mercer RN Position: [facility] RN Member Role: Primary Care Nurse Name: Kayla Estes Position: [facility] PCO Associate Professional Member Role: PCP Address: Address: [address] [place] [address]- Name: Eran Spence RN Position: [facility] RN Member Role: Primary Care Nurse Name: Prince Watson RN Position: [facility] RN Member Role: Primary Care Nurse Name: Nick Go RN Position: [facility] ED RN W/OE and Tasks Member Role: Primary Care Nurse Name: Birdie Vieyra RN Position: [facility] RN Member Role: Primary Care Nurse Name: Izzy Monroy RN Position: [facility] OB RN Member Role: Primary Care Nurse Name: Ainsley Leung RN Position: [facility] RN Member Role: Primary Care Nurse Name: Nancy Mo RN Position: [facility] RN Member Role: Primary Care Nurse Name: Flavia Moeller Position: [facility] RN Member Role: Primary Care Nurse Name: Danae Orozco RN Position: [facility] RN Member Role: Primary Care Nurse Name: Angelic Rainey RN Position: [facility] RN Member Role: Primary Care Nurse Name: Issac Vang RN Position: [facility] RN Member Role: Primary Care Nurse Name: Doreen Murillo RN Position: [facility] RN Member Role: Primary Care Nurse Name: Shira Minor Position: [facility] RN Member Role: Primary Care Nurse Name: Vale Shanks RN Position: [facility] RN Member Role: Primary Care Nurse Name: Kari Dykes RN Position: [facility] RN Member Role: Primary Care Nurse Name: Cristina Green RN Position: [facility] RN Member Role: Primary Care Nurse Name: Esteban Roque RN Position: [facility] RN Member Role: Primary Care Nurse Name: Nidia Mendoza RN Position: [facility] RN Member Role: Primary Care Nurse Care Team Related Persons Name: ELIDA GLORIA Address: [address] [place] [address] Name: JUANI DARÍO Address: [address] [place] [address] Name: ARLENE GLORIA Address: [address] [place] [address]
--- OUTSIDE RECORDS SUMMARY | 2024-05-03 10:54 | XMS_ITS | Continuity of Care Document ---
Author Organization [facility] Address [address] [place], [place] [address]i ve [address] [place] [address]- Care Team Providers Care Associate Relations Specialist Name Role Phone Kayla Estes Primary Care Physician Encounter [facility] Date(s): 07/27/23 - 08/03/23 [facility] [address] [place] [address]- Attending Physician: Jose E Kohli MD Allergies, Adverse Reactions, Alerts No Known Allergies Immunizations Given and Recorded Vaccine Date Status Refusal Reason influenza virus vaccine, inactivated 07/30/22 [facility] rded influenza virus vaccine, inactivated 07/05/21 [facility] rded influenza virus vaccine, inactivated 08/18/20 [facility] rded influenza virus vaccine, inactivated 1 08/14/19 Gi lacie influenza virus vaccine, inactivated 08/13/18 [facility] rded influenza virus vaccine, inactivated 01/13/16 Give n [id number] 12y+ bivalent booster vax 07/14/22 Recorded zoster [...] 07/11/23 12:00:00 EDT, Route to Pharmacy Electronically, [facility]/pharmacy #[id number], Partial fill upon [...] Stop 01/22/24 12:53:00 EDT, 07/26/23 12:53:00 EDT, [facility]/pharmacy #[id number], Partial fill upon [...] Stop 09/13/23 14:57:00 EST, 05/16/23 14:57:00 EDT, [facility]/pharmacy #1111, Partial fill upon [...] oldest [Reference Range]: 1 Height 167 cm (07/27/23 11:16 AM) Pulse Rate [55-90 bpm] 79 bpm (07/27/23 11:16 AM) Blood Pressure [90-138/55-84 mm Hg] 104/ 69mm Hg (07/27/23 11:16 AM) Temperature [96.8-100.4 DegF] 96.8 DegF (07/27/23 11:16 AM) Blood pressure sites Arm, left (07/27/23 11:16 AM) Temperature Route Temporal (07/27/23 11:16 AM) Social History Social History Type Response Smoking Status Never smoker entered on: 06/04/15 Sex Patient Care team information Care Team Personnel Name: Kayla Estes Position: [facility] PCO Associate Professional Member Role: PCP Address: Address: [address] [place] [id number] Name: Eran Spence RN Position: [facility] RN Member Role: Primary Care Nurse Name: Prince Watson RN Position: [facility] RN Member Role: Primary Care Nurse Name: Nick Go RN Position: [facility] RN Member Role: Primary Care Nurse Name: Birdie Vieyra RN Position: S RN Member Role: Primary Care Nurse Name: Izzy Monroy RN Position: [facility] OB RN Member Role: Primary Care Nurse Name: Ainsley Leung RN Position: [facility] RN Member Role: [...] Care Nurse Name: Issac Vang RN Position: [facility] RN Member Role: Primary Care Nurse Name: Doreen Murillo RN Position: [facility] RN Member Role: Primary Care Nurse Name: Shira Minor Position: [facility] RN Member Role: Primary Care Nurse Name: Vale Shanks RN Position: [facility] RN Member Role: Primary Care Nurse Name: Kari Dykse RN Position: [facility] RN Member Role: Primary Care Nurse Name: Cristina Green RN Position: [facility] RN Member Role: Primary Care Nurse Name: Esteban Roque RN Position: [facility] RN Member Role: Primary Care Nurse Name: Nidia Mendoza RN Position: [facility] RN Member Role: Primary Care Nurse Care Team Related Persons Name: ELIDA GLORIA Address: home [address] [place] [address] Name: DARÍO GLORIA Address: home [address] [place] [address] Name: ARLENE GLORIA Address: [place] [address]
--- OUTSIDE RECORDS SUMMARY | 2024-05-03 10:54 | XMS_ITS | Continuity of Care Document ---
Author Organization [facility] Address [address] [place] [address]- Care Team Providers Care Community Center Worker Name Role Phone Sabrina VINSON, Henry Rojas Primary Care Physician Encounter [facility] [place] Date(s): 10/05/20 - 11/04/20 [facility] [address] [place], [place] [address] Allergies, Adverse Reactions, Alerts Substance Reaction [...] 3 Refills, Maintenance, 05/15/20 12:43:00 EDT, Tablet, [facility] 1967, 168, cm, 10/31/19 8:18:00 [...]
--- OUTSIDE RECORDS SUMMARY | 2024-05-03 10:54 | XMS_ITS | Continuity of Care Document ---
Author Organization [facility] Address [address] [place] [address]- Care Team Providers Care Manager Green Name Role Phone Sabrina VINSON, Henry Rojas Primary Care Physician Encounter [facility] [place] Date(s): 02/01/21 - 03/03/21 [facility] [address] [place] [id number] Attending Physician: Natasha Shelby Admitting Physician: AdmtrNatasha [...] 3 Refills, Maintenance, 11/30/20 16:28:00 EST, Tablet, [facility] 1967, 157, cm, 11/13/20 10:10:00 [...]
--- OUTSIDE RECORDS SUMMARY | 2024-05-03 10:54 | XMS_ITS | Continuity of Care Document ---
Author Organization [facility] Address [address] [place] [id number]- Care Team Providers Care Data Entry Analyst Name Role Phone Kayla Estes Primary Care Physician Encounter [facility] Date(s): 07/25/23 - 08/24/23 [facility] [address] [place] [address]- Allergies, Adverse Reactions, Alerts No Known Allergies Immunizations Given and Recorded Vaccine Date Status Refusal Reason influenza virus vaccine, inactivated 07/30/22 [facility] influenza virus vaccine, inactivated 07/05/21 [facility] influenza virus vaccine, inactivated 08/18/20 [facility] influenza virus vaccine, inactivated 1 08/14/19 [facility] influenza virus vaccine, inactivated 08/13/18 [facility] r[facility] influenza virus vaccine, inactivated 01/13/16 Give n [id number] 12y+ bivalent booster vax 07/14/22 Recorded zoster [...] 07/11/23 12:00:00 EDT, Route to Pharmacy Electronically, [facility]/pharmacy #[id number], Partial fill upon [...] Stop 01/22/24 12:53:00 EDT, 07/26/23 12:53:00 EDT, [facility]/pharmacy #[id number], Partial fill upon [...] Team Personnel Name: Lindsay Mercer RN Position: [facility] RN Member Role: Primary Care Nurse Name: Kayla Estes Position: [facility] PCO Associate Professional Member Role: PCP Address: Address: [address] [place], [place] [id number] Name: Eran Spence RN Position: [facility] RN Member Role: Primary Care Nurse Name: Prince Watson RN Position: [facility] RN Member Role: Primary Care Nurse Name: Nick Go RN Position: [facility] RN Member Role: Primary Care Nurse Name: Birdie Vieyra RN Position: [facility] RN Member Role: Primary Care Nurse Name: Izzy Monroy RN Position: [facility] OB RN Member Role: Primary Care Nurse Name: Ainsley Leung RN Position: [facility] RN Member Role: Primary Care Nurse Name: Nancy Mo RN Position: [facility] RN Member Role: Primary Care Nurse Name: Flavia Moeller Position: [facility] RN Member Role: Primary Care Nurse Name: Danae Orozco RN Position: [facility] RN Member Role: Primary Care Nurse Name: Angelic Rainey RN Position: [facility] RN Member Role: Primary Care Nurse Name: Issac Vang RN Position: [facility] RN Member Role: Primary Care Nurse Name: Doreen Murillo RN Position: [facility] RN Member Role: Primary Care Nurse Name: Shira Minor Position: [facility] RN Member Role: Primary Care Nurse Name: Vale Shanks RN Position: [facility] RN Member Role: Primary Care Nurse Name: Kari Dykes RN Position: [facility] RN Member Role: Primary Care Nurse Name: Cristina Green RN Position: [facility] RN Member Role: Primary Care Nurse Name: Esteban Roque RN Position: [facility] RN Member Role: Primary Care Nurse Name: Nidia Mendoza RN Position: [facility] RN Member Role: Primary Care Nurse Care Team Related Persons Name: ELIDA GLORIA Address: [address] [address] Name: DARÍO GLOIRA Address: [place] [address] Name: ARLENE GLORIA Address: [place] [address]
--- OUTSIDE RECORDS SUMMARY | 2024-05-03 10:54 | XMS_ITS | Continuity of Care Document ---
Author Organization [facility] Address [address] [place] [address]- Care Team Providers Care Potato Chip Fryer Name Role Phone Sabrina VINSON, Henry Rojas Primary Care Physician Encounter [facility] [place] Date(s): 11/13/20 - 02/14/21 [facility] [address] [place], [place] [address] Attending Physician: Myles Mercer DO Admitting Physician: Myles Mercer DO Allergies, Adverse Reactions, Alerts Substance Reaction Severity [...] each, 0 Refills, Maintenance, 02/08/21 9:34:00 EDT, [facility], ok to sub for [...] 3 Refills, Maintenance, 11/30/20 16:28:00 EST, Tablet, [facility], 157, cm, 11/13/20 10:10:00 [...]
--- OUTSIDE RECORDS SUMMARY | 2024-05-03 10:54 | XMS_ITS | Continuity of Care Document ---
Author Organization [facility] Address [address] [place] [address]- Care Team Providers Care Digital Circuit Designer Name Role Phone Adela Khan Primary Care Physician [facility] [facility] Date(s): 05/17/22 - 07/28/22 [facility] [address] [place] [id number] Attending Physician: Myles Mercer DO Admitting Physician: Myles Mercer DO Referring Physician: Henry Bennett MD Allergies, Adverse Reactions, Alerts No Known [...] 1 Refills, Maintenance, 05/09/22 13:30:00 EDT, [facility], Partial fill upon patient request [...] each, 0 Refills, Maintenance, 02/08/21 9:34:00 EDT, [facility], ok to sub for any [...] 3 Refills, Maintenance, 11/19/21 12:03:00 EST, Tablet, [facility], 165, cm, 10/01/21 14:37:00 EST, [...] information Personnel Name: Adela Khan Address: Address: [address] [place] [address]
--- OUTSIDE RECORDS SUMMARY | 2024-05-03 10:54 | XMS_ITS | Continuity of Care Document ---
Author Organization [facility] Address [address] [place] [address]- Care Team Providers Care Wine Sales Representative Name Role Phone Kayla Estes Primary Care Physician Encounter [facility] Date(s): 12/01/23 - 12/31/[address] [facility] [address] [place] [address]- Allergies, Adverse Reactions, Alerts No Known Allergies [...] influenza virus vaccine, inactivated 01/13/16 Give n [id number] 12y+ bivalent booster vax 07/14/22 Recorded zoster [...] 07/11/23 12:00:00 EDT, Route to Pharmacy Electronically, [facility]/pharmacy #[id number], Partial fill upon [...] Refills, Soft Stop, 12/18/23 16:12:00 EST, Tablet, [facility]/pharmacy #[id number], Partial fill upon [...] Stop 01/22/24 12:53:00 EDT, 07/26/23 12:53:00 EDT, [facility]/pharmacy #[id number], Partial fill upon patient request if the prescription is for a schedule II opioid drug., 167, cm, .. Start Date: 07/26/23 Stop Date: 01/22/24 Status: Ordered tenofovir disoproxil fumarate 300 mg oral tablet 1 tablet = 300 mg, By Mouth, Daily, # 90 tablet, 3 Refills, Maintenance, 12/13/23 16:48:00 EST, Tablet, [facility]/pharmacy #[id number], 167, cm, 10/06/23 7:52:00 EST, [...] Team Personnel Name: Lindsay Mercer RN Position: [facility] RN Member Role: Primary Care Nurse Name: Kayla Estes Position: [facility] PCO Associate Professional Member Role: PCP Address: Address: [address] [place] [id number]- Name: Eran Spence RN Position: [facility] RN Member Role: Primary Care Nurse Name: Prince Watson RN Position: S RN Member Role: Primary Care Nurse Name: Nick Go RN Position: [facility] ED RN W/OE and Tasks Member Role: Primary Care Nurse Name: Birdie Vieyra RN Position: [facility] RN Member Role: Primary Care Nurse Name: Izzy Monroy RN Position: [facility] OB RN Member Role: Primary Care Nurse Name: Ainsley Leung RN Position: [facility] RN Member Role: Primary Care Nurse Name: Nancy Mo RN Position: [facility] RN Member Role: Primary Care Nurse Name: Flavia Moeller Position: [facility] RN Member Role: Primary Care Nurse Name: Danae Orozco RN Position: [facility] RN Member Role: Primary Care Nurse Name: Angelic Rainey RN Position: [facility] RN Member Role: Primary Care Nurse Name: Issac Vang RN Position: [facility] RN Member Role: Primary Care Nurse Name: Doreen Murillo RN Position: [facility] RN Member Role: Primary Care Nurse Name: Shira Minor RN Position: [facility] RN Member Role: Primary Care Nurse Name: Kari Dykes RN Position: [facility] RN Member Role: Primary Care Nurse Name: Cristina Green RN Position: [facility] RN Member Role: Primary Care Nurse Name: Esteban Roque RN Position: [facility] RN Member Role: Primary Care Nurse Name: Nidia Mendoza RN Position: [facility] RN Member Role: Primary Care Nurse Care Team Related Persons Name: ELIDA GLORIA Address: [address] [place] [address] Name: DARÍO GLORIA Address: [address] [place], [place] Name: ARLENE GLORIA Address: [address] [place] [address]
--- OUTSIDE RECORDS SUMMARY | 2024-05-03 10:54 | XMS_ITS | Continuity of Care Document ---
Author Organization [facility] Address [address] [place] [address]- Care Team Providers Care Cougar Hunter Name Role Phone Henry Bennett MD Primary Care Physician Encounter [facility] Date(s): 07/20/22 - 08/19/22 [facility] [address] [place] [id number]- [place] Allergies, Adverse Reactions, Alerts No Known [...] Refills, Maintenance, 05/09/22 13:30:00 EDT, Capsule, [facility], Partial fill upon patient request if the [...] 0 Refills, Maintenance, 02/08/21 9:34:00 EDT, [facility], ok to sub for [...] Refills, Maintenance, 11/19/21 12:03:00 EST, Tablet, [facility], 165, cm, 10/01/21 14:37:00 [...] Sex Patient Care team information Personnel Name: Sabrina VINSON, Henry Rojas Address: Address: [address] [place] [address]
--- OUTSIDE RECORDS SUMMARY | 2024-05-03 10:54 | XMS_ITS | Continuity of Care Document ---
Author Organization [facility] Address [address] [place] [address]- Care Team Providers Care Heel Seat Laster Name Role Phone Henry Bennett MD Primary Care Physician Encounter [facility] [place] Date(s): 05/13/20 - 06/12/20 [facility] [address] [place] [address] - [facility] Attending Physician: Natasha Shelby Admitting Physician: AdmtrNatasha Referring Physician: AdmtrNatasha Allergies, Adverse Reactions, Alerts Substance Reaction Severity [...] Status: Ordered gabapentin 100 mg oral capsule 300 mg, 3, capsule, By Mouth, 3 times a day, # 90 capsule, Refills 0, Maintenance, 04/17/19 8:13:35EDT Start Date: 04/17/19 Status: Ordered Medrol Dosepak 4 mg oral tablet See Instructions, as directed on package labeling, # 1 each, 0 Refills, Soft Stop, 10/20/19 6:09:00EST, Tablet Start Date: 10/20/19 Status: Ordered meloxicam 15 mg oral tablet 1 tablet = 15 mg, By Mouth, 2 times a day, 0 Refills, Maintenance, 05/13/20 11:12:00 EDT Start Date: 05/13/20 Status: Ordered mirtazapine 15 mg oral tablet 2 tablet = 30 mg, By Mouth, Daily at bedtime, 0 Refills, Maintenance, 02/12/19 13:41:33 EDT Start Date: 02/12/19 Status: Ordered Physical therapy Physical therapy, See [...] 3 Refills, Maintenance, 05/15/20 12:43:00 EDT, Tablet, [facility], 168, cm, 10/31/19 8:18:00 [...]
[2024-05-03 11:19] VITALS: BP 146/85; PULSE 96; RESP 16; TEMP 36.3; O2SAT 99
--- NOTE | 2024-05-03 12:57 | HO.ANESPROP2 ---
HPI - Anesthesia Eval Consult details Narrative: 54 yo female patient for replacement of Peg-J tube PMFSH Active Problems Active Problems: All Active Problems Pain around percutaneous endoscopic gastrostomy (PEG) tube site (Acute) Parkinson's disease with dyskinesia and fluctuating manifestations (Acute) Parkinsons disease (Acute) Insomnia (Acute) Lumbar spondylosis (Acute) Past Medical History Medical History Pain around percutaneous endoscopic gastrostomy (PEG) tube site Parkinson's disease with dyskinesia and fluctuating manifestations Cataract Insomnia Congenital nystagmus Albinism Lumbar spondylosis Patient : No Family History Family history of problems with anesthesia: No Surgical History Surgical History History of surgery (11/14/23) H/O abdominal surgery Hx laparoscopic cholecystectomy H/O Spinal surgery History of Problems with Anesthesia: No Social History Social History Unable to assess alcohol history related to: Unable to respond Alcohol intake: never Patient Tobacco Use Status: Never used Tobacco Meds Allergies Allergy/AdvReac Type Severity Reaction Status Date / Time No Known Allergies Allergy Verified 04/18/24 09:34 Home Medications ?Medication ?Instructions ?Recorded ?Confirmed ?Last Taken ?Type tenofovir disoproxil fumarate 300 300 mg PO BEDTIME 12/22/21 04/30/24 Unknown History mg tablet famotidine 20 mg tablet 20 mg PO DAILY 04/06/23 04/30/24 Unknown History magnesium 200 mg tablet 200 mg PO DAILY 04/06/23 04/30/24 Unknown History omeprazole 40 mg capsule,delayed 40 mg PO DAILY 04/06/23 05/03/24 05/03/24 History release polyethylene glycol 3350 17 17 g PO BID 10/04/23 04/30/24 Unknown History gram/dose oral powder (Miralax) acetaminophen 500 mg PO BID PRN pain 05/03/24 05/03/24 05/03/24 History carbidopa 25 mg-levodopa 100 mg 1.5 tab PO 5XD 05/03/24 05/03/24 05/03/24 History tablet Exam Height,Weight and Vital Signs: Height 5 ft 5 in Weight 60.328 kg Last Vital Signs Temp 97.3 F 05/03/24 11:19 Pulse 96 05/03/24 11:19 Resp 16 05/03/24 11:19 BP 146/85 H 05/03/24 11:19 Pulse Ox 99 05/03/24 11:19 O2 Del Method Room Air 05/03/24 11:19 Airway Mallampati Class: II TM Dist: >3cm Neck ROM: Full Loose/Missing/Broken Teeth: Yes (Missing tooth top left back. Denies broken or loose teeth) Heart: RRR Lungs: CTAB Assessment and Plan Assessment Anesthesia Assessment: Anesthesia Plan Discussed and Chart Reviewed Final Anesthetic Review Family History of Problems with Anesthesia: No History of Problems with Anesthesia: No NPO: Yes ASA Class: III Final Preanesthetic Review: No Changes in Pt Med Stat, Meds/Allgs Chart Reviewed, Consent Obtained/Reviewed and Anes Risks/Benef Reviewed Patient Risk: Intermediate Procedure Risk: Low Assessment/Block/Sedation in SS: Assess/Block/Sedation-SS Anesthetic Plan Anesthetic Plan: GA Disposition: Standard PACU
--- NOTE | 2024-05-03 13:07 | MHC.SHP ---
Pre-Procedural Eval Section A - 24 Hr Update-Section A only Date of Service: 05/03/24 The patient is an INPATIENT: No Changes since office visit: No Cold of Flu in the past 2 weeks, No New Medical Problems, No Changes in Medication and No Patient answered all questions The patient has been examined within 24 hours of the surgical procedure. The History & Physical has been completed within 30 days and I have reviewed it.: Yes Section B - Complete if H&P > 30 days Chief Complaint: Parkinson's disease with dyskinesia, with fluctuat Allergies: Allergies Allergy/AdvReac Type Severity Reaction Status Date / Time No Known Allergies Allergy Verified 04/18/24 09:34 Plan I have reviewed the history and physical and performed a pertinent physical examination on my patient. No changes have occurred unless specified. Time Spent With Patient Time: Total time managing care of this patient today ____ minutes.
--- NOTE | 2024-05-03 13:58 | W.PM.OPN ---
Operative Note Operative Note Date of Service: 05/03/24 Narrative: Preop diagnosis: Parkinson's disease Postop diagnosis: Parkinson's disease Procedure: Replacement of PEG J-tube for infusion of carbo- levodopa Surgeon: Pk Van MD child care center assistant director: LANCE Pressley The patient is a 54 year female with Parkinson's disease, who had a PEG J-tube placed for jejunal infusion of the Carbo levodopa for control of her Parkinson's symptoms. She had been doing well with this but she inadvertently pulled out the jejunostomy part of the PEG J-tube 2 weeks ago. She wanted this replaced in view of the benefits of Carbo levodopa infusion. She was aware of the risks, benefits, and alternatives Her family was involved with the decision Brought to the operating room. She was placed supine under general anesthesia via endotracheal tube. The surgical time-out was done. The endoscope was introduced through the oral orifice into the oropharynx. The esophageal slit was seen. The scope was advanced through this through the entire length of the esophagus into the stomach lumen. The stomach was insufflated. The inner bolster of the G-tube was seen. There was no pathology seen in the stomach. We then proceeded to trim the external part of the G-tube to create a fresh opening. A new jejunostomy part of the tube along with the guidewire was was introduced through this G-tube into the stomach lumen. The tip of the jejunostomy tube was grasped with forceps. He had then advanced the tip of the jejunostomy tube along with the endoscope through the pyloric orifice, passed the C-loop of the duodenum, all the way into the jejunum. The location of the tip of the anastomosis tube as being in the jejunum was confirmed with fluoroscopy, with the tip being seen as past the midline. We then proceeded to gently withdraw the scope, advancing the jejunostomy tube so we withdrew the scope to allow adequate slack. The wire was then carefully removed as well. Once the wire was removed and the endoscope was in the stomach, we proceeded to then confirmed that the ileostomy tube was still within the says withdraw the wire completely. The the stomach was desufflated and we gently withdrew the endoscope out through the oral orifice Final fluoroscopy images done showed that the tip of the jejunostomy tube remained in the jejunum The attachments of the ileostomy tube were then placed with the assistance of the sales support rep on video. The procedure was then completed The patient tolerated procedure well. There were no immediate complications. The patient was extubated without difficulty and transferred to the recovery room with stable vital signs.
[2024-05-03 14:05] VITALS: BP 133/83; PULSE 106; RESP 16; TEMP 36.8; O2SAT 100
[2024-05-03 14:10] VITALS: BP 141/79; PULSE 99; RESP 18; O2SAT 100
[2024-05-03 14:15] VITALS: BP 130/76; PULSE 98; RESP 16; O2SAT 98
[2024-05-03 14:20] VITALS: BP 133/86; PULSE 94; RESP 18; O2SAT 100
[2024-05-03 14:35] VITALS: BP 124/81; PULSE 92; RESP 18; TEMP 36.9; O2SAT 100
== END 2024-05-03 14:50 | disposition home or self-care (01) ==
PROVIDERS: PCP Physician Assistant Medical; Visit Provider Surgery
PROC: (CPT 43241; principal; 2024-05-03 12:50)
DX: K94.29 Other complications of gastrostomy (principal); G20.B2 Parkinson's disease with dyskinesia, with fluctuations; Y83.3 Surgical operation with formation of external stoma as the cause of abnormal reaction of the patient, or of later complication, without mention of misadventure at the time of the procedure; Y92.9 Unspecified place or not applicable
CPT/HCPCS: 43241; J2405; J2704; J3010

== ENCOUNTER → 2024-05-03 10:46 | Outpatient (BNV) | payer OTHER, MEDICARE, SELFPAY | PROVIDERS: PCP Physician Assistant Medical; Visit Provider Surgery | DX: G20.B2 Parkinson's disease with dyskinesia, with fluctuations (principal) | CPT/HCPCS: 43246 ==

== ENCOUNTER 2024-05-13 15:05 | Outpatient (AMB) | payer OTHER, MEDICARE, SELFPAY ==
[2024-05-13 15:34] VITALS: BP 115/74; PULSE 99
--- NOTE | 2024-05-13 15:34 | A.OFFVIS_ITS ---
Vital Signs 05/13/24 15:34 Weight 139 lb BP 115/74 Blood Pressure Location Rt brachial Position Sitting Pulse 99 Intake Visit Reasons: S/P PEG J-tube placement Intake Note: This patient presents for a post-op assessment status post PEG-J tube. Patient c/o; reports no complaints. Garden [place] Manager Required: No Accompanied by: Other Relationship Allergies No Known Allergies Allergy (Verified 05/13/24 15:35) HPI HPI S/P PEG J-tube placement: Details: She underwent replacement of her PEG J-tube last 05/03/2024. She tolerated procedure well She is doing well at home. Her Parkinson's symptoms again are now much better controlled with the infusion of Duopa via the PEG J. She denies significant pain [facility] History Pain around percutaneous endoscopic gastrostomy (PEG) tube site Parkinson's disease with dyskinesia and fluctuating manifestations Cataract Insomnia Congenital nystagmus Albinism Lumbar spondylosis Surgical History History of surgery (11/14/23) H/O abdominal surgery Hx laparoscopic cholecystectomy H/O Spinal surgery Social History Unable to assess alcohol history related to: Unable to respond Alcohol intake: never Patient Tobacco Use Status: Never used Tobacco Review of Systems Const Denies chills and Denies fever(s) Card Denies chest pain at rest Resp Denies cough GI Denies abdominal pain Physical Exam Vital Signs: Last Vital Signs Pulse 99 05/13/24 15:34 BP 115/74 05/13/24 15:34 Const General: comfortable and no acute distress Resp Effort & Inspection: normal respiratory effort GI Other: PEG J in place Palpation (GI): Soft to palpation, not firm, nontender and no guarding Assessment & Plan Assessment & Plan (1) Parkinsons disease: Code(s): G20 - Parkinson's disease Category: Medical Plan: Status post PEG J replacement. She is doing very well. Her symptoms are much better controlled now with the infusion via the jejunostomy. I again re-emphasized to her that it is important to keep the PEG J from getting pulled accidentally. I can see her in the office on a p.r.n. basis. Coding Level of Care Code Global (81404) Diagnoses Parkinsons disease G20
== END 2024-05-13 15:39 | disposition home or self-care (01) ==
PROVIDERS: PCP Physician Assistant Medical; Visit Provider Surgery
DX: G20.B2 Parkinson's disease with dyskinesia, with fluctuations (principal); Z48.89 Encounter for other specified surgical aftercare
CPT/HCPCS: 99212

== ENCOUNTER → 2024-05-13 15:05 | Outpatient (BNVA) | payer OTHER, MEDICARE, SELFPAY | PROVIDERS: PCP Physician Assistant Medical; Visit Provider Surgery ==

== ENCOUNTER 2024-05-27 10:12 | Outpatient (AMB) | payer OTHER, MEDICARE, SELFPAY ==
[2024-05-27 10:35] VITALS: BP 98/59; PULSE 91
--- NOTE | 2024-05-27 10:35 | MHC.OFFVIS ---
Vital Signs 05/27/24 10:35 Weight 136 lb BP 98/59 L Blood Pressure Location Rt brachial Position Sitting Pulse 91 Intake Visit Reasons: redness, pain wound check, PEG-J in place Intake Note: This patient presents for redness, pain wound check, PEG-J in place. Patient c/o; wound check, reports redness and discomfort. Meter Reading Clerk Required: No Accompanied by: Family/Other Allergies No Known Allergies Allergy (Verified 05/27/24 10:36) HPI HPI redness, pain wound check, PEG-J in place: Details: She had wanted her PEG J site check. She had complain of some redness and burning pain around the skin. The PEG J seems to be working. Her Parkinson's disease symptoms are much better with the infusion right now. She is normally an able to walk without infusion but now she has been ambulating. [facility] Medical History Pain around percutaneous endoscopic gastrostomy (PEG) tube site Parkinson's disease with dyskinesia and fluctuating manifestations Cataract Insomnia Congenital nystagmus Albinism Lumbar spondylosis Surgical History History of surgery (11/14/23) H/O abdominal surgery Hx laparoscopic cholecystectomy H/O Spinal surgery Social History Unable to assess alcohol history related to: Unable to respond Alcohol intake: never Patient Tobacco Use Status: Never used Tobacco Review of Systems Const Denies chills and Denies fever(s) GI Denies vomiting Physical Exam Vital Signs: Last Vital Signs Pulse 91 05/27/24 10:35 BP 98/59 L 05/27/24 10:35 Const Other: Ambulating, does have some tremors General: comfortable GI Other: PEG J site clean, no signs of infection, no cellulitis Assessment & Plan Assessment & Plan (1) Pain around percutaneous endoscopic gastrostomy (PEG) tube site: Code(s): T85.848A - Pain due to other internal prosthetic devices, implants and grafts, initial encounter Category: Medical Plan: I assured them that at this time, there is no skin infections surrounding the PEG J site. I changed her dressings. I recommended to keep the PEG J from moving too much as this irritates the skin because of friction. I told him the signs of infection including severe redness, pus, and fever She can follow up on a p.r.n. basis. Coding Level of Care Code Global (56746) Diagnoses Pain around percutaneous endoscopic gastrostomy (PEG) tube site T85.848A
== END 2024-05-27 10:58 | disposition home or self-care (01) ==
PROVIDERS: PCP Physician Assistant Medical; Visit Provider Surgery
DX: T85.848A Pain due to other internal prosthetic devices, implants and grafts, initial encounter (principal)
CPT/HCPCS: 99213

== ENCOUNTER → 2024-05-27 10:12 | Outpatient (BNVA) | payer OTHER, MEDICARE, SELFPAY | PROVIDERS: PCP Physician Assistant Medical; Visit Provider Surgery ==

== ENCOUNTER 2024-10-28 07:36 | Outpatient (AMB) | payer OTHER, MEDICARE, SELFPAY ==
--- NOTE | 2024-10-28 07:38 | MHC.OFFVIS ---
Vital Signs 10/28/24 07:41 Height 5 ft 6 in Weight 137 lb BMI 22.1 Intake Visit Reasons: 4 Month F/U - LVM w/add Intake Note: Patient presents for 4 month follow up. patient having more dyskenesia Allergies No Known Allergies Allergy (Verified 10/28/24 07:42) Medication List - Last Reconciled 10/28/24 by Karolina Jones MD [acetaminophen 500 mg PO BID PRN] amantadine HCl 50 - 100 mg (0.5 - 1 x 100 mg) PO BID 90 days baclofen 10 mg (2 x 5 mg) PO BEDTIME famotidine 20 mg PO DAILY gabapentin 600 mg (2 x 300 mg) PO TID PRN magnesium 200 mg PO DAILY omeprazole 40 mg PO DAILY polyethylene glycol 3350 (Miralax) 17 grams PO BID tenofovir disoproxil fumarate 300 mg PO BEDTIME tramadol 50 mg PO Q6H PRN trazodone 50 mg PO BEDTIME PRN trihexyphenidyl 1 mg (1/2 x 2 mg) PO Q6H HPI Comments Details: 53-year-old female comes for follow-up of her Parkinson's disease complicated by severe dyskinesia and on-off fluctuations. Morning dose 9 ml max at 11 Her decreased her Continuous dose to 2 ml max at 3 -2 weeks ago . LLI Extra dose 1mg q 2 hrs.max 2 she has been doing well. she uses the extra dose 1-2 times a day usually before a shower. she has dyskinesias - starts around 11 am - all day. She has episodes of sudden neck spasm - massage helps.PT helped . But now it is back. Less severe. she is stable with trihexyphenidyl 1mg qid No falls No painful dystonia. She is accompanied by her daughter who helps with the history. Patient also has history of spinal stenosis and lumbar spondylosis. Her back pain is better and she takes gabapentin on a as needed basis. she is under the care of pain management. She denies any numbness or tingling. She uses a cane to walk and occasionally loses balance. She denies any hallucinations dysphagia memory issues etc.. she sleeps better with trazodone. [facility] Medical History (Updated 10/28/24 @ 07:56 by Karolina Jones MD) Cervicalgia Pain around percutaneous endoscopic gastrostomy (PEG) tube site Parkinson's disease with dyskinesia and fluctuating manifestations Cataract Insomnia Congenital nystagmus Albinism Lumbar spondylosis Surgical History History of surgery (11/14/23) H/O abdominal surgery Hx laparoscopic cholecystectomy H/O Spinal surgery Social History Unable to assess alcohol history related to: Unable to respond Alcohol intake: never Patient Tobacco Use Status: Never used Tobacco Physical Exam Vital Signs: BMI result Body Mass Index 22.1 Const General: cooperative, healthy appearing and anxious Nutritional Appearance: average body habitus Neuro Other: Moderate bradykinesia No Tremors Fine finger movements were decreased bilaterally. Foot taps were decreased bilaterally Tone - normal Speech - hypophonia decreased facial expression and blink gait not evaluated Assessment & Plan Assessment & Plan (1) Parkinson's disease with dyskinesia and fluctuating manifestations: Code(s): G20.B2 - Parkinson's disease with dyskinesia, with fluctuations Category: Medical (2) Lumbar spondylosis: Code(s): M47.816 - Spondylosis without myelopathy or radiculopathy, lumbar region Category: Medical Plan Duopa set up at 9ml morning dose 2 ml continuous dose Trihexyphenidyl 2mg 1/2 tab qid continue exercises Trazodone 100mg qhs gabapentin 600 tid baclofen 5-10 mg qhs and qam as needed . magnesium 400mg qhs Orders: Orders PT Evaluation and Treatment 10/28/24 M54.2 - Cervicalgia Medications: Changed From amantadine HCl 50 - 100 mg (0.5 - 1 x 100 mg) PO BID 30 days 60 tabs 3RF To amantadine HCl 50 - 100 mg (0.5 - 1 x 100 mg) PO BID 180 tabs 3RF 90 days Refilled trihexyphenidyl 1 mg (1/2 x 2 mg) PO Q6H 180 tabs 1RF Coding Level of Care Code Est Pt Level 4 (96953) Complex EM visit Add On G2211 Diagnoses Parkinson's disease with dyskinesia and fluctuating manifestations G20.B2 Lumbar spondylosis M47.816
[2024-10-28 07:41] VITALS: BMI 22.1
== END 2024-10-28 08:01 | disposition home or self-care (01) ==
PROVIDERS: PCP Physician Assistant Medical; Visit Provider Psychiatry & Neurology Neurology
DX: G20.B2 Parkinson's disease with dyskinesia, with fluctuations (principal); M47.816 Spondylosis without myelopathy or radiculopathy, lumbar region
CPT/HCPCS: 99214

== ENCOUNTER → 2024-10-28 07:36 | Outpatient (BNVA) | payer OTHER, MEDICARE, SELFPAY | PROVIDERS: PCP Physician Assistant Medical; Visit Provider Psychiatry & Neurology Neurology ==

== ENCOUNTER 2025-05-05 12:14 | Outpatient (AMB) | payer OTHER, MEDICARE, SELFPAY ==
--- OUTSIDE RECORDS SUMMARY | 2025-05-04 23:59 | XMS_ITS | Continuity of Care Document ---
Author Organization [facility] Address [address] [place] [id number] Support Name Relationship Address Phone ALEE, BITA Personal Relationship Unknown Unavai lable GLORIA, ELIDA Personal Relationship Unknown Unavai lable GLORIA, ELIDA spouse Unknown Unavailable GLORIA, AND Personal Relationship Unknown Unavai lable VICKERS, LOAN Personal Relationship Unknown Unavai lable VICKERS, LOAN Personal Relationship Unknown Unavai lable VICKERS, ELIDA Personal Relationship Unknown Unavai lable VICKERS, ELIDA Personal Relationship Unknown Unavai lable VICKERS, LOAN Personal Relationship Unknown Unavai lable VICKERS, LOAN Personal Relationship Unknown Unavai lable GLORIA, ELIDA Personal Relationship Unknown Unavai lable DUI, ELIDA Personal Relationship Unknown Unavai lable VICKERS, LOAN Personal Relationship Unknown Unavai lable GLORIA, ELIDA Personal Relationship Unknown Unavai lable GLORIA, DARÍO child Unknown Unavailable GLORIA, ARLENE child Unknown Unavailable GLORIA, ELIDA Personal Relationship Unknown Unavai lable VICKERS, LOAN Personal Relationship Unknown Unavai lable GLORIA, ELIDA Personal Relationship Unknown Unavai lable GLORIA, ELIDA Personal Relationship Unknown Unavai lable Care Team Providers Care Crinkling Machine Operator Name Role Phone Kayla Estes Primary Care Physician Encounter [facility] Date(s): 04/04/25 - 05/04/25 [facility] [address] [place] [id number] Encounter Type: Triage Allergies, Adverse Reactions, Alerts No Known Allergies Immunizations Given and Recorded Vaccine Date Status Refusal Reason tetanus/diphtheria/pertussis, acel(Tdap) 03/07/25 Given tetanus/diphtheria/pertussis, acel(Tdap) 07/19/13 Given influenza virus vaccine, inactivated 10/25/24 [facility] influenza virus vaccine, inactivated 09/01/23 [facility] influenza virus vaccine, inactivated 07/30/22 [facility] influenza virus vaccine, inactivated 07/05/21 [facility] influenza virus vaccine, inactivated 08/18/20 [facility] influenza virus vaccine, inactivated 1 08/14/19 [facility] lacei influenza virus vaccine, inactivated 08/13/18 [facility] influenza virus vaccine, inactivated 01/13/16 Give n [id number] 12y+ bivalent booster vax 07/14/22 Recorded zoster vaccine, inactivated 10/03/21 Recorded zoster vaccine, inactivated 06/18/21 Recorded SARS-CoV-2 (COVID-19) mRNA BNT-162b2 vac 09/21/21 Recorded SARS-CoV-2 (COVID-19) mRNA BNT-162b2 vac 01/05/21 Recorded SARS-CoV-2 (COVID-19) mRNA BNT-162b2 vac 12/14/20 Recorded pneumococcal 23-valent vaccine 2 09/29/20 Given pneumococcal 13-valent vaccine 09/29/20 Recorded influ virus vac, H1N1, inactive(oldterm) 12/24/09 Given 1Early/Late Reason: Wan to Standard Admin Times 2Early/Late Reason: Early/Late Reason: Med Not Available Medications cholecalciferol 2000 intl units oral capsule 1 capsule = 50 mcg, By Mouth, Daily, # 100 capsule, 1 Refills, Maintenance, 03/25/25 8:07:00 AM EDT,Capsule, [facility]/pharmacy #[id number], Partial fill upon patient request if the prescription is for a schedule II opioid drug., 167, cm, 03/10/25 14:37:00 EDT, Height, 61.3, kg, 01/20/25 12:40:00 EDT, Dry Weight Start Date: 03/25/25 Status: Ordered Quantity: 100.0 Unit: capsule Repeat number: 2 cyclobenzaprine 10 mg oral tablet See Instructions, PRN, TAKE 1 TABLET BY MOUTH THREE TIMES A DAY, # 90 tablet, Refills 1, Tot. Refills 1, Maintenance, Spasm, 12/31/24 8:36:00 AM EST, Instructions Replace Required Details, Route to Pharmacy Electronically, [facility]/pharmacy #[id number], 167, cm, 11/26/24 13:20:00 EST, Height, 52.5, kg, 07/22/23 10:08:00 EDT, Dry Weight Start Date: 12/31/24 Status: Ordered Quantity: 90.0 Unit: tablet Repeat number: 2 Duopa 4.63 mg-20 mg/mL enteral suspension 0 Refills, Maintenance, 01/16/25 9:01:00 AM EDT, Partial fill upon patient request if the prescription is for a schedule II opioid drug. Start Date: 01/16/25 Status: Ordered Repeat number: 1 entacapone 200 mg oral tablet 1 tablet = 200 mg, By Mouth, 3 times a day, 0 Refills, 11/07/22 8:42:00 AM EST, Partial fill upon patient request if the prescription is for a schedule II opioid drug. Start Date: 11/07/22 Status: Ordered Repeat number: 1 famotidine 20 mg oral tablet 20 mg, 1, tablet, By Mouth, Daily at bedtime, # 30 tablet, Refills 0, Tot. Refills 0, Maintenance, 07/11/23 12:00:00 PM EDT, Route to Pharmacy Electronically, [facility]/pharmacy #[id number], Partial fill upon patient request if the prescription is for a schedule II opioid drug., 166, cm, 07/11/23 11:07:00 EDT, Height, 56.7, kg, 06/22/23 18:08:00 EDT, Dry Weight Start Date: 07/11/23 Status: Ordered Quantity: 30.0 Unit: tablet Repeat number: 1 gabapentin 300 mg oral capsule 300 mg, 1, capsule, By Mouth, 3 times a day, PRN, Refills 0, Maintenance, Pain , Mild, 06/30/21 11:15:00 AM EDT, Partial fill upon patient request if the prescription is for a schedule II opioid drug. Start Date: 06/30/21 Status: Ordered Repeat number: 1 indomethacin 50 mg oral capsule 1 capsule = 50 mg, By Mouth, 3 times a day, with food or milk, # 15 capsule, 0 Refills, Maintenance, 09/02/24 4:21:00 PM EST, [facility]/pharmacy #[id number], Partial fill upon patient request if the prescription is for a schedule II opioid drug., 167, cm, 09/02/24 15:57:00 EST, Height, 52.5, kg, 07/22/23 10:08:00 EDT, Dry Weight Start Date: 09/02/24 Stop Date: 09/07/24 Status: Ordered Quantity: 15.0 Unit: capsule Repeat number: 1 lactulose 10 gm/15 ml oral syrup 15 mL = 10 Gm, By Mouth, Daily, PRN as needed for constipation, # 480 mL, 0 Refills, Maintenance, 03/07/25 9:43:00 AM EDT, Syrup, [id number], Partial fill upon patient request if the prescription is for a schedule II opioid drug., 15 mL By Mouth Daily,PRN:as needed for constipation, 167, cm, 03/07/25 9:13:00 EDT, Height, 61.3, kg, 01/20/25 12:40:00 EDT, Dry Weight Start Date: 03/07/25 Status: Ordered Quantity: 480.0 Unit: mL Repeat number: 1 Indications: Constipation, unspecified; lidocaine 5% topical film 3 patch, Topically, Daily, remove patches after 12 hours, # 30 patch, 0 Refills, Acute 09/30/25 12:00:00 PM EST, 09/13/24 3:40:00 PM EST, Film, [id number], Partial fill upon patient request ifthe prescription is for a schedule II opioid drug., 3 patch Topically Daily,Instr:remove patches after 12 hours, 167, cm, 09/10/24 7:38:00 EST, Height, 52.5, kg, 07/22/23 10:08:00 EDT, Dry Weight Start Date: 09/13/24 Stop Date: 09/30/25 Status: Ordered Quantity: 30.0 Unit: patch Repeat number: 1 MiraLax oral powder for reconstitution = 17 Gm, By Mouth, Daily, dissolve in water before taking, # 255 Gm, 0 Refills, Maintenance, 03/03/2312:09:00 PM EDT, REC Powder, Partial fill upon patient request if the prescription is for a schedule II opioid drug. Start Date: 03/03/23 Status: Ordered Quantity: 255.0 Unit: g Repeat number: 1 omeprazole 40 mg oral enteric coated capsule 1 capsule, By Mouth, Daily, # 90 capsule, 3 Refills, Maintenance, 01/08/25 9:06:00 AM EDT, [id number], 167, cm, 11/26/24 13:20:00 EST, Height, 52.5, kg, 07/22/23 10:08:00 EDT, Dry Weight Start Date: 01/08/25 Status: Ordered Quantity: 90.0 Unit: capsule Repeat number: 4 tenofovir disoproxil fumarate 300 mg oral tablet 1 tablet = 300 mg, By Mouth, Daily, # 90 tablet, 3 Refills, Maintenance, 01/16/25 5:04:00 PM EDT, Tablet, [facility]/pharmacy #[id number], 167, cm, 11/26/24 13:20:00 EST, Height, 52.5, kg, 07/22/23 10:08:00 EDT, Dry Weight Start Date: 01/16/25 Status: Ordered Quantity: 90.0 Unit: tablet Repeat number: 4 traZODone 50 mg oral tablet 50 mg, 1, tablet, By Mouth, Daily at bedtime, Refills 0, 11/07/22 8:41:00 AM EST, Partial fill upon patient request if the prescription is for a schedule II opioid drug. Start Date: 11/07/22 Status: Ordered Repeat number: 1 Trihexyphenidyl = 2 mg, By Mouth, 3 times a day, 0 Refills, Maintenance, 10/06/23 7:56:00 AM EST, Partial fill upon patient request if the prescription is for a schedule II opioid drug. Start Date: 10/06/23 Status: Ordered Repeat number: 1 Zaditor 0.025% ophthalmic solution 1 drops, Eyes, Both, Every 8 hours, PRN Itch, # 7.5 mL, 1 Refills, Maintenance, 03/07/25 9:50:00 AM EDT, Ophth Solution, [facility]/pharmacy #[id number], Partial fill upon patient request if the prescription is fora schedule II opioid drug., 1 drops Eyes, Both Every 8 hours,x10 days,PRN:Itch, 167, cm, 03/07/25 9:13:00 EDT, Height, 61.3, kg, 01/20/25 12:40:00 EDT, Dry Weight Start Date: 03/07/25 Stop Date: 03/27/25 Status: Ordered Quantity: 7.5 Unit: mL Repeat number: 2 Problem List Condition Confirmation Course Effective Dates Status Health Status Informant Chronic hepatitis B Confirmed Active Constipation Confirmed Active GERD (gastroesophageal reflux disease) Confirmed Active Parkinsons disease Confirmed Active Annual physical exam Confirmed Active Failed back syndrome Confirmed Active Pure hypercholesterolemia Confirmed Active Sigmoid volvulus Confirmed Active Vitamin D deficiency Confirmed Active Social History Social History Type Response Smoking Status Never smoker entered on: 06/04/15 Sex Sex Representation Female (finding) Patient Care team information Care Team Personnel Name: Lindsay Mercer RN Position: [facility] RN Member Role: Primary Care Nurse Name: Kayla Estes Position: [facility] PCO Associate Professional Member Role: PCP Address: [address] [place] [id number] Telecom: Name: Eran Spence RN Position: [facility] RN Member Role: Primary Care Nurse Name: Prince Watsno RN Position: [facility] RN [...] Care Nurse Name: Flavia Moeller RN Position: [facility] RN Member Role: Primary Care Nurse Name: Danae Orozco RN Position: [facility] RN Member Role: Primary Care Nurse Name: Issac Francois RN Position: [facility] RN Member Role: Primary Care Nurse Name: Angelic Rainey RN Position: [facility] RN Member Role: Primary Care Nurse Name: Doreen Murillo RN Position: [facility] RN Member Role: Primary Care Nurse Name: Shira Minor RN Position: [facility] OB RN Member Role: Primary Care Nurse Name: Kari Dykes RN Position: [facility] RN Member Role: Primary Care Nurse Name: Cristina Green RN Position: [facility] RN Member Role: Primary Care Nurse Name: Esteban Roque RN Position: [facility] RN Member Role: Primary Care Nurse Name: Nidia Mendoza RN Position: [facility] ED RN W/OE and Tasks Member Role: Primary Care Nurse Care Team Related Persons Name: ELIDA GLORIA Name: DARÍO GLORIA Name: ARLENE GLORIA Insurance Providers Guarantor name: BITA PARHAMUYEN [employer] [facility] Information #: 1 Payer: [facility] Payer Identifier: KAITLYNN Member Number: [id number] Group Number: [id number] Subscriber Identifier: [id number] Relationship to Subscriber: spouse Coverage Type: Commercial Managed Care - PPO Coverage Verification Date: NA Telecom: NA Address: [facility] Information #: 2 Payer: MEDICARE B Payer Identifier: KAITLYNN Member Number: [id number] Group Number: Subscriber Identifier: [id number] Relationship to Subscriber: self Coverage Type: NA Coverage Verification Date: NA Telecom: Address:
--- NOTE | 2025-05-05 12:18 | MHC.OFFVIS ---
Vital Signs 05/05/25 12:22 Height 5 ft 6 in Weight 133 lb BMI 21.5 BP 90/62 Blood Pressure Location Rt brachial Position Sitting Pulse 84 Pulse Source Pulse Oximeter Pulse Oximetry (%) 100 Oxygen Delivery Method Room Air Intake Visit Reasons: 6 Month F/U Intake Note: Patient presents for follow up Allergies No Known Allergies Allergy (Verified 05/05/25 12:22) HPI Comments Details: 55-year-old female comes for follow-up of her Parkinson's disease complicated by severe dyskinesia and on-off fluctuations. Morning dose 9 ml max at 11 Her decreased her Continuous dose to 2 ml max at 3 -2 weeks ago . LLI Extra dose 1mg q 2 hrs.max 2 she has been doing well. she uses the extra dose 1-2 times a day usually before a shower. she has dyskinesias - starts around 11 am - all day. She reports shoulder spasm and pain . she is stable with trihexyphenidyl 1mg qid No falls No painful dystonia. She is accompanied by her son who helps with the history. Patient also has history of spinal stenosis and lumbar spondylosis. Her back pain is better and she takes gabapentin on a as needed basis. she is under the care of pain management. She denies any numbness or tingling. She uses a cane to walk and occasionally loses balance. She denies any hallucinations dysphagia memory issues etc.. she sleeps better with trazodone. [facility] Medical History Cervicalgia Pain around percutaneous endoscopic gastrostomy (PEG) tube site Parkinson's disease with dyskinesia and fluctuating manifestations Cataract Insomnia Congenital nystagmus Albinism Lumbar spondylosis Surgical History History of surgery (11/14/23) H/O abdominal surgery Hx laparoscopic cholecystectomy H/O Spinal surgery Social History Unable to assess alcohol history related to: Unable to respond Alcohol intake: never Patient Tobacco Use Status: Never used Tobacco Physical Exam Vital Signs: Last Vital Signs Pulse 84 05/05/25 12:22 BP 90/62 05/05/25 12:22 Pulse Ox 100 05/05/25 12:22 Oxygen Delivery Method Room Air 05/05/25 12:22 BMI result Body Mass Index 21.5 Const General: cooperative, healthy appearing and anxious Nutritional Appearance: average body habitus Neuro Other: Mild to moderate dyskinesia No Tremors Fine finger movements were decreased bilaterally. Foot taps were decreased bilaterally Tone - normal Speech -mild hypophonia decreased facial expression and blink gait- midl off balance but good stride speed and turning Assessment & Plan Assessment & Plan (1) Parkinson's disease with dyskinesia and fluctuating manifestations: Code(s): G20.B2 - Parkinson's disease with dyskinesia, with fluctuations Category: Medical (2) Lumbar spondylosis: Code(s): M47.816 - Spondylosis without myelopathy or radiculopathy, lumbar region Category: Medical Plan Duopa set up at 9ml morning dose 2 ml continuous dose Trihexyphenidyl 2mg 1/2 tab qid continue exercises Trazodone 100mg qhs gabapentin 600 tid amantadine 100mg 1/2 tab bid diclofenac 1% gel for left shoulder pain baclofen 5-10 mg qhs and qam as needed . magnesium 400mg qhs Medications: New diclofenac sodium 1% apply to single shoulder 4 grams topical QID 100 grams 6RF Refilled baclofen 10 mg (2 x 5 mg) PO BEDTIME 60 tabs 4RF Coding Level of Care Code Est Pt Level 4 (80390) Complex EM visit Add On G2211 Diagnoses Parkinson's disease with dyskinesia and fluctuating manifestations G20.B2 Lumbar spondylosis M47.816
[2025-05-05 12:22] VITALS: BP 90/62; PULSE 84; O2SAT 100; BMI 21.5
--- OUTSIDE RECORDS SUMMARY | 2025-05-05 12:58 | XMS_ITS | Data Portability ---
Author Organization [facility], [facility] Address [address] [place] [address] Care Team Providers Care Coach Operator Name Role Phone DEVIN CUENCA Primary Care Provider [phone] Assessment Encounter Date Assessment Date Assessment LastModified by Organization Details LastModified Time 08/15/2024 08/15/2024 Assessment: Decreased tension to L UT. Improved L shoulder posture. Pt able to tolerate new strengthening therex w/o increased px or sxs. Plan: Continue PT @ 2x/wk MH, STM UT, PS, Pec stretch and postural strengthening. Trial resistance strengthening next visit Not available 08/18/2024 12:39:04 08/19/2024 08/19/2024 Assessment: Good surekha to deep pressure STM. Primary comparable sign at upper 1/3 medial border L scap. Good surekha to UBE Plan: Continue PT @ 2x/wk MH, STM UT, PS, Pec stretch and postural strengthening. Progress PS strengthening as able tpyser Not available 08/19/2024 16:36:19 08/29/2024 08/29/2024 Assessment: Good surekha to deep pressure STM. Able to surekha increased strengthening, pt challenged with comprehending chin tuck ex. Plan: Continue PT @ 2x/wk MH, STM UT, PS, Pec stretch and postural strengthening. Progress PS strengthening as able Not available 08/30/2024 07:20:04 09/06/2024 09/06/2024 Assessment: Good surekha to deep pressure STM. Able to surekha increased strengthening, increased ave-scapular strength. Plan: Continue PT @ 2x/wk MH, STM UT, PS, Pec stretch and postural strengthening. Progress PS strengthening as able Not available 09/08/2024 13:46:09 Plan of Treatment Reminders Order Date Submit Date Provider Last Modified By Organization Details Last Modified Time Details Appointments None record ed. Lab None record ed. Referral None record ed. Procedures None record ed. Surgeries None record ed. Imaging None record ed. Medication Orders None record ed. Patient TargetsNo targets recorded. Patient InstructionsNo instructions recorded. Reason for Referral None Reported. Problems Name Problem SNOMED Code Status Onset Date Resolution Date Notes Provider Name and Address Organization Details Recorded Time No complaint s 817959131 Active Status: 'I'; Not Available [facility] 4 09:11:59 Impingeme nt syndrome of left shoulder region 016375493133 104 Active 2023 Frnacesco Carmona PA-C [address], [place], [address] , [facility] 4 06:35:24 Pain of left shoulder joint 503902823442 10710 Active 2023 Francesco Carmona PA-C [address], [place], [address] , [facility] 4 08:15:26 Neck pain 01384915 Active 2023 Francesco Carmona PA-C [address], [place], [address] , [facility] 4 08:15:32 Cervical radiculop athy 85061930 Active 2023 Francesco Carmona PA-C [address], [place], [address] , [facility] 5 08:39:10 Pain in left arm 850037334 Active 2014 Problem Code: M79.602; Problem Code Type: ICD-10; Status: 'A'; Not Available [facility] 4 11:13:07 Degenerat ion of cervical intervert ebral disc 92012814 Active 2016 Problem Code: M50.32; Problem Code Type: ICD-10; Status: 'A'; Not Available [facility] 4 11:13:07 Pain of right shoulder joint 912895316380 31784 Active 2016 Problem Code: M25.511; Problem Code Type: ICD-10; Status: 'A'; Not Available [facility] 4 11:13:07 Lateral epicondyl itis of left humerus 534236638972 100 Active 2016 Problem Code: M77.12; Problem Code Type: ICD-10; Status: 'A'; Not Available [facility] 4 11:13:08 Pain of right knee joint 614877678845 100 Active 2016 Problem Code: M25.561; Problem Code Type: ICD-10; Status: 'A'; Not Available [facility] 4 11:13:08 Problem Notes None recorded. Procedures Surgical History Date Name Laterality Status Provider Name and Address Organization Details Recorded Time 4 01450 Therapeutic Exercise (1:1) completed Meg Higginbothame, EMERGENCY MEDICINE SPECIALIST [address], [place], [address], [facility] 09/08/2024 13:42:55 4 31309: Hot or Cold Pack completed Meg Bluedge, EMERGENCY MEDICINE SPECIALIST [address], [place], [address], [facility] 09/08/2024 13:42:55 4 93167: Manual therapy completed Meg Higginbothame, EMERGENCY MEDICINE SPECIALIST [address], [place], [address], [facility] 09/08/2024 13:42:55 4 79945 Therapeutic Exercise (1:1) completed Damieana Fudge, EMERGENCY MEDICINE SPECIALIST [address], [place], [address], [facility] 08/30/2024 07:15:27 4 88525: Hot or Cold Pack completed Damieana Fudge, EMERGENCY MEDICINE SPECIALIST [address], [place], [address], [facility] 08/29/2024 15:27:56 4 54241: Manual therapy completed Damieana Fudge, EMERGENCY MEDICINE SPECIALIST [address], [place], [address], [facility] 08/29/2024 15:27:56 4 14556 Therapeutic Exercise (1:1) completed Leroy Madridser, PT [address], [place], [address], [facility] 08/17/2024 07:41:42 4 62938: Hot or Cold Pack completed Leroy Pyser, PT [address], [place], [address], [facility] 08/17/2024 07:41:42 4 40460: Manual therapy completed Leroy Madridser, PT [address], [place], [address], [facility] 08/17/2024 07:41:42 73240 Therapeutic Exercise (1:1) completed Meg Car, EMERGENCY MEDICINE SPECIALIST [address], [place], [address], [facility] 08/18/2024 12:39:30 4 08742: Hot or Cold Pack completed Meg Car, EMERGENCY MEDICINE SPECIALIST [address], [place], [address], [facility] 08/14/2024 14:43:51 4 04479: Manual therapy completed Meg Car, EMERGENCY MEDICINE SPECIALIST [address], [place], [address], [facility] 08/14/2024 14:43:52 91709 Therapeutic Exercise (1:1) completed Leroy Madridser, PT [address], [place], [address], [facility] 08/06/2024 07:40:03 4 52729: Hot or Cold Pack completed Leroy Schafer, PT [address], [place], [address], [facility] 08/07/2024 19:34:27 4 60970: Manual therapy completed Leroy Schafer, PT [address] [facility], [place], [address], [facility] 08/07/2024 19:35:04 4 57705 Therapeutic Exercise (1:1) completed Meg Car, EMERGENCY MEDICINE SPECIALIST [address], [place], [address], [facility] 08/06/2024 11:19:51 4 00194: Hot or Cold Pack completed Meg Car, EMERGENCY MEDICINE SPECIALIST [address] [facility], [place], [address], [facility] 08/06/2024 11:19:58 4 60720: Manual therapy completed Meg Car, EMERGENCY MEDICINE SPECIALIST [address] [facility], [place], [address], [facility] 08/06/2024 11:19:47 4 99799 Therapeutic Exercise (1:1) completed Leroy Schafer, PT [address] [facility], [place], [address], [facility] 08/01/2024 16:42:47 4 95235: Low complexity PT Eval completed Leroy Schafer, PT [address], [place], [address], [facility] 08/01/2024 16:42:51 Imaging Results None recorded. Procedure Notes None recorded. Medical Equipment None Reported. Allergies No known drug allergies Medications Name Sig Start Date Stop Date Status Note LastModified by Organization Details LastModified Time amantadine HCl 100 mg tablet TAKE 1/2 TO 1 TABLET BY MOUTH 2 TIMES A DAY FOR 30 DAYS active Not Available Not Available No t Available cyclobenzap rine 10 mg tablet TAKE 1 TABLET BY MOUTH THREE TIMES A DAY active Not Available Not Available No t Available acetaminoph en 325 mg tablet TAKE 2 TABLETS BY MOUTH EVERY 4 HOURS active Not Available Not Available No t Available trazodone 50 mg tablet TAKE 1 TABLET BY MOUTH EVERY DAY AT BEDTIME NEEDED FOR INSOMNIA active Not Available Not Available No t Available cefpodoxime 200 mg tablet TAKE 1 TABLET BY MOUTH TWICE A DAY FOR 7 DAYS active Not Available Not Available No t Available omeprazole 40 mg capsule,del ayed release TAKE 1 CAPSULE BY MOUTH EVERY DAY active Not Available Not Available No t Available tramadol 50 mg tablet TAKE 1 TABLET BY MOUTH EVERY 12 HOURS NEEDED FOR PAIN active Not Available Not Available No t Available meloxicam 7.5 mg tablet TAKE 1 TABLET BY MOUTH EVERY DAY active Not Available Not Available No t Available oxycodone-a cetaminophe n 5 mg-325 mg tablet TAKE 1 TABLET BY MOUTH EVERY 4 TO 6 HOURS NEEDED FOR PAIN active Not Available Not Available No t Available entacapone 200 mg tablet TAKE 1 TABLET BY MOUTH 3 TIMES A DAY active Not Available Not Available No t Available famotidine 20 mg tablet TAKE 1 TABLET BY MOUTH EVERYDAY AT BEDTIME active Not Available Not Available No t Available phenazopyri dine 100 mg tablet TAKE 1 TABLET BY MOUTH THREE TIMES A DAY NEEDED FOR PAIN FOR 3 DAYS active Not Available Not Available No t Available cephalexin 500 mg capsule TAKE 1 CAPSULE BY MOUTH 4 TIMES A DAY FOR 7 DAYS active Not Available Not Available No t Available pseudoephed rine-guaife nesin ER 80-700 mg tablet,exte nded release Percocet 5-325MG Tablet 1 every 4 - 6 hours as needed 2009 active Statu s: 'Curr ent'; Not Available Not Available Not Available lidocaine 5 % topical patch APPLY 3 PATCHES TOPICALLY DAILY,INS TR:REMOVE PATCHES AFTER 12 HOURS active Not Available Not Available No t Available indomethaci n 50 mg capsule TAKE 1 CAPSULE BY MOUTH 3 TIMES A DAY FOR 5 DAYS TAKE WITH FOOD OR MILK active Not Available Not Available No t Available gabapentin 300 mg capsule TAKE 2 CAPSULES BY MOUTH 3 TIMES A DAY NEEDED FOR BACK PAIN active Not Available Not Available No t Available tenofovir disoproxil fumarate 300 mg tablet TAKE 1 TABLET BY MOUTH EVERY DAY active Not Available Not Available No t Available estradiol 0.01% (0.1 mg/gram) vaginal cream INSERT 1G BY VAGINAL ROUTE EVERY NIGHT FOR 2 WEEKS THEN INSERT 1G TWICE WEEKLY active Not Available Not Available No t Available methylpredn isolone 4 mg tablets in a dose pack TAKE 6 TABLETS ON DAY 1 DIRECTED ON PACKAGE AND DECREASE BY 1 TAB EACH DAY FOR A TOTAL OF 6 DAYS active Not Available Not Available No t Available trihexyphen idyl 2 mg tablet TAKE 1/2 TABLET BY MOUTH EVERY 6 HOURS active Not Available Not Available No t Available carbidopa 25 mg-levodopa 100 mg tablet TAKE 1 & 1/2 TABLETS BY MOUTH 5 TIMES A DAY active Not Available Not Available No t Available oxycodone 5 mg tablet TAKE 1 TABLET BY MOUTH EVERY 6 HOURS NEEDED FOR MODERATE PAIN active Not Available Not Available No t Available nitrofurant oin monohydrate /macrocryst als 100 mg capsule TAKE 1 CAPSULE BY MOUTH 2 TIMES A DAY FOR 5 DAYS WITH FOOD active Not Available Not Available No t Available oxycodone HCl-oxycodo ne-ASA oxyCODONE HCl 5MG Tablet 12/11 completed Statu s: 'Disc ontin ued'; Not Available Not Available Not Available Duopa 4.63 mg-20 mg/mL suspension in j-tube pump active Not Available Not Available Not Available baclofen 5 mg tablet TAKE 2 TABLETS BY MOUTH AT BEDTIME active Not Available Not Available No t Available Paxlovid 300 mg (150 mg x 2)-100 mg tablets in a dose pack TAKE 3 TABLETS BY MOUTH TWICE A DAY FOR 5 DAYS active Not Available Not Available No t Available Vitals Date Recorded Body height Body mass index (BMI) Body weight Provider Name and Address Organization Details Last Updated DateTime 12/25/2024 167.64 cm 21.5 kg/m2 68755.79 g Francesco Carmona PA-C [address] [facility] [address], [address], [place] - [place] [facility] 12/25/2024 08:08:18 Social History None recorded. Functional Status None recorded. Mental Status None recorded. Family History Nothing Reported. Medical History Condition Response Hepatitis Y Headaches Y Gynecological HistoryNo gynecological history recorded. Obstetrics History GPAL:G 0 P 0 0 0 0 Past Encounters Encounter ID Performer Location Encounter Start Date Encounter Closed Date Diagnosis/Indication Diagnosis SNOMED-CT Code Diagnosis ICD10 Code Diagnosis Note [id number] JOY Frazier [address] [address] 06/29/2024 08:08:05 07/16/2024 08:21:48 Impingement syndrome of left shoulder region 1140886922 17227 M75.42 Pain of le ft shoulder joint 7713686393 9930588 M25.512 Neck pain 11365479 M54.2 Cervical radiculopathy 33210766 M54.12 [id number] Leroy Pyser, PT [facility] [address] [place] [address] 08/02/2024 08:28:12 08/02/2024 10:13:19 Cervical radiculopathy 95467665 M54.12 [id number] Ladyana Fudge, EMERGENCY MEDICINE SPECIALIST [facility] [address] [place] [address] 08/05/2024 14:57:32 08/05/2024 15:32:45 Cervical radiculopathy 91177362 M54.12 [id number] Leroy Madridser, PT [facility] [address] [place] [address] 08/07/2024 17:46:06 08/07/2024 18:13:38 Cervical radiculopathy 54947604 M54.12 [id number] Ladyconnie Fudge, EMERGENCY MEDICINE SPECIALIST [facility] [address] [place] [address] 08/15/2024 15:27:55 08/15/2024 17:33:11 Cervical radiculopathy 65527860 M54.12 [id number] Leroy Madridser, PT [facility] [address] [place] [address] 08/19/2024 14:43:25 08/19/2024 16:20:35 Cervical radiculopathy 47526061 M54.12 [id number] Armondcarmitaana Fudge, EMERGENCY MEDICINE SPECIALIST [facility] [address] [place] [address] 08/29/2024 15:08:13 08/29/2024 17:06:21 Cervical radiculopathy 87114317 M54.12 [id number] Damcarmitaana Fudge, EMERGENCY MEDICINE SPECIALIST [facility] [address] [place] [address] 09/06/2024 09:04:39 09/06/2024 10:14:04 Cervical radiculopathy 31481800 M54.12 [id number] JOY FrazierA [address] [place] [place] [address] 12/25/2024 07:52:51 01/10/2025 12:35:23 Cervical radiculopathy 37299414 M54.12 Health Concerns Section Related Observation LastModified by Organization Detai ls LastModified Time None Recorded Concern Status LastModified by Organization Details LastModified Time None Recorded Advance Directives Directive None Recorded Payers Insurance Date Sequence Insurance Name Policy Number Policy Rojas Covered Member ID Rojas Member ID Guarantor Name 01/10/2025 1 [employer] [id number] Loan T Wright [id number] Loan T Wright 12/22/2024 2 MEDICARE [place]: [employer] Loan T Wright [id number] Loan T Wright Notes Date Note Type Note Provider Name and Address Organization Details Recorded Time 08/15/2024 text/html Pt arrives to PT with daughter who translates for her. Pt reports 3/10 pain upon entering therapy today, has been doing better. Meg Car, EMERGENCY MEDICINE SPECIALIST [address], [place], [address], [facility] 08/18/2024 12:40:12 08/19/2024 text/html Pt arrives to PT with son who translates for her. Pt reports am is good, pain increases to ~ 4-5/10 pain later in the day. Therapy is helping subj'ly. Pt reports ~10 min surekha to L S/L then L UE numbness Leroy Schafer, PT [address], [place], [address], [facility] 08/19/2024 16:37:37 08/29/2024 text/html Pt arrives to PT with daughter who translates for her. Pt reports is doing better, does stretches and ex at home. 2/10 pain upon entering therapy. Meg Car, EMERGENCY MEDICINE SPECIALIST [address], [place], [address], [facility] 08/30/2024 08:40:40 09/06/2024 text/html Pt arrives to PT with daughter who translates for her. Pt reports increased pain yesterday but doing better today. 3/10 pain. Meg Josep, EMERGENCY MEDICINE SPECIALIST [address], [place], [address], [facility] - [facility] 09/08/2024 13:46:32 12/25/2024 text/html I am seeing this patient under the supervision of Dr. Kohli who was available but did not see the patient. HPI: Patient is a 54-year-old female who presents today with chief complaint of left shoulder pain. She reports several month duration of symptoms exacerbated with overhead use of the extremity, reports intermittent nighttime pain, denies previous injury. Additionally, the patient reports pain that refers into the hand and finger starts in the neck are affected by motions of her cervical spine. Past history notable for prior cervical fusion from an outside neurosurgeon, prior history of subacromial decompression Dr. Castaneda 2009 on the left shoulder. Clinical Update: Patient returns today for follow-up evaluation with primary cervical complaints requesting an injection in the shoulder. She has attended physical therapy however majority of her pain complaints continues to be trapezius neck region. Examination of the left shoulder findings include: ROM forward elevation 175 , external rotates 35 , internal rotates to back pocket, 4/5 strength including rotator cuff and periscapular musculature. Good Muscle bulk and strength without atrophy. No evidence of instability of the shoulder. Positive impingement signs. Moderate AC joint tenderness, Mild tenderness within the bicipital groove. Negative Speed's, Negative O'briens, Negative Nerissa tests. Cervical ROM restricted in all planes, positive Spurling's maneuver, irritability in the cervical root outflow, normal motor strength involving biceps triceps deltoid and brachial radialis. Normal median radial ulnar nerve distribution of the hand. No erythema, no redness, no warmth. Peripheral, vascular, lymphatic examination, skin, neurological, coordination, reflexes, sensation are within normal limits. X-RAY REPORT: X-rays were ordered, obtained and independently reviewed today at [facility]. Four views of the left shoulder findings include: Benign morphology of the acromion, mild AC joint arthritis, well-preserved glenohumeral joint. Lateral C-spine x-ray findings include degenerative changes at the level above the previous cervical fusion plate which appears to be stable. IMPRESSION: Left shoulder impingement, AC joint arthropathy, cervical radiculopathy with C6 nerve distribution PLAN: Based on her evaluation today I believe the primary etiology relative to her upper extremity pain is neck related and I would recommend she continue follow-up care with her neurosurgeon and [facility] pain clinic which she has a pre-existing relationship with. I do not believe subacromial space injection would be beneficial to her at this time. [facility] speech recognition financial accounting manager software was used to create portions of this document. An attempt at proofreading has been made to minimize errors. Please call for corrections. Francesco Carmona PA-C [address], [place], [address], [facility] - [facility] 12/25/2024 08:39:38 OBGyn Episode No OBEpisode recorded.
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
== END 2025-05-05 12:50 | disposition home or self-care (01) ==
LOC: HO.HSMS 12:15
PROVIDERS: PCP Physician Assistant Medical; Visit Provider Psychiatry & Neurology Neurology
DX: G20.B2 Parkinson's disease with dyskinesia, with fluctuations (principal); M47.816 Spondylosis without myelopathy or radiculopathy, lumbar region
CPT/HCPCS: 99214